=== PATIENT | male | born 1955 ===

== ENCOUNTER 2020-08-14 10:12 | Outpatient (REF) | payer MEDICARE, MEDICAID, SELFPAY ==
--- NOTE | 2020-08-14 10:42 | XR_ITS ---
EXAMINATION: XR LUMBOSACRAL SPINE CLINICAL INFORMATION: Low back pain. COMPARISON: 04/16/2020 radiographs. TECHNIQUE: Three views of the lumbosacral spine. FINDINGS: Mild to moderate multilevel degenerative disc disease is seen, most pronounced at L2-3. Again seen is a superior endplate compression deformity at L3 without significant change. There is normal spinal alignment without significant change. The soft tissues are unremarkable. XR/XR lumbar spine 2-3V IMPRESSION: Multilevel degenerative changes and nonacute superior plate compression deformity at L3 without significant interval change.
[2020-08-14 13:05] LABS: MANUAL DIFF FLAG NO
[2020-08-14 13:53] LABS: Anion Gap 13 (12-20); Blood Urea Nitrogen 19 mg/dL (9-16); Calcium 8.6 mg/dL (8.4-10.2); Carbon Dioxide 24 mmol/L (22-29); Chloride 104 mmol/L (96-108); Estimated Glomerular Filt Rate > 60; Glucose Fasting 86 mg/dL (60-99); Potassium 4.4 mmol/l (3.3-5.1); Rheumatoid Factor 15.4 IU/mL (<15.0); Sodium 137 mmol/L (135-145)
[2020-08-14 14:02] LABS: Basophils Percent Auto 0.1 % (0-2); Eosinophils Percent Auto 0.4 % (0-4); Hematocrit 28.5 % (42-52); Hemoglobin 8.5 g/dl (14.0-18.0); Imm Gran Abs Auto 0.02 X10*3/uL (0.00-0.03); Imm Gran Pct Auto 0.3 % (0.0-0.4); Lymphocytes Absolute Auto 1.2 X10*3/uL (1.2-4.9); Lymphocytes Percent Auto 15.3 % (20-40); Mean Corpuscular HGB Conc 29.8 g/dl (31.0-36.0); Mean Corpuscular Hemoglobin 25.4 pg (27.0-33.0); Mean Corpuscular Volume 85.1 fL (80-98); Mean Platelet Volume 13.6 fL (9.4-12.4); Monocytes Absolute Auto 0.4 X10*3/uL (0.1-1.2); Monocytes Percent Auto 5.3 % (2-11); Neutrophils Absolute Auto 5.9 X10*3/uL (2.0-8.3); Neutrophils Percent Auto 78.6 % (45-73); Platelet Count 206 X10*3/uL (160-400); Red Blood Count 3.35 X10*6/uL (4.60-5.80); Red Cell Distribution Width 17.5 % (11.0-16.0); White Blood Count 7.5 X10*3/uL (4.8-10.8)
[2020-08-14 14:42] LABS: Erythrocyte Sedimentation Rate 34 MM/HR (0-15)
== END 2020-08-14 10:13 | disposition home or self-care (01) ==
LOC: HO.LAB 10:12
PROVIDERS: PCP Internal Medicine; Visit Provider Nurse Practitioner Family
DX: G89.29 Other chronic pain (principal); M54.5 Low back pain
CPT/HCPCS: 36415; 72100; 80048; 85025; 85652; 86431

== ENCOUNTER 2020-09-05 | Day surgery (SDC) | payer MEDICARE, MEDICAID, SELFPAY ==
[2020-09-05 10:32] VITALS: PULSE 65; RESP 18; TEMP 36.6; O2SAT 96
[2020-09-05 10:36] VITALS: BMI 34.9
[2020-09-05] MEDS: Sodium Phosphate,Mono-Dibasic 133 ML ENEMA PR (10:50)
--- NOTE | 2020-09-05 10:51 | PC.NURSE ---
PER MD VERBAL ORDER, FLEETS GIVEN DUE TO PT'S UNRELIABILITY IN PAST WITH PREP. HAD RICE AND BEANS AT 1600 YESTERDAY BUT STATES WATER LIQUID RESULTS. ONE FLEETS GIVEN AT 1050AM.
--- NOTE | 2020-09-05 11:37 | PC.NURSE ---
WATER LIQUID RESULTS WITH FLEETS AT 1105.
--- NOTE | 2020-09-05 11:49 | HO.ANESPROP2 ---
[facility] Past Medical History Medical History Common cold Hepatitis C Liver cirrhosis Lower back pain Family History Family History Father Prostate cancer Mother Diabetes Stroke Surgical History Surgical History (Updated 09/05/20 @ 11:36 by Rivka Masters RN) History of ankle surgery History of appendectomy History of breast lump/mass excision History of open reduction and internal fixation (ORIF) procedure Hx of colonoscopy Social History Social History (Updated 09/05/20 @ 11:57 by Marleny Torres) Alcohol intake: former Year quit: 2017 Smoking Status: Current every day smoker Cigarettes Per Day: 7 Use of substances other than those prescribed or required for medical reasons: No Advance Directives: No Advance Directives Information Provided: No Advance Directives on File: No Meds Allergies Allergy/AdvReac Type Severity Reaction Status Date / Time No Known Allergies Allergy Verified 09/05/20 10:43 [No Known Allergies*] Home Medications Medication Instructions Recorded Confirmed Type albuterol sulfate 90 mcg/actuation 2 puff PO Q6H PRN 08/13/20 08/13/20 History aerosol inhaler bisacodyl 5 mg tablet,delayed 10 mg PO DIRECTED 08/13/20 08/13/20 History release celecoxib 200 mg capsule 200 mg PO DAILY 08/13/20 08/13/20 History cyanocobalamin (vitamin B-12) 1,000 mcg PO DAILY 08/13/20 08/13/20 History 1,000 mcg tablet,extended release folic acid 1 mg tablet 1 mg PO DAILY 08/13/20 08/13/20 History lactulose 10 gram/15 mL oral 15 ml PO DAILY 08/13/20 08/13/20 History solution omeprazole 20 mg capsule,delayed 20 mg PO QAM 08/13/20 08/13/20 History release rifaximin 550 mg tablet 550 mg PO BID 08/13/20 08/13/20 History sodium,potassium,mag sulfates 17.5 1 PO 08/13/20 08/13/20 History gram-3.13 gram-1.6 gram oral soln thiamine HCl (vitamin B1) 50 mg 100 mg PO DAILY 08/13/20 08/13/20 History tablet tramadol 50 mg tablet 50 mg PO BID PRN 08/13/20 08/13/20 History vitamin B complex 1 tab PO DAILY 08/13/20 08/13/20 History vitamin B complex-folic acid 0.4 1 tab PO DAILY 08/13/20 08/13/20 History mg tablet Exam Exam Date and Time: September 05, 2020 1149 Height,Weight and Vital Signs: Height 5 ft 3 in Weight 89.358 kg Last Vital Signs Temp 98 F 09/05/20 10:32 Pulse 65 09/05/20 10:32 Resp 18 09/05/20 10:32 Pulse Ox 96 09/05/20 10:32 Airway Mallampati Class: III TM Dist: >3cm Neck ROM: Full Partial: Upper and Lower Heart: RRR Lungs: clear after coughing Assessment and Plan Assessment Anesthesia Assessment: Anesthesia Plan Discussed and Chart Reviewed Final Anesthetic Review NPO: Yes ASA Class: III Final Preanesthetic Review: Meds/Allgs Chart Reviewed, Consent Obtained/Reviewed and Anes Risks/Benef Reviewed Patient Risk: Intermediate Procedure Risk: Low Anesthetic Plan Anesthetic Plan: MAC: Disposition: Standard PACU
--- NOTE | 2020-09-05 12:46 | MHC.SHP ---
Pre-Procedural Eval Section B Chief Complaint: screening Relevant Family History (Specify if Yes): No Relevant Social History: Tobacco Use Present Medications: see Short Stay Collaborative assessment Medical History: Significant History (Hepatitis C Liver cirrhosis Lower back pain) History of Previous Operations: Relevant previous surgery/procedure and date(s) (appendectomy, ORIF) Allergies: Allergies Allergy/AdvReac Type Severity Reaction Status Date / Time No Known Allergies Allergy Verified 09/05/20 10:43 [No Known Allergies*] Review of Systems Sugical H&P ROS: Negative: Constitution, Cardiovascular, Respiratory, Neurological, Psychiatric, Hem-Onc, Allergic/Immunologic, Gastrointestinal, Genitourinary, Musculoskeletal, Integumentary, Endocrine and Eyes/Ears/Nose/Throat Exam Surgical H&P Exam: Normal: HEENT, Normal: Heart, Normal: Lungs, Normal: Extremities, Normal: Abdomen, Normal: Skin and Normal: Neurological Plan Diagnosis/Plan: Unchanged Patient has been examined and remains a candidate for the planned procedure
--- NOTE | 2020-09-05 12:48 | PM.OP ---
Brief Operative Note Date of Service: 09/05/20 Post-op diagnosis: same Procedure: Operative Information Procedure Description: Colonoscopy COLONOSCOPY Instrument: Olympus variable stiffness pediatric scope 190L Colonoscopy Monitoring: Vital signs and clinical assessment, continuous EKG monitoring, Pulse oximetry, Carbon Dioxide monitoring and blood pressure monitoring were done throughout the procedure. Colon withdrawal time was 21 minutes. Procedure: The patient was placed in the left lateral decubitis position and pre-procedure medications were administered. After a digital rectal examination of the ano-rectum, the video colonoscope was inserted into the rectum and advanced through the colon to the cecum/TI. The colonoscope was slowly withdrawn in a retrograde panoramic fashion and the colon mucosa was carefully examined including a retroflexed view of the rectum. Findings and interventions are described below. Procedure Difficulty:easy Findings: Terminal Ileum-normal Cecum: 5-6 mm sessile polyp removed with cold snare Ascending Colon: x 2 sessile polyps 8-10 mm each removed with cold snare Transverse Colon -normal Descending Colon:normal Sigmoid Colon: sessile polyp about 10 mm removed with codl snare, x 2 clips applied Rectum: Retroflexion with moderate sized internal hemorrhoids, grade II Anorectum - int hemorrhoids seen at anal verge Colon preparation: [place] Bowel Preparation Scale Right colon; 1 Transverse colon: 1 Left colon; 1 (0 = Unprepared colon segment with mucosa not seen due to solid stool that cannot be cleared. 1 = Portion of mucosa of the colon segment seen, but other areas of the colon segment not well seen due to staining, residual stool and/or opaque liquid. 2 = Minor amount of residual staining, small fragments of stool and/or opaque liquid, but mucosa of colon segment seen well. 3 = Entire mucosa of colon segment seen well with no residual staining, small fragments of stool or opaque liquid) Impression and Post Procedure Diagnosis: polyps int hemorrhoids Plan: High fiber diet leaflet Avoid straining at stool, epsom salts and sitz bath, anusol supps or cream Repeat Colonoscopy in 6-12 months with prep complaince next time, found after wards that he ate yesterday, beans and rice Above findings were reviewed with the patient and relevant handouts were provided if indicated. Surgeon: Amber Maza MD Anesthesia: MAC Estimated blood loss (mL): 0 Condition: stable Disposition: PACU
[2020-09-05 13:51] VITALS: BP 139/96; PULSE 110; RESP 12; TEMP 36.2; O2SAT 98
[2020-09-05 14:06] VITALS: BP 140/78; PULSE 110; RESP 16; O2SAT 97
[2020-09-05 14:14] VITALS: BP 122/91; PULSE 88; RESP 16; TEMP 36.1; O2SAT 97
--- NOTE | 2020-09-05 14:40 | HO.POSTANES ---
Post Anesthesia Evaluation Post Anesthesia Evaluation Vital Signs: Vital Signs Temp Pulse Resp BP Pulse Ox 09/05/20 14:14 97 F 88 16 122/91 H 97 09/05/20 14:06 110 H 16 140/78 H 97 09/05/20 13:51 97.1 F 110 H 12 139/96 H 98 09/05/20 10:32 98 F 65 18 96 Anesthesia: Monitored Mental Status: Awake Pain Control: Satisfactory Nausea/Vomiting: None Hydration: Adequate Anesthesia-Related Issues: No Anes. Related Issues
== END 2020-09-05 15:00 | disposition home or self-care (01) ==
LOC: HO.SSS 10-23 08:12
PROVIDERS: PCP Internal Medicine; Visit Provider Internal Medicine Gastroenterology
PROC: 0DJD8ZZ Inspection of Lower Intestinal Tract, Via Natural or Artificial Opening Endoscopic (ICD-10-PCS; CPT 45378; principal; 2020-09-05 13:40)
DX: Z12.11 Encounter for screening for malignant neoplasm of colon (principal); D12.0 Benign neoplasm of cecum; D12.2 Benign neoplasm of ascending colon; D12.5 Benign neoplasm of sigmoid colon; K64.1 Second degree hemorrhoids; K74.60 Unspecified cirrhosis of liver; B19.20 Unspecified viral hepatitis C without hepatic coma; F17.210 Nicotine dependence, cigarettes, uncomplicated; Z79.899 Other long term (current) drug therapy
CPT/HCPCS: 45385; 88305

== ENCOUNTER 2020-09-24 10:39 | Outpatient (REF) | payer MEDICARE, MEDICAID, SELFPAY ==
[2020-09-24 12:48] LABS: MANUAL DIFF FLAG NO
[2020-09-24 12:56] LABS: Basophils Percent Auto 0.4 % (0-2); Eosinophils Absolute Auto 0.4 X10*3/uL (0.0-0.4); Eosinophils Percent Auto 5.5 % (0-4); Hematocrit 33.7 % (42-52); Hemoglobin 10.2 g/dl (14.0-18.0); Imm Gran Abs Auto 0.02 X10*3/uL (0.00-0.03); Imm Gran Pct Auto 0.3 % (0.0-0.4); Lymphocytes Absolute Auto 2.2 X10*3/uL (1.2-4.9); Lymphocytes Percent Auto 30.1 % (20-40); Mean Corpuscular HGB Conc 30.3 g/dl (31.0-36.0); Mean Corpuscular Hemoglobin 25.2 pg (27.0-33.0); Mean Corpuscular Volume 83.4 fL (80-98); Mean Platelet Volume 13.2 fL (9.4-12.4); Monocytes Absolute Auto 0.7 X10*3/uL (0.1-1.2); Monocytes Percent Auto 9.9 % (2-11); Neutrophils Percent Auto 53.8 % (45-73); Platelet Count 223 X10*3/uL (160-400); Red Blood Count 4.04 X10*6/uL (4.60-5.80); Red Cell Distribution Width 16.6 % (11.0-16.0); White Blood Count 7.4 X10*3/uL (4.8-10.8)
[2020-09-24 13:10] LABS: Prothrombin Time 11.3 SEC (10.8-13.0)
[2020-09-24 13:21] LABS: Alanine Aminotransferase 26 U/L (0-40); Albumin Level 3.9 g/dL (3.5-5.0); Alkaline Phosphatase 112 U/L (39-117); Anion Gap 13 (12-20); Aspartate Amino Transferase 30 U/L (5-37); Bilirubin Total 0.3 mg/dL (0.0-1.0); Blood Urea Nitrogen 18 mg/dL (9-16); Calcium 8.4 mg/dL (8.4-10.2); Carbon Dioxide 25 mmol/L (22-29); Chloride 107 mmol/L (96-108); Estimated Glomerular Filt Rate > 60; Glucose Random 87 mg/dL (60-115); Potassium 4.5 mmol/l (3.3-5.1); Sodium 140 mmol/L (135-145); Total Protein 6.9 g/dL (6.5-8.0)
[2020-09-24 13:41] LABS: Ferritin 15 ng/mL (20-250); Vitamin D 25-OH Total 11.3 ng/mL (>30)
[2020-09-24 14:14] LABS: Folate 9.2 ng/mL (> or = 4.0); Vitamin B12 624 pg/mL (200-900)
[2020-09-28 14:13] LABS: Vitamin B6 2.9 ng/mL (2.1-21.7)
[2020-09-29 16:12] LABS: Zinc 79 mcg/dL (60-130)
[2020-09-30 17:38] LABS: Vitamin A 46 mcg/dL (38-98)
[2020-10-01 12:12] LABS: Alpha-Tocopherol 9.5 mg/L (5.7-19.9); Beta-Gamma Tocopherol <1.0 mg/L (<=4.3)
[2020-10-01 16:32] LABS: Vitamin C 1.2 mg/dL (0.2-2.1)
[2020-10-01 19:12] LABS: Vitamin B5 (Pantothenic Acid) <40 ng/mL (<275)
[2020-10-02 13:07] LABS: Nicotinamide 60 ng/mL; Vit B3 - Nicotinic Acid <20 ng/mL
[2020-10-02 16:37] LABS: Vitamin K1 114 pg/mL (130-1500)
== END 2020-09-24 10:40 | disposition home or self-care (01) ==
LOC: HO.LAB 10:39
PROVIDERS: PCP Internal Medicine; Visit Provider Internal Medicine Gastroenterology
DX: K74.60 Unspecified cirrhosis of liver (principal)
CPT/HCPCS: 36415; 80053; 82180; 82306; 82550; 82607; 82728; 82746; 84207; 84446; 84590; 84591; 84597; 84630; 85025; 85610; Q3014

== ENCOUNTER 2020-10-15 13:25 | Outpatient (REF) | payer MEDICARE, MEDICAID, SELFPAY ==
--- NOTE | 2020-10-15 13:28 | MR_ITS ---
EXAMINATION: MR ABDOMEN WITHOUT AND WITH CONTRAST CLINICAL INFORMATION: Liver cirrhosis COMPARISON: Previous abdominal MRIs most recent June [address] scans most recent November 2018 TECHNIQUE: MR abdomen was performed without and with use of 9 mL intravenous Gadavist gadolinium contrast. Postcontrast images are performed in multiphase dynamic sequences. Imaging was performed in 3 planes. FINDINGS: LUNG BASES: The visualized lung bases are unremarkable. LIVER, GALLBLADDER, AND BILIARY TREE: There is a signal loss in the liver on out of phase sequences suggestive of fatty infiltration. There is been interval decrease in size in the left lobe and caudate lobe of the liver compared to previous exams. There is interval decrease in size in the lesion in the lateral segment of the left lobe of the liver. This is heterogeneous and predominantly low signal on T1-weighted sequences with small focus of increased attenuation, heterogeneous in signal on T2-weighted sequences and demonstrates no evidence of enhancement. This measures 2.2 x 4.6 cm in AP and transverse dimension and is decreased in size from previous exams, most recent exam June 2019 measuring 4.1 x 6.1 cm. There is altered perfusion of the left lobe of the liver and the caudate lobe of the liver. There is a small 5 mm probable cyst high in the left lobe of the liver that is unchanged for example axial T2 image 9 series 4 and postcontrast image 22. There is a small nonspecific 6 mm area of early arterial enhancement high in the dome of the liver axial image 16 series 100. No corresponding signal abnormality is seen on precontrast sequences and this is not appreciated on later postcontrast sequences. This is similar to most recent exam from June 2019. No new liver lesion is seen. The left portal vein may be occluded. The right portal vein and main portal vein are patent. The gallbladder is unremarkable. There is no biliary duct dilatation. PANCREAS: Unremarkable. SPLEEN: Normal. ADRENAL GLANDS: Normal. KIDNEYS AND URETERS: There are left renal peripelvic cysts. The kidneys are otherwise unremarkable. GASTROINTESTINAL TRACT: No bowel obstruction. No ascites or fluid collection. ABDOMINAL WALL: There is a small umbilical hernia containing fat. LYMPH NODES: There are small periportal and upper abdominal retroperitoneal lymph nodes that are stable. No enlarged lymph nodes are seen. There is no ascites. VASCULAR: Occluded left portal vein. OSSEOUS STRUCTURES: There are degenerative changes of the spine. There is slight loss of height of superior endplate of the L3 vertebral body questionable for compression fracture versus Schmorl's node. This is similar to previous exams. MR/MR abdomen wo/w con IMPRESSION: Continued interval increase in size in the slightly heterogeneous nonenhancing lesion in the left lobe of the liver. Again this may represent a treated lesion. Stable 5 mm liver cyst high in the dome of the liver. Stable 6 mm focus of early arterial phase enhancement high in the dome of the liver not seen on any other sequences. 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 Small periportal and upper abdominal retroperitoneal lymph nodes that are stable. Left renal peripelvic cysts. Small umbilical hernia containing fat.
== END 2020-10-15 13:26 | disposition home or self-care (01) ==
LOC: HO.MRI 13:25
PROVIDERS: Visit Provider Internal Medicine Gastroenterology
DX: K74.60 Unspecified cirrhosis of liver (principal)
CPT/HCPCS: 74183; A9585

== ENCOUNTER 2020-11-12 13:47 | Emergency (ER) | payer MEDICARE, MEDICAID, SELFPAY ==
--- NOTE | ~2020-11-12 | XR_ITS ---
EXAMINATION: XR CHEST CLINICAL INFORMATION: Fluid overload COMPARISON: 01/17/2018 TECHNIQUE: Frontal view of the chest was obtained. FINDINGS: Lungs are clear. Normal pulmonary vascularity. Degenerative changes of the bilateral shoulders. Calcified aortic arch. No pleural effusion or pneumothorax. Normal heart size. XR/XR chest 1V IMPRESSION: No acute pulmonary disease.
[2020-11-12 13:50] VITALS: BP 158/97; PULSE 78; RESP 18; TEMP 37; O2SAT 97; BMI 32.8
[2020-11-12] MEDS: Acetaminophen 325 MG TABLET 650 MG PO (15:16)
--- NOTE | 2020-11-12 16:11 | ED.LOWEXIN ---
HPI - Extremity Injury (Lower) General Chief Complaint: Extremity Injury, Lower Stated Complaint: LEG PAIN Time Seen by Provider: 11/12/20 16:10 Source: patient Mode of arrival: ambulatory Limitations: no limitations History of Present Illness HPI Narrative: Vascular alcoholic cirrhosis and hepatic cancer not taking any medication comes here with pain in both lower extremities for last 1 month feel burning sensation no motor weakness no sensory loss never had similar symptoms in the past also patient noticed increased leg swelling no shortness of breath no chest pain Related Data Home Medications Medication Instructions Recorded Confirmed albuterol sulfate 90 mcg/actuation 2 puff PO Q6H PRN 08/13/20 08/13/20 aerosol inhaler bisacodyl 5 mg tablet,delayed 10 mg PO DIRECTED 08/13/20 08/13/20 release celecoxib 200 mg capsule 200 mg PO DAILY 08/13/20 08/13/20 cyanocobalamin (vitamin B-12) 1,000 mcg PO DAILY 08/13/20 08/13/20 1,000 mcg tablet,extended release folic acid 1 mg tablet 1 mg PO DAILY 08/13/20 08/13/20 lactulose 10 gram/15 mL oral 15 ml PO DAILY 08/13/20 08/13/20 solution omeprazole 20 mg capsule,delayed 20 mg PO QAM 08/13/20 08/13/20 release rifaximin 550 mg tablet 550 mg PO BID 08/13/20 08/13/20 sodium,potassium,mag sulfates 17.5 1 PO 08/13/20 08/13/20 gram-3.13 gram-1.6 gram oral soln thiamine HCl (vitamin B1) 50 mg 100 mg PO DAILY 08/13/20 08/13/20 tablet tramadol 50 mg tablet 50 mg PO BID PRN 08/13/20 08/13/20 vitamin B complex 1 tab PO DAILY 08/13/20 08/13/20 vitamin B complex-folic acid 0.4 1 tab PO DAILY 08/13/20 08/13/20 mg tablet Previous Rx's Medication Instructions Recorded cyclobenzaprine 10 mg tablet 10 mg PO BEDTIME 30 Days #30 tab 08/13/20 guaifenesin 600 mg tablet, 600 mg PO BID 10 Days #20 tab 08/13/20 extended release 12 hr ibuprofen 800 mg tablet 800 mg PO Q8H PRN 15 Days #30 tab 08/13/20 prednisone 10 mg tablet 10 mg PO DAILY 9 Days #18 tab 08/13/20 ferrous sulfate 325 mg (65 mg 325 mg PO BID 30 Days #60 tab 08/14/20 iron) tablet,delayed release trazodone 50 mg tablet 50 mg PO BEDTIME PRN #30 tab 08/14/20 hydrocortisone [Proctozone-HC] 1 appl ME BEDTIME 7 Days #30 g 09/05/20 tadalafil 10 mg tablet 10 mg PO DAILY PRN #30 tab 09/25/20 cholecalciferol (vitamin D3) 25 1,000 unit PO DAILY 30 Days #30 cap 10/01/20 mcg (1,000 unit) capsule gabapentin [Neurontin] 100 mg PO TID #60 cap 11/12/20 Allergies Allergy/AdvReac Type Severity Reaction Status Date / Time No Known Allergies Allergy Verified 11/12/20 13:50 [No Known Allergies*] Review of Systems Review of Systems: Constitutional : No Weight loss, No Fever, No Chills ENT/Mouth : No sore throat, No Rhinorrhea Eyes: No Eye Pain, No Swelling Cardiovascular : No Chest Pain, no palpitations Respiratory : No Cough, No Sputum, no shortness of breath Gastrointestinal : no Nausea, No Vomiting, No Diarrhea, No abdominal Pain, no black stools Genitourinary : No Dysuria, No Urinary Frequency Musculoskeletal : No joint pain, No Myalgias, No Joint Swelling Skin : No Skin Lesions, No rash Neuro : No Weakness, ++ Numbness, No Dizziness, No Headache Psych : No Anxiety/Panic, No Depression Heme/Lymph: No Bruising, No Lymphadenopathy Endocrine : No Polyuria, No Polydipsia All other systems reviewed and are negative [facility] Past Medical History Medical History Common cold Hepatitis C Liver cirrhosis Lower back pain Surgical History History of ankle surgery History of appendectomy History of breast lump/mass excision History of open reduction and internal fixation (ORIF) procedure Hx of colonoscopy Family History Family History Father Prostate cancer Mother Diabetes Stroke Social History Social History Alcohol intake: former Year quit: 2017 Smoking Status: Current every day smoker Cigarettes Per Day: 7 Advance Directives: Yes Advance Directives Information Provided: Yes Advance Directives on File: No Physical Exam Vital Signs: Vital Signs: Last Vital Signs Temp 98.1 F 11/12/20 17:58 Pulse 67 11/12/20 17:58 Resp 18 11/12/20 17:58 BP 178/96 H 11/12/20 17:58 Pulse Ox 99 11/12/20 17:58 Body Mass Index 32.8 Appearance: Alert. Oriented X3. No acute distress. Eyes: Pupils equal, round and reactive to light. ENT: Pharynx normal. Neck: Normal inspection. Neck supple. CVS: Normal heart rate and rhythm. Pulses normal. Respiratory: No respiratory distress. Breath sounds normal. Abdomen: Soft and nontender. Bowel sounds are present, no mass palpable, no CVA tenderness Skin: Skin warm and dry. Normal skin color. Normal skin turgor. Extremities: 1+ pedal edema. A joint normal no effusion subjective numbness both lower extremities Neuro: Oriented X 3. No motor deficit. No sensory deficit. Deep tendon reflexes 2+ bilateral MDM - Extremity Injury (Lower) MDM Narrative Medical decision making narrative: Patient with neuropathic pain both legs likely with peripheral neuropathy workup is negative labs normal. Will discharge patient home on [facility] Medical Records Attestation: I reviewed the patient's medical records. Lab Data Attestation: I reviewed the patient's lab results. Result diagrams: 11/12/20 17:04 11/12/20 17:04 Labs: Lab Results 11/12/20 11/12/20 11/12/20 Range/Units 17:04 17:04 17:04 WBC 7.0 (4.8-10.8) X10*3/uL RBC 3.99 L (4.60-5.80) X10*6/uL Hgb 9.8 L (14.0-18.0) g/dl Hct 32.2 L (42-52) % MCV 80.7 (80-98) fL MCH 24.6 L (27.0-33.0) pg MCHC 30.4 L (31.0-36.0) g/dl RDW 16.1 H (11.0-16.0) % Plt Count 215 (160-400) X10*3/uL MPV 11.1 (9.4-12.4) fL Immature Gran % (Auto) 0.1 (0.0-0.4) % Neut % (Auto) 59.6 (45-73) % Lymph % (Auto) 27.5 (20-40) % [place] % (Auto) 9.4 (2-11) % Eos % (Auto) 3.3 (0-4) % Baso % (Auto) 0.1 (0-2) % Lymph # (Auto) 1.9 (1.2-4.9) X10*3/uL [place] # (Auto) 0.7 (0.1-1.2) X10*3/uL Eos # (Auto) 0.2 (0.0-0.4) X10*3/uL Baso # (Auto) 0.0 (0.0-0.2) X10*3/uL Abs Immat Gran (auto) 0.01 (0.00-0.03) X10*3/uL Absolute Neuts (auto) 4.2 (2.0-8.3) X10*3/uL Absolute Nucleated RBC 0.000 (0.0-0.012) X10*3/uL Nucleated RBC % (auto) 0.0 (0.0-0.2) /100WBC PT 12.3 (10.8-13.0) SEC INR 1.0 (0.9-1.1) APTT 30.6 (24.1-38.0) SEC Sodium 140 (135-145) mmol/L Potassium 4.0 (3.3-5.1) mmol/L Chloride 108 (96-108) mmol/L Carbon Dioxide 25 (22-29) mmol/L Anion Gap 11 L (12-20) BUN 14 (9-16) mg/dL Creatinine 1.07 (0.5-1.4) mg/dL Estim Creat Clear Calc 65.0 Estimated GFR > 60 Random Glucose 95 (60-115) mg/dL Calcium 8.7 (8.4-10.2) mg/dL Magnesium 2.1 (1.6-2.6) mg/dL Total Bilirubin 0.6 (0.0-1.0) mg/dL Direct Bilirubin 0.2 (0.0-0.5) mg/dL AST 33 (5-37) U/L ALT 24 (0-40) U/L Alkaline Phosphatase 105 (39-117) U/L Ammonia (13-55) umol/L B-Natriuretic Peptide (<100) pg/mL Total Protein 6.8 (6.5-8.0) g/dL Albumin 3.8 (3.5-5.0) g/dL Lipase 26 (8-78) U/L Vitamin B12 (200-900) pg/mL Folate (> or = 4.0) ng/mL 11/12/20 11/12/20 11/12/20 Range/Units 17:04 17:04 17:04 WBC (4.8-10.8) X10*3/uL RBC (4.60-5.80) X10*6/uL Hgb (14.0-18.0) g/dl Hct (42-52) % MCV (80-98) fL MCH (27.0-33.0) pg MCHC (31.0-36.0) g/dl RDW (11.0-16.0) % Plt Count (160-400) X10*3/uL MPV (9.4-12.4) fL Immature Gran % (Auto) (0.0-0.4) % Neut % (Auto) (45-73) % Lymph % (Auto) (20-40) % [place] % (Auto) (2-11) % Eos % (Auto) (0-4) % Baso % (Auto) (0-2) % Lymph # (Auto) (1.2-4.9) X10*3/uL [place] # (Auto) (0.1-1.2) X10*3/uL Eos # (Auto) (0.0-0.4) X10*3/uL Baso # (Auto) (0.0-0.2) X10*3/uL Abs Immat Gran (auto) (0.00-0.03) X10*3/uL Absolute Neuts (auto) (2.0-8.3) X10*3/uL Absolute Nucleated RBC (0.0-0.012) X10*3/uL Nucleated RBC % (auto) (0.0-0.2) /100WBC PT (10.8-13.0) SEC INR (0.9-1.1) APTT (24.1-38.0) SEC Sodium (135-145) mmol/L Potassium (3.3-5.1) mmol/L Chloride (96-108) mmol/L Carbon Dioxide (22-29) mmol/L Anion Gap (12-20) BUN (9-16) mg/dL Creatinine (0.5-1.4) mg/dL Estim Creat Clear Calc Estimated GFR Random Glucose (60-115) mg/dL Calcium (8.4-10.2) mg/dL Magnesium (1.6-2.6) mg/dL Total Bilirubin (0.0-1.0) mg/dL Direct Bilirubin (0.0-0.5) mg/dL AST (5-37) U/L ALT (0-40) U/L Alkaline Phosphatase (39-117) U/L Ammonia 40 (13-55) umol/L B-Natriuretic Peptide 77 (<100) pg/mL Total Protein (6.5-8.0) g/dL Albumin (3.5-5.0) g/dL Lipase (8-78) U/L Vitamin B12 909 H (200-900) pg/mL Folate 7.2 (> or = 4.0) ng/mL Discharge Plan Discharge Clinical Impression: Neuropathy Patient Disposition: Home, Self-Care Instructions: Peripheral Neuropathy (ED) Additional Instructions: Take medication as prescribed. Follow with PCP Prescriptions: New gabapentin [Neurontin] 100 mg capsule 100 mg PO TID Qty: 60 RF: 0 No Action trazodone 50 mg tablet 50 mg PO BEDTIME PRN (Reason: insomnia) Qty: 30 RF: 0 ferrous sulfate 325 mg (65 mg iron) tablet,delayed release (DR/EC) 325 mg PO BID 30 Days Qty: 60 RF: 0 tadalafil 10 mg tablet 10 mg PO DAILY PRN (Reason: sexual activity) Qty: 30 RF: 0 cholecalciferol (vitamin D3) 25 mcg (1,000 unit) capsule 1,000 unit PO DAILY 30 Days Qty: 30 RF: 3 hydrocortisone [Proctozone-HC] 2.5 % cream with perineal applicator 1 appl ME BEDTIME 7 Days Qty: 30 RF: 0 Xifaxan 550 mg tablet 550 mg PO BID RF: 0 omeprazole 20 mg capsule,delayed release(DR/EC) 20 mg PO QAM RF: 0 cyanocobalamin (vitamin B-12) 1,000 mcg tablet extended release 1,000 mcg PO DAILY RF: 0 vitamin B complex-folic acid 0.4 mg tablet 1 tab PO DAILY RF: 0 albuterol sulfate 90 mcg/actuation HFA aerosol inhaler 2 puff PO Q6H PRN (Reason: Cold Symptoms) RF: 0 celecoxib 200 mg capsule 200 mg PO DAILY RF: 0 bisacodyl 5 mg tablet,delayed release (DR/EC) 10 mg PO DIRECTED RF: 0 tramadol 50 mg tablet 50 mg PO BID PRN (Reason: Pain) RF: 0 vitamin B complex Tablet 1 tab PO DAILY RF: 0 thiamine HCl (vitamin B1) 50 mg tablet 100 mg PO DAILY RF: 0 lactulose 10 gram/15 mL solution 15 ml PO DAILY RF: 0 folic acid 1 mg tablet 1 mg PO DAILY RF: 0 Suprep Bowel Prep Kit 17.5-3.13-1.6 gram recon soln 1 PO RF: 0 ibuprofen 800 mg tablet 800 mg PO Q8H PRN (Reason: pain) 15 Days Qty: 30 RF: 0 prednisone 10 mg tablet 10 mg PO DAILY 9 Days Qty: 18 RF: 0 cyclobenzaprine 10 mg tablet 10 mg PO BEDTIME 30 Days Qty: 30 RF: 0 guaifenesin [Mucinex] 600 mg tablet extended release 12hr 600 mg PO BID 10 Days Qty: 20 RF: 0 Interventions: ED Discharge Assessment Last Done: 11/12/20 18:31
[2020-11-12 16:38] VITALS: BP 178/92; PULSE 64; RESP 20; TEMP 36.7; O2SAT 98
[2020-11-12 17:08] LABS: MANUAL DIFF FLAG NO
[2020-11-12 17:11] LABS: Basophils Percent Auto 0.1 % (0-2); Eosinophils Absolute Auto 0.2 X10*3/uL (0.0-0.4); Eosinophils Percent Auto 3.3 % (0-4); Hematocrit 32.2 % (42-52); Hemoglobin 9.8 g/dl (14.0-18.0); Imm Gran Abs Auto 0.01 X10*3/uL (0.00-0.03); Imm Gran Pct Auto 0.1 % (0.0-0.4); Lymphocytes Absolute Auto 1.9 X10*3/uL (1.2-4.9); Lymphocytes Percent Auto 27.5 % (20-40); Mean Corpuscular HGB Conc 30.4 g/dl (31.0-36.0); Mean Corpuscular Hemoglobin 24.6 pg (27.0-33.0); Mean Corpuscular Volume 80.7 fL (80-98); Mean Platelet Volume 11.1 fL (9.4-12.4); Monocytes Absolute Auto 0.7 X10*3/uL (0.1-1.2); Monocytes Percent Auto 9.4 % (2-11); Neutrophils Absolute Auto 4.2 X10*3/uL (2.0-8.3); Neutrophils Percent Auto 59.6 % (45-73); Platelet Count 215 X10*3/uL (160-400); Red Blood Count 3.99 X10*6/uL (4.60-5.80); Red Cell Distribution Width 16.1 % (11.0-16.0)
[2020-11-12 17:19] LABS: Prothrombin Time 12.3 SEC (10.8-13.0)
[2020-11-12 17:22] LABS: Partial Thromboplastin Time 30.6 SEC (24.1-38.0)
[2020-11-12 17:36] LABS: Ammonia 40 umol/L (13-55)
[2020-11-12 17:46] LABS: Alanine Aminotransferase 24 U/L (0-40); Albumin Level 3.8 g/dL (3.5-5.0); Alkaline Phosphatase 105 U/L (39-117); Anion Gap 11 (12-20); Aspartate Amino Transferase 33 U/L (5-37); Bilirubin Direct 0.2 mg/dL (0.0-0.5); Bilirubin Total 0.6 mg/dL (0.0-1.0); Blood Urea Nitrogen 14 mg/dL (9-16); Calcium 8.7 mg/dL (8.4-10.2); Carbon Dioxide 25 mmol/L (22-29); Chloride 108 mmol/L (96-108); Estimated Glomerular Filt Rate > 60; Glucose Random 95 mg/dL (60-115); Lipase 26 U/L (8-78); Magnesium 2.1 mg/dL (1.6-2.6); Sodium 140 mmol/L (135-145); Total Protein 6.8 g/dL (6.5-8.0)
[2020-11-12 17:49] LABS: B Type Natriuretic Peptide 77 pg/mL (<100)
[2020-11-12 17:58] VITALS: BP 178/96; PULSE 67; RESP 18; TEMP 36.7; O2SAT 99
[2020-11-12] MEDS: Gabapentin 300 MG CAPSULE PO (18:37)
[2020-11-12 19:41] LABS: Folate 7.2 ng/mL (> or = 4.0); Vitamin B12 909 pg/mL (200-900)
== END 2020-11-12 18:36 | disposition home or self-care (01) ==
PROVIDERS: Emergency Provider Internal Medicine; PCP Internal Medicine
DX: G62.9 Polyneuropathy, unspecified (principal); K70.30 Alcoholic cirrhosis of liver without ascites; F10.20 Alcohol dependence, uncomplicated; B19.20 Unspecified viral hepatitis C without hepatic coma; C22.8 Malignant neoplasm of liver, primary, unspecified as to type; F17.210 Nicotine dependence, cigarettes, uncomplicated; Z79.899 Other long term (current) drug therapy
CPT/HCPCS: 36415; 71045; 80048; 80076; 82140; 82607; 82746; 83690; 83735; 83880; 85025; 85610; 85730; 99283

== ENCOUNTER 2020-12-05 08:07 | Outpatient (REF) | payer MEDICARE, MEDICAID, SELFPAY ==
[2020-12-05 10:43] LABS: Erythrocyte Sedimentation Rate 28 MM/HR (0-15)
== END 2020-12-05 08:08 | disposition home or self-care (01) ==
LOC: HO.LAB 08:07
PROVIDERS: PCP Internal Medicine; Visit Provider Student in an Organized Health Care Education/Training Program
DX: M79.10 Myalgia, unspecified site (principal); M54.5 Low back pain; Z79.899 Other long term (current) drug therapy; K76.9 Liver disease, unspecified
CPT/HCPCS: 36415; 82085; 82550; 85652; 86140; 99202

== ENCOUNTER → 2020-12-27 08:04 | Outpatient (BNVA) | payer MEDICARE, MEDICAID, SELFPAY | PROVIDERS: PCP Internal Medicine; Visit Provider Student in an Organized Health Care Education/Training Program | DX: M79.10 Myalgia, unspecified site (principal); M47.816 Spondylosis without myelopathy or radiculopathy, lumbar region | CPT/HCPCS: 99212 ==

== ENCOUNTER → 2021-01-20 09:03 | Outpatient (BNVA) | payer MEDICARE, MEDICAID, SELFPAY | PROVIDERS: PCP Internal Medicine; Visit Provider Internal Medicine Gastroenterology | CPT/HCPCS: Q3014 ==

== ENCOUNTER → 2022-02-13 14:41 | Outpatient (BNVA) | payer MEDICARE, MEDICAID, SELFPAY | PROVIDERS: PCP Internal Medicine; Visit Provider Nurse Practitioner Family | DX: M25.561 Pain in right knee (principal); M25.562 Pain in left knee; M79.604 Pain in right leg; M79.605 Pain in left leg; M51.36 Other intervertebral disc degeneration, lumbar region; G57.93 Unspecified mononeuropathy of bilateral lower limbs | CPT/HCPCS: 99202 ==

== ENCOUNTER 2022-02-19 12:19 | Outpatient (REF) | payer MEDICARE, MEDICAID, SELFPAY ==
--- NOTE | ~2022-02-19 | XR_ITS ---
EXAMINATION: Knee x-ray CLINICAL INFORMATION: Right knee pain COMPARISON: None TECHNIQUE: AP bilateral standing view of the knees and lateral view of the right knee was obtained. FINDINGS: Right knee: Bone alignment is normal. No fracture or dislocation is seen. The femoral tibial joints are normal. There is mild arthritis at the femoral tibial joint. There is a small joint effusion. Standing AP view of the left knee is unremarkable. XR/XR knee standing BI IMPRESSION: Mild arthritis at the patellofemoral joint.
--- NOTE | ~2022-02-19 | XR_ITS ---
EXAMINATION: XR BILATERAL HIPS WITH AP PELVIS CLINICAL INFORMATION: Pain COMPARISON: None TECHNIQUE: AP view of the pelvis and 2 views of each hip were obtained. FINDINGS: There is mild arthritis at both hip joints with wall osteophytes. Joint spaces are otherwise normal. No fracture or dislocation is seen bones of the pelvis are normal. Soft tissues are normal. XR/XR hip BI w PEL1V IMPRESSION: Mild degenerative changes at the hip joints.
== END 2022-02-19 12:20 | disposition home or self-care (01) ==
LOC: HO.XRAY 12:19
PROVIDERS: PCP Internal Medicine; Visit Provider Nurse Practitioner Family
DX: G57.93 Unspecified mononeuropathy of bilateral lower limbs (principal); M79.604 Pain in right leg; M79.605 Pain in left leg; M25.561 Pain in right knee; M25.562 Pain in left knee
CPT/HCPCS: 73521; 73565

== ENCOUNTER 2022-03-23 12:10 | Outpatient (REF) | payer MEDICARE, MEDICAID, SELFPAY ==
[2022-03-23 14:06] LABS: Folate 5.4 ng/mL (> or = 4.0); Vitamin B12 309 pg/mL (200-900)
[2022-03-23 14:57] LABS: TSH reflex Free T4 2.57 uIU/mL (0.32-4.0); Vitamin D 25-OH Total 13.1 ng/mL (>30)
[2022-03-23 15:53] LABS: Alanine Aminotransferase 30 U/L (0-40); Albumin Level 3.8 g/dL (3.5-5.0); Alkaline Phosphatase 93 U/L (39-117); Anion Gap 13 (12-20); Aspartate Amino Transferase 39 U/L (5-37); Bilirubin Total 0.2 mg/dL (0.0-1.0); Blood Urea Nitrogen 18 mg/dL (9-16); Calcium 8.5 mg/dL (8.4-10.2); Carbon Dioxide 23 mmol/L (22-29); Chloride 110 mmol/L (96-108); Cholesterol 176 mg/dL; Estimated Glomerular Filt Rate > 60; Glucose Fasting 95 mg/dL (60-99); HDL Cholesterol 54 mg/dL; LDL Cholesterol Calculated 95 mg/dl; Potassium 4.3 mmol/L (3.3-5.1); Sodium 142 mmol/L (135-145); Total Protein 6.7 g/dL (6.5-8.0); Triglycerides 136 mg/dL
== END 2022-03-23 12:11 | disposition home or self-care (01) ==
LOC: HO.LAB 12:10
PROVIDERS: PCP Internal Medicine; Visit Provider Nurse Practitioner Family
DX: M79.604 Pain in right leg (principal); M79.605 Pain in left leg; Z13.29 Encounter for screening for other suspected endocrine disorder; Z13.220 Encounter for screening for lipoid disorders; E55.9 Vitamin D deficiency, unspecified; M51.36 Other intervertebral disc degeneration, lumbar region; G62.9 Polyneuropathy, unspecified; K21.9 Gastro-esophageal reflux disease without esophagitis; R03.0 Elevated blood-pressure reading, without diagnosis of hypertension; M79.10 Myalgia, unspecified site; K74.60 Unspecified cirrhosis of liver
CPT/HCPCS: 36415; 80053; 80061; 82306; 82607; 82746; 84443

== ENCOUNTER 2022-05-01 07:29 | Outpatient (REF) | payer MEDICARE, MEDICAID, SELFPAY | END 2022-05-01 07:30 | disposition home or self-care (01) | LOC: HO.HOSX 07:29 | PROVIDERS: Visit Provider Physician Assistant | DX: Z13.89 Encounter for screening for other disorder (principal) ==

== ENCOUNTER → 2022-05-04 14:51 | Outpatient (BNVA) | payer MEDICARE, MEDICAID, SELFPAY | PROVIDERS: PCP Internal Medicine; Visit Provider Nurse Practitioner Family | DX: M17.0 Bilateral primary osteoarthritis of knee (principal); M51.36 Other intervertebral disc degeneration, lumbar region; M47.816 Spondylosis without myelopathy or radiculopathy, lumbar region | CPT/HCPCS: 20610; 99212; J2795; J3300 ==

== ENCOUNTER 2022-07-15 06:14 | Outpatient (REF) | payer MEDICARE, MEDICAID, SELFPAY | END 2022-07-15 06:15 | disposition home or self-care (01) | LOC: CF 06:14 | PROVIDERS: Visit Provider Internal Medicine | DX: G57.13 Meralgia paresthetica, bilateral lower limbs (principal) | CPT/HCPCS: 64450; J1040 ==

== ENCOUNTER → 2022-08-06 09:59 | Outpatient (BNVA) | payer MEDICARE, MEDICAID, SELFPAY | PROVIDERS: PCP Internal Medicine; Visit Provider Nurse Practitioner Family | DX: G57.93 Unspecified mononeuropathy of bilateral lower limbs (principal); F10.11 Alcohol abuse, in remission; Z92.21 Personal history of antineoplastic chemotherapy | CPT/HCPCS: 99212 ==

== ENCOUNTER 2022-09-03 11:17 | Outpatient (REF) | payer MEDICARE, MEDICAID, SELFPAY ==
--- NOTE | 2022-09-03 08:00 | EMG_ITS ---
Right tibial and peroneal motor studies were performed. Right superficial peroneal and sural sensory studies were performed. Tibial H-reflex was obtained and paraspinal muscles were tested with a needle. IMPRESSION: This study revealed mild right peroneal neuropathy. There was no evidence of generalized neuropathy or radiculopathy. MD DENISE Moya/BRIGETTE / [id number]
== END 2022-09-03 11:18 | disposition home or self-care (01) ==
LOC: HO.NEURO 11:17
PROVIDERS: Visit Provider Nurse Practitioner Family
DX: G57.93 Unspecified mononeuropathy of bilateral lower limbs (principal); Z92.21 Personal history of antineoplastic chemotherapy
CPT/HCPCS: 95886; 95909

== ENCOUNTER → 2022-10-27 10:21 | Outpatient (BNVA) | payer MEDICARE, MEDICAID, SELFPAY | PROVIDERS: PCP Internal Medicine; Visit Provider Nurse Practitioner Family | DX: M51.36 Other intervertebral disc degeneration, lumbar region (principal); G57.93 Unspecified mononeuropathy of bilateral lower limbs; M47.816 Spondylosis without myelopathy or radiculopathy, lumbar region; M79.604 Pain in right leg; M79.605 Pain in left leg; Z79.899 Other long term (current) drug therapy | CPT/HCPCS: 99212 ==

== ENCOUNTER 2022-12-31 09:04 | Emergency (ER) | payer MEDICARE, MEDICAID, SELFPAY ==
[2022-12-31 09:06] VITALS: BP 146/82; PULSE 91; RESP 18; TEMP 36.8; O2SAT 99; BMI 38.9
--- NOTE | 2022-12-31 10:02 | ED_ITS ---
HPI - General Adult General Chief complaint: Extremity Problem Stated complaint: pain in both legs for couple of months Time Seen by Provider: 12/31/22 10:01 Source: patient Limitations: no limitations and language barrier History of Present Illness HPI narrative: 67-year-old male who presents with bilateral leg pain for a couple of months. Patient has a known history of neuropathy in the past alcohol abuse with lumbar disc generation the past Also. Patient denies any trauma. Or new injuries to the legs. Patient denies shortness of breath chest pain fever chills. Patient currently walks with a cane and is on Lyrica. Patient is followed by pain management with last visit on 10/27/2022. At that time Lyrica. Dose was increased and at MRI of the lumbar spine was plan. patient evaluating treated with linux devops engineer. Patient states he is yet to have an MRI that was plan by pain clinic. Related Data Home Medications Medication Instructions Recorded Confirmed bisacodyl 5 mg tablet,delayed 10 mg PO DIRECTED 08/13/20 11/04/22 release cyanocobalamin (vitamin B-12) 1,000 mcg PO DAILY 08/13/20 11/04/22 1,000 mcg tablet,extended release folic acid 1 mg tablet 1 mg PO DAILY 08/13/20 11/04/22 lactulose 10 gram/15 mL oral 15 ml PO DAILY 08/13/20 11/04/22 solution rifaximin 550 mg tablet 550 mg PO BID 08/13/20 11/04/22 sodium,potassium,mag sulfates 17.5 1 PO 08/13/20 11/04/22 gram-3.13 gram-1.6 gram oral soln thiamine HCl (vitamin B1) 50 mg 100 mg PO DAILY 08/13/20 11/04/22 tablet vitamin B complex 1 tab PO DAILY 08/13/20 11/04/22 Previous Rx's Medication Instructions Recorded blood pressure monitor #1 ea 01/21/22 omeprazole 20 mg capsule,delayed 20 mg PO QAM #90 caps 03/19/22 release cholecalciferol (vitamin D3) 25 1,000 unit PO DAILY 30 days #30 04/29/22 mcg (1,000 unit) capsule caps ferrous sulfate 325 mg (65 mg 325 mg PO BID 1 month #60 tabs 04/29/22 iron) tablet,delayed release hydrocortisone 2.5 % topical cream [address] BEDTIME 7 days #30 grams 04/29/22 with perineal applicator (Proctozone-HC) tadalafil 10 mg tablet 10 mg PO DAILY PRN sexual activity 06/13/22 #10 tabs pregabalin 75 mg capsule 75 mg PO BID pain 30 days #60 caps 10/27/22 cyclobenzaprine 10 mg tablet 10 mg PO BEDTIME PRN Muscle 11/04/22 relaxant 1 month #30 tabs diclofenac sodium 1 % topical gel 2 g topical QID PRN pain #100 grams 11/04/22 (Arthritis Pain (diclofenac)) walker #1 ea 11/04/22 cyclobenzaprine 5 mg tablet 5 mg PO TID PRN muscle spasm #20 12/31/22 tabs Allergies Allergy/AdvReac Type Severity Reaction Status Date / Time No Known Allergies Allergy Verified 11/04/22 11:57 [No Known Allergies*] Review of Systems Review of Systems: Constitutional : No Weight loss, No Fever, No Chills, No Night Sweats, No Fatigue, No Malaise ENT/Mouth : No sore throat Eyes: vision changes Cardiovascular : No Chest Pain, No SOB, No Dyspnea on Exertion, No Orthopnea, No Edema, No Palpitations Respiratory : No Cough, No Sputum, No Wheezing, No Smoke Exposure, No Dyspnea Gastrointestinal : No Nausea, No Vomiting, No Diarrhea, No Constipation, No abdominal Pain Genitourinary : no painful urination denies incontinence Musculoskeletal : bilateral leg pain numbness and tingling Neuro : no headache no dizziness Psych : No Anxiety/Panic, No Depression, No SI/HI/AH/VH, No Social Issues, PMFSH Past Medical History Attestation statement: The following information was validated with the patient. Medical History Common cold Hepatitis C Liver cirrhosis Lower back pain Surgical History History of ankle surgery History of appendectomy History of breast lump/mass excision History of open reduction and internal fixation (ORIF) procedure Hx of colonoscopy Family History Family History Father Prostate cancer Mother Diabetes Stroke Social History Social History Housing: Apartment Alcohol intake: current Alcohol intake frequency: a few times a week Patient Tobacco Use Status: Current someday Tobacco user Tobacco use type: Cigarette Cigarettes Per Day: 6 e-Cigarette/Vaping Use: Never Used Second Hand Smoke Exposure: Yes Advance Directives: No service: No Current occupational status: disabled Cognitive needs: Yes (cane) Hearing needs: No Vision needs: Yes (glasses) Physical Exam ED Vital Signs: Vital Signs - 24 hr 12/31/22 09:06 Temperature 98.2 F Pulse Rate 91 Respiratory Rate 18 Blood Pressure 146/82 H Pulse Oximetry 99 Oxygen Delivery Method Room Air BMI result Body Mass Index 38.9 vital signs have been reviewed as normal and appeared to be correct. Blood pressure normal. Heart rate normal. Respiration rate normal. Temperature normal. Oxygen saturation normal. Appearance: Alert. Oriented X3. No acute distress. Head: Normal external exam. Normocephalic. Atraumatic. Eyes: PERRLA. EOMI. Conjunctiva and sclera normal. Eyelids normal. ENT: Pharynx normal. Uvula midline. Moist mucous membranes. No trismus noted. No drooling noted. No muffled voice noted. Neck: Soft full range of motion, no JVD CVS: Heart regular rate and rhythm no murmurs and rubs Respiratory: Breath sounds are clear to auscultation bilaterally. No accessory muscle use noted. Abdomen: Soft nontender no rebound or guarding positive bowel sounds Back: Full range of motion noted. Skin: Skin warm and dry. Normal skin color. Normal skin turgor. No rashes/lesions/lacerations noted. Extremities: positive tenderness to the quadriceps bilaterally posterior aspect is nontender bilateral calves are nontender sensations intact no erythema induration or lymphangitis noted. Neuro: Oriented X 3. No footdrop noted neurosurgical nurse practitioner is equal bilaterally patient does walk with a cane Course Course Course Narrative: Chronic leg pain Neuropathy Vitamin B Deficiency Lumbar radiculopathy 67-year-old gentleman with chronic bilateral leg pain secondary to neuropathy versus lumbar radiculopathy presents with pain denies any new trauma or falls. Patient has no medications at home other than Lyrica care. Patient was recently seen by a pain specialist on 10/27/2022 no reviewed. Plans for possible outpatient MRI was noted. Patient has yet to have that MRI this time. Patient has been on Flexeril in the past with relief of that leg discomfort. Will prescribe at this time. Discharge Plan Discharge Clinical Impression: Bilateral leg pain, Neuropathy Patient Disposition: Home, Self-Care Instructions: Leg Pain (ED), Peripheral Neuropathy (ED) Additional Instructions: Follow-up with pain specialist is important Medications as directed Call PCP for follow-up Prescriptions: New cyclobenzaprine 5 mg tablet 5 mg PO TID PRN (Reason: muscle spasm) Qty: 20 0RF No Action tadalafil 10 mg tablet 10 mg PO DAILY PRN (Reason: sexual activity) Qty: 10 0RF Xifaxan 550 mg tablet 550 mg PO BID cyanocobalamin (vitamin B-12) 1,000 mcg tablet extended release 1,000 mcg PO DAILY bisacodyl 5 mg tablet,delayed release (DR/EC) 10 mg PO DIRECTED vitamin B complex Tablet 1 tab PO DAILY thiamine HCl (vitamin B1) 50 mg tablet 100 mg PO DAILY lactulose 10 gram/15 mL solution 15 ml PO DAILY folic acid 1 mg tablet 1 mg PO DAILY Suprep Bowel Prep Kit 17.5-3.13-1.6 gram recon soln 1 PO omeprazole 20 mg capsule,delayed release(DR/EC) 20 mg PO QAM Qty: 90 1RF (DME) blood pressure monitor Kit See Rx Instructions .Route Qty: 1 0RF Rx Instructions: As directed cholecalciferol (vitamin D3) 25 mcg (1,000 unit) capsule 1,000 unit PO DAILY 30 Days Qty: 30 3RF ferrous sulfate 325 mg (65 mg iron) tablet,delayed release (DR/EC) 325 mg PO BID 30 Days Qty: 60 0RF hydrocortisone [Proctozone-HC] 2.5 % cream with perineal applicator [address] BEDTIME 7 Days Qty: 30 0RF cyclobenzaprine 10 mg tablet 10 mg PO BEDTIME PRN (Reason: Muscle relaxant) 30 Days Qty: 30 0RF diclofenac sodium [Arthritis Pain (diclofenac)] 1 % gel 2 g topical QID PRN (Reason: pain) Qty: 100 0RF (DME) walker Misc See Rx Instructions .Route Qty: 1 0RF Rx Instructions: As directed pregabalin 75 mg capsule 75 mg PO BID 30 Days Qty: 60 1RF
--- NOTE | 2022-12-31 11:37 | PC.NURSE ---
PT WITH AN ACUTE ON CHRONIC PAIN COMPLAINT HE WAS EVALUATED AND PRESCRIBED MM RELAXER, PT AGREEABLE TO DC PLAN
== END 2022-12-31 11:42 | disposition home or self-care (01) ==
PROVIDERS: Emergency Provider Emergency Medicine; PCP Internal Medicine
DX: M79.604 Pain in right leg (principal); M79.605 Pain in left leg; Z79.899 Other long term (current) drug therapy
CPT/HCPCS: 99282; 99283

== ENCOUNTER 2023-01-21 10:35 | Outpatient (RCR) | payer MEDICARE, MEDICAID, SELFPAY ==
--- NOTE | 2023-01-21 13:00 | MHC.PT.EP ---
[facility] [place] Office [place] [facility] [place] Office [address] Natalee Ferrera [address] [phone] F: [phone] F: [phone] F: [phone] F: [phone] Physical Therapy Plan of Care Date of Evaluation: Date of Surgery: none Diagnosis: Meralgia paresthetica, bilateral lower limbs Assessment: Patient is a 67 year old R handed male who presents with s/s consistent with lower limb pain, meralgia paresthetica. He does not work and is currently fairly sedentary. Patient past medical history includes history of cancer and ORIF. Current impairments include pain, sensation, posture, ROM, strength, activity tolerance and functional mobility. Functional limitations include decreased ability to stand, walk, negotiate stairs, and transfer as well as wear tighter clothing. Patient is motivated with good rehab potential. Skilled PT will address impairments and functional limitations in order to achieve goals. 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 Manual therapy to restore motion and function. Therapeutic exercise to improve strength and flexibility. Neuromuscular re-education for posture and balance. Therapeutic activities to return to functional activities of daily living. Electronically signed by: Chidi Conrad, PT Please sign and return to therapist. Thank you for your referral.
--- NOTE | 2023-03-09 08:56 | MHC.PT.DC ---
[facility] [place] Office [place] [facility] [place] Office [address] Lori Ferrera [address] [phone] F: [phone] F: [phone] F: [phone] F: [phone] Physical Therapy Discharge Report Diagnosis: Meralgia paresthetica, bilateral lower limbs Date of Surgery: none Date of Evaluation: 01/21/23 Date of Discharge: 01/28/23 Treatments to Date: 1 Cancellations to Date: No Shows to Date: Discharge Status: Patient Elected to Stop Discharge Summary: Pt did not return after evaluation. Patient is a 67 year old R handed male who presents with s/s consistent with lower limb pain, meralgia paresthetica. He does not work and is currently fairly sedentary. Patient past medical history includes history of cancer and ORIF. Current impairments include pain, sensation, posture, ROM, strength, activity tolerance and functional mobility. Functional limitations include decreased ability to stand, walk, negotiate stairs, and transfer as well as wear tighter clothing. Patient is motivated with good rehab potential. Skilled PT will address impairments and functional limitations in order to achieve goals. Electronically signed by: Chidi Conrad, PT Please sign and return to therapist. Thank you for your referral.
== END 2023-03-09 08:57 | disposition home or self-care (01) ==
LOC: HO.PTCHIC 10:35
PROVIDERS: PCP Nurse Practitioner Family; Visit Provider Nurse Practitioner Family
DX: G57.13 Meralgia paresthetica, bilateral lower limbs (principal)
CPT/HCPCS: 97110; 97163

== ENCOUNTER 2023-10-19 12:30 | Outpatient (AMB) | payer MEDICARE, MEDICAID, SELFPAY ==
--- NOTE | 2023-10-19 12:41 | AM.OFFWIN_ITS ---
Intake Vital Signs 10/19/23 12:43 Weight 168 lb BP 120/80 Blood Pressure Location Lt brachial Position Sitting Pulse 88 Pulse Source Pulse Oximeter Pulse Oximetry (%) 98 Oxygen Delivery Method Room Air Intake Visit Reasons: EP RT side Arm pain, Bilateral leg tingling Lobby Patient Tobacco Use Status: Current someday Tobacco user Allergies No Known Allergies [No Known Allergies*] Allergy (Verified 10/19/23 12:45) HPI HPI Comments History of Present Illness Details This is a 67-year-old male with no stated past medical history presenting with his granddaughter for evaluation of a burning and stinging pain in his lower extremities bilaterally that extend from his thigh to his knees that has been ongoing for the past 2-3 years as well as right elbow pain that he has had for the past 2 weeks. Patient states his primary care provider prescribes medication for his lower extremities however he is unaware of the name of this medication. Patient denies any injury or trauma to his right elbow but states that he has pain when picking up items as he is right-handed. Patient has not taken any [id number] medication for treatment of his discomfort. Additionally, for the past 1 month the patient is reporting urinary urgency without dysuria, frequency or urinary incontinence. Patient's next appointment with his primary care provider is in January 2024 at the [facility]. Patient is seen with Haley who serves as a customer retention representative. [facility] Medical History (Updated 10/19/23 @ 13:27 by Isabela Diehl PA-C) Neuropathy involving both lower extremities Liver cirrhosis Hepatitis C Common cold Lower back pain Surgical History Hx of colonoscopy History of breast lump/mass excision History of ankle surgery History of appendectomy History of open reduction and internal fixation (ORIF) procedure Family History Father Prostate cancer Mother Diabetes Stroke Social History Housing: Apartment Alcohol intake: current Alcohol intake frequency: a few times a week Patient Tobacco Use Status: Current someday Tobacco user Tobacco use type: Cigarette Cigarettes Per Day: 6 e-Cigarette/Vaping Use: Never Used Second Hand Smoke Exposure: Yes service: No Current occupational status: disabled Cognitive needs: Yes (cane) Hearing needs: No Vision needs: Yes (glasses) Review of Systems Const All systems reviewed & are unremarkable except as noted in HPI and below Reports as per HPI Eyes Reports as per HPI ENT Reports no additional complaints Card Reports as per HPI Resp Reports as per HPI GI Reports no additional complaints Denies difficulty urinating, Denies genital pain, Denies scrotal swelling, Denies urinary frequency, Denies urinary hesitancy and Reports urinary urgency Musc Reports no additional complaints Skin/Breast Reports system reviewed and no additional complaints, except as documented Physical Exam Vital Signs: Last Vital Signs Pulse 88 10/19/23 12:43 BP 120/80 10/19/23 12:43 Pulse Ox 98 10/19/23 12:43 Oxygen Delivery Method Room Air 10/19/23 12:43 Const General: cooperative, healthy appearing, comfortable, no acute distress, well developed, alert and awake; No ill appearing Nutritional Appearance: average body habitus Orientation/consciousness: patient oriented x3 Limitations: ambulation with cane Back/Spine/Pelvis Thoracic/Lumbar Spine: thoracic and lumbar spine normal to inspection, thoraco- lumbar ROM normal, straight leg raise negative bilaterally, No paraspinal muscle tenderness, No thoracic spinal tenderness and No lumbar spinal tenderness Sacroiliac joints: bilaterally tender to palpation Sacrum: no ecchymosis and no tenderness Coccyx: no swelling and no tenderness Skin General skin exam: no rashes or lesions noted Neuro Other: Sensation is intact to the plantar surfaces of the feet bilaterally and lower extremities throughout bilaterally General: patient oriented x3 Extrem General: Yes normal to inspection Right upper extremity: normal to inspection, full ROM (right olecranon; passive ROM intact; tenderness to palp of lat.epicondyle.) and elbow/forearm Details: tenderness (lateral epicondyle) Location: not of the olecranon, proximal forearm and not of the medial epicondyle Left upper extremity: normal to inspection and full ROM Right lower extremity: full ROM and knee Details: normal ROM; no tenderness, no swelling, no ecchymosis, no crepitus and no unusual warmth Left lower extremity: knee Details: normal ROM; no tenderness, no swelling, no ecchymosis and no unusual warmth Psych Appearance: grossly normal Mental Status: mental status grossly normal Insight: Good insight present (Psych) Judgement: Good judgement present (Psych) Assessment & Plan Assessment & Plan (1) Right lateral epicondylitis: Comment: No imaging indicated today; may pursue PT if Naprosyn does not relieve symptoms. Code(s): M77.11 - Lateral epicondylitis, right elbow Plan: Naprosyn BID x 10 days. Follow-up with PCP. (2) Neuropathy involving both lower extremities: Comment: Chronic problem; states he is following up with PCP regarding pre-diabetes . Code(s): G57.93 - Unspecified mononeuropathy of bilateral lower limbs Plan: Naprosyn b.i.d. times 10 days; Follow-up with PCP as scheduled. Medications: New naproxen (Naprosyn) 500 mg PO BID 20 tabs 0RF Coding Level of Care Code Est Pt Level 4 (23284) Diagnoses Right lateral epicondylitis M77.11 Neuropathy involving both lower extremities G57.93 Time Spent (min) 30
--- NOTE | 2023-10-19 12:41 | MHC.OFFWIV ---
Intake Vital Signs 10/19/23 12:43 Weight 168 lb BP 120/80 Blood Pressure Location Lt brachial Position Sitting Pulse 88 Pulse Source Pulse Oximeter Pulse Oximetry (%) 98 Oxygen Delivery Method Room Air Intake Visit Reasons: EP RT side Arm pain, Bilateral leg tingling Lobby Intake Note: Patient here for bilat knee pain and elbow pain that has been present for some time now. Patient Tobacco Use Status: Current someday Tobacco user Allergies No Known Allergies [No Known Allergies*] Allergy (Verified 02/02/24 09:14) Do you need a note to return to daycare/school/sports/work: No PFSH Medical History Hepatocellular carcinoma Neuropathy involving both lower extremities Liver cirrhosis Hepatitis C Common cold Lower back pain Surgical History Hx of colonoscopy History of breast lump/mass excision History of ankle surgery History of appendectomy History of open reduction and internal fixation (ORIF) procedure Family History Father Prostate cancer Mother Diabetes Stroke Social History Household Members: None Housing: Apartment Do you presently have visiting nurse or other home services: Yes Alcohol intake: current Alcohol intake frequency: does not drink Alcohol type: hard liquor Patient Tobacco Use Status: Current everyday Tobacco user Tobacco use type: Cigarette e-Cigarette/Vaping Use: Never Used Second Hand Smoke Exposure: Yes service: No Current occupational status: disabled Cognitive needs: Yes (cane) Hearing needs: No Vision needs: Yes (glasses) Physical Exam Vital Signs: Last Vital Signs Pulse 88 10/19/23 12:43 BP 120/80 10/19/23 12:43 Pulse Ox 98 10/19/23 12:43 Oxygen Delivery Method Room Air 10/19/23 12:43 Assessment & Plan Assessment & Plan Medications: New naproxen (Naprosyn) 500 mg PO BID 20 tabs 0RF Coding
[2023-10-19 12:43] VITALS: BP 120/80; PULSE 88; O2SAT 98
== END 2023-10-19 13:55 | disposition home or self-care (01) ==
PROVIDERS: PCP Nurse Practitioner Family; Visit Provider Physician Assistant
DX: M77.11 Lateral epicondylitis, right elbow (principal); G57.93 Unspecified mononeuropathy of bilateral lower limbs
CPT/HCPCS: 99214

== ENCOUNTER 2023-10-27 10:31 | Outpatient (AMB) | payer MEDICARE, MEDICAID, SELFPAY ==
--- NOTE | 2023-10-27 11:11 | MHC.PC.OV ---
Vital Signs 10/27/23 11:15 Height 5 ft 3 in Weight 172 lb 2 oz BMI 30.5 BP 130/70 Blood Pressure Location Lt brachial Position Sitting Pulse 80 Pulse Source Pulse Oximeter Pulse Oximetry (%) 99 Oxygen Delivery Method Room Air Intake Visit Reasons: chronic issues f/u Intake Note: Patient is here to follow up on GERD, LDDD. Complaint of pain in right arm, bilateral thigh burning sensation, urgency to urinate with incontinence, requesting for lab order. Special Class Welder Required: Yes Special Class Welder Language: Wireless Operator Name: Donny ([id number]) Information Interpreted: non-clinical & clinical Machine Hamper Maker: Present Accompanied by: Grand Child Allergies No Known Allergies [No Known Allergies*] Allergy (Verified 10/31/23 17:29) Medication List - Last Reconciled 10/31/23 by Adam Newell MD amlodipine 10 mg See Protocol PO DAILY blood pressure monitor As directed ferrous sulfate 325 mg PO DAILY lisinopril 10 mg See Protocol PO DAILY omeprazole 20 mg PO BID@0630,1630 pregabalin 75 mg PO BID 30 days tadalafil 10 mg PO DAILY PRN walker As directed Tobacco use date assessed: 10/27/23 Fall risk assessment: 2 + Falls in past year Last assessed Fall Risk: 10/27/23 Dental Screening Dental Screen Date: 10/27/23 Did you have a dental visit in the last 12 months?: Yes Did you have a dental problem in the last 6 months where you did not have access to dental care?: No Was dental information given to patient?: Patient has dentist HPI chronic issues f/u HPI Details 67-year-old male presents to the office to discuss his medical problems. I am re assuming his care as his current primary care provider has now left the practice. Patient comes to the office with his granddaughter. They both speaks Kazakh only and an sheriff's officer through the iPad was requested. Patient continues to have pain in his lower extremities and is feeling weak and tired. Continues to drink alcohol in large quantities. Decreased appetite. Complains of right arm pain and right thigh pain. [facility] Medical History (Updated 10/31/23 @ 17:34 by Adam Newell MD) Hepatocellular carcinoma Neuropathy involving both lower extremities Liver cirrhosis Hepatitis C Common cold Lower back pain Surgical History Hx of colonoscopy History of breast lump/mass excision History of ankle surgery History of appendectomy History of open reduction and internal fixation (ORIF) procedure Family History Father Prostate cancer Mother Diabetes Stroke Social History Household Members: None Housing: Apartment Do you presently have visiting nurse or other home services: Yes Alcohol intake: current Alcohol intake frequency: a few times a week Alcohol type: hard liquor Patient Tobacco Use Status: Current everyday Tobacco user Tobacco use type: Cigarette Cigarettes Per Day: 6 e-Cigarette/Vaping Use: Never Used Second Hand Smoke Exposure: Yes service: No Current occupational status: disabled Cognitive needs: Yes (cane) Hearing needs: No Vision needs: Yes (glasses) Questionnaire PHQ-9 Over the last 2 weeks, how often have you been bothered by any of the following problems? 1. Little interest or pleasure in doing things: not at all 2. Feeling down, depressed, or hopeless: several days 3. Trouble falling or staying asleep, or sleeping too much: nearly every day 4. Feeling tired or having little energy: nearly every day 5. Poor appetite or overeating: not at all 6. Feeling bad about yourself - or that you are a failure or have let yourself or your family down: several days 7. Trouble concentrating on things, such as reading the newspaper or watching television: not at all 8. Moving or speaking so slowly that other people could have noticed. Or the opposite - being so fidgety or restless that you have been moving around a lot more than usual: not at all 9. Thoughts that you would be better off or of hurting yourself in some way: not at all Total score: 8 Source: Developed by Drs. Mynor Alba, Wilma Francois, Cornel Garcia and colleagues, with an educational elbert from [employer]. Thrive Questionnaire Date Thrive assessed: 10/27/23 I am a: Patient What is your living situation today?: I have a steady place to live Within the past 12 months, did the food you bought not last and you didn't have the money to get more?: Never true Within the past 12 months, did you worry whether your food would run out before you got money to buy more?: Never true Do you have trouble paying for medicines?: No Do you have trouble getting transportation to medical appointments?: No Do you have trouble paying your heating and electricity bill?: No Do you have trouble taking care of your child, family member or friend?: No Do you have trouble with day-to-day activities such as bathing, preparing meals, shopping, managing finances, etc.?: No Are you currently unemployed and looking for a job?: No Are you interested in more education?: No Currently or been in a relationship where the following occur: no concerns reported THRIVE Score: 0 AUDIT C Alcohol Use Questionnaire (AUDIT-C) 1. How often do you have a drink containing alcohol?: 2-3 times a week 2. How many drinks containing alcohol do you have on a typical day when you are drinking?: 1 or 2 Total Score: 3 PORFIRIO-7 AMB Questionnaire PORFIRIO-7 Date PORFIRIO - 7 assessed: 10/27/23 Feeling nervous, anxious, or on edge: 0 = Not at all Not being able to stop or control worryin = Not at all Worrying too much about different things: 0 = Not at all Trouble relaxin = Not at all Being so restless that it is hard to sit still: 0 = Not at all Becoming easily annoyed or irritable: 0 = Not at all Feeling afraid as if something awful might happen: 0 = Not at all Total PORFIRIO-7 score (0-4 normal; 5-9 mild; 10-14 moderate; 15-21 severe): 0 Source: Developed by Drs. Mynor Alba, Wilma Francois, Cornel Garcia and colleagues, with an educational elbert from [employer]. Physical exam (Primary Care) Vital Signs: Last Vital Signs Pulse 80 10/27/23 11:15 BP 130/70 10/27/23 11:15 Pulse Ox 99 10/27/23 11:15 Oxygen Delivery Method Room Air 10/27/23 11:15 BMI result Body Mass Index 30.5 Tobacco/Smoking Status: Tobacco use Status Tobacco use date assessed 10/27/23 10/27/23 11:44 Patient Tobacco Use Status Former Tobacco user 10/27/23 11:44 Tobacco use type Cigarette 10/27/23 11:44 e-Cigarette/Vaping Use Never Used 10/27/23 11:44 PHQ-9: PHQ-9 Score PHQ-9: Total score 8 10/27/23 11:44 Thrive Assessment: Date of Thrive Assessment Date Thrive assessed 10/27/23 10/27/23 11:44 Currently or been in a relationship where the following occur: no concerns reported Const General: cooperative and healthy appearing Nutritional Appearance: well nourished Orientation/consciousness: patient oriented x3 Limitations: no limitations HENMT Head: Yes normal to inspection Eyes General: appearance normal, both eyes and all related structures Neck Neck: Yes normal visual inspection Chest Chest palpation & inspection: normal palpation of entire chest wall Resp Effort & Inspection: normal respiratory effort Neuro General: patient oriented x3 Assessment and Plan Assessment & Plan (1) Neuropathy involving both lower extremities: Comment: Chronic problem; states he is following up with PCP regarding pre-diabetes . Code(s): G57.93 - Unspecified mononeuropathy of bilateral lower limbs Plan: Continue using gabapentin. (2) Hypertension: Code(s): I10 - Essential (primary) hypertension Plan: Blood pressure is in range. Continue medications at same dosage. (3) History of alcohol abuse: Code(s): F10.11 - Alcohol abuse, in remission Plan: Patient was counseled to stop drinking alcohol. (4) Fatigue: Code(s): R53.83 - Other fatigue Plan: Blood work has been ordered. This note was completed after results of the blood work were available to me. His hemoglobin was reported at less than 5. I contacted the patient and his daughter and asked them to proceed to the emergency room for blood transfusions. Orders: Orders Lipid Panel 10/27/23 G57.93 - Unspecified mononeuropathy of bilateral lower limbs Liver Panel 10/27/23 G57.93 - Unspecified mononeuropathy of bilateral lower limbs Basic Metabolic Panel 10/27/23 G57.93 - Unspecified mononeuropathy of bilateral lower limbs Complete Blood Count no Diff 10/27/23 G57.93 - Unspecified mononeuropathy of bilateral lower limbs Thyroid Stimulating Hormone 10/27/23 G57.93 - Unspecified mononeuropathy of bilateral lower limbs UA and rflx microscopic 10/27/23 G57.93 - Unspecified mononeuropathy of bilateral lower limbs Hemoglobin A1c 10/27/23 G57.93 - Unspecified mononeuropathy of bilateral lower limbs Medications: Refilled cholecalciferol (vitamin D3) 1,000 units PO DAILY 30 days 30 caps 3RF Coding Level of Care Code Est Pt Level 4 (91125) Diagnoses Neuropathy involving both lower extremities G57.93 Hypertension I10 History of alcohol abuse F10.11 Fatigue R53.83
[2023-10-27 11:15] VITALS: BP 130/70; PULSE 80; O2SAT 99; BMI 30.5
== END 2023-10-27 12:07 | disposition home or self-care (01) ==
PROVIDERS: PCP Internal Medicine; Visit Provider Internal Medicine
DX: G57.93 Unspecified mononeuropathy of bilateral lower limbs (principal); I10 Essential (primary) hypertension; F10.11 Alcohol abuse, in remission; R53.83 Other fatigue
CPT/HCPCS: 99214

== ENCOUNTER 2023-10-27 12:17 | Outpatient (REF) | payer MEDICARE, MEDICAID, SELFPAY ==
[2023-10-27 13:20] LABS: Mean Corpuscular HGB Conc 26.4 g/dl (31.0-36.0); Mean Corpuscular Hemoglobin 15.5 pg (27.0-33.0); PLT CLUMP 1; Red Blood Count 3.04 X10*6/uL (4.60-5.80); Red Cell Distribution Width 21.1 % (11.0-16.0)
[2023-10-27 13:32] LABS: Mean Corpuscular Volume 58.6 fL (80.0-98.0)
[2023-10-27 13:34] LABS: Hematocrit 17.8 % (42.0-52.0); Hemoglobin 4.7 g/dl (14.0-18.0)
[2023-10-27 13:37] LABS: White Blood Count 4.6 X10*3/uL (4.8-10.8)
[2023-10-27 13:39] LABS: Platelet Count 280 X10*3/uL (160-400)
[2023-10-27 13:51] LABS: Appearance Urine Clear; Color Urine Yellow; Glucose Urine UA Negative (Negative); Leukocyte Esterase Urine Negative (Negative); Nitrite Urine Negative (Negative); UMIC TRIGGER UA YES; Urine Blood Negative (Negative); Urine Ketones Negative (Negative); Urine Protein 30 (1+) mg/dL (Neg-Trace)
[2023-10-27 13:55] LABS: Bacteria Urine None Seen (None Seen); Hyaline Casts Urine 0-2 /LPF (0-2); RBC Urine 0-2 /HPF (0-2); Squamous Epithelial Cell Urine 0-2 /HPF (0-2); WBC Urine 0-5 /HPF (0-5)
[2023-10-27 14:09] LABS: Alanine Aminotransferase 37 U/L (0-40); Albumin Level 3.6 g/dL (3.5-5.0); Alkaline Phosphatase 83 U/L (39-117); Anion Gap 12 (12-20); Aspartate Amino Transferase 65 U/L (5-37); Bilirubin Direct 0.2 mg/dL (0.0-0.5); Bilirubin Total 0.5 mg/dL (0.0-1.0); Blood Urea Nitrogen 14 mg/dL (9-16); Calcium 8.4 mg/dL (8.4-10.2); Carbon Dioxide 23 mmol/L (22-29); Chloride 110 mmol/L (96-108); Cholesterol 139 mg/dL (<200); Estimated Glomerular Filt Rate > 60; Glucose Random 98 mg/dL (60-115); HDL Cholesterol 43 mg/dL (>40); LDL Cholesterol Calculated 80 mg/dL (<100); Potassium 3.8 mmol/L (3.3-5.1); Sodium 141 mmol/L (135-145); Total Protein 6.8 g/dL (6.5-8.0); Triglycerides 84 mg/dL (<150)
[2023-10-27 14:24] LABS: Thyroid Stimulating Hormone 0.55 uIU/mL (0.32-4.0)
== END 2023-10-27 12:18 | disposition home or self-care (01) ==
LOC: HO.LAB 12:17
PROVIDERS: PCP Internal Medicine; Visit Provider Internal Medicine
DX: Z13.89 Encounter for screening for other disorder (principal)
CPT/HCPCS: 36415; 80048; 80061; 80076; 81001; 83036; 84443; 85027

== ENCOUNTER 2023-10-27 15:54 | Inpatient (IN) | payer MEDICARE, MEDICAID, SELFPAY ==
[2023-10-27] VITALS (8 sets, daily range): BP systolic 159–182; BP diastolic 60–82; PULSE 74–104; RESP 12–18; TEMP 36.8–38.1; O2SAT 91–99; BMI 31.0
--- NOTE | ~2023-10-27 | CT_ITS ---
EXAMINATION: CT ABDOMEN AND PELVIS WITHOUT CONTRAST CLINICAL INFORMATION: Liver cirrhosis, mass. COMPARISON: MRI abdomen with and without contrast 10/15/2020 TECHNIQUE: Multidetector volumetric imaging was performed from the superior aspect of the liver through the pubic symphysis. Sagittal and coronal reformatted images were obtained on the technologist's workstation. Patient refused IV contrast. This CT examination was performed using dose optimization techniques as appropriate, variously including the following: *Automated exposure control *Adjustment of mA and/or kV according to patient size (this includes techniques or standardized protocols for targeted exams where dose is matched to indication/reason for exam; i.e. extremities or head) *Use of iterative reconstruction technique DLP: 554 mGy-cm FINDINGS: LUNG BASES: The lung bases are clear. Heart size enlarged. LIVER, GALLBLADDER, AND BILIARY TREE: The left lobe is small compared to right side. There is a partially calcified mass lateral segment left lobe measuring up 4.3 x 2.4 x 2.2 cm. On previous MRI measured 2.2 x 4.6 cm. No additional liver lesion seen. No intrahepatic ductal dilatation. There is a punctate stone or calcification in the dependent segment of gallbladder no wall thickening or pericholecystic fluid collection. PANCREAS: Unremarkable. SPLEEN: The spleen is unremarkable. A small accessory splenule seen along the posterior inferior margin of the spleen. ADRENAL GLANDS: Unremarkable. KIDNEYS AND URETERS: The kidneys are normal in size, shape, and attenuation. No hydronephrosis, hydroureter, or calculi seen. No perinephric stranding. BLADDER: Unremarkable. GASTROINTESTINAL TRACT: There is scattered stool, gas and diverticuli seen throughout the colon without distention or diverticulitis. The small bowel loops are normal caliber ABDOMINAL WALL: There is small umbilical hernia containing fat. LYMPH NODES: Normal. VASCULAR: Unremarkable. PELVIC VISCERA: The prostate gland is normal size with central gland calcification. No abnormal size pelvic or inguinal lymph nodes seen. There is no evidence of hernia. OSSEOUS STRUCTURES: There are degenerative disc changes L4-L5, L3-L4 and L2-L2 disc levels. No aggressive lytic or sclerotic process seen. There is mild ventral spondylosis lower thoracic and mid lumbar spine. No aggressive lytic or sclerotic process seen. CT/CT abdomen pelvis wo IV con IMPRESSION: Partially calcified left hepatic lobe lesion, similar in measurements to previous MRI abdomen exam 10/15/2020. No additional lesions seen, however limited due to lack of IV contrast. The left lobe of liver is small. Punctate calcification versus gallstone. No wall thickening. Scattered colonic diverticulosis without diverticulitis. Fleischner guidelines were followed.
--- NOTE | ~2023-10-27 | MR_ITS ---
EXAMINATION: MR ABDOMEN WITHOUT AND WITH CONTRAST CLINICAL INFORMATION: Liver protocol for hepatocellular carcinoma COMPARISON: MR abdomen 10/15/2020, CT abdomen pelvis 10/27/2023 TECHNIQUE: MRI of the abdomen before and after the IV administration of 8 mL of Gadavist was obtained using routine sequences. FINDINGS: LUNG BASES: The visualized lung bases are unremarkable. LIVER AND BILIARY TREE: Enlarged, spanning 20 cm in craniocaudal dimension. Cirrhotic morphology of the liver. Asymmetric left hepatic lobe atrophy. Diffuse loss of signal on opposed phase imaging, compatible with hepatic steatosis. Punctate, 9 mm hepatic dome segment 8/4 A simple cyst (series 7, image 9). Redemonstrated treatment cavity in left hepatic segment 2, measuring 4.2 x 2.1 cm (series 2, image 37), without residual nodular enhancement, within limitations of motion artifact (LR-TR nonviable). Multiple newly seen nonperipheral arterially hypervascular hepatic lesions, including: -Left hepatic segment 3/4B, round, well-circumscribed, measuring 3.3 x 3.3 cm (series 2, image 45; series 100, image 41), with delayed washout and enhancing pseudocapsule (LI-RADS/OPTN 5) -Right hepatic dome, segment 8, measuring 2.3 x 1.7 cm (series 100, image 17), with equivocal delayed phase washout (series 102, image 22) -Subcapsular right hepatic segment 8 more inferiorly, measuring 1.2 x 0.9 cm (series 100, image 28), with enhancing pseudocapsule (series 102, image 35), without washout (LI-RADS/OPTN 4). -Right hepatic segment 6/7, measuring 1.3 x 1.2 cm (series 100, image 48), without enhancing pseudocapsule or delayed washout (LI-RADS/OPTN 3) -Right hepatic segment 6 more inferiorly, measuring 8 mm (series 100, image 70), without delayed phase washout or enhancing pseudocapsule (LI-RADS/OPTN 3) No intra or extrahepatic biliary duct dilatation. GALLBLADDER: Layering gallbladder sludge. Otherwise unremarkable. PANCREAS: Unremarkable SPLEEN: Unremarkable ADRENAL GLANDS: Unremarkable KIDNEYS AND URETERS: Benign-appearing T2 hyperintense bilateral renal sinus simple cysts, no imaging follow-up recommended. LYMPH NODES: No lymphadenopathy. VASCULAR: Unremarkable ABDOMINAL WALL: Unremarkable. OSSEOUS STRUCTURES: Unremarkable. OTHER: None. MR/MR abdomen wo/w con IMPRESSION: 1. Multiple newly seen hypervascular hepatic lesions, the largest of which in the inferior left hepatic lobe and at the right hepatic dome are consistent with hepatocellular carcinoma, measuring 3.3 cm and 2.3 cm, respectively. 2. Redemonstrated left hepatic lobe treatment cavity, without evidence of residual/recurrent tumor at that location (LR-TR nonviable). 3. Hepatomegaly with hepatic steatosis and cirrhosis.
--- NOTE | 2023-10-27 16:22 | ED_ITS ---
HPI - General Adult General Chief complaint: Recheck/Abnormal Lab/Rx Stated complaint: blood transfusion - sent from Time Seen by Provider: 10/27/23 16:56 Source: patient Mode of arrival: ambulatory Limitations: no limitations History of Present Illness HPI narrative: Patient comes to the emergency room accompanied by his family. Patient states that he was asked by his primary care physician to come to the emergency room for a blood transfusion. Patient states that for the last 3-4 months he has been feeling very weak, short of breath with exertion, denies chest pain. Patient states that he went to see his primary care physician today, did lab work and he was informed that his hemoglobin was below 5. Patient states that he has no abdominal pain, normal color stool. Patient states that he usually eats well, but skips breakfast every day. Patient states that he has history of liver cancer but is in remission. Patient has never been told that he is anemic or has needed iron supplements for this. Related Data Home Medications Medication Instructions Recorded Confirmed tadalafil 10 mg tablet 10 mg PO DAILY PRN Erectile 10/27/23 10/27/23 Dysfunction Previous Rx's Medication Instructions Recorded blood pressure monitor #1 ea 01/21/22 walker #1 ea 11/04/22 pregabalin 75 mg capsule 75 mg PO BID pain 30 days #60 caps 08/26/23 Allergies Allergy/AdvReac Type Severity Reaction Status Date / Time No Known Allergies Allergy Verified 10/27/23 11:14 [No Known Allergies*] Review of Systems 2 Review of Systems: Constitutional : No Weight loss, No Fever, No Chills, No Night Sweats, complaining of chronic fatigue ENT/Mouth : No Hearing loss, No Ear Pain, No Nasal Congestion, No Sinus Pain, No Hoarseness, No sore throat, No Rhinorrhea, No Swallowing Difficulty Eyes: No Eye Pain, No Swelling, No Redness, No Foreign Body, No Discharge, No Vision Changes Cardiovascular : No Chest Pain, No SOB, complaining of chronic Dyspnea on Exertion, No Orthopnea, No Edema, No Palpitations Respiratory : No Cough, No Sputum, No Wheezing, No Smoke Exposure, No Dyspnea Gastrointestinal : No Nausea, No Vomiting, No Diarrhea, No Constipation, No abdominal Pain, No Hematochezia, No Melena Genitourinary : no irregular bleeding, No Dysuria, No Urinary Frequency, No Hematuria, No Urinary Incontinence, No Urgency, No Flank Pain, No Urinary Flow Changes, No Hesitancy Musculoskeletal : No joint pain, No Myalgias, No Joint Swelling Skin : No Skin Lesions, No rash Neuro : No Weakness, No Numbness, No Paresthesias, No Loss of Consciousness, No Dizziness, No Headache Psych : No Anxiety/Panic, No Depression, No SI/HI/AH/VH, No Social Issues, Heme/Lymph: No Bruising, No Bleeding,No Lymphadenopathy Endocrine : No Polyuria, No Polydipsia, No Temperature Intolerance [facility] Past Medical History Medical History Neuropathy involving both lower extremities Liver cirrhosis Hepatitis C Common cold Lower back pain Surgical History Hx of colonoscopy History of breast lump/mass excision History of ankle surgery History of appendectomy History of open reduction and internal fixation (ORIF) procedure Family History Family History Father Prostate cancer Mother Diabetes Stroke Social History Social History Household Members: None Housing: Apartment Do you presently have visiting nurse or other home services: Yes Alcohol intake: current Alcohol intake frequency: a few times a week Alcohol type: hard liquor Patient Tobacco Use Status: Current someday Tobacco user Tobacco use type: Cigarette Cigarettes Per Day: 6 e-Cigarette/Vaping Use: Never Used Second Hand Smoke Exposure: Yes service: No Current occupational status: disabled Cognitive needs: Yes (cane) Hearing needs: No Vision needs: Yes (glasses) Physical Exam ED Vital Signs: Vital Signs - 24 hr 10/27/23 16:15 10/27/23 18:14 10/27/23 19:01 Temperature 100.5 F H 98.6 F 98.3 F Pulse Rate 104 H 78 78 Respiratory Rate 18 18 14 Blood Pressure 159/82 H 164/60 H 173/73 H Pulse Oximetry 91 L 98 Oxygen Delivery Method Room Air Room Air BMI result Body Mass Index 31.0 Const Other: Appearance: Alert. Oriented X3. No acute distress. Eyes: Pupils equal, round and reactive to light. Pale conjunctiva ENT: Pharynx normal. Neck: Normal inspection. Neck supple. No lymph nodes noted. No crepitus CVS: Normal heart rate and rhythm. Pulses normal. Normal S1 and S2 Respiratory: No respiratory distress. Breath sounds normal. No Wheezing. No rales Abdomen: Soft and nontender. No rigidity. No distention. Digital rectal exam shows brown stool Skin: Skin warm and dry. Normal skin color. Normal skin turgor. Extremities: No lower extremity edema. No Lacerations. No Rash Neuro: Oriented X 3. No motor deficit. No sensory deficit. Moving all extremities. No slurred speech. CN 2 through 12 grossly intact Psych: calm, cooperative, normal affect Course Course Course Narrative: RME: patient with pmh of liver Ca sent from anemia. Patietn RBC is 4.7 and 17 hemoglobin and hematorcrit. Labs ordered. FLuids ordered. Charge nurse informed patient brought back to the ED. Medications Administered Generic Name Dose Route Start Last Admin Trade Name Freq PRN Reason Stop Dose Admin Octreotide Acetate 500 mcg/ 501 mls @ 50.1 mls/hr 10/27/23 19:15 10/28/23 09:14 Sodium Chloride IVCONT 50 mcg/hr .Q10H CARSON 50.1 mls/hr Administration 50 MCG/HR Pantoprazole Sodium 40 mg 10/28/23 06:30 10/28/23 06:13 Pantoprazole Sodium 40 Mg/10 Ml Vial IVPUSH 40 mg BID@0630,1630 CARSON Administration Pregabalin 75 mg 10/28/23 09:00 10/28/23 09:03 Pregabalin 75 Mg Capsule PO 75 mg BID CARSON Administration Sodium Chloride 3 ml 10/28/23 00:00 10/28/23 09:07 0.9 % Sodium Chloride Flush 3 Ml Syringe IVFLUSH 3 ml QSHIFT CARSON Administration Discontinued Medications Generic Name Dose Route Start Last Admin Trade Name Freq PRN Reason Stop Dose Admin Sodium Chloride 1,000 mls @ 999 mls/hr 10/27/23 16:21 10/27/23 18:38 Ns IV 10/27/23 17:21 Infused .Q1H1M STA Infusion Sodium Chloride 100 mls @ 100 mls/hr 10/27/23 17:14 10/27/23 22:31 Ns IV 10/27/23 18:13 Infused ONCE ONE Infusion Sodium Chloride 100 mls @ 100 mls/hr 10/27/23 17:14 10/28/23 00:49 Ns IV 10/27/23 18:13 Infused ONCE ONE Infusion Sodium Chloride 100 mls @ 100 mls/hr 10/27/23 17:14 10/28/23 00:48 Ns IV 10/27/23 18:13 Not Given ONCE ONE Sodium Chloride 100 mls @ 100 mls/hr 10/27/23 17:14 10/28/23 00:48 Ns IV 10/27/23 18:13 Not Given ONCE ONE Octreotide Acetate 50 mcg 10/27/23 19:15 10/27/23 21:03 Octreotide Acetate 100 Mcg/Ml Ampul IVPUSH 10/27/23 19:16 50 mcg ONCE ONE Administration Pantoprazole Sodium 80 mg 10/27/23 19:15 10/27/23 21:04 Pantoprazole Sodium 40 Mg/10 Ml Vial IVPUSH 10/27/23 19:16 80 mg ONCE ONE Administration Medical Decision Making Medical Decision Making MDM Narrative: -patient admits that he is still drinking alcohol but does not have any abdominal pain to indicate that he has gastritis or an ulcer. Patient denies rectal bleeding. However, guaiac test was positive for blood. -patient is willing to get an endoscopy and/or colonoscopy -4 units of packed red blood cells have been ordered. -I discussed the patient with Dr. Louie, patient being admitted -patient has history of hepatic carcinoma, CT scan of the chest abdomen and pelvis pending to rule out malignancy. However, as mentioned above, patient will need a colonoscopy -we attempted doing the CT scan with IV contrast. However, patient's IV blew. Patient states that he has been stuck too many times and is refusing anymore attempts. I discussed with the patient that ideally she should be getting a central line. Patient states that this time he does not want to be strict with needles anymore. -I discussed this with Dr. Louie , in the meantime we will get a CT scan without contrast -patient stated that tomorrow he is willing to try IV placement again Differential Diagnosis Differential Diagnoses: The differential diagnosis associated with the presentation includes (Upper GI bleed, lower GI bleed, malignancy) Admission/Observation Consideration of admission/observation: Escalation of care including admission/observation considered Consult Healthcare Provider Management of the patient was discussed with: Hospitalist Lab Data MDM Lab Attestation statement: I reviewed the patient's lab results. 10/28/23 06:31 10/28/23 06:31 Labs: Lab Results 10/27/23 10/27/23 10/27/23 Range/Units 16:44 16:57 17:12 WBC 4.9 (4.8-10.8) X10*3/uL RBC 2.89 L (4.60-5.80) X10*6/uL Hgb 4.4 L* (14.0-18.0) g/dl Hct 16.9 L* (42.0-52.0) % MCV 58.5 L (80.0-98.0) fL MCH 15.2 L (27.0-33.0) pg MCHC 26.0 L (31.0-36.0) g/dl RDW 21.0 H (11.0-16.0) % Plt Count 275 (160-400) X10*3/uL MPV Not Reportable Immature Gran % (Auto) 0.2 (0.0-0.4) % Neut % (Auto) 59.5 (45-73) % Lymph % (Auto) 23.6 (20-40) % [place] % (Auto) 14.9 H (2-11) % Eos % (Auto) 1.6 (0-4) % Baso % (Auto) 0.2 (0-2) % Lymph # (Auto) 1.2 (1.2-4.9) X10*3/uL [place] # (Auto) 0.7 (0.1-1.2) X10*3/uL Eos # (Auto) 0.1 (0.0-0.4) X10*3/uL Baso # (Auto) 0.0 (0.0-0.2) X10*3/uL Abs Immat Gran (auto) 0.01 (0.00-0.03) X10*3/uL Absolute Neuts (auto) 2.9 (2.0-8.3) x10*3/uL Absolute Nucleated RBC 0.000 (0.0-0.012) X10*3/uL Nucleated RBC % (auto) 0.0 (0.0-0.2) /100WBC Smear Tech's Comments VERIFIED PT 12.1 (11.1-13.3) SEC INR 1.0 (0.9-1.1) APTT 27.4 (26.0-36.8) SEC Sodium 143 (135-145) mmol/L Potassium 3.7 (3.3-5.1) mmol/L Chloride 111 H (96-108) mmol/L Carbon Dioxide 25 (22-29) mmol/L Anion Gap 11 L (12-20) BUN 16 (9-16) mg/dL Creatinine 1.36 (0.5-1.4) mg/dL Estim Creat Clear Calc 47.7 Estimated GFR 52 Random Glucose 106 (60-115) mg/dL Lactic Acid 1.0 (0.5-2.0) mmol/L Calcium 8.8 (8.4-10.2) mg/dL Total Bilirubin 0.4 (0.0-1.0) mg/dL AST 66 H (5-37) U/L ALT 37 (0-40) U/L Alkaline Phosphatase 83 (39-117) U/L B-Natriuretic Peptide 334 H (<100) pg/mL Total Protein 6.9 (6.5-8.0) g/dL Albumin 3.6 (3.5-5.0) g/dL Stool Occult Blood POSITIVE (NEGATIVE) COVID-19 (JUDY) Negative (Negative) COVID-19 Clin Com See Note Influenza Type A (ANALY) Negative (Negative) Influenza Type B (ANALY) Negative (Negative) Influenza A & B Note See Note Blood Type A Negative Antibody Screen NEGATIVE Crossmatch See Detail Independent Historian Clinical information obtained from an independent historian. History obtained from or confirmed by: Spouse and Other (Granddaughter) External Record Review External record reviewed: Prior outpatient labs Chronic Conditions Patient?s care impacted by: Cancer and Other (Alcohol abuse) Critical Care Time Critical Care Time Critical Care Time: Yes Total Critical Care Time: 75 Attestation: I have personally provided critical care time. Time includes review of lab data, radiology results, discussion with consultants, and monitoring for potential decompensation. Intervention performed as documented. Discharge Plan Discharge Clinical Impression: Symptomatic anemia Patient Disposition: Admitted As Inpatient Interventions: Admission Worksheet (ED) Last Done: 10/27/23 21:14 Discharge Date/Time: 10/27/23 23:34
[2023-10-27] MEDS: 0.9 % Sodium Chloride 1,000 ML 999 ML IV (16:48)
[2023-10-27 17:05] LABS: Prothrombin Time 12.1 SEC (11.1-13.3)
[2023-10-27 17:07] LABS: Partial Thromboplastin Time 27.4 SEC (26.0-36.8)
[2023-10-27 17:08] LABS: Alanine Aminotransferase 37 U/L (0-40); Albumin Level 3.6 g/dL (3.5-5.0); Alkaline Phosphatase 83 U/L (39-117); Anion Gap 11 (12-20); Aspartate Amino Transferase 66 U/L (5-37); Bilirubin Total 0.4 mg/dL (0.0-1.0); Blood Urea Nitrogen 16 mg/dL (9-16); Calcium 8.8 mg/dL (8.4-10.2); Carbon Dioxide 25 mmol/L (22-29); Chloride 111 mmol/L (96-108); Creatinine Clr Calc Pharmacy 47.7; Estimated Glomerular Filt Rate 52; Glucose Random 106 mg/dL (60-115); Potassium 3.7 mmol/L (3.3-5.1); Sodium 143 mmol/L (135-145); Total Protein 6.9 g/dL (6.5-8.0)
[2023-10-27 17:13] LABS: B Type Natriuretic Peptide 334 pg/mL (<100)
[2023-10-27 17:14] LABS: Basophils Percent Auto 0.2 % (0-2); Eosinophils Absolute Auto 0.1 X10*3/uL (0.0-0.4); Eosinophils Percent Auto 1.6 % (0-4); Imm Gran Abs Auto 0.01 X10*3/uL (0.00-0.03); Imm Gran Pct Auto 0.2 % (0.0-0.4); Lymphocytes Absolute Auto 1.2 X10*3/uL (1.2-4.9); Lymphocytes Percent Auto 23.6 % (20-40); MANUAL DIFF FLAG SCAN; Mean Corpuscular Hemoglobin 15.2 pg (27.0-33.0); Mean Corpuscular Volume 58.5 fL (80.0-98.0); Monocytes Absolute Auto 0.7 X10*3/uL (0.1-1.2); Monocytes Percent Auto 14.9 % (2-11); Neutrophils Absolute Auto 2.9 x10*3/uL (2.0-8.3); Neutrophils Percent Auto 59.5 % (45-73); PLT CLUMP 1; Red Blood Count 2.89 X10*6/uL (4.60-5.80); SCAN SMEAR FLAG 1
[2023-10-27 17:15] LABS: White Blood Count 4.9 X10*3/uL (4.8-10.8)
[2023-10-27 17:16] LABS: Hematocrit 16.9 % (42.0-52.0); Hemoglobin 4.4 g/dl (14.0-18.0)
[2023-10-27 17:17] LABS: COVID-19 Test Negative (Negative); IDNOW Serial# 08D9AD1C
[2023-10-27 17:27] LABS: OBS Int Ctl Valid YES; OBS1 POSITIVE (NEGATIVE)
[2023-10-27 17:38] LABS: IDNOW Serial# 152EDE1D; Influenza A Negative (Negative); Influenza B2 Negative (Negative)
[2023-10-27 17:56] LABS: Platelet Count 275 X10*3/uL (160-400); SLIDE REVIEW VERIFIED
--- NOTE | 2023-10-27 19:19 | P.HPHOSP_ITS ---
History of Present Illness Date of Service: 10/27/23 Chief Complaint: Abnormal labs This is a 67-year-old Singaporean-speaking male with pertinent history of peripheral neuropathy, history of liver cancer status post radiation who presents to the emergency department for evaluation of abnormal labs. Patient states he went to his PCP's office after a year. His hemoglobin was found to be low and he was sent to the ER. Patient admits ongoing generalized weakness, malaise and dyspnea on exertion. He states that this has been ongoing for a while. He denies hematemesis, hematochezia, melena. Patient states he is never received blood transfusion in the past. Denies alcohol use every day, states he drinks every other day. Admits to using [id number] pain medications for leg discomfort. States he has not been taking care of himself for the last 1 year and is not compliant with doctor visits and prescription medications. He was apparently diagnosed with liver cancer as per the patient about 5 years ago and received radiation for it. No abdominal discomfort, fever, chills, chest pain, palpitations,changes in urinary or bowel habits. In the emergency department, hemoglobin found to be 4.4 and stool occult blood positive. Imaging with 4 cm mass left lobe of the liver Review of Systems 2 Constitutional: Constitutional: Reports fatigue, Reports lethargy, Reports malaise and Reports weakness Cardiovascular: Cardiovascular: Reports no additional cardiovascular complaints Respiratory: Respiratory: Reports no additional respiratory complaints Gastrointestinal: Gastrointestinal: Reports no additional gastrointestinal complaints Genitourinary: Genitourinary: Reports no additional male genitourinary complaints Neurologic: Reports weakness Endocrine: Endocrine: Reports fatigue [facility] Medical History Neuropathy involving both lower extremities Liver cirrhosis Hepatitis C Common cold Lower back pain Family History Father Prostate cancer Mother Diabetes Stroke Surgical History Hx of colonoscopy History of breast lump/mass excision History of ankle surgery History of appendectomy History of open reduction and internal fixation (ORIF) procedure Social History Housing: Apartment Alcohol intake: current Alcohol intake frequency: a few times a week Patient Tobacco Use Status: Former Tobacco user Tobacco use type: Cigarette Cigarettes Per Day: 6 e-Cigarette/Vaping Use: Never Used Second Hand Smoke Exposure: Yes Advance Directives: No Advance Directives Information Provided: No Nutrition Risks: No Nutritional Risk service: No Current occupational status: disabled Cognitive needs: Yes (cane) Hearing needs: No Vision needs: Yes (glasses) Meds Allergies Allergy/AdvReac Type Severity Reaction Status Date / Time No Known Allergies Allergy Verified 10/27/23 11:14 [No Known Allergies*] Home Medications Medication Instructions Recorded Confirmed Last Taken Type tadalafil 10 mg tablet 10 mg PO DAILY PRN Erectile 10/27/23 10/27/23 Unknown History Dysfunction Physical Exam 2 Vital Signs and Narrative: Vital Signs: Last Vital Signs Temp 98.3 F 10/27/23 19:01 Pulse 78 10/27/23 19:01 Resp 14 10/27/23 19:01 BP 173/73 H 10/27/23 19:01 Pulse Ox 98 10/27/23 18:14 O2 Del Method Room Air 10/27/23 18:14 BMI result Body Mass Index 31.0 Middle-aged male lying in bed in no distress Neck supple Regular rate and rhythm, S1-S2 heard Regular breath sounds bilaterally, no wheezing or crackles appreciated Abdomen soft nontender, no guarding, no rigidity Patient is awake, alert and oriented to self, place, time and person ; no focal motor deficit Psych: Normal mood Results Labs 10/27/23 16:44 10/27/23 16:44 Labs: Laboratory Results - last 24 hr 10/27/23 10/27/23 10/27/23 16:44 16:57 17:12 MCV 58.5 L MCH 15.2 L MCHC 26.0 L RDW 21.0 H Plt Count 275 MPV Not Reportable Immature Gran % (Auto) 0.2 Neut % (Auto) 59.5 Lymph % (Auto) 23.6 [place] % (Auto) 14.9 H Eos % (Auto) 1.6 Baso % (Auto) 0.2 Lymph # (Auto) 1.2 [place] # (Auto) 0.7 Eos # (Auto) 0.1 Baso # (Auto) 0.0 Abs Immat Gran (auto) 0.01 Absolute Neuts (auto) 2.9 Absolute Nucleated RBC 0.000 Nucleated RBC % (auto) 0.0 Smear Tech's Comments VERIFIED PT 12.1 INR 1.0 APTT 27.4 Anion Gap 11 L Estim Creat Clear Calc 47.7 Estimated GFR 52 Random Glucose 106 Lactic Acid 1.0 Calcium 8.8 Total Bilirubin 0.4 AST 66 H ALT 37 Alkaline Phosphatase 83 B-Natriuretic Peptide 334 H Total Protein 6.9 Albumin 3.6 Stool Occult Blood POSITIVE COVID-19 (JUDY) Negative COVID-19 Clin Com See Note Influenza Type A (ANALY) Negative Influenza Type B (ANALY) Negative Influenza A & B Note See Note Blood Type A Negative Antibody Screen NEGATIVE Crossmatch See Detail Assessment and Plan (1) Symptomatic anemia: Status: Acute Plan This is a 67-year-old Singaporean-speaking male with pertinent history of peripheral neuropathy, history of liver cancer status post radiation who presents to the emergency department for evaluation of abnormal labs. #. Acute GI bleed: Initiating IV Protonix and IV octreotide. Consulted Gastroenterology, appreciate assistance. #. Symptomatic blood loss anemia in the setting of above: Patient being transfused 4 units PRBC in the ER. Close monitoring H&H #. Left liver lobe mass: Obtain previous records, consider additional imaging DVT prophylaxis: Mechanical Full code Admit as inpatient and will require two night minimum hospital stay for close monitoring of hemoglobin, evaluation of acute GI bleed (as above), which is not possible in a lesser acute setting. Specialist consult pending Quality Stroke Does the patient have a stroke diagnosis?: No VTE Prior VTE?: No VTE Risk Level:: Medical - moderate - high VTE Device Contraindication: N/A - Device Ordered VTE Drug Contraindication: Treatment Not Indicated
--- NOTE | 2023-10-27 19:22 | ECG_ITS ---
Test Reason : R/O ISCHEMIC CHANGES, ANEMIA Blood Pressure : / mmHG Vent. Rate : 084 BPM Atrial Rate : 084 BPM P-R Int : 158 ms QRS Dur : 072 ms QT Int : 368 ms P-R-T Axes : 060 015 026 degrees QTc Int : 434 ms Normal sinus rhythm Normal ECG When compared with ECG of 18-JAN-2018 00:04, Nonspecific T wave abnormality no longer evident in Lateral leads Referred By: Sariah Garcia Electronically Signed By:MERI LI MD
--- NOTE | 2023-10-27 19:32 | PC.NURSE ---
Assumed care for pt. Pt aox4 resting at the bedside. Reports no pain. First bag of RBC's started with no complications. No chest pain or sob noted. VSS Failed 2 attempts at obtaining 2nd IV line fot Ct Scan with contrast. Will have different nurse attempt.
--- NOTE | 2023-10-27 20:06 | PHA.MEDREC ---
Addendum entered by Lexus Arellano 10/27/23 20:09: Patients reports that he fills his prescriptions at [facility]. Original Note: Pharmacy Consult ? Medication Reconciliation Pharmacy has completed the medication reconciliation. Patient confirmed through Architectural Sales Consultant that he is only taking Pregabalin 75mg and Tadalifil 10mg
--- NOTE | 2023-10-27 20:38 | PC.NURSE ---
18G U/S guided IV done by . Pt tolerated well and sent to Ct Scan
[2023-10-27] MEDS: Octreotide Acetate 100 MCG/ML AMPUL 50 MCG IVPUSH (21:03)
[2023-10-27] MEDS: Octreotide Acetate 500 MCG in 0.9 % Sodium Chloride 500 ML 50.1 MCG IVCONT (21:04)
[2023-10-27] MEDS: Pantoprazole Sodium 40 MG/10 ML VIAL 80 MG IVPUSH (21:04)
--- NOTE | 2023-10-27 21:45 | PC.NURSE ---
U/S guided line infiltrated at Ct scan. aware and reports scan not to be done at this time as pt is having a colonoscopy tomorrow. 22G IV line placed on the right hand to medicate as ordered. Pt tolerated well.
--- NOTE | 2023-10-27 22:53 | PC.NURSE ---
Second unit of RBC's started. Pt tolerating well.
[2023-10-28] VITALS (14 sets, daily range): BP systolic 152–208; BP diastolic 72–100; PULSE 60–97; RESP 16–20; TEMP 36.3–37.2; O2SAT 95–99
[2023-10-28] MEDS: Pantoprazole Sodium 40 MG/10 ML VIAL IVPUSH ×2 (06:13→16:05)
[2023-10-28 06:59] LABS: Hematocrit 23.3 % (42.0-52.0)
[2023-10-28 07:01] LABS: Mean Corpuscular HGB Conc 29.2 g/dl (31.0-36.0); Mean Corpuscular Hemoglobin 19.3 pg (27.0-33.0); Mean Corpuscular Volume 66.2 fL (80.0-98.0); Platelet Count 238 X10*3/uL (160-400); Red Blood Count 3.52 X10*6/uL (4.60-5.80); White Blood Count 6.7 X10*3/uL (4.8-10.8)
[2023-10-28 07:21] LABS: Hemoglobin 6.8 g/dl (14.0-18.0); PLT ABN DIST 1
[2023-10-28 07:22] LABS: Anion Gap 13 (12-20); Blood Urea Nitrogen 13 mg/dL (9-16); Calcium 8.5 mg/dL (8.4-10.2); Carbon Dioxide 24 mmol/L (22-29); Chloride 106 mmol/L (96-108); Creatinine Clr Calc Pharmacy 67.6; Estimated Glomerular Filt Rate > 60; Glucose Random 122 mg/dL (60-115); Potassium 4.1 mmol/L (3.3-5.1); Sodium 139 mmol/L (135-145)
[2023-10-28 08:15] LABS: Iron 437 mcg/dL (45-160); Magnesium 1.9 mg/dL (1.6-2.6); Percent Iron Saturation 95 % (15-50); Total Iron Binding Capacity 462 mcg/dL (228-428); Unsaturated Iron Binding < 25 ug/dL
[2023-10-28 08:26] LABS: Ferritin 19 ng/mL (20-250)
[2023-10-28] MEDS: Pregabalin 75 MG CAPSULE PO ×2 (09:03→20:35)
[2023-10-28] MEDS: 0.9 % Sodium Chloride Flush 3 ML SYRINGE IVFLUSH ×2 (09:07→16:05)
[2023-10-28] MEDS: Octreotide Acetate 500 MCG in 0.9 % Sodium Chloride 500 ML 50.1 MCG IVCONT ×2 (09:14→18:46)
--- NOTE | 2023-10-28 09:36 | MHC.CM.PN ---
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 He has not used [facility], or been to [facility]. He does not use med equipment. Family will transport home upon DC. HCP form completed and added to chart. PCP: Thuy Newell. CM to follow and assist with DC plan.
--- NOTE | 2023-10-28 12:50 | P.PNIM_ITS ---
Subjective Subjective Date of Service: 10/28/23 Interval History: This history was taken in [place]ian from the patient. Tolerating transfusion Denies melena or hematochezia Denies abd pain Review of Systems Review of Systems: Yes all other systems are reviewed and are negative Physical Exam 2 Vital Signs: Vital Signs: Last Vital Signs Temp 98.4 F 10/28/23 11:10 Pulse 62 10/28/23 11:10 Resp 18 10/28/23 11:10 BP 170/76 H 10/28/23 11:10 Pulse Ox 98 10/28/23 11:10 O2 Del Method Room Air 10/28/23 11:10 O2 Flow Rate 100 10/28/23 00:00 BMI result Body Mass Index 31.0 Gen: in no acute distress HEENT: sclera anicteric, pale but moist mucus membranes Neck: supple Lungs: clear to auscultation bilaterally Heart: regular rate and rhythm, no murmurs Abd: soft, non-tender, non-distended Ext: no edema Skin: warm/well-perfused Neuro: alert and oriented x3, no focal findings Psych: appropriate affect Objective Data Active Medications Acetaminophen (Acetaminophen 325 Mg Tablet) 650 mg PO Q6H PRN PRN Reason: Pain, Mild (Pain Scale 1-3) Acetaminophen (Acetaminophen Supp 650 Mg Supp.Rect) 650 mg OH Q6H PRN PRN Reason: Pain, Mild (Pain Scale 1-3) Octreotide Acetate 500 mcg/ (Sodium Chloride) 501 mls @ 50.1 mls/hr IVCONT .Q10H [facility] Last Admin: 10/28/23 09:14 Dose: 50 mcg/hr, 50.1 mls/hr Documented By: RUKHSANA Melatonin (Melatonin 3 Mg Tablet) 6 mg PO BEDTIME PRN PRN Reason: Insomnia Ondansetron HCl (Ondansetron Hcl 4 Mg/2 Ml Vial) 4 mg IVPUSH Q8H PRN PRN Reason: Nausea and Vomiting Pantoprazole Sodium (Pantoprazole Sodium 40 Mg/10 Ml Vial) 40 mg IVPUSH BID@0630,1630 [facility] Last Admin: 10/28/23 06:13 Dose: 40 mg Documented By: REAGAN Pregabalin (Pregabalin 75 Mg Capsule) 75 mg PO BID [facility] Last Admin: 10/28/23 09:03 Dose: 75 mg Documented By: RUKHSANA Sodium Chloride (0.9 % Sodium Chloride Flush 3 Ml Syringe) 3 ml IVFLUSH QSHIFT [facility] Last Admin: 10/28/23 09:07 Dose: 3 ml Documented By: RUKHSANA Labs 10/28/23 06:31 10/28/23 06:31 Labs: Laboratory Results - last 24 hr 10/27/23 10/27/23 10/27/23 16:44 16:57 17:12 MCV 58.5 L MCH 15.2 L MCHC 26.0 L RDW 21.0 H Plt Count 275 MPV Not Reportable Immature Gran % (Auto) 0.2 Neut % (Auto) 59.5 Lymph % (Auto) 23.6 [place] % (Auto) 14.9 H Eos % (Auto) 1.6 Baso % (Auto) 0.2 Lymph # (Auto) 1.2 [place] # (Auto) 0.7 Eos # (Auto) 0.1 Baso # (Auto) 0.0 Abs Immat Gran (auto) 0.01 Absolute Neuts (auto) 2.9 Absolute Nucleated RBC 0.000 Nucleated RBC % (auto) 0.0 Smear Tech's Comments VERIFIED PT 12.1 INR 1.0 APTT 27.4 Anion Gap 11 L Estim Creat Clear Calc 47.7 Estimated GFR 52 Random Glucose 106 Lactic Acid 1.0 Calcium 8.8 Magnesium Iron TIBC % Saturation Unsat Iron Binding Ferritin Total Bilirubin 0.4 AST 66 H ALT 37 Alkaline Phosphatase 83 B-Natriuretic Peptide 334 H Total Protein 6.9 Albumin 3.6 Stool Occult Blood POSITIVE COVID-19 (JUDY) Negative COVID-19 Clin Com See Note Influenza Type A (ANALY) Negative Influenza Type B (ANALY) Negative Influenza A & B Note See Note Blood Type A Negative Antibody Screen NEGATIVE Crossmatch See Detail 10/28/23 06:31 MCV 66.2 L D MCH 19.3 L MCHC 29.2 L RDW 29.0 H Plt Count 238 MPV Not Reportable Immature Gran % (Auto) Neut % (Auto) Lymph % (Auto) [place] % (Auto) Eos % (Auto) Baso % (Auto) Lymph # (Auto) [place] # (Auto) Eos # (Auto) Baso # (Auto) Abs Immat Gran (auto) Absolute Neuts (auto) Absolute Nucleated RBC 0.000 Nucleated RBC % (auto) 0.0 Smear Tech's Comments PT INR APTT Anion Gap 13 Estim Creat Clear Calc 67.6 Estimated GFR > 60 Random Glucose 122 H Lactic Acid Calcium 8.5 Magnesium 1.9 Iron 437 H TIBC 462 H % Saturation 95 H Unsat Iron Binding < 25 Ferritin 19 L Total Bilirubin AST ALT Alkaline Phosphatase B-Natriuretic Peptide Total Protein Albumin Stool Occult Blood COVID-19 (JUDY) COVID-19 Clin Com Influenza Type A (ANALY) Influenza Type B (ANALY) Influenza A & B Note Blood Type Antibody Screen Crossmatch Assessment and Plan (1) Symptomatic anemia: Status: Acute Plan d2 67yo M with hx HCC s/p embolization, HCV/EtOH cirrhosis, neuropathy sent from PCP's office due to severe anemia, Hb 4.7 FOBT+ severe ROBBIE due to GI blood loss - IV PPI, IV octreotide, transfusing total of 4u pRBCs, GI consult pending, NPO for EGD hx HCC with 4cm lesion in left lobe of liver - GI consult pending neuropathy - pregabalin VTE ppx - SCDs dispo - TBD In my clinical judgment, the patient requires continued inpatient hospitalization for the following reasons: transfusion, endoscopy Total time managing care of this patient today: 35 minutes. Quality Stroke Does the patient have a stroke diagnosis?: No VTE Prior VTE?: No VTE Risk Level:: Medical - moderate - high VTE Device Contraindication: N/A - Device Ordered VTE Drug Contraindication: Treatment Not Indicated
--- NOTE | 2023-10-28 14:28 | PC.NURSE ---
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 A&OX4. ALVAREZ to command BLE mild weakness sensation intact, 2+ non pitting edema to BLE skin taught. LSCTA denies shortness of breath or chest pain, NSR on tele. BS+4 although faint, abdomen round soft non-tender passing flatus. Voiding in urinal without difficulty clear yellow urine. SBP elevated into 180- to low 190's Dr Baird aware no changes ok to give blood. 1 unit infused in am second currently infusing without difficulty in afternoon BP unchanged. NPO since midnight for EGD. Will continue to monitor and report changes
--- NOTE | 2023-10-28 15:37 | PC.NURSE ---
BP 208/93 , DR Baird was notified , will order BP med
--- NOTE | 2023-10-28 15:59 | P.CNGI_ITS ---
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 Patient was seen for a physical at his primary care provider office and reported generalised feeling of fatigue, weakness and shortness of breath. His primary care provider ordered blood work that showed profound drop in hemoglobin to 4.7 with hematocrit 17.8. He was therefore sent to the emergency room for further evaluation. Overnight, he has been transfused 3 units with an appropriate increase in hemoglobin, albeit still not up to 7, so getting another unit at the time of evaluation. Patient was seen with the help of a phototypesetting equipment monitor. He reports having no preceding gastrointestinal symptoms to include abdominal pain, nausea, diarrhea or change in stool consistency. He also does not report any melena, maroon stools, or hematemesis. He also underwent a CT abdomen and pelvis without contrast that showed left hepatic lobe lesion measuring 4.3 cm which is calcified. From review of the notes, this appears to be the same treated lesion, for which patient has been seen by interventional radiology in the past, and was deemed to not be a malignant lesion (see previous office note from 2019). Recent endoscopy: [place] 08/2020: Poor prep. Total of 4 adenomas removed. Repeat was recommended in 6-12 months. EGD 2019: Small to medium sized varices. PHG. Review of Systems 2 Review of Systems: Yes all other systems are reviewed and are negative PMFSH Past Medical History Medical History (Updated 10/28/23 @ 16:07 by Amalia Cota MD) Neuropathy involving both lower extremities Liver cirrhosis Hepatitis C Common cold Lower back pain Family History Family History Father Prostate cancer Mother Diabetes Stroke Surgical History Surgical History Hx of colonoscopy History of breast lump/mass excision History of ankle surgery History of appendectomy History of open reduction and internal fixation (ORIF) procedure Social History Social History Household Members: None Housing: Apartment Do you presently have visiting nurse or other home services: Yes Alcohol intake: current Alcohol intake frequency: a few times a week Alcohol type: hard liquor Patient Tobacco Use Status: Current someday Tobacco user Tobacco use type: Cigarette Cigarettes Per Day: 6 e-Cigarette/Vaping Use: Never Used Second Hand Smoke Exposure: Yes service: No Current occupational status: disabled Cognitive needs: Yes (cane) Hearing needs: No Vision needs: Yes (glasses) Meds Allergies Allergy/AdvReac Type Severity Reaction Status Date / Time No Known Allergies Allergy Verified 10/27/23 11:14 [No Known Allergies*] Active Medications: Current Medications Acetaminophen (Acetaminophen 325 Mg Tablet) 650 mg PO Q6H PRN PRN Reason: Pain, Mild (Pain Scale 1-3) Acetaminophen (Acetaminophen Supp 650 Mg Supp.Rect) 650 mg NE Q6H PRN PRN Reason: Pain, Mild (Pain Scale 1-3) Amlodipine Besylate (Amlodipine Besylate 10 Mg Tablet) 10 mg PO DAILY [facility]; Protocol Octreotide Acetate 500 mcg/ (Sodium Chloride) 501 mls @ 50.1 mls/hr IVCONT .Q10H [facility] Last Admin: 10/28/23 09:14 Dose: 50 mcg/hr, 50.1 mls/hr Melatonin (Melatonin 3 Mg Tablet) 6 mg PO BEDTIME PRN PRN Reason: Insomnia Ondansetron HCl (Ondansetron Hcl 4 Mg/2 Ml Vial) 4 mg IVPUSH Q8H PRN PRN Reason: Nausea and Vomiting Pantoprazole Sodium (Pantoprazole Sodium 40 Mg/10 Ml Vial) 40 mg IVPUSH BID@0630,1630 [facility] Last Admin: 10/28/23 06:13 Dose: 40 mg Polyethylene Glycol/Electrolytes (Peg 3350/Na Sulf,Bicarb,Cl/Kcl 4,000 Ml Soln.Recon) 240 ml PO Q10M [facility] Stop: 10/28/23 19:11 Pregabalin (Pregabalin 75 Mg Capsule) 75 mg PO BID [facility] Last Admin: 10/28/23 09:03 Dose: 75 mg Sodium Chloride (0.9 % Sodium Chloride Flush 3 Ml Syringe) 3 ml IVFLUSH QSHIFT [facility] Last Admin: 10/28/23 09:07 Dose: 3 ml Home Medications Medication Instructions Recorded Confirmed Last Taken Type tadalafil 10 mg tablet 10 mg PO DAILY PRN Erectile 10/27/23 10/27/23 Unknown History Dysfunction Physical Exam 2 Vital Signs: Vital Signs: Last Vital Signs Temp 97.8 F 10/28/23 15:34 Pulse 97 10/28/23 15:34 Resp 19 10/28/23 15:34 BP 200/100 H 10/28/23 15:34 Pulse Ox 97 10/28/23 15:34 O2 Del Method Room Air 10/28/23 15:34 O2 Flow Rate 100 10/28/23 00:00 BMI result Body Mass Index 31.0 Gen appear: Seen at bedside in the presence of his significant other HEENT: nonicteric, no cervical lymphadenopathy Chest: CTA CVS: Regular S1/S2 Abd: soft, nontender, distended, bowel sounds +, no shifting dullness to percussion Ext: peripheral edema Neuro: A/Ox3, noted to move all extremities spontaneously Psych: interacting appropriately Results Labs 10/28/23 18:34 10/28/23 06:31 Labs: Short CBC 10/27/23 10/28/23 Range/Units 16:44 06:31 WBC 4.9 6.7 (4.8-10.8) X10*3/uL Hgb 4.4 L* 6.8 L* D (14.0-18.0) g/dl Hct 16.9 L* 23.3 L D (42.0-52.0) % Plt Count 275 238 (160-400) X10*3/uL BMP 10/27/23 10/28/23 16:44 06:31 Sodium 143 139 Potassium 3.7 4.1 Chloride 111 H 106 Carbon Dioxide 25 24 BUN 16 13 Creatinine 1.36 0.96 Calcium 8.8 8.5 Liver Function 10/27/23 Range/Units 16:44 Total Bilirubin 0.4 (0.0-1.0) mg/dL AST 66 H (5-37) U/L ALT 37 (0-40) U/L Alkaline Phosphatase 83 (39-117) U/L Albumin 3.6 (3.5-5.0) g/dL Assessment and Plan (1) Symptomatic anemia: Status: Acute (2) History of alcohol abuse: Status: Acute (3) Elevated blood pressure reading: Status: Acute (4) Liver cirrhosis: Status: Acute (5) HCC (hepatocellular carcinoma): Status: Acute Plan #Hx of HCV (tx with [place] with SVR 2018) and etOH use disorder with liver cirrhosis - MELD-Na 7 #Acute on chronic anemia Patient presenting with profound anemia likely from chronic occult GI bleeding. Risk factors include oozing from portal hypertensive gastropathy versus GAVE versus AVM vs malignancy. Less likely to be variceal bleeding given insiduous onset of anemia without any overt bleeding. Plan: -Will set him up for upper endoscopy and colonoscopy tentatively tomorrow -please transfuse to keep hemoglobin above 7 -maintain at least 2 peripheral IV access at all times -can take clear liquid diet today, NPO after midnight -GoLYTELY prep ordered -okay to continue octreotide and pantoprazole for now -please also add ceftriaxone for infection prophylaxis in this patient with underlying cirrhosis -check AFP and MRI liver protocol -Further recommendations to follow in the procedure note tomorrow -HTN management as per primary team Recommendations were relayed to the hospitalist team over tiger text. Thank you for allowing me to participate in his care. Please do not hesitate to reach out for any questions or concerns. Procedures Date of Service Date of Service: 10/28/23
[2023-10-28] MEDS: amLODIPine Besylate 10 MG TABLET PO (16:05)
[2023-10-28] MEDS: PEG 3350/Na Sulf,Bicarb,Cl/KCL 4,000 ML SOLN.RECON 4000 ML PO (17:03)
[2023-10-28] MEDS: cefTRIAXone sodium 1 GM in 0.9 % Sodium Chloride 50 ML IV (17:37)
[2023-10-28 18:43] LABS: Hematocrit 36.5 % (42.0-52.0); Hemoglobin 10.9 g/dl (14.0-18.0)
[2023-10-29] VITALS (11 sets, daily range): BP systolic 136–193; BP diastolic 69–84; PULSE 63–74; RESP 14–20; TEMP 36.2–37.2; O2SAT 93–97
[2023-10-29] MEDS: Labetalol HCL 100 MG/20 ML VIAL 10 MG IVPUSH (00:43)
[2023-10-29] MEDS: 0.9 % Sodium Chloride Flush 3 ML SYRINGE IVFLUSH ×2 (00:43→08:33)
[2023-10-29] MEDS: Octreotide Acetate 500 MCG in 0.9 % Sodium Chloride 500 ML 50.1 MCG IVCONT ×2 (03:14→16:34)
[2023-10-29] MEDS: Pantoprazole Sodium 40 MG/10 ML VIAL IVPUSH ×2 (05:49→16:34)
[2023-10-29 07:07] LABS: Prothrombin Time 12.4 SEC (11.1-13.3)
[2023-10-29 07:09] LABS: Alanine Aminotransferase 61 U/L (0-40); Albumin Level 3.6 g/dL (3.5-5.0); Alkaline Phosphatase 86 U/L (39-117); Anion Gap 13 (12-20); Aspartate Amino Transferase 116 U/L (5-37); Bilirubin Total 0.8 mg/dL (0.0-1.0); Blood Urea Nitrogen 9 mg/dL (9-16); Calcium 8.6 mg/dL (8.4-10.2); Carbon Dioxide 27 mmol/L (22-29); Chloride 104 mmol/L (96-108); Creatinine Clr Calc Pharmacy 69.8; Estimated Glomerular Filt Rate > 60; Glucose Random 93 mg/dL (60-115); Potassium 3.6 mmol/L (3.3-5.1); Sodium 140 mmol/L (135-145); Total Protein 6.9 g/dL (6.5-8.0)
[2023-10-29 07:15] LABS: Hemoglobin 9.7 g/dl (14.0-18.0); Mean Corpuscular HGB Conc 30.3 g/dl (31.0-36.0); Mean Corpuscular Volume 69.3 fL (80.0-98.0); Platelet Count 243 X10*3/uL (160-400); Red Blood Count 4.62 X10*6/uL (4.60-5.80); Red Cell Distribution Width 29.7 % (11.0-16.0); White Blood Count 7.4 X10*3/uL (4.8-10.8)
[2023-10-29] MEDS: lisinopriL 10 MG TABLET PO (08:32)
[2023-10-29] MEDS: Pregabalin 75 MG CAPSULE PO ×2 (08:32→21:50)
[2023-10-29] MEDS: amLODIPine Besylate 10 MG TABLET PO (08:32)
--- NOTE | 2023-10-29 10:34 | HO.PM.IMPN ---
Subjective Subjective Date of Service: 10/29/23 Interval History: This history was taken in [place] from the patient. Tolerated transfusion NPO for scopes No abd pain No melena Review of Systems Review of Systems: Yes all other systems are reviewed and are negative Physical Exam Vital Signs: Vital Signs: Last Vital Signs Temp 98.7 F 10/29/23 07:08 Pulse 64 10/29/23 07:08 Resp 18 10/29/23 07:08 BP 193/84 H 10/29/23 07:08 Pulse Ox 96 10/29/23 07:08 O2 Del Method Room Air 10/29/23 07:08 O2 Flow Rate 100 10/28/23 00:00 BMI result Body Mass Index 31.0 Gen: in no acute distress HEENT: sclera anicteric, moist mucus membranes Neck: supple Lungs: clear to auscultation bilaterally Heart: regular rate and rhythm, no murmurs Abd: soft, non-tender, non-distended Ext: no edema Skin: warm/well-perfused Neuro: alert and oriented x3, no focal findings Psych: appropriate affect Objective Data Active Medications Acetaminophen (Acetaminophen 325 Mg Tablet) 650 mg PO Q6H PRN PRN Reason: Pain, Mild (Pain Scale 1-3) Acetaminophen (Acetaminophen Supp 650 Mg Supp.Rect) 650 mg [place] Q6H PRN PRN Reason: Pain, Mild (Pain Scale 1-3) Amlodipine Besylate (Amlodipine Besylate 10 Mg Tablet) 10 mg PO DAILY [facility]; Protocol Last Admin: 10/29/23 08:32 Dose: 10 mg Documented By: RUKHSANA Octreotide Acetate 500 mcg/ (Sodium Chloride) 501 mls @ 50.1 mls/hr IVCONT .Q10H [facility] Last Admin: 10/29/23 03:14 Dose: 50 mcg/hr, 50.1 mls/hr Documented By: ANTOIC Ceftriaxone Sodium 1 gm/ (Sodium Chloride) 50 mls @ 100 mls/hr IV Q24H [facility] Last Infusion: 10/28/23 18:27 Dose: Infused Documented By: STALIN Lisinopril (Lisinopril 10 Mg Tablet) 10 mg PO DAILY [facility]; Protocol Last Admin: 10/29/23 08:32 Dose: 10 mg Documented By: RUKHSANA Melatonin (Melatonin 3 Mg Tablet) 6 mg PO BEDTIME PRN PRN Reason: Insomnia Ondansetron HCl (Ondansetron Hcl 4 Mg/2 Ml Vial) 4 mg IVPUSH Q8H PRN PRN Reason: Nausea and Vomiting Pantoprazole Sodium (Pantoprazole Sodium 40 Mg/10 Ml Vial) 40 mg IVPUSH BID@0630,1630 [facility] Last Admin: 10/29/23 05:49 Dose: 40 mg Documented By: ANTOIC Pregabalin (Pregabalin 75 Mg Capsule) 75 mg PO BID [facility] Last Admin: 10/29/23 08:32 Dose: 75 mg Documented By: RUKHSANA Sodium Chloride (0.9 % Sodium Chloride Flush 3 Ml Syringe) 3 ml IVFLUSH QSHIFT [facility] Last Admin: 10/29/23 08:33 Dose: 3 ml Documented By: RUKHSANA Labs 10/29/23 06:09 10/29/23 06:09 Labs: Laboratory Results - last 24 hr 10/27/23 10/29/23 16:57 06:09 MCV 69.3 L MCH 21.0 L MCHC 30.3 L RDW 29.7 H Plt Count 243 MPV Not Reportable Absolute Nucleated RBC 0.000 Nucleated RBC % (auto) 0.0 PT 12.4 INR 1.0 Anion Gap 13 Estim Creat Clear Calc 69.8 Estimated GFR > 60 Random Glucose 93 Calcium 8.6 Total Bilirubin 0.8 AST 116 H ALT 61 H Alkaline Phosphatase 86 Total Protein 6.9 Albumin 3.6 Blood Type A Negative Antibody Screen NEGATIVE Crossmatch See Detail Microbiology Microbiology Results: Microbiology 10/27/23 16:57 Blood Culture - Preliminary Blood - Venous No growth after 24 hours. 10/27/23 16:44 Blood Culture - Preliminary Blood - Venous No growth after 24 hours. Assessment and Plan (1) Symptomatic anemia: Status: Acute Plan d3 67yo M with hx HCC s/p embolization, HCV/EtOH cirrhosis, neuropathy sent from PCP's office due to severe anemia, Hb 4.7 FOBT+ severe ROBBIE due to GI blood loss - IV PPI, IV octreotide, IV ceftriaxone - transfused 4u pRBCs 10/27-10/28 with appopriate rise in H+H - GI consulted, plan EGD + C-scope today hx HCC with 4cm lesion in left lobe of liver - AFP pending, MRI ordered neuropathy - pregabalin VTE ppx - SCDs dispo - TBD In my clinical judgment, the patient requires continued inpatient hospitalization for the following reasons: endoscopic evaluation for severe anemia Total time managing care of this patient today: 35 minutes. Quality Stroke Does the patient have a stroke diagnosis?: No VTE Prior VTE?: No VTE Risk Level:: Medical - moderate - high VTE Device Contraindication: N/A - Device Ordered VTE Drug Contraindication: Treatment Not Indicated
--- NOTE | 2023-10-29 12:15 | HO.ANESPROP2 ---
[facility] Active Problems Active Problems: All Active Problems (Updated 10/28/23 @ 16:07 by Amalia Cota MD) HCC (hepatocellular carcinoma) (Acute) Hepatitis C (Acute) Symptomatic anemia (Acute) Neuropathy involving both lower extremities (Acute) Right lateral epicondylitis (Acute) History of alcohol abuse (Acute) History of cancer chemotherapy (Acute) History of breast lump/mass excision (Acute) Osteoarthritis of knees, bilateral (Acute) Meralgia paresthetica of both lower extremities (Acute) Low vitamin D level (Acute) Lumbar degenerative disc disease (Acute) Bilateral knee pain (Acute) GERD (gastroesophageal reflux disease) (Acute) Elevated blood pressure reading (Acute) Screening for hypothyroidism (Acute) Screening for hyperlipidemia (Acute) Bilateral leg pain (Acute) Myalgia (Acute) Lumbar spondylosis (Acute) Liver cirrhosis (Acute) Leg weakness, bilateral (Acute) Common cold (Acute) Lower back pain (Acute) Past Medical History Medical History (Updated 10/28/23 @ 16:07 by Amalia Cota MD) Neuropathy involving both lower extremities Liver cirrhosis Hepatitis C Common cold Lower back pain Family History Family History Father Prostate cancer Mother Diabetes Stroke Surgical History Surgical History Hx of colonoscopy History of breast lump/mass excision History of ankle surgery History of appendectomy History of open reduction and internal fixation (ORIF) procedure Social History Social History Household Members: None Housing: Apartment Do you presently have visiting nurse or other home services: Yes Alcohol intake: current Alcohol intake frequency: a few times a week Alcohol type: hard liquor Patient Tobacco Use Status: Current someday Tobacco user Tobacco use type: Cigarette Cigarettes Per Day: 6 e-Cigarette/Vaping Use: Never Used Second Hand Smoke Exposure: Yes service: No Current occupational status: disabled Cognitive needs: Yes (cane) Hearing needs: No Vision needs: Yes (glasses) Meds Allergies Allergy/AdvReac Type Severity Reaction Status Date / Time No Known Allergies Allergy Verified 10/27/23 11:14 [No Known Allergies*] Active Medications: Current Medications Acetaminophen (Acetaminophen 325 Mg Tablet) 650 mg PO Q6H PRN PRN Reason: Pain, Mild (Pain Scale 1-3) Acetaminophen (Acetaminophen Supp 650 Mg Supp.Rect) 650 mg [place] Q6H PRN PRN Reason: Pain, Mild (Pain Scale 1-3) Amlodipine Besylate (Amlodipine Besylate 10 Mg Tablet) 10 mg PO DAILY [facility]; Protocol Last Admin: 10/29/23 08:32 Dose: 10 mg Octreotide Acetate 500 mcg/ (Sodium Chloride) 501 mls @ 50.1 mls/hr IVCONT .Q10H [facility] Last Admin: 10/29/23 03:14 Dose: 50 mcg/hr, 50.1 mls/hr Ceftriaxone Sodium 1 gm/ (Sodium Chloride) 50 mls @ 100 mls/hr IV Q24H [facility] Last Infusion: 10/28/23 18:27 Dose: Infused Lisinopril (Lisinopril 10 Mg Tablet) 10 mg PO DAILY [facility]; Protocol Last Admin: 10/29/23 08:32 Dose: 10 mg Melatonin (Melatonin 3 Mg Tablet) 6 mg PO BEDTIME PRN PRN Reason: Insomnia Ondansetron HCl (Ondansetron Hcl 4 Mg/2 Ml Vial) 4 mg IVPUSH Q8H PRN PRN Reason: Nausea and Vomiting Pantoprazole Sodium (Pantoprazole Sodium 40 Mg/10 Ml Vial) 40 mg IVPUSH BID@0630,1630 [facility] Last Admin: 10/29/23 05:49 Dose: 40 mg Pregabalin (Pregabalin 75 Mg Capsule) 75 mg PO BID [facility] Last Admin: 10/29/23 08:32 Dose: 75 mg Sodium Chloride (0.9 % Sodium Chloride Flush 3 Ml Syringe) 3 ml IVFLUSH QSHIFT [facility] Last Admin: 10/29/23 08:33 Dose: 3 ml Home Medications Medication Instructions Recorded Confirmed Last Taken Type tadalafil 10 mg tablet 10 mg PO DAILY PRN Erectile 10/27/23 10/27/23 Unknown History Dysfunction Exam Height,Weight and Vital Signs: Height 5 ft 3 in Weight 79.379 kg Last Vital Signs Temp 98.0 F 10/29/23 11:00 Pulse 64 10/29/23 11:00 Resp 18 10/29/23 11:00 BP 149/71 H 10/29/23 11:00 Pulse Ox 97 10/29/23 11:00 O2 Del Method Room Air 10/29/23 11:00 O2 Flow Rate 100 10/28/23 00:00 Pertinent Lab Results Pertinent Lab Results: Laboratory Tests 10/27/23 10/27/23 10/27/23 16:44 16:57 17:12 WBC 4.9 RBC 2.89 L Hgb 4.4 L* Hct 16.9 L* MCV 58.5 L MCH 15.2 L MCHC 26.0 L RDW 21.0 H Plt Count 275 MPV Not Reportable Immature Gran % (Auto) 0.2 Neut % (Auto) 59.5 Lymph % (Auto) 23.6 [place] % (Auto) 14.9 H Eos % (Auto) 1.6 Baso % (Auto) 0.2 Lymph # (Auto) 1.2 [place] # (Auto) 0.7 Eos # (Auto) 0.1 Baso # (Auto) 0.0 Abs Immat Gran (auto) 0.01 Absolute Neuts (auto) 2.9 Absolute Nucleated RBC 0.000 Nucleated RBC % (auto) 0.0 Smear Tech's Comments VERIFIED PT 12.1 INR 1.0 APTT 27.4 Sodium 143 Potassium 3.7 Chloride 111 H Carbon Dioxide 25 Anion Gap 11 L BUN 16 Creatinine 1.36 Estim Creat Clear Calc 47.7 Estimated GFR 52 Random Glucose 106 Lactic Acid 1.0 Calcium 8.8 Magnesium Iron TIBC % Saturation Unsat Iron Binding Ferritin Total Bilirubin 0.4 AST 66 H ALT 37 Alkaline Phosphatase 83 B-Natriuretic Peptide 334 H Total Protein 6.9 Albumin 3.6 Stool Occult Blood POSITIVE COVID-19 (JUDY) Negative COVID-19 Clin Com See Note Influenza Type A (ANALY) Negative Influenza Type B (ANALY) Negative Influenza A & B Note See Note Blood Type A Negative Antibody Screen NEGATIVE Crossmatch See Detail 10/28/23 10/28/23 10/28/23 06:31 18:34 18:35 WBC 6.7 RBC 3.52 L D Hgb 6.8 L* D 10.9 L D Cancelled Hct 23.3 L D 36.5 L D Cancelled MCV 66.2 L D MCH 19.3 L MCHC 29.2 L RDW 29.0 H Plt Count 238 MPV Not Reportable Immature Gran % (Auto) Neut % (Auto) Lymph % (Auto) [place] % (Auto) Eos % (Auto) Baso % (Auto) Lymph # (Auto) [place] # (Auto) Eos # (Auto) Baso # (Auto) Abs Immat Gran (auto) Absolute Neuts (auto) Absolute Nucleated RBC 0.000 Nucleated RBC % (auto) 0.0 Smear Tech's Comments PT INR APTT Sodium 139 Potassium 4.1 Chloride 106 Carbon Dioxide 24 Anion Gap 13 BUN 13 Creatinine 0.96 Estim Creat Clear Calc 67.6 Estimated GFR > 60 Random Glucose 122 H Lactic Acid Calcium 8.5 Magnesium 1.9 Iron 437 H TIBC 462 H % Saturation 95 H Unsat Iron Binding < 25 Ferritin 19 L Total Bilirubin AST ALT Alkaline Phosphatase B-Natriuretic Peptide Total Protein Albumin Stool Occult Blood COVID-19 (JUDY) COVID-19 Clin Com Influenza Type A (ANALY) Influenza Type B (ANALY) Influenza A & B Note Blood Type Antibody Screen Crossmatch 10/29/23 06:09 WBC 7.4 RBC 4.62 D Hgb 9.7 L Hct 32.0 L MCV 69.3 L MCH 21.0 L MCHC 30.3 L RDW 29.7 H Plt Count 243 MPV Not Reportable Immature Gran % (Auto) Neut % (Auto) Lymph % (Auto) [place] % (Auto) Eos % (Auto) Baso % (Auto) Lymph # (Auto) [place] # (Auto) Eos # (Auto) Baso # (Auto) Abs Immat Gran (auto) Absolute Neuts (auto) Absolute Nucleated RBC 0.000 Nucleated RBC % (auto) 0.0 Smear Tech's Comments PT 12.4 INR 1.0 APTT Sodium 140 Potassium 3.6 Chloride 104 Carbon Dioxide 27 Anion Gap 13 BUN 9 Creatinine 0.93 Estim Creat Clear Calc 69.8 Estimated GFR > 60 Random Glucose 93 Lactic Acid Calcium 8.6 Magnesium Iron TIBC % Saturation Unsat Iron Binding Ferritin Total Bilirubin 0.8 AST 116 H ALT 61 H Alkaline Phosphatase 86 B-Natriuretic Peptide Total Protein 6.9 Albumin 3.6 Stool Occult Blood COVID-19 (JUDY) COVID-19 Clin Com Influenza Type A (ANALY) Influenza Type B (ANALY) Influenza A & B Note Blood Type Antibody Screen Crossmatch
[2023-10-29] MEDS: gadobutroL 10 ML VIAL IVPUSH (12:50)
--- NOTE | 2023-10-29 13:42 | P.CONAN_ITS ---
[facility] Active Problems Active Problems: All Active Problems HCC (hepatocellular carcinoma) (Acute) Hepatitis C (Acute) Symptomatic anemia (Acute) Neuropathy involving both lower extremities (Acute) Right lateral epicondylitis (Acute) History of alcohol abuse (Acute) History of cancer chemotherapy (Acute) History of breast lump/mass excision (Acute) Osteoarthritis of knees, bilateral (Acute) Meralgia paresthetica of both lower extremities (Acute) Low vitamin D level (Acute) Lumbar degenerative disc disease (Acute) Bilateral knee pain (Acute) GERD (gastroesophageal reflux disease) (Acute) Elevated blood pressure reading (Acute) Screening for hypothyroidism (Acute) Screening for hyperlipidemia (Acute) Bilateral leg pain (Acute) Myalgia (Acute) Lumbar spondylosis (Acute) Liver cirrhosis (Acute) Leg weakness, bilateral (Acute) Common cold (Acute) Lower back pain (Acute) Past Medical History Medical History Neuropathy involving both lower extremities Liver cirrhosis Hepatitis C Common cold Lower back pain Family History Family History Father Prostate cancer Mother Diabetes Stroke Surgical History Surgical History Hx of colonoscopy History of breast lump/mass excision History of ankle surgery History of appendectomy History of open reduction and internal fixation (ORIF) procedure History of Problems with Anesthesia: No Social History Social History Household Members: None Housing: Apartment Do you presently have visiting nurse or other home services: Yes Alcohol intake: current Alcohol intake frequency: a few times a week Alcohol type: hard liquor Patient Tobacco Use Status: Current someday Tobacco user Tobacco use type: Cigarette Cigarettes Per Day: 6 e-Cigarette/Vaping Use: Never Used Second Hand Smoke Exposure: Yes service: No Current occupational status: disabled Cognitive needs: Yes (cane) Hearing needs: No Vision needs: Yes (glasses) Meds Allergies Allergy/AdvReac Type Severity Reaction Status Date / Time No Known Allergies Allergy Verified 10/27/23 11:14 [No Known Allergies*] Active Medications: Current Medications Acetaminophen (Acetaminophen 325 Mg Tablet) 650 mg PO Q6H PRN PRN Reason: Pain, Mild (Pain Scale 1-3) Acetaminophen (Acetaminophen Supp 650 Mg Supp.Rect) 650 mg WI Q6H PRN PRN Reason: Pain, Mild (Pain Scale 1-3) Amlodipine Besylate (Amlodipine Besylate 10 Mg Tablet) 10 mg PO DAILY FORMERLY [facility], [facility]1983; Protocol Last Admin: 10/29/23 08:32 Dose: 10 mg Octreotide Acetate 500 mcg/ (Sodium Chloride) 501 mls @ 50.1 mls/hr IVCONT .Q 10H FOR[facility]LY [facility], [facility]–1983 Last Infusion: 10/29/23 12:00 Dose: 0 mcg/hr, 0 mls/hr Ceftriaxone Sodium 1 gm/ (Sodium Chloride) 50 mls @ 100 mls/hr IV Q24H FORMERLY [facility], [facility]–1983 Last Infusion: 10/28/23 18:27 Dose: Infused Lisinopril (Lisinopril 10 Mg Tablet) 10 mg PO DAILY FORMERLY [facility], [facility]1983; Protocol Last Admin: 10/29/23 08:32 Dose: 10 mg Melatonin (Melatonin 3 Mg Tablet) 6 mg PO BEDTIME PRN PRN Reason: Insomnia Ondansetron HCl (Ondansetron Hcl 4 Mg/2 Ml Vial) 4 mg IVPUSH Q8H PRN PRN Reason: Nausea and Vomiting Pantoprazole Sodium (Pantoprazole Sodium 40 Mg/10 Ml Vial) 40 mg IVPUSH BID@0630,1630 FORMERLY [facility], [facility]–1983 Last Admin: 10/29/23 05:49 Dose: 40 mg Pregabalin (Pregabalin 75 Mg Capsule) 75 mg PO BID FORMERLY [facility], [facility]1983 Last Admin: 10/29/23 08:32 Dose: 75 mg Sodium Chloride (0.9 % Sodium Chloride Flush 3 Ml Syringe) 3 ml IVFLUSH QSHIFT FOR[facility]LY [facility], [facility]–1983 Last Admin: 10/29/23 08:33 Dose: 3 ml Home Medications Medication Instructions Recorded Confirmed Last Taken Type tadalafil 10 mg tablet 10 mg PO DAILY PRN Erectile 10/27/23 10/27/23 Unknown History Dysfunction Exam Height,Weight and Vital Signs: Height 5 ft 3 in Weight 79.379 kg Last Vital Signs Temp 97.9 F 10/29/23 13:38 Pulse 74 10/29/23 13:38 Resp 18 10/29/23 13:38 BP 154/73 H 10/29/23 13:38 Pulse Ox 97 10/29/23 13:38 O2 Del Method Room Air 10/29/23 13:38 O2 Flow Rate 100 10/28/23 00:00 Pertinent Lab Results Pertinent Lab Results: Laboratory Tests 10/27/23 10/27/23 10/27/23 16:44 16:57 17:12 WBC 4.9 RBC 2.89 L Hgb 4.4 L* Hct 16.9 L* MCV 58.5 L MCH 15.2 L MCHC 26.0 L RDW 21.0 H Plt Count 275 MPV Not Reportable Immature Gran % (Auto) 0.2 Neut % (Auto) 59.5 Lymph % (Auto) 23.6 [place] % (Auto) 14.9 H Eos % (Auto) 1.6 Baso % (Auto) 0.2 Lymph # (Auto) 1.2 [place] # (Auto) 0.7 Eos # (Auto) 0.1 Baso # (Auto) 0.0 Abs Immat Gran (auto) 0.01 Absolute Neuts (auto) 2.9 Absolute Nucleated RBC 0.000 Nucleated RBC % (auto) 0.0 Smear Tech's Comments VERIFIED PT 12.1 INR 1.0 APTT 27.4 Sodium 143 Potassium 3.7 Chloride 111 H Carbon Dioxide 25 Anion Gap 11 L BUN 16 Creatinine 1.36 Estim Creat Clear Calc 47.7 Estimated GFR 52 Random Glucose 106 Lactic Acid 1.0 Calcium 8.8 Magnesium Iron TIBC % Saturation Unsat Iron Binding Ferritin Total Bilirubin 0.4 AST 66 H ALT 37 Alkaline Phosphatase 83 B-Natriuretic Peptide 334 H Total Protein 6.9 Albumin 3.6 Stool Occult Blood POSITIVE COVID-19 (JUDY) Negative COVID-19 Clin Com See Note Influenza Type A (ANALY) Negative Influenza Type B (ANALY) Negative Influenza A & B Note See Note Blood Type A Negative Antibody Screen NEGATIVE Crossmatch See Detail 10/28/23 10/28/23 10/28/23 06:31 18:34 18:35 WBC 6.7 RBC 3.52 L D Hgb 6.8 L* D 10.9 L D Cancelled Hct 23.3 L D 36.5 L D Cancelled MCV 66.2 L D MCH 19.3 L MCHC 29.2 L RDW 29.0 H Plt Count 238 MPV Not Reportable Immature Gran % (Auto) Neut % (Auto) Lymph % (Auto) [place] % (Auto) Eos % (Auto) Baso % (Auto) Lymph # (Auto) [place] # (Auto) Eos # (Auto) Baso # (Auto) Abs Immat Gran (auto) Absolute Neuts (auto) Absolute Nucleated RBC 0.000 Nucleated RBC % (auto) 0.0 Smear Tech's Comments PT INR APTT Sodium 139 Potassium 4.1 Chloride 106 Carbon Dioxide 24 Anion Gap 13 BUN 13 Creatinine 0.96 Estim Creat Clear Calc 67.6 Estimated GFR > 60 Random Glucose 122 H Lactic Acid Calcium 8.5 Magnesium 1.9 Iron 437 H TIBC 462 H % Saturation 95 H Unsat Iron Binding < 25 Ferritin 19 L Total Bilirubin AST ALT Alkaline Phosphatase B-Natriuretic Peptide Total Protein Albumin Stool Occult Blood COVID-19 (JUDY) COVID-19 Job1001 Com Influenza Type A (ANALY) Influenza Type B (ANALY) Influenza A & B Note Blood Type Antibody Screen Crossmatch 10/29/23 06:09 WBC 7.4 RBC 4.62 D Hgb 9.7 L Hct 32.0 L MCV 69.3 L MCH 21.0 L MCHC 30.3 L RDW 29.7 H Plt Count 243 MPV Not Reportable Immature Gran % (Auto) Neut % (Auto) Lymph % (Auto) [place] % (Auto) Eos % (Auto) Baso % (Auto) Lymph # (Auto) [place] # (Auto) Eos # (Auto) Baso # (Auto) Abs Immat Gran (auto) Absolute Neuts (auto) Absolute Nucleated RBC 0.000 Nucleated RBC % (auto) 0.0 Smear Tech's Comments PT 12.4 INR 1.0 APTT Sodium 140 Potassium 3.6 Chloride 104 Carbon Dioxide 27 Anion Gap 13 BUN 9 Creatinine 0.93 Estim Creat Clear Calc 69.8 Estimated GFR > 60 Random Glucose 93 Lactic Acid Calcium 8.6 Magnesium Iron TIBC % Saturation Unsat Iron Binding Ferritin Total Bilirubin 0.8 AST 116 H ALT 61 H Alkaline Phosphatase 86 B-Natriuretic Peptide Total Protein 6.9 Albumin 3.6 Stool Occult Blood COVID-19 (JUDY) COVID-19 Job1001 Com Influenza Type A (ANALY) Influenza Type B (ANALY) Influenza A & B Note Blood Type Antibody Screen Crossmatch Airway Mallampati Class: III TM Dist: >3cm Neck ROM: Full Partial: Upper and Lower Loose/Missing/Broken Teeth: Yes, Upper and Lower Heart: RRR Lungs: CTA Assessment and Plan Assessment Anesthesia Assessment: Anesthesia Plan Discussed and Chart Reviewed Final Anesthetic Review History of Problems with Anesthesia: No NPO: Yes ASA Class: IV Final Preanesthetic Review: Meds/Allgs Chart Reviewed, Consent Obtained/Reviewed and Anes Risks/Benef Reviewed Patient Risk: High Procedure Risk: Intermediate Anesthetic Plan Anesthetic Plan: MAC: Disposition: Standard PACU
--- NOTE | 2023-10-29 15:33 | P.OP_ITS ---
Operative Note Operative Note Date of Service: 10/29/23 Narrative: Procedure: Upper endoscopy and colonoscopy Indication: Anemia, cirrhosis Endoscopist: Amalia Cota MD Anesthesia Provider: Dr Rivka Dickinson Anesthesia type: MAC Instrument: Olympus [id number]-H190 [id number]-[id number] ?? EGD Procedure:?? The procedure, indications, preparation and potential complications were reviewed with the patient, who indicated understanding and gave written informed consent to proceed. social research assistant was present for the encounter. A physica l exam was performed. The endoscope was introduced through the mouth, and advanced to the third part of duodenum. The mucosa was carefully examined on slow withdrawal of the endoscope. The patient tolerated the procedure well. There were no immediate complications.? ? EGD Findings:? * Esophagus:? Normal mucosa noted in the entire esophagus. The Z line was at 40 cm. * Stomach:? Linear erosions were noted in the antrum. Cold forceps biopsies were taken from the edge of the erosions and antrum. Remaining mucosa was normal. * Duodenum:? Multiple AVMs were noted in the duodenal sweep, second and third portion of the duodenum including a 7 mm AVM in the sweep that started bleeding briskly when agitated with water jet. All of the AVMs were ablation with argon plasma coagulation using a straight-fire catheter. Colonoscopy Procedure: The patient was then turned for the colonoscopy. A digital rectal exam was performed which was normal. A distal attachment cap was affixed to the tip of the scope and the colonoscope was then inserted through the anus and advanced through the colon to the cecum at 75 cm and terminal ileum. Mucosa was carefully examined under high definition white light as the instrument was slowly withdrawn in a retrograde panoramic fashion. Retroflexion was performed in rectum. The procedure was not difficult. There were no immediate obvious complications. The quality of the prep was BBPS: 2+2+3 = adequate Withdrawal time 15 minutes. Limitations: No limitations. Colonoscopy Findings: Mucosa: Copious liquid stool was noted in the right colon which was extensively flushed and suctioned. Mucosa was otherwise normal. Protruding lesions: * A 2 cm nodule with normal overlying mucosa was noted adjacent to appendiceal orifice with negative pillow sign. This was unroofed with cold snare revealing a pearlescent lesion underneath. Multiple cold forceps biopsies were taken and submitted for histology. * Medium internal hemorrhoids without stigmata of recent bleeding. Excavated lesions: * Scattered mild divcerticulosis of sigmoid colon Impressions:? * Normal esophagus * Antral gastritis (biopsy) * Duodenal AVMs (APC) * Fair prep * 2 cm subepithelial cecal nodule (unroofed, biopsy) * Diverticulosis * Hemorrhoids Recommendations: - Follow path results. - Anemia likely from bleeding AVMs. - If anemia persists or recurs, low threshold to repeat EGD/push enteroscopy. - Further work up including imaging vs surgical referral contingent on results of the histology on cecal BRADY. - Repeat colonoscopy for colorectal screening recommended in 5 years due to prep - An outpatient follow up will be set up with his script writer, Dr Maza
[2023-10-29] MEDS: cefTRIAXone sodium 1 GM in 0.9 % Sodium Chloride 50 ML IV (16:33)
--- NOTE | 2023-10-29 18:05 | PC.NURSE ---
Pt consented for MRI this am testing completed at 1200. NPO for procedure off unit approx 1315 returns to unit at 1618. VSS. Denies pain/discomfort. peanut sorter utilized for assessment. Pt requesting to eat Dr Baird notified of patient status feeling well tolerating liquids Regular diet ordered tolerating well. Family at bedside. Will continue to monitor and report changes
[2023-10-29] MEDS: Acetaminophen 325 MG TABLET 650 MG PO (21:50)
[2023-10-30 01:53] VITALS: PULSE 61; RESP 18
[2023-10-30] MEDS: Octreotide Acetate 500 MCG in 0.9 % Sodium Chloride 500 ML 50.1 MCG IVCONT (02:07)
[2023-10-30 03:20] VITALS: BP 180/88; PULSE 56; RESP 15; TEMP 36.6; O2SAT 98
[2023-10-30] MEDS: Pantoprazole Sodium 40 MG/10 ML VIAL IVPUSH (05:53)
[2023-10-30] MEDS: Acetaminophen 325 MG TABLET 650 MG PO (05:53)
[2023-10-30 07:36] LABS: Hematocrit 32.7 % (42.0-52.0); Hemoglobin 9.6 g/dl (14.0-18.0); Mean Corpuscular HGB Conc 29.4 g/dl (31.0-36.0); Mean Corpuscular Hemoglobin 20.8 pg (27.0-33.0); Mean Corpuscular Volume 70.9 fL (80.0-98.0); PLT CLUMP 1; Red Blood Count 4.61 X10*6/uL (4.60-5.80); Red Cell Distribution Width 30.6 % (11.0-16.0)
[2023-10-30 07:48] VITALS: BP 171/84; PULSE 62; RESP 20; TEMP 36.7; O2SAT 97
[2023-10-30 07:57] LABS: Platelet Count 233 X10*3/uL (160-400)
[2023-10-30 08:08] LABS: Alanine Aminotransferase 47 U/L (0-40); Albumin Level 3.3 g/dL (3.5-5.0); Alkaline Phosphatase 80 U/L (39-117); Anion Gap 13 (12-20); Aspartate Amino Transferase 68 U/L (5-37); Bilirubin Total 0.5 mg/dL (0.0-1.0); Blood Urea Nitrogen 10 mg/dL (9-16); Calcium 8.2 mg/dL (8.4-10.2); Carbon Dioxide 25 mmol/L (22-29); Chloride 108 mmol/L (96-108); Creatinine Clr Calc Pharmacy 60.7; Estimated Glomerular Filt Rate > 60; Glucose Random 149 mg/dL (60-115); Potassium 3.9 mmol/L (3.3-5.1); Sodium 142 mmol/L (135-145); Total Protein 6.4 g/dL (6.5-8.0)
[2023-10-30] MEDS: Pregabalin 75 MG CAPSULE PO (08:54)
[2023-10-30] MEDS: amLODIPine Besylate 10 MG TABLET PO (08:54)
[2023-10-30] MEDS: lisinopriL 10 MG TABLET PO (08:54)
[2023-10-30] MEDS: 0.9 % Sodium Chloride Flush 3 ML SYRINGE IVFLUSH (09:00)
--- NOTE | 2023-10-30 09:03 | HO.POSTANES ---
Post Anesthesia Evaluation Post Anesthesia Evaluation Date of Service: 10/30/23 Vital Signs: Vital Signs Temp Pulse Resp BP Pulse Ox O2 Del Method 10/30/23 07:48 98.1 F 62 20 171/84 H 97 Room Air 10/30/23 03:20 97.8 F 56 15 180/88 H 98 Room Air 10/30/23 01:53 61 18 10/29/23 23:20 98.6 F 65 16 168/75 H 97 Room Air Anesthesia: Monitored Mental Status: Awake Pain Control: Satisfactory Nausea/Vomiting: None Hydration: Adequate Anesthesia-Related Issues: No Anes. Related Issues
--- NOTE | 2023-10-30 10:18 | P.DS_ITS ---
DS: Providers Provider Date of Service: 10/30/23 Date of admission: 10/27/23 19:15 Date of discharge: 10/30/23 Primary care physician: Adam Newell MD Consults: 10/27/23 19:15 Consult to Gastroenterology Routine Consulting Provider: Amber Maza Reason for consultation: Acute GI bleed DS: Diagnosis Discharge Diagnosis (1) Symptomatic anemia: Status: Acute (2) Iron deficiency anemia secondary to blood loss (chronic): Status: Acute (3) Gastric AVM: Status: Acute (4) GI bleeding: Status: Acute (5) Nodule of colon: Status: Acute (6) Hepatocellular carcinoma: Status: Acute (7) Hypertension: Status: Acute DS: Summary Hospital Course Hospital Course: from admission H+P by hospitalist Marbin Louie, 10/27/23: This is a 67-year-old Amharic-speaking male with pertinent history of peripheral neuropathy, history of liver cancer status post radiation who presents to the emergency department for evaluation of abnormal labs. Patient states he went to his PCP's office after a year. His hemoglobin was found to be low and he was sent to the ER. Patient admits ongoing generalized weakness, malaise and dyspnea on exertion. He states that this has been ongoing for a while. He denies hematemesis, hematochezia, melena. Patient states he is never received blood transfusion in the past. Denies alcohol use every day, states he drinks every other day. Admits to using [id number] pain medications for leg discomfort. States he has not been taking care of himself for the last 1 year and is not compliant with doctor visits and prescription medications. He was apparently diagnosed with liver cancer as per the patient about 5 years ago and received radiation for it. No abdominal discomfort, fever, chills, chest pain, palpitations,changes in urinary or bowel habits. In the emergency department, hemoglobin found to be 4.4 and stool occult blood positive. Imaging with 4 cm mass left lobe of the liver 67yo M with hx HCC s/p embolization, HCV/EtOH cirrhosis, and neuropathy who was sent from his PCP's office due to severe anemia with Hb 4.7. He was found to be occult-blood positive. He was admitted to the telemetry unit. He was transfused with 4 units of packed red blood cells with appropriate rise in hemoglobin. He was given IV PPI, IV octreotide, and IV ceftriaxone. Gastroenterology was consulted. Dr Amalia Cota perfored EGD and colonoscopy on 10/29/23, which revealed: * Normal esophagus * Antral gastritis (biopsy) * Duodenal AVMs (APC) * Fair prep * 2 cm subepithelial cecal nodule (unroofed, biopsy) * Diverticulosis * Hemorrhoids Anemia was likely from bleeding AVMs. Per Dr Holland: - If anemia persists or recurs, low threshold to repeat EGD/push enteroscopy. - Further work up including imaging vs surgical referral contingent on results of the histology on cecal BRADY. - Repeat colonoscopy for colorectal screening recommended in 5 years due to prep - An outpatient follow up will be set up with his rag cutting machine feeder, Dr Maza MRI of the abdomen showed recurrence of HCC and he was referred to [facility] for treatment. He will need to follow up with [facility] as well for results of the cecal nodule biopsy. He was started on iron and also prescribed amlodipine plus lisinopril for hypertension. Time Attestation Total time managing care of this patient today: 45 mintues. Discharge coordination time: Greater than 30 minutes Quality: Safe Use of Opioids Does Pt have an Active Cancer Diagnosis on the Problem List?: No Quality: Stroke Does the patient have a stroke diagnosis?: No Physical Exam Vital Signs: Vital Signs: Last Vital Signs Temp 98.1 F 10/30/23 07:48 Pulse 62 10/30/23 07:48 Resp 20 10/30/23 07:48 BP 171/84 H 10/30/23 07:48 Pulse Ox 97 10/30/23 07:48 O2 Del Method Room Air 10/30/23 07:48 O2 Flow Rate 100 10/28/23 00:00 BMI result Body Mass Index 31.0 Gen: in no acute distress HEENT: sclera anicteric, moist mucus membranes Neck: supple Lungs: clear to auscultation bilaterally Heart: regular rate and rhythm, no murmurs Abd: soft, non-tender, non-distended Ext: no edema Skin: warm/well-perfused Neuro: alert and oriented x3, no focal findings Psych: appropriate affect DS: Data Data Completed and Pending Completed studies during hospitalization [Text1]: Laboratory Results WBC 7.0 X10*3/uL (4.8-10.8) 10/30/23 06:59 RBC 4.61 X10*6/uL (4.60-5.80) 10/30/23 06:59 Hgb 9.6 g/dl (14.0-18.0) L 10/30/23 06:59 Hct 32.7 % (42.0-52.0) L 10/30/23 06:59 MCV 70.9 fL (80.0-98.0) L 10/30/23 06:59 MCH 20.8 pg (27.0-33.0) L 10/30/23 06:59 MCHC 29.4 g/dl (31.0-36.0) L 10/30/23 06:59 RDW 30.6 % (11.0-16.0) H 10/30/23 06:59 Plt Count 233 X10*3/uL (160-400) 10/30/23 06:59 MPV Not Reportable 10/30/23 06:59 Immature Gran % (Auto) 0.2 % (0.0-0.4) 10/27/23 16:44 Neut % (Auto) 59.5 % (45-73) 10/27/23 16:44 Lymph % (Auto) 23.6 % (20-40) 10/27/23 16:44 [place] % (Auto) 14.9 % (2-11) H 10/27/23 16:44 Eos % (Auto) 1.6 % (0-4) 10/27/23 16:44 Baso % (Auto) 0.2 % (0-2) 10/27/23 16:44 Lymph # (Auto) 1.2 X10*3/uL (1.2-4.9) 10/27/23 16:44 [place] # (Auto) 0.7 X10*3/uL (0.1-1.2) 10/27/23 16:44 Eos # (Auto) 0.1 X10*3/uL (0.0-0.4) 10/27/23 16:44 Baso # (Auto) 0.0 X10*3/uL (0.0-0.2) 10/27/23 16:44 Abs Immat Gran (auto) 0.01 X10*3/uL (0.00-0.03) 10/27/23 16:44 Absolute Neuts (auto) 2.9 x10*3/uL (2.0-8.3) 10/27/23 16:44 Absolute Nucleated RBC 0.000 X10*3/uL (0.0-0.012) 10/30/23 06:59 Nucleated RBC % (auto) 0.0 /100WBC (0.0-0.2) 10/30/23 06:59 Smear Tech's Comments VERIFIED 10/27/23 16:44 PT 12.4 SEC (11.1-13.3) 10/29/23 06:09 INR 1.0 (0.9-1.1) 10/29/23 06:09 APTT 27.4 SEC (26.0-36.8) 10/27/23 16:44 Sodium 142 mmol/L (135-145) 10/30/23 06:59 Potassium 3.9 mmol/L (3.3-5.1) 10/30/23 06:59 Chloride 108 mmol/L (96-108) 10/30/23 06:59 Carbon Dioxide 25 mmol/L (22-29) 10/30/23 06:59 Anion Gap 13 (12-20) 10/30/23 06:59 BUN 10 mg/dL (9-16) 10/30/23 06:59 Creatinine 1.07 mg/dL (0.5-1.4) 10/30/23 06:59 Estim Creat Clear Calc 60.7 10/30/23 06:59 Estimated GFR > 60 10/30/23 06:59 Random Glucose 149 mg/dL (60-115) H 10/30/23 06:59 Lactic Acid 1.0 mmol/L (0.5-2.0) 10/27/23 16:44 Calcium 8.2 mg/dL (8.4-10.2) L 10/30/23 06:59 Magnesium 1.9 mg/dL (1.6-2.6) 10/28/23 06:31 Iron 437 mcg/dL (45-160) H 10/28/23 06:31 TIBC 462 mcg/dL (228-428) H 10/28/23 06:31 % Saturation 95 % (15-50) H 10/28/23 06:31 Unsat Iron Binding < 25 ug/dL 10/28/23 06:31 Ferritin 19 ng/mL (20-250) L 10/28/23 06:31 Total Bilirubin 0.5 mg/dL (0.0-1.0) 10/30/23 06:59 AST 68 U/L (5-37) H 10/30/23 06:59 ALT 47 U/L (0-40) H 10/30/23 06:59 Alkaline Phosphatase 80 U/L (39-117) 10/30/23 06:59 B-Natriuretic Peptide 334 pg/mL (<100) H 10/27/23 16:44 Total Protein 6.4 g/dL (6.5-8.0) L 10/30/23 06:59 Albumin 3.3 g/dL (3.5-5.0) L 10/30/23 06:59 Stool Occult Blood POSITIVE (NEGATIVE) 10/27/23 17:12 COVID-19 (JUDY) Negative (Negative) 10/27/23 16:57 COVID-19 Clin Com See Note 10/27/23 16:57 Influenza Type A (ANALY) Negative (Negative) 10/27/23 16:57 Influenza Type B (ANALY) Negative (Negative) 10/27/23 16:57 Influenza A & B Note See Note 10/27/23 16:57 Blood Type A Negative 10/27/23 16:57 Antibody Screen NEGATIVE 10/27/23 16:57 Crossmatch See Detail 10/27/23 16:57 Impressions Abdomen/Pelvis CT 10/27/23 22:02 IMPRESSION: Partially calcified left hepatic lobe lesion, similar in measurements to previous MRI abdomen exam 10/15/2020. No additional lesions seen, however limited due to lack of IV contrast. The left lobe of liver is small. Punctate calcification versus gallstone. No wall thickening. Scattered colonic diverticulosis without diverticulitis. Fleischner guidelines were followed. Abdomen MRI 10/29/23 12:40 IMPRESSION: 1. Multiple newly seen hypervascular hepatic lesions, the largest of which in the inferior left hepatic lobe and at the right hepatic dome are consistent with hepatocellular carcinoma, measuring 3.3 cm and 2.3 cm, respectively. 2. Redemonstrated left hepatic lobe treatment cavity, without evidence of residual/recurrent tumor at that location (LR-TR nonviable). 3. Hepatomegaly with hepatic steatosis and cirrhosis. Pending studies at discharge: Pending at discharge 10/29/23 15:09 Surgical [PTH] Routine AFP level from 10/29/23 Discharge Plan Discharge Anticipated Discharge Date/Time: 10/30/23 10:14 Patient Disposition: Home, Self-Care Discharge Diagnosis: Severe iron deficiency anemia due to bleeding gastric AVMs Cecal nodule Recurrent hepatocellular carcinoma Hypertension Referrals: Roberta Issa MD [Physician] - 1 Week Amber Maza MD [Physician] - 1 Week Adam Newell MD [Primary Care Provider] - 1 Week Discharge Medications: New amlodipine 10 mg Tablet 10 mg PO DAILY Qty: 30 0RF Protocol: Hold for SBP< HOLD for SBP < : 90 lisinopril 10 mg Tablet 10 mg PO DAILY Qty: 30 0RF Protocol: Hold for SBP< HOLD for SBP < : 90 omeprazole 20 mg Capsule,Delayed Release(Dr/Ec) 20 mg PO BID@0630,1630 Qty: 60 0RF ferrous sulfate 325 mg (65 mg iron) tablet 325 mg PO DAILY Qty: 30 0RF Continued pregabalin 75 mg capsule 75 mg PO BID 30 Days Qty: 60 1RF tadalafil 10 mg tablet 10 mg PO DAILY PRN (Reason: Erectile Dysfunction) (DME) blood pressure monitor Kit See Rx Instructions .Route Qty: 1 0RF Rx Instructions: As directed (CHUCK) [facility] See Rx Instructions .Route Qty: 1 0RF Rx Instructions: As directed Diet: Low salt diet Activity on Discharge: As tolerated Stand Alone Forms: Patient Portal Discharge page Care Plan Goals: Recovery from GI bleed Treat liver cancer Control blood pressure Health Concerns: Severe iron deficiency anemia due to bleeding gastric AVMs Cecal nodule Recurrent hepatocellular carcinoma Hypertension Plan of Treatment: Take iron as prescribed Follow up with Dr Maza from [facility] [place] in 1 week for biopsy results Follow up with Dr Issa from [facility] [place] in 1 week for HCC treatment plan Take amlodipine and lisinopril for blood pressure control Low-sodium diet Please follow up with your primary care doctor within 1 week. Return to the hospital if you experience recurrent or worsening symptoms. Assessment: See Discharge Summary. Patient Instructions: Amlodipine (By mouth)
--- NOTE | 2023-10-30 11:02 | MHC.CM.PN ---
Patient has been medically cleared for dc to home today, self care. Last IMM addressed on 10/28/2023.
--- NOTE | 2023-10-30 11:08 | P.CDIM_ITS ---
PROVIDER RESPONSE TEXT: To clarify, the appropriate diagnosis supported by the clinical indicators: Iron deficiency anemia secondary to acute on chronic blood loss QUERY TEXT: PHYSICIAN'S DOCUMENTATION REQUEST Date of Query: 10/29/2023 06:13 AM EST Patient Name: Jose Armando Thompson Admit Date: 10/28/2023 Dear Adria Baird, A review of the medical record indicates additional documentation may be needed. Please review below and update the documentation accordingly. Clinical Indicators: PN: Assessment and plan - severe ROBBIE due to GI blood loss Hgb 4.4 Hct 16.9 Transfuse 4 units of PRBC Symptomatic anemia Based on the above, could you clarify which of the following is the most likely type of anemia you ar e evaluating, treating, and/or monitoring? Iron deficiency anemia secondary to acute blood loss Iron deficiency anemia secondary to acute on chronic blood loss Acute blood loss anemia Other (explain) Clinically unable to determine (explain) Thank you, Nasrin Bonilla, CCS, CDIS Use of terms such as suspected, likely, concern for, or probable (associated with a specific diagnosi s that is being evaluated, monitored, or treated as if it exists) are acceptable and can be coded in the inpatient se tting, when documented at the time of discharge. Please use your independent medical judgment in providing your response. THIS QUERY IS PART OF THE PERMANENT MEDICAL RECORD
[2023-10-30 11:45] VITALS: BP 142/65; PULSE 70; RESP 18; TEMP 36.9; O2SAT 98
[2023-11-01 13:39] LABS: Alpha Fetoprotein 3.4 ng/mL (<6.1)
== END 2023-10-30 15:40 | disposition home or self-care (01) | DRG 378 ==
LOC: HO.ED 19:27 → HO.EDOVER 19:33 → HO.IMC 20:11
PROVIDERS: Internal Medicine; Physician Assistant; Admitting Provider Student in an Organized Health Care Education/Training Program; Emergency Provider Emergency Medicine; PCP Internal Medicine; Visit Provider Family Medicine
PROC: 0DB78ZX Excision of Stomach, Pylorus, Via Natural or Artificial Opening Endoscopic, Diagnostic (ICD-10-PCS; principal; 2023-10-29 14:00)
DX: K31.811 Angiodysplasia of stomach and duodenum with bleeding (principal); C22.0 Liver cell carcinoma; D62 Acute posthemorrhagic anemia; K64.8 Other hemorrhoids; K70.30 Alcoholic cirrhosis of liver without ascites; G62.9 Polyneuropathy, unspecified; F10.11 Alcohol abuse, in remission; K57.30 Diverticulosis of large intestine without perforation or abscess without bleeding; K29.70 Gastritis, unspecified, without bleeding; F17.210 Nicotine dependence, cigarettes, uncomplicated; Z71.6 Tobacco abuse counseling; Z86.19 Personal history of other infectious and parasitic diseases; Z20.822 Contact with and (suspected) exposure to COVID-19; Z79.899 Other long term (current) drug therapy
CPT/HCPCS: 36415; 74176; 74183; 80048; 80053; 80061; 80076; 81001; 82105; 82272; 82728; 83540; 83605; 83735; 83880; 84443; 85014; 85018; 85025; 85027; 85610; 85730; 86850; 86900; 86901; 86923; 87040; 87502; 87635; 88305; 88313; 88342; 93005; 97161; 99285; A9585; C9113; J0696; J1920; J2354; J2704; P9016

== ENCOUNTER 2023-10-27 19:15 | Outpatient (BNV) | payer MEDICARE, MEDICAID, SELFPAY | END 2023-10-27 19:22 | PROVIDERS: Admitting Provider Student in an Organized Health Care Education/Training Program; Emergency Provider Emergency Medicine; Visit Provider Internal Medicine Cardiovascular Disease | DX: D64.9 Anemia, unspecified (principal) | CPT/HCPCS: 93010 ==

== ENCOUNTER → 2023-10-27 19:15 | Outpatient (BNV) | payer MEDICARE, OTHER, MEDICAID, SELFPAY | PROVIDERS: Admitting Provider Student in an Organized Health Care Education/Training Program; Emergency Provider Emergency Medicine; Visit Provider Student in an Organized Health Care Education/Training Program | DX: D50.0 Iron deficiency anemia secondary to blood loss (chronic) (principal); K92.2 Gastrointestinal hemorrhage, unspecified; K31.819 Angiodysplasia of stomach and duodenum without bleeding; K63.9 Disease of intestine, unspecified; C22.0 Liver cell carcinoma; I10 Essential (primary) hypertension | CPT/HCPCS: 99222; 99232; 99239 ==

== ENCOUNTER → 2023-10-27 19:15 | Outpatient (BNV) | payer OTHER, MEDICAID, SELFPAY | PROVIDERS: Admitting Provider Student in an Organized Health Care Education/Training Program; Emergency Provider Emergency Medicine; PCP Internal Medicine; Visit Provider Internal Medicine | DX: D50.9 Iron deficiency anemia, unspecified (principal); K29.70 Gastritis, unspecified, without bleeding; K31.819 Angiodysplasia of stomach and duodenum without bleeding; D12.0 Benign neoplasm of cecum; K57.30 Diverticulosis of large intestine without perforation or abscess without bleeding; K64.8 Other hemorrhoids | CPT/HCPCS: 43239; 43270; 45380; 99223 ==

== ENCOUNTER 2023-11-03 09:14 | Outpatient (AMB) | payer OTHER, MEDICAID, SELFPAY ==
--- NOTE | 2023-11-03 09:17 | MHC.PC.OV ---
Vital Signs 11/03/23 09:19 Height 5 ft 3 in Weight 165 lb 4 oz BMI 29.3 BP 124/70 Blood Pressure Location Lt brachial Position Sitting Pulse 80 Pulse Source Pulse Oximeter Pulse Oximetry (%) 98 Oxygen Delivery Method Room Air Intake Visit Reasons: [facility] 10/30/23 Abnormal labs Intake Note: Patient is here for hospital discharge follow up TCM. Patient was [place] [facility] [place]. Requesting referral to Oncology. Senior Oracle Soa Developer Required: Yes Senior Oracle Soa Developer Language: Barn Hand Name: Viki Purvis ([id number]) Information Interpreted: non-clinical & clinical Hospice Nurse Practitioner: Present Accompanied by: Grand Child Allergies No Known Allergies [No Known Allergies*] Allergy (Verified 11/05/23 15:44) Medication List - Last Reconciled 11/05/23 by Adam Newell MD amlodipine 10 mg See Protocol PO DAILY blood pressure monitor As directed ferrous sulfate 325 mg PO DAILY lisinopril 10 mg See Protocol PO DAILY omeprazole 20 mg PO BID@0630,1630 pregabalin 75 mg PO BID 30 days tadalafil 10 mg PO DAILY PRN walker As directed Tobacco use date assessed: 11/03/23 HPI [facility] 10/30/23 Abnormal labs HPI Details 67-year-old male presents to the office after recent hospitalization. Patient was admitted to the hospital with severe anemia. After workup, he was diagnosed to have hepatocellular carcinoma. He has requesting a referral to an oncologist. Patient is also complaining of weakness in his lower extremities and would like a walker. In the hospital he was started on amlodipine. His granddaughter had some concerns about the medication. [facility] Information Date of Discharge 10/30/23 Discharged From [facility] Interactive Contact Date (Reference documentation from this date) 11/01/23 [facility] Medical History (Updated 11/04/23 @ 00:03 by Alexys Wilson) Hepatocellular carcinoma Neuropathy involving both lower extremities Liver cirrhosis Hepatitis C Common cold Lower back pain Surgical History Hx of colonoscopy History of breast lump/mass excision History of ankle surgery History of appendectomy History of open reduction and internal fixation (ORIF) procedure Family History Father Prostate cancer Mother Diabetes Stroke Social History Household Members: None Housing: Apartment Do you presently have visiting nurse or other home services: Yes Alcohol intake: current Alcohol intake frequency: a few times a week Alcohol type: hard liquor Patient Tobacco Use Status: Current everyday Tobacco user Tobacco use type: Cigarette Cigarettes Per Day: 6 e-Cigarette/Vaping Use: Never Used Second Hand Smoke Exposure: Yes service: No Current occupational status: disabled Cognitive needs: Yes (cane) Hearing needs: No Vision needs: Yes (glasses) Questionnaire Thrive Questionnaire Date Thrive assessed: 10/28/23 PORFIRIO-7 AMB Questionnaire PORFIRIO-7 Date PORFIRIO - 7 assessed: 10/27/23 Source: Developed by Drs. Mynor Alba, Wilma Francois, Cornel Garcia and colleagues, with an educational elbert from [employer]. Physical exam (Primary Care) Vital Signs: Last Vital Signs Pulse 80 11/03/23 09:19 BP 124/70 11/03/23 09:19 Pulse Ox 98 11/03/23 09:19 Oxygen Delivery Method Room Air 11/03/23 09:19 BMI result Body Mass Index 29.3 Tobacco/Smoking Status: Tobacco use Status Tobacco use date assessed 11/03/23 11/03/23 09:23 Patient Tobacco Use Status Current everyday Tobacco 11/03/23 09:23 Tobacco use type Cigarette 11/03/23 09:23 e-Cigarette/Vaping Use Never Used 11/03/23 09:23 Thrive Assessment: Date of Thrive Assessment Date Thrive assessed 10/28/23 11/03/23 09:23 Const General: cooperative and healthy appearing Nutritional Appearance: well nourished Orientation/consciousness: patient oriented x3 Limitations: no limitations HENMT Head: Yes normal to inspection Eyes General: appearance normal, both eyes and all related structures Neck Neck: Yes normal visual inspection Chest Chest palpation & inspection: normal palpation of entire chest wall Resp Effort & Inspection: normal respiratory effort Neuro General: patient oriented x3 Assessment and Plan Assessment & Plan (1) Hepatocellular carcinoma: Code(s): C22.0 - Liver cell carcinoma Plan: Medication list was reconciled. Patient was advised to continue amlodipine. Oncology consult placed. Request for walker placed. Orders: Referrals Hematology & Oncology Referral C22.0 - Liver cell carcinoma Medications: Refilled walker As directed 1 ea 0RF G57.13 - Meralgia paresthetica, bilateral lower limbs, M51.36 - Other intervertebral disc degeneration, lumbar region, M79.604 - Pain in right leg, M79.605 - Pain in left leg Coding Level of Care Code TCM Mod MDM <= 14 Days Diagnoses Hepatocellular carcinoma C22.0
[2023-11-03 09:19] VITALS: BP 124/70; PULSE 80; O2SAT 98; BMI 29.3
== END 2023-11-03 11:13 | disposition home or self-care (01) ==
PROVIDERS: PCP Internal Medicine; Visit Provider Internal Medicine
DX: C22.0 Liver cell carcinoma (principal)
CPT/HCPCS: 99495

== ENCOUNTER 2023-11-09 15:06 | Emergency (ER) | payer OTHER, MEDICAID, SELFPAY ==
[2023-11-09 15:39] VITALS: BP 144/75; PULSE 80; RESP 18; TEMP 37.2; O2SAT 98; BMI 31.0
--- NOTE | 2023-11-09 15:39 | ED_ITS ---
HPI - General Adult General Stated complaint: blood transfusion then could not stop using bathro Related Data Home Medications Medication Instructions Recorded Confirmed tadalafil 10 mg tablet 10 mg PO DAILY PRN Erectile 10/27/23 11/05/23 Dysfunction Previous Rx's Medication Instructions Recorded blood pressure monitor #1 ea 01/21/22 pregabalin 75 mg capsule 75 mg PO BID pain 30 days #60 caps 08/26/23 amlodipine 10 mg tablet 10 mg PO DAILY #30 tabs 10/30/23 ferrous sulfate 325 mg (65 mg 325 mg PO DAILY #30 tabs 10/30/23 iron) tablet lisinopril 10 mg tablet 10 mg PO DAILY #30 tabs 10/30/23 omeprazole 20 mg capsule,delayed 20 mg PO BID@0630,1630 #60 caps 10/30/23 release walker #1 ea 11/05/23 Allergies Allergy/AdvReac Type Severity Reaction Status Date / Time No Known Allergies Allergy Verified 11/09/23 15:42 [No Known Allergies*] [facility] Past Medical History Medical History (Updated 11/04/23 @ 00:03 by Alexys Wilson) Hepatocellular carcinoma Neuropathy involving both lower extremities Liver cirrhosis Hepatitis C Common cold Lower back pain Surgical History Hx of colonoscopy History of breast lump/mass excision History of ankle surgery History of appendectomy History of open reduction and internal fixation (ORIF) procedure Family History Family History Father Prostate cancer Mother Diabetes Stroke Social History Social History Household Members: None Housing: Apartment Do you presently have visiting nurse or other home services: Yes Alcohol intake: current Alcohol intake frequency: a few times a week Alcohol type: hard liquor Patient Tobacco Use Status: Current everyday Tobacco user Tobacco use type: Cigarette Cigarettes Per Day: 6 e-Cigarette/Vaping Use: Never Used Second Hand Smoke Exposure: Yes service: No Current occupational status: disabled Cognitive needs: Yes (cane) Hearing needs: No Vision needs: Yes (glasses) Course Course Course Narrative: Patient complains of frequent episodes of diarrhea and loose stool for the past 2 weeks, he associates it with a blood transfusion he received 2 weeks ago and has had diarrhea since He was admitted to the hospital for anemia and had a workup in September, records are in the computer This rapid medical exam done in triage pending full ER evaluation and disposition by ER provider Labs are ordered Discharge Plan Discharge Prescriptions: No Action pregabalin 75 mg capsule 75 mg PO BID 30 Days Qty: 60 1RF tadalafil 10 mg tablet 10 mg PO DAILY PRN (Reason: Erectile Dysfunction) amlodipine 10 mg Tablet 10 mg PO DAILY Qty: 30 0RF Protocol: Hold for SBP< HOLD for SBP < : 90 lisinopril 10 mg Tablet 10 mg PO DAILY Qty: 30 0RF Protocol: Hold for SBP< HOLD for SBP < : 90 omeprazole 20 mg Capsule,Delayed Release(Dr/Ec) 20 mg PO BID@0630,1630 Qty: 60 0RF ferrous sulfate 325 mg (65 mg iron) tablet 325 mg PO DAILY Qty: 30 0RF (DME) blood pressure monitor Kit See Rx Instructions .Route Qty: 1 0RF Rx Instructions: As directed ([facility] [place]) jesus Akbar See Rx Instructions .Route Qty: 1 0RF Rx Instructions: As directed
[2023-11-09 16:42] LABS: COVID-19 Test Negative (Negative); IDNOW Serial# 9DB6401D
[2023-11-09 16:43] LABS: Alanine Aminotransferase 58 U/L (0-40); Albumin Level 3.7 g/dL (3.5-5.0); Alkaline Phosphatase 128 U/L (39-117); Anion Gap 11 (12-20); Aspartate Amino Transferase 74 U/L (5-37); Bilirubin Direct 0.2 mg/dL (0.0-0.5); Bilirubin Total 0.3 mg/dL (0.0-1.0); Blood Urea Nitrogen 20 mg/dL (9-16); Calcium 9.2 mg/dL (8.4-10.2); Carbon Dioxide 24 mmol/L (22-29); Chloride 110 mmol/L (96-108); Creatinine Clr Calc Pharmacy 59.6; Estimated Glomerular Filt Rate > 60; Glucose Random 96 mg/dL (60-115); Hematocrit 37.5 % (42.0-52.0); Hemoglobin 11.1 g/dl (14.0-18.0); Lipase 31 U/L (8-78); Mean Corpuscular HGB Conc 29.6 g/dl (31.0-36.0); Mean Corpuscular Hemoglobin 21.9 pg (27.0-33.0); Mean Corpuscular Volume 74.1 fL (80.0-98.0); PLT CLUMP 1; Potassium 4.4 mmol/L (3.3-5.1); Red Blood Count 5.06 X10*6/uL (4.60-5.80); Sodium 141 mmol/L (135-145); Total Protein 7.3 g/dL (6.5-8.0)
[2023-11-09 17:14] LABS: WBC ABN SCTR FOR CBC 1
[2023-11-09 17:17] LABS: Basophils Abs Manual 0.1 X10*3/uL (0.0-0.2); Basophils Percent Manual 1 % (0-2); Lymphocytes Absolute Manual 1.6 X10*3/uL (1.2-4.9); Lymphocytes Percent Manual 13 % (20-40); Monocytes Absolute Manual 0.6 X10*3/uL (0.1-1.2); Monocytes Percent Manual 5 % (2-11); Neutrophils Percent Manual 81 % (45-73); Ovalocytes 1+ (5-14) /OIF; RBC Morphology NOTED
[2023-11-09 17:18] LABS: Platelet Estimate NORMAL (NORMAL); Platelet Morphology Comment 0
--- NOTE | 2023-11-09 19:42 | MHC.EDTECH ---
Patient urine sample collected and sent to lab .
[2023-11-09 19:54] LABS: Appearance Urine Clear; Color Urine Dark Yellow; Glucose Urine UA Negative (Negative); Leukocyte Esterase Urine Negative (Negative); Nitrite Urine Negative (Negative); PH 5.5 (5.0-9.0); Urine Blood Negative (Negative); Urine Ketones Trace mg/dL (Negative); Urine Protein Trace mg/dL (Neg-Trace)
== END 2023-11-09 22:28 | disposition left against medical advice (07) ==
PROVIDERS: Physician Assistant Medical; Emergency Provider Emergency Medicine
DX: R19.7 Diarrhea, unspecified (principal); Z79.899 Other long term (current) drug therapy; Z11.52 Encounter for screening for COVID-19
CPT/HCPCS: 80048; 80076; 81003; 83690; 85007; 85025; 85027; 87635; 99282; 99283

== ENCOUNTER 2023-11-12 10:59 | Emergency (ER) | payer OTHER, MEDICAID, SELFPAY ==
[2023-11-12 11:03] VITALS: BP 138/95; PULSE 80; RESP 18; TEMP 36.1; O2SAT 99; BMI 29.9
[2023-11-12 11:56] LABS: Anion Gap 12 (12-20); Blood Urea Nitrogen 16 mg/dL (9-16); Calcium 9.1 mg/dL (8.4-10.2); Carbon Dioxide 24 mmol/L (22-29); Chloride 106 mmol/L (96-108); Creatinine Clr Calc Pharmacy 64.5; Estimated Glomerular Filt Rate > 60; Glucose Random 96 mg/dL (60-115); Potassium 4.4 mmol/L (3.3-5.1); Sodium 138 mmol/L (135-145)
[2023-11-12 12:09] LABS: Hemoglobin 11.1 g/dl (14.0-18.0); Mean Corpuscular Volume 73.3 fL (80.0-98.0); Platelet Count 267 X10*3/uL (160-400); Red Blood Count 5.05 X10*6/uL (4.60-5.80)
[2023-11-12 12:11] LABS: PLT ABN DIST 1; WBC ABN SCTR FOR CBC 1
[2023-11-12 12:23] LABS: Band Neutrophils Percent 0 % (3-5); Basophils Percent Manual 1 % (0-2); Lymphocytes Percent Manual 19 % (20-40); Monocytes Percent Manual 10 % (2-11); Neutrophils Percent Manual 70 % (45-73)
[2023-11-12 12:26] LABS: Hypochromasia 2+ (15-30) /OIF; Microcytosis 2+ (15-30) /OIF; RBC Morphology NOTED; Spherocytes 3+ (>5) /OIF
[2023-11-12 12:27] LABS: Basophils Abs Manual 0.1 X10*3/uL (0.0-0.2); Large Platelet PRESENT; Lymphocytes Absolute Manual 1.9 X10*3/uL (1.2-4.9); Neutrophils Absolute Manual 6.9 X10*3/uL (2.0-8.3); Platelet Estimate NORMAL (NORMAL); Platelet Morphology Comment NOTED; White Blood Count 9.8 X10*3/uL (4.8-10.8)
== END 2023-11-12 16:41 | disposition left against medical advice (07) ==
LOC: HO.ED 16:34
PROVIDERS: Emergency Provider Emergency Medicine
DX: R19.7 Diarrhea, unspecified (principal); Z79.899 Other long term (current) drug therapy
CPT/HCPCS: 36415; 80048; 85007; 85025; 85027; 99281; 99283

== ENCOUNTER → 2023-11-22 09:16 | Outpatient (BNV) | payer MEDICARE, OTHER, MEDICAID, SELFPAY | PROVIDERS: PCP Internal Medicine; Referring Provider Internal Medicine; Visit Provider Internal Medicine Medical Oncology | DX: C22.0 Liver cell carcinoma (principal) | CPT/HCPCS: 99213; 99214 ==

== ENCOUNTER 2023-12-01 10:30 | Outpatient (AMB) | payer OTHER, MEDICAID, SELFPAY ==
--- NOTE | 2023-12-01 10:46 | A.OFFPC_ITS ---
Vital Signs 12/01/23 10:47 Height 5 ft 3 in Weight 164 lb 6 oz BMI 29.1 BP 130/62 Blood Pressure Location Lt brachial Position Sitting Pulse 87 Pulse Source Pulse Oximeter Pulse Oximetry (%) 96 Oxygen Delivery Method Room Air Intake Visit Reasons: ED 11/09 dizziness/ green stool Intake Note: Patient is here to follow-up after a visit the emergency department at [facility] on 11/09/23 Enamel Shader Required: Yes Enamel Shader Language: Relocation Manager Name: Nadine ([id number]) Information Interpreted: non-clinical & clinical Insulation Estimator: Present Accompanied by: Grand Child Allergies No Known Allergies [No Known Allergies*] Allergy (Verified 12/03/23 05:24) Medication List - Last Reconciled 12/03/23 by Adam Newell MD amlodipine 10 mg See Protocol PO DAILY blood pressure monitor As directed ferrous sulfate 325 mg PO DAILY food supplemt, lactose-reduced (Ensure oral liquid) 1 ea PO TID lisinopril 10 mg See Protocol PO DAILY omeprazole 20 mg PO BID@0630,1630 tadalafil 10 mg PO DAILY PRN tramadol 50 mg PO BID PRN walker As directed Tobacco use date assessed: 12/01/23 Fall risk assessment: No Falls in past year Last assessed Fall Risk: 12/01/23 Dental Screening Dental Screen Date: 12/01/23 Did you have a dental visit in the last 12 months?: Yes Did you have a dental problem in the last 6 months where you did not have access to dental care?: No Was dental information given to patient?: Patient has dentist HPI ED 11/09 dizziness/ green stool HPI Details 67-year-old male presents to the office to discuss his medical problems. He is accompanied by his granddaughter. A day haul youth supervisor through the iPad was used. Patient and family member is aware of the cancer diagnosis. They are awaiting an appointment at [facility] for possible embolization. If that is not possible, chemotherapy would be started. Patient is complaining of pain in the right leg and lower extremity. This is chronic in nature. He would like some relief from pain. According to the family he is not consuming alcohol. Patient reports he is passing black color solid stool. [facility] Medical History Hepatocellular carcinoma Neuropathy involving both lower extremities Liver cirrhosis Hepatitis C Common cold Lower back pain Surgical History Hx of colonoscopy History of breast lump/mass excision History of ankle surgery History of appendectomy History of open reduction and internal fixation (ORIF) procedure Family History Father Prostate cancer Mother Diabetes Stroke Social History Household Members: None Housing: Apartment Do you presently have visiting nurse or other home services: Yes Alcohol intake: current Alcohol intake frequency: a few times a week Alcohol type: hard liquor Patient Tobacco Use Status: Current everyday Tobacco user Tobacco use type: Cigarette e-Cigarette/Vaping Use: Never Used Second Hand Smoke Exposure: Yes service: No Current occupational status: disabled Cognitive needs: Yes (cane) Hearing needs: No Vision needs: Yes (glasses) Questionnaire Thrive Questionnaire Date Thrive assessed: 10/28/23 PORFIRIO-7 AMB Questionnaire PORFIRIO-7 Date PORFIRIO - 7 assessed: 10/27/23 Source: Developed by Drs. Mynor Alba, Wilma Francois, Cornel Garcia and colleagues, with an educational elbert from [employer]. Physical exam (Primary Care) Vital Signs: Last Vital Signs Pulse 87 12/01/23 10:47 BP 130/62 12/01/23 10:47 Pulse Ox 96 12/01/23 10:47 Oxygen Delivery Method Room Air 12/01/23 10:47 BMI result Body Mass Index 29.1 Tobacco/Smoking Status: Tobacco use Status Tobacco use date assessed 12/01/23 12/01/23 11:02 Patient Tobacco Use Status Current everyday Tobacco 12/01/23 11:02 Tobacco use type Cigarette 12/01/23 11:02 e-Cigarette/Vaping Use Never Used 12/01/23 11:02 Thrive Assessment: Date of Thrive Assessment Date Thrive assessed 10/28/23 12/01/23 11:02 Const General: cooperative and healthy appearing Nutritional Appearance: well nourished Orientation/consciousness: patient oriented x3 Limitations: no limitations HENMT Head: Yes normal to inspection Eyes General: appearance normal, both eyes and all related structures Neck Neck: Yes normal visual inspection Chest Chest palpation & inspection: normal palpation of entire chest wall Resp Effort & Inspection: normal respiratory effort Neuro General: patient oriented x3 Assessment and Plan Assessment & Plan (1) Hepatocellular carcinoma: Code(s): C22.0 - Liver cell carcinoma Plan: This condition was discussed in detail with him. Patient is understanding the reason why he has to go to [facility] for an appointment. (2) Iron deficiency anemia secondary to blood loss (chronic): Code(s): D50.0 - Iron deficiency anemia secondary to blood loss (chronic) Plan: The black stool is due to the iron supplementation. Patient verbally understanding P (3) Neuropathy involving both lower extremities: Code(s): G57.93 - Unspecified mononeuropathy of bilateral lower limbs Plan: Tramadol once a day has been initiated. This is to give him some relief from the chronic pain. Medications: New tramadol 50 mg PO BID PRN 30 tabs 0RF pain Refilled lisinopril 10 mg See Protocol PO DAILY 90 tabs 1RF ferrous sulfate 325 mg PO DAILY 30 tabs 0RF amlodipine 10 mg See Protocol PO DAILY 90 tabs 1RF Coding Level of Care Code Est Pt Level 4 (86287) Diagnoses Hepatocellular carcinoma C22.0 Iron deficiency anemia secondary to blood loss (chronic) D50.0 Neuropathy involving both lower extremities G57.93
[2023-12-01 10:47] VITALS: BP 130/62; PULSE 87; O2SAT 96; BMI 29.1
== END 2023-12-01 11:44 | disposition home or self-care (01) ==
PROVIDERS: Visit Provider Internal Medicine
DX: C22.0 Liver cell carcinoma (principal); D50.0 Iron deficiency anemia secondary to blood loss (chronic); G57.93 Unspecified mononeuropathy of bilateral lower limbs
CPT/HCPCS: 99214

== ENCOUNTER 2023-12-20 10:12 | Outpatient (AMB) | payer OTHER, MEDICAID, SELFPAY ==
[2023-12-20 12:17] VITALS: BP 150/90; PULSE 87; TEMP 36.4; O2SAT 97; BMI 29.4
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
== END 2023-12-20 14:38 | disposition home or self-care (01) ==
PROVIDERS: PCP Internal Medicine; Visit Provider Internal Medicine
DX: R10.9 Unspecified abdominal pain (principal)
CPT/HCPCS: 99214

== ENCOUNTER 2023-12-20 13:20 | Outpatient (REF) | payer OTHER, MEDICAID, SELFPAY ==
--- NOTE | ~2023-12-20 | XR_ITS ---
EXAMINATION: XR ABDOMEN COMPLETE CLINICAL INDICATION: Abdominal pain COMPARISON: CT abdomen pelvis 10/27/2023 TECHNIQUE: 2 views of the abdomen. FINDINGS: There are mildly dilated loops of small bowel present measuring up to 4.2 cm in size (previously 2.5 cm) with air-fluid levels seen on the upright radiograph. No free intraperitoneal air is seen. Some gas and stool is present in the colon. Degenerative changes are present in the spine. No unusual calcifications identified. XR/XR abdomen min 2V IMPRESSION: Mildly dilated loops of small bowel with air-fluid levels. Findings may represent ileus versus partial small bowel obstruction.
== END 2023-12-20 13:21 | disposition home or self-care (01) ==
LOC: HO.HMGCX 13:20
PROVIDERS: PCP Internal Medicine; Visit Provider Internal Medicine
DX: Z13.89 Encounter for screening for other disorder (principal)
CPT/HCPCS: 74019

== ENCOUNTER 2023-12-20 14:15 | Emergency (ER) | payer OTHER, MEDICAID, SELFPAY ==
--- NOTE | ~2023-12-20 | CT_ITS ---
EXAMINATION: CT ABDOMEN AND PELVIS WITH CONTRAST CLINICAL INFORMATION: Obstruction, abdominal pain. COMPARISON: None available. TECHNIQUE: Multidetector volumetric images were obtained from the superior aspect of the liver through the pubic symphysis following administration 85 mL of Omnipaque 350 intravenous contrast. Sagittal and coronal reformatted images were obtained on the technologist's workstation. Oral contrast: No This CT examination was performed using dose optimization techniques as appropriate, variously including the following: *Automated exposure control *Adjustment of mA and/or kV according to patient size (this includes techniques or standardized protocols for targeted exams where dose is matched to indication/reason for exam; i.e. extremities or head) *Use of iterative reconstruction technique DLP: 550 mGy-cm FINDINGS: LUNG BASES: The visualized lung bases are unremarkable. LIVER, GALLBLADDER, AND BILIARY TREE: The liver is slightly enlarged in size measuring 19 cm. It has normal shape, lobulated contour slight hypo-attenuation. There is a 5 mm hypodensity left hepatic lobe probable cyst. No additional lesions seen. There is no intrahepatic duct dilatation. The gallbladder is unremarkable with no evidence of radiopaque gallstones, gallbladder wall thickening, or obvious pericholecystic inflammatory changes. PANCREAS: Unremarkable. SPLEEN: Unremarkable. ADRENAL GLANDS: Unremarkable. KIDNEYS AND URETERS: The kidneys are normal in size, shape, and attenuation. No hydronephrosis, hydroureter, or calculi seen. No perinephric stranding. There are multiple bilateral peripelvic renal cyst BLADDER: Unremarkable. GASTROINTESTINAL TRACT: There is scattered stool, gas and diverticuli seen throughout the colon without distention. There are multiple prominent small bowel loops with air-fluid level in the left midabdomen likely small bilaterally ileus. The transition point is not distinct the visualized appendix not seen. No fat stranding or free air. ABDOMINAL WALL: No significant hernia is appreciated. LYMPH NODES: Normal. VASCULAR: Unremarkable. PELVIC VISCERA: The prostate gland is normal size with thick central gland calcification. There is mild bladder wall thickening. No free air or free fluid seen. OSSEOUS STRUCTURES: There is mild degenerative disc changes with vacuum disc phenomena L4-L5 and L3-L4 disc level. There is superior endplate deformity L3 vertebra. CT/CT abdomen pelvis w IV con IMPRESSION: Prominent small bowel loops with air-fluid level in midabdomen with no clear transition point seen. Question ileus. The ileocecal junction is normal. The colon is normal. Appendix is not seen. No inflammatory fat stranding seen. Colonic diverticulosis without diverticulitis. Fleischner guidelines were followed.
[2023-12-20 14:24] VITALS: BP 147/84; PULSE 87; RESP 18; TEMP 37.3; O2SAT 98; BMI 29.4
--- NOTE | 2023-12-20 14:25 | ED.GENADULT ---
HPI - General Adult General Chief complaint: Abdominal Pain Stated complaint: abd normal test results Time Seen by Provider: 12/20/23 16:00 Source: patient Mode of arrival: ambulatory Limitations: no limitations History of Present Illness HPI narrative: Patient is a 67-year-old male who presents emergency department for evaluation of abdominal pain. Abdominal pain is diffuse but primarily in the epigastric region with onset 1 week ago, over the past 2-3 days progressively worsening. He was evaluated at urgent care prior to arrival and an XR was obtained which revealed concern for possible SBO versus ileus. He has associated nausea but no vomiting, poor appetite. Reports last bowel movement was yesterday. Related Data Home Medications Medication Instructions Recorded Confirmed tadalafil 10 mg tablet 10 mg PO DAILY PRN Erectile 10/27/23 12/03/23 Dysfunction Previous Rx's Medication Instructions Recorded blood pressure monitor #1 ea 01/21/22 omeprazole 20 mg capsule,delayed 20 mg PO BID@0630,1630 #60 caps 10/30/23 release walker #1 ea 11/05/23 food supplemt, lactose-reduced 1 ea PO TID #3,792 mL 11/16/23 (Ensure oral liquid) ferrous sulfate 325 mg (65 mg 325 mg PO DAILY #30 tabs 12/01/23 iron) tablet amlodipine 10 mg tablet 10 mg PO DAILY #90 tabs 12/03/23 lisinopril 10 mg tablet 10 mg PO DAILY #90 tabs 12/03/23 tramadol 50 mg tablet 50 mg PO BID PRN pain #30 tabs 12/03/23 polyethylene glycol 3350 17 17 g PO DAILY #119 grams 12/20/23 gram/dose oral powder (Miralax) Allergies Allergy/AdvReac Type Severity Reaction Status Date / Time No Known Allergies Allergy Verified 12/20/23 12:33 [No Known Allergies*] Review of Systems Review of Systems: Yes all other systems are reviewed and are negative PMFSH Past Medical History Attestation statement: The following information was validated with the patient. Source: old records reviewed Medical History Hepatocellular carcinoma Neuropathy involving both lower extremities Liver cirrhosis Hepatitis C Common cold Lower back pain Surgical History Hx of colonoscopy History of breast lump/mass excision History of ankle surgery History of appendectomy History of open reduction and internal fixation (ORIF) procedure Family History Family History Father Prostate cancer Mother Diabetes Stroke Social History Social History Household Members: None Housing: Apartment Do you presently have visiting nurse or other home services: Yes Alcohol intake: current Alcohol intake frequency: does not drink Alcohol type: hard liquor Patient Tobacco Use Status: Current everyday Tobacco user Tobacco use type: Cigarette Smoked in Last 30 Days: No e-Cigarette/Vaping Use: Never Used Second Hand Smoke Exposure: Yes Use of substances other than those prescribed or required for medical reasons: No Advance Directives: No Advance Directives Information Provided: No service: No Current occupational status: disabled Cognitive needs: Yes (cane) Hearing needs: No Vision needs: Yes (glasses) Physical Exam ED Vital Signs: Vital Signs - 24 hr 12/20/23 14:24 12/20/23 19:31 12/20/23 21:39 Temperature 99.2 F 97.9 F 97.9 F Pulse Rate 87 85 85 Respiratory Rate 18 16 16 Blood Pressure 147/84 H 149/73 H 149/73 H Pulse Oximetry 98 97 97 Oxygen Delivery Method Room Air Room Air Room Air BMI result Body Mass Index 29.4 Appearance: Alert.?Oriented to person, place and time. No acute distress.?Normal affect. Eyes: Pupils equal, round and reactive to light.? Scleral icterus ENT: Pharynx normal.?? Neck: Normal inspection.? Neck supple.?? CVS: Heart sounds normal. Normal heart rate and rhythm.? Pulses normal.?? Respiratory: No respiratory distress.? Lung sounds clear to auscultation bilaterally?? Abdomen: Semifirm, distended.. Hypoactive bowel sounds. No pulsatile mass.?? Skin: Skin warm and dry.? Normal skin color.? Jaundice Extremities: No lower extremity edema.? No calf ttp? Neuro: Moves all extremities spontaneously. Sensation intact bilaterally. Ambulates with normal steady gait. Course Course Course Narrative: RME performed by Sheri Lowe PA-C. Patient is a 67 year old assigned male at presenting to the emergency department with abdominal pain and an abdominal XR that showed a possible SBO vs. Ileus. Detailed physical exam and review of systems are deferred to the exercise science instructor. Labs, imaging, and swabs ordered. Charge nurse made aware of this patient. Reevaluation(s) Reevaluation #1: CT reveals prominent small bowel loops with air-fluid level, no clear transition point, likely ileus. Upon speaking with the patient has pain has resolved. He is tolerating oral intake without complication. Has not had any episodes of vomiting since this pain started only nausea. He has been having forearm but small bowel movements for the past 3 days, none today. Although he has not eaten since dinner last night but she was able to consume potatoes and pork chops without complication. At this time I feel that he is stable for discharge home and outpatient follow-up with his primary care provider. Time: 20:55 Medications Administered Discontinued Medications Generic Name Dose Route Start Last Admin Trade Name Freq PRN Reason Stop Dose Admin Sodium Chloride 1,000 mls @ 999 mls/hr 12/20/23 16:15 12/20/23 19:00 Ns IV 12/20/23 17:15 Infused .Q1H1M CARSON Infusion Iohexol 85 ml 12/20/23 16:57 12/20/23 16:58 Iohexol 350 Mg/Ml 100 Ml Infus..Btl IV 12/20/23 16:58 85 ml ONCE ONE Administration Morphine Sulfate 4 mg 12/20/23 16:08 12/20/23 16:22 Morphine Sulfate 4 Mg/Ml Cartridge IVPUSH 12/20/23 16:09 4 mg ONCE ONE Administration Protocol Ondansetron HCl 4 mg 12/20/23 16:08 12/20/23 16:21 Ondansetron Hcl 4 Mg/2 Ml Vial IVPUSH 12/20/23 16:09 4 mg ONCE ONE Administration Medical Decision Making Medical Decision Making MDM Narrative: Patient is a 67-year-old male with past medical History of hepatocellular carcinoma with prior radiofrequency embolization, cirrhosis, hep C, neuropathy, hypertension, anxiety, alcohol use disorder. October 2023 was profoundly anemic and found to have a 4 cm mass in the left lobe of the liver, underwent subsequent EGD and colonoscopy, anemia thought to be secondary to bleeding AVMs, MRI reveals recurrence of hepatocellular carcinoma. He has been seen by Dr. Hinson, pending treatment plan for repeat chemoembolization versus radiofrequency embolization. Will obtain CBC to evaluate for leukocytosis/ anemia, CMP and lipase to evaluate for abnormal electrolytes /abnormal renal function/ abnormal hepatic/biliary function, CT abdomen and pelvis and Urinalysis. Patient received 1 L normal saline IV fluid, morphine IV for pain, Zofran IV for nausea. Differential Diagnosis Differential Diagnoses: The differential diagnosis associated with the presentation includes (SBO, ascites, cholecystitis, pancreatitis, diverticulitis, enteritis) Admission/Observation Consideration of admission/observation: Escalation of care including admission/observation considered (See narrative above in course narrative for further details) Lab Data MDM Lab Attestation statement: I reviewed the patient's lab results. CBC is without leukocytosis, microcytic anemia consistent with baseline. No electrolyte abnormality. Elevated BUN of 26 with creatinine near baseline. Viral serologies negative 12/20/23 15:16 12/20/23 15:16 Labs: Lab Results 12/20/23 12/20/23 Range/Units 15:16 17:42 WBC 7.6 (4.8-10.8) X10*3/uL RBC 4.25 L (4.60-5.80) X10*6/uL Hgb 10.7 L (14.0-18.0) g/dl Hct 33.8 L (42.0-52.0) % MCV 79.5 L (80.0-98.0) fL MCH 25.2 L (27.0-33.0) pg MCHC 31.7 (31.0-36.0) g/dl RDW Not Reportable Plt Count 200 D (160-400) X10*3/uL MPV Not Reportable Immature Gran % (Auto) 0.3 (0.0-0.4) % Neut % (Auto) 79.6 H (45-73) % Lymph % (Auto) 10.5 L (20-40) % Hodgeman % (Auto) 8.4 (2-11) % Eos % (Auto) 1.1 (0-4) % Baso % (Auto) 0.1 (0-2) % Lymph # (Auto) 0.8 L (1.2-4.9) X10*3/uL Hodgeman # (Auto) 0.6 (0.1-1.2) X10*3/uL Eos # (Auto) 0.1 (0.0-0.4) X10*3/uL Baso # (Auto) 0.0 (0.0-0.2) X10*3/uL Abs Immat Gran (auto) 0.02 (0.00-0.03) X10*3/uL Absolute Neuts (auto) 6.1 (2.0-8.3) x10*3/uL Absolute Nucleated RBC 0.000 (0.0-0.012) X10*3/uL Nucleated RBC % (auto) 0.0 (0.0-0.2) /100WBC Sodium 140 (135-145) mmol/L Potassium 4.4 (3.3-5.1) mmol/L Chloride 105 (96-108) mmol/L Carbon Dioxide 25 (22-29) mmol/L Anion Gap 14 (12-20) BUN 26 H (9-16) mg/dL Creatinine 1.10 (0.5-1.4) mg/dL Estim Creat Clear Calc 57.6 Estimated GFR > 60 Random Glucose 99 (60-115) mg/dL Calcium 9.6 (8.4-10.2) mg/dL Magnesium 2.2 (1.6-2.6) mg/dL Total Bilirubin 0.4 (0.0-1.0) mg/dL AST 43 H (5-37) U/L ALT 35 (0-40) U/L Alkaline Phosphatase 106 (39-117) U/L Total Protein 7.7 (6.5-8.0) g/dL Albumin 3.9 (3.5-5.0) g/dL Urine Color Yellow Urine Appearance Clear Urine pH 5.5 (5.0-9.0) Ur Specific Chavies >= 1.030 H (1.005-1.025) Urine Protein Trace (Neg-Trace) mg/dL Urine Glucose (UA) Negative (Negative) mg/dL Urine Ketones Trace (Negative) mg/dL Urine Blood Negative (Negative) Urine Nitrite Negative (Negative) Ur Leukocyte Esterase Negative (Negative) Influenza Type A (PCR) NEGATIVE (Negative) Influenza Type B (PCR) NEGATIVE (Negative) RSV RNA Qual (PCR) NEGATIVE (Negative) SARS-CoV-2 RNA (RT-PCR) NEGATIVE (Negative) Radiology Impression Discussion of test interpretation with radiology: I have reviewed the radiologist's reading. Radiologist Impression: CT/CT abdomen pelvis w IV con IMPRESSION: Prominent small bowel loops with air-fluid level in midabdomen with no clear transition point seen. Question ileus. The ileocecal junction is normal. The colon is normal. Appendix is not seen. No inflammatory fat stranding seen. Colonic diverticulosis without diverticulitis. Independent Historian Clinical information obtained from an independent historian. History obtained from or confirmed by: Other (Granddaughter who confirms history) External Record Review External record reviewed: Outpatient record (Oncology 11/22/2023) Critical Care Time Critical Care Time Critical Care Time: Yes Total Critical Care Time: 40 Attestation: I personally attest to this critical care time spent taking care of the patient exclusive of all other billable procedures was approximately 40 minutes including initial evaluation of patient, ordering tests, IV pain medication and re-evaluation, medical consultation, documentation, re-evaluation. Discharge Plan Discharge Clinical Impression: Ileus Patient Disposition: Home, Self-Care Instructions: Ileus (ED) Additional Instructions: Introduce a bland diet including crackers, bananas, rice, soup, toast, and boiled vegetables. This may progress to plain baked or boiled chicken or turkey. Avoid dairy products or foods high in fat or grease. Take MiraLax daily to help have softer bowel movements, stop taking if you develop diarrhea. If you are unable to have a bowel movement, have severe worsening pain, vomiting, inability to tolerate eating you should return back to emergency department. Follow-up closely with your primary care provider. Prescriptions: New polyethylene glycol 3350 [Miralax] 17 gram/dose powder 17 g PO DAILY Qty: 119 0RF No Action Ensure Liquid 1 ea PO TID Qty: 3792 1RF tadalafil 10 mg tablet 10 mg PO DAILY PRN (Reason: Erectile Dysfunction) omeprazole 20 mg Capsule,Delayed Release(Dr/Ec) 20 mg PO BID@0630,1630 Qty: 60 0RF (DME) blood pressure monitor Kit See Rx Instructions .Route Qty: 1 0RF Rx Instructions: As directed (DME) jesus Akbar See Rx Instructions .Route Qty: 1 0RF Rx Instructions: As directed ferrous sulfate 325 mg (65 mg iron) tablet 325 mg PO DAILY Qty: 30 0RF tramadol 50 mg tablet 50 mg PO BID PRN (Reason: pain) Qty: 30 0RF amlodipine 10 mg tablet 10 mg PO DAILY Qty: 90 1RF Protocol: Hold for SBP< HOLD for SBP < : 90 lisinopril 10 mg tablet 10 mg PO DAILY Qty: 90 1RF Protocol: Hold for SBP< HOLD for SBP < : 90 Referrals: Adam Newell MD [Primary Care Provider] - Interventions: ED Discharge Assessment Last Done: 12/20/23 21:39 Discharge Date/Time: 12/20/23 21:40
[2023-12-20 15:20] LABS: MANUAL DIFF FLAG NO
[2023-12-20 15:25] LABS: Basophils Percent Auto 0.1 % (0-2); Eosinophils Absolute Auto 0.1 X10*3/uL (0.0-0.4); Eosinophils Percent Auto 1.1 % (0-4); Hematocrit 33.8 % (42.0-52.0); Hemoglobin 10.7 g/dl (14.0-18.0); Imm Gran Abs Auto 0.02 X10*3/uL (0.00-0.03); Imm Gran Pct Auto 0.3 % (0.0-0.4); Lymphocytes Absolute Auto 0.8 X10*3/uL (1.2-4.9); Lymphocytes Percent Auto 10.5 % (20-40); Mean Corpuscular HGB Conc 31.7 g/dl (31.0-36.0); Mean Corpuscular Hemoglobin 25.2 pg (27.0-33.0); Mean Corpuscular Volume 79.5 fL (80.0-98.0); Monocytes Absolute Auto 0.6 X10*3/uL (0.1-1.2); Monocytes Percent Auto 8.4 % (2-11); Neutrophils Absolute Auto 6.1 x10*3/uL (2.0-8.3); Platelet Count 200 X10*3/uL (160-400); Red Blood Count 4.25 X10*6/uL (4.60-5.80); White Blood Count 7.6 X10*3/uL (4.8-10.8)
[2023-12-20 15:28] LABS: Neutrophils Percent Auto 79.6 % (45-73)
[2023-12-20 15:38] LABS: Alanine Aminotransferase 35 U/L (0-40); Albumin Level 3.9 g/dL (3.5-5.0); Alkaline Phosphatase 106 U/L (39-117); Anion Gap 14 (12-20); Aspartate Amino Transferase 43 U/L (5-37); Bilirubin Total 0.4 mg/dL (0.0-1.0); Blood Urea Nitrogen 26 mg/dL (9-16); Calcium 9.6 mg/dL (8.4-10.2); Carbon Dioxide 25 mmol/L (22-29); Chloride 105 mmol/L (96-108); Creatinine Clr Calc Pharmacy 57.6; Estimated Glomerular Filt Rate > 60; Glucose Random 99 mg/dL (60-115); Magnesium 2.2 mg/dL (1.6-2.6); Potassium 4.4 mmol/L (3.3-5.1); Sodium 140 mmol/L (135-145); Total Protein 7.7 g/dL (6.5-8.0)
[2023-12-20 16:00] LABS: Influenza A PCR NEGATIVE (Negative); Influenza B PCR NEGATIVE (Negative); Resp Syncy Virus RNA Qual PCR NEGATIVE (Negative); SARS COV2 PCR INHOUSE NEGATIVE (Negative)
[2023-12-20] MEDS: ondansetron HCL 4 MG/2 ML VIAL IVPUSH (16:21)
[2023-12-20] MEDS: 0.9 % Sodium Chloride 1,000 ML 999 ML IV (16:21)
[2023-12-20] MEDS: Morphine Sulfate 4 MG/ML CARTRIDGE IVPUSH (16:22)
[2023-12-20] MEDS: iohexoL 350 MG/ML 100 ML INFUS..BTL 85 ML IV (16:58)
[2023-12-20 17:49] LABS: Appearance Urine Clear; Color Urine Yellow; Glucose Urine UA Negative (Negative); Leukocyte Esterase Urine Negative (Negative); Nitrite Urine Negative (Negative); PH 5.5 (5.0-9.0); Specific Gravity - Urine >= 1.030 (1.005-1.025); Urine Blood Negative (Negative); Urine Ketones Trace mg/dL (Negative); Urine Protein Trace mg/dL (Neg-Trace)
[2023-12-20 19:31] VITALS: BP 149/73; PULSE 85; RESP 16; TEMP 36.6; O2SAT 97
[2023-12-20 21:39] VITALS: BP 149/73; PULSE 85; RESP 16; TEMP 36.6; O2SAT 97
== END 2023-12-20 21:40 | disposition home or self-care (01) ==
PROVIDERS: Physician Assistant Medical; Emergency Provider Emergency Medicine Emergency Medical Services; PCP Internal Medicine
DX: K56.7 Ileus, unspecified (principal); C22.0 Liver cell carcinoma; I10 Essential (primary) hypertension; Z11.52 Encounter for screening for COVID-19; Z20.828 Contact with and (suspected) exposure to other viral communicable diseases
CPT/HCPCS: 0241U; 74019; 74177; 80053; 81003; 83735; 85025; 96361; 96374; 96375; 99284; J2270; J2405; Q9967

== ENCOUNTER 2023-12-24 09:57 | Outpatient (AMB) | payer OTHER, MEDICAID, SELFPAY ==
--- NOTE | 2023-12-24 10:00 | MHC.OFFVIS ---
Intake Vital Signs 12/24/23 10:03 Height 5 ft 3 in Weight 166 lb BMI 29.4 BP 162/66 H Blood Pressure Location Lt brachial Position Sitting Pulse 73 Intake Visit Reasons: Cirrhosis Intake Note: Patient presents in the office as a f/u for cirrhosis. CC: He states that he is feeling fine. 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 I rechecked labs and he had F2 by fibrosure, genotype 2, low zinc, vosevi ordered for 12 weeks--- SVR pos, cured EGD 05/2019--grade I-II varices, no banding, PHG noted rept MRI: possible new liver lesion right lobe 1 cm, prior treated areas noted in left lobe--reviewed by DR King ---felt to be infarcted tissue in left lobe s/p chemoembolization and not felt to have lesion in right lobe colonoscopy 11/2019-- poor prep, hemorrhoids, adenoma polyp removed colonoscopy rept 08/2020--4 adenomatous polyps removed, internal hemorrhoids noted Lumbar XR 07/2020-- degen changes in spine, superior plate compression, deformity at L3 MRI 09/2020-- interval increase in size in the slightly heterogeneous nonenhancing lesion in the left lobe of the liver. Stable 5 mm liver cyst high in the dome of the liver. Stable 6 mm focus of early arterial phase enhancement high in the dome of the liver not seen on any other sequences. 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 Small periportal and upper abdominal retroperitoneal lymph nodes that are stable. He had an i/p admission 11/20 for anemia EGD and colo with multiple AVM noted --rx with APC, gastric erosions, no varices path- chronic gastritis, active MRI 11/20-- multiple lesions concern for HCC--seeing oncology and Dr King again INTERIM: He has not drank alcohol for 1 month or so he denies abdominal pain he has chronic neuropathic pain in the legs appetite is good, weight is stable denies melena, stool has normal color denies taking nsaid Labs: 12/18-- HGb 10--stable EXAM: GENERAL: The patient is well developed and nontoxic. VITAL SIGNS:see workflow HEENT: Nonicteric sclerae, PERRLA, EOMI. Oropharynx clear. Moist mucous membranes. Conjunctivae appear well perfused. No thyroid mass. CHEST: Chest wall is nontender. HEART: Regular rate and rhythm without murmurs. LUNGS: Clear to auscultation bilaterally. ABDOMEN: Soft, positive bowel sounds, nontender, no organomegaly.no flank tenderness SKIN: No rash, no excessive bruising, petechiae, or purpura. NEUROLOGIC: Cranial nerves II-XII intact without motor/sensory deficit. numbness legs Psych: normal affect Assessment & Plan 1. Alcoholic cirrhosis of liver without ascites --again advised on avoiding alcohol 2/ Leg weakness and back pain, 2/2 degeneration and neuropathy prob alcohol related PLAN 1/ recheck labs next visit 2/ encouraged on ongoing alcohol abstinence, sent MV and thiamine 4/ EGD for variceal screening in 6-12 months or earlier if drop in hgb 5/ HE: cont miralax 6/ ascites: none 7/ diet- stable, 8/ cont with PPI--stop for 2 weeks and use carafate and check h pylori 9/ HCC- f/u oncology and IR [facility] Medical History Hepatocellular carcinoma Neuropathy involving both lower extremities Liver cirrhosis Hepatitis C Common cold Lower back pain Surgical History Hx of colonoscopy History of breast lump/mass excision History of ankle surgery History of appendectomy History of open reduction and internal fixation (ORIF) procedure Family History Father Prostate cancer Mother Diabetes Stroke Social History Household Members: None Housing: Apartment Do you presently have visiting nurse or other home services: Yes Alcohol intake: current Alcohol intake frequency: does not drink Alcohol type: hard liquor Patient Tobacco Use Status: Current everyday Tobacco user Tobacco use type: Cigarette e-Cigarette/Vaping Use: Never Used Second Hand Smoke Exposure: Yes service: No Current occupational status: disabled Cognitive needs: Yes (cane) Hearing needs: No Vision needs: Yes (glasses) Physical Exam Vital Signs: Last Vital Signs Pulse 73 12/24/23 10:03 BP 162/66 H 12/24/23 10:03 BMI result Body Mass Index 29.4 Assessment & Plan Assessment & Plan (1) Hepatocellular carcinoma: Code(s): C22.0 - Liver cell carcinoma Plan: PLAN 1/ recheck labs next visit 2/ encouraged on ongoing alcohol abstinence, sent MV and thiamine 4/ EGD for variceal screening in 6-12 months or earlier if drop in hgb 5/ HE: cont miralax 6/ ascites: none 7/ diet- stable, 8/ cont with PPI--stop for 2 weeks and use carafate and check h pylori 9/ HCC- f/u oncology and IR Medications: New sucralfate 10 mL PO BID 1,000 mL 0RF thiamine HCl (vitamin B1) 100 mg PO TID 90 tabs 2RF multivitamin 1 tab PO DAILY 90 tabs 2RF Coding Level of Care Code Est Pt Level 4 (51991) Diagnoses Hepatocellular carcinoma C22.0
[2023-12-24 10:03] VITALS: BP 162/66; PULSE 73; BMI 29.4
== END 2023-12-24 10:41 | disposition home or self-care (01) ==
PROVIDERS: PCP Internal Medicine; Visit Provider Internal Medicine Gastroenterology
DX: C22.0 Liver cell carcinoma (principal)
CPT/HCPCS: 99214

== ENCOUNTER → 2023-12-24 09:57 | Outpatient (BNVA) | payer OTHER, SELFPAY | PROVIDERS: PCP Internal Medicine; Visit Provider Internal Medicine Gastroenterology | DX: K74.60 Unspecified cirrhosis of liver (principal); C22.0 Liver cell carcinoma | CPT/HCPCS: 99212 ==

== ENCOUNTER 2024-01-07 09:23 | Outpatient (REF) | payer MEDICARE, MEDICAID, SELFPAY ==
[2024-01-08 13:43] LABS: H Pylori Breath Test Negative (Negative)
== END 2024-01-07 09:24 | disposition home or self-care (01) ==
LOC: HO.LNP 09:23
PROVIDERS: PCP Internal Medicine; Visit Provider Internal Medicine Gastroenterology
DX: K21.9 Gastro-esophageal reflux disease without esophagitis (principal); Z11.0 Encounter for screening for intestinal infectious diseases
CPT/HCPCS: 83013; 99211

== ENCOUNTER 2024-01-07 09:23 | Outpatient (AMB) | payer MEDICARE, MEDICAID, SELFPAY ==
--- NOTE | 2024-01-07 10:00 | AM.OFFVISNUR ---
Intake Intake Visit Reasons: H PYLORI Allergies No Known Allergies [No Known Allergies*] Allergy (Verified 12/29/23 14:31) Nursing Note Patient presents for collection of H Pylori breath test. Patient has been fasting for 1 hour (nothing to eat, drink, no chewing gum or smoking) has not taken any antacid medication for at least 2 weeks and has no allergies to artificial sweeteners.?? Coding Level of Care Code Established Pt Est Pt Level 1 (29807) Patient Type Established Medical Decision Making Straight Forward Diagnoses GERD (gastroesophageal reflux disease) K21.9 Assessment & Plan Assessment & Plan (1) GERD (gastroesophageal reflux disease): Code(s): K21.9 - Gastro-esophageal reflux disease without esophagitis Category: Medical Plan Patient presents for collection of H Pylori breath test. Patient has been fasting for 1 hour (nothing to eat, drink, no chewing gum or smoking) has not taken any antacid medication for at least 2 weeks and has no allergies to artificial sweeteners.???This test checks for an overgrowth of bacteria in your stomach. We all have bacteria but some may have more than others. It is treatable. if the test comes back negative there is nothing else to do. If the test result is positive we will treat you with 2 antibiotics and a medication to decrease the acid in your stomach (PPI) for 2 weeks. Two weeks after you have completed the treatment we will retest you to make sure the overgrowth has resolved. Orders: Orders H Pylori Breath Test Today Patient Instructions: Process for specimen collection and reason for testing was explained to the patient. Specimen collection. Patient instructed to take a deep breath and then exhale into the blue bag, filling it up as much as possible. Patient instructed to drink a mixture of water and the artificial sweetener with a straw. A 15 minute wait period was observed. Patient instructed to take a deep breath and then exhale into the pink bag, filling it up as much as possible.??
== END 2024-01-07 10:01 | disposition home or self-care (01) ==
PROVIDERS: PCP Internal Medicine; Visit Provider Internal Medicine Gastroenterology
DX: K21.9 Gastro-esophageal reflux disease without esophagitis (principal)

== ENCOUNTER 2024-02-02 08:22 | Outpatient (AMB) | payer MEDICARE, MEDICAID, SELFPAY ==
--- NOTE | 2024-02-02 08:38 | A.OFFPC_ITS ---
Vital Signs 02/02/24 08:39 Height 5 ft 3 in Weight 167 lb 2 oz BMI 29.6 BP 110/60 Blood Pressure Location Lt brachial Position Sitting Pulse 90 Pulse Source Pulse Oximeter Pulse Oximetry (%) 96 Oxygen Delivery Method Room Air Intake Visit Reasons: [facility] 01/28 cancer treatment Intake Note: Patient is here for hospital discharge follow up. Patient was discharged from [facility] on 01/29/24. Machine Operator Picker Required: Yes Machine Operator Picker Language: Customer Contact Representative Name: Zaire ([phone]) Information Interpreted: non-clinical & clinical Capital Project Engineer: Present Allergies No Known Allergies [No Known Allergies*] Allergy (Verified 02/02/24 09:14) Medication List - Last Reconciled 02/02/24 by Adam Newell MD amlodipine 10 mg See Protocol PO DAILY blood pressure monitor As directed food supplemt, lactose-reduced (Ensure oral liquid) 1 ea PO TID lisinopril 10 mg See Protocol PO DAILY multivitamin 1 tab PO DAILY oxycodone 5 mg PO TID polyethylene glycol 3350 (Miralax) 17 grams PO DAILY sucralfate 10 mL PO BID tadalafil 10 mg PO DAILY PRN thiamine HCl (vitamin B1) 100 mg PO TID walker As directed Tobacco use date assessed: 12/01/23 Fall risk assessment: No Falls in past year Last assessed Fall Risk: 02/02/24 Dental Screening Dental Screen Date: 12/01/23 HPI [facility] 01/28 cancer treatment HPI Details 68-year-old male presents to the office to discuss his chronic medical condition. He is accompanied by a new HALL DIRECTOR. An therapeutic mentor through the iPad was used. Patient was recently admitted to [facility] and discharged on January 28. He was admitted for chemo embolization. Patient tolerated the procedure well but needed opiates for the discomfort after. His tramadol medication was discontinued. Patient now does not have any medications and is requesting something for the pain. He has tolerated the procedure well. Appetite is back to normal. He is able to function and do activities of daily living. [facility] Medical History Hepatocellular carcinoma Neuropathy involving both lower extremities Liver cirrhosis Hepatitis C Common cold Lower back pain Surgical History Hx of colonoscopy History of breast lump/mass excision History of ankle surgery History of appendectomy History of open reduction and internal fixation (ORIF) procedure Family History Father Prostate cancer Mother Diabetes Stroke Social History Household Members: None Housing: Apartment Do you presently have visiting nurse or other home services: Yes Alcohol intake: current Alcohol intake frequency: does not drink Alcohol type: hard liquor Patient Tobacco Use Status: Current everyday Tobacco user Tobacco use type: Cigarette e-Cigarette/Vaping Use: Never Used Second Hand Smoke Exposure: Yes service: No Current occupational status: disabled Cognitive needs: Yes (cane) Hearing needs: No Vision needs: Yes (glasses) Questionnaire Thrive Questionnaire Date Thrive assessed: 10/28/23 PORFIRIO-7 AMB Questionnaire PORFIRIO-7 Date PORFIRIO - 7 assessed: 10/27/23 Source: Developed by Drs. Mynor Alba, Wilma Francois, Cornel Garcia and colleagues, with an educational elbert from [employer]. Physical exam (Primary Care) Vital Signs: Last Vital Signs Pulse 90 02/02/24 08:39 BP 110/60 02/02/24 08:39 Pulse Ox 96 02/02/24 08:39 Oxygen Delivery Method Room Air 02/02/24 08:39 BMI result Body Mass Index 29.6 Tobacco/Smoking Status: Tobacco use Status Tobacco use date assessed 12/01/23 02/02/24 08:51 Patient Tobacco Use Status Current everyday Tobacco 02/02/24 08:51 Tobacco use type Cigarette 02/02/24 08:51 e-Cigarette/Vaping Use Never Used 02/02/24 08:51 Thrive Assessment: Date of Thrive Assessment Date Thrive assessed 10/28/23 02/02/24 08:51 Const General: cooperative and healthy appearing Nutritional Appearance: well nourished Orientation/consciousness: patient oriented x3 Limitations: no limitations HENMT Head: Yes normal to inspection Eyes General: appearance normal, both eyes and all related structures Neck Neck: Yes normal visual inspection Chest Chest palpation & inspection: normal palpation of entire chest wall Resp Effort & Inspection: normal respiratory effort Neuro General: patient oriented x3 Assessment and Plan Assessment & Plan (1) Hepatocellular carcinoma: Code(s): C22.0 - Liver cell carcinoma Plan: 15 minutes spent reviewing the discharge information from [facility]. The oxycodone has now been discontinued. Patient will restart on the t ramadol twice a day. He believes he has a follow-up appointment for another round of chemo embolization. Coding Level of Care Code Est Pt Level 4 (97521) Diagnoses Hepatocellular carcinoma C22.0
[2024-02-02 08:39] VITALS: BP 110/60; PULSE 90; O2SAT 96; BMI 29.6
== END 2024-02-02 09:10 | disposition home or self-care (01) ==
PROVIDERS: PCP Internal Medicine; Visit Provider Internal Medicine
DX: C22.0 Liver cell carcinoma (principal)
CPT/HCPCS: 99214

== ENCOUNTER 2024-03-07 10:39 | Outpatient (AMB) | payer MEDICARE, MEDICAID, SELFPAY ==
--- NOTE | 2024-03-07 11:05 | MHC.PC.OV ---
Vital Signs 03/07/24 11:12 Height 5 ft 3 in Weight 163 lb 6 oz BMI 28.9 BP 132/70 Blood Pressure Location Lt brachial Position Sitting Pulse 63 Pulse Source Pulse Oximeter Pulse Oximetry (%) 98 Oxygen Delivery Method Room Air Intake Visit Reasons: [facility] 02/21/ Med review Intake Note: Patient is here for hospital discharge follow up. Patient was discharged from [facility] on 02/22/24. Medication review. International Coordinator Required: Yes International Coordinator Language: Ict Account Manager Name: Jason Webster ([phone]) Information Interpreted: non-clinical & clinical Deputy Sheriff K9 Handler: Present Accompanied by: Spray Painting Machine Operator Allergies No Known Allergies [No Known Allergies*] Allergy (Verified 03/10/24 10:55) Medication List - Last Reconciled 03/10/24 by Adam Newell MD amlodipine 10 mg See Protocol PO DAILY blood pressure monitor As directed food supplemt, lactose-reduced (Ensure oral liquid) 1 ea PO TID lisinopril 10 mg See Protocol PO DAILY multivitamin 1 tab PO DAILY polyethylene glycol 3350 (Miralax) 17 grams PO DAILY sucralfate 10 mL PO BID tadalafil 10 mg PO DAILY PRN thiamine HCl (vitamin B1) 100 mg PO TID tramadol 50 mg PO BID 30 days walker As directed Tobacco use date assessed: 03/07/24 Fall risk assessment: No Falls in past year Last assessed Fall Risk: 03/07/24 Dental Screening Dental Screen Date: 12/01/23 HPI [facility] 02/21/ Med review HPI Details 68-year-old male presents to the office for a hospital discharge follow-up. Patient was evaluated at [facility] after a syncope episode. Patient underwent diagnostic testing and was discharged home. He has had no further episodes of syncope. Has resumed his daily activities and medications. [facility] Medical History Hepatocellular carcinoma Neuropathy involving both lower extremities Liver cirrhosis Hepatitis C Common cold Lower back pain Surgical History Hx of colonoscopy History of breast lump/mass excision History of ankle surgery History of appendectomy History of open reduction and internal fixation (ORIF) procedure Family History Father Prostate cancer Mother Diabetes Stroke Social History Household Members: None Housing: Apartment Do you presently have visiting nurse or other home services: Yes Alcohol intake: current Alcohol intake frequency: does not drink Alcohol type: hard liquor Patient Tobacco Use Status: Current everyday Tobacco user Tobacco use type: Cigarette e-Cigarette/Vaping Use: Never Used Second Hand Smoke Exposure: Yes service: No Current occupational status: disabled Cognitive needs: Yes (cane) Hearing needs: No Vision needs: Yes (glasses) Questionnaire Thrive Questionnaire Date Thrive assessed: 10/28/23 PORFIRIO-7 AMB Questionnaire PORFIRIO-7 Date PORFIRIO - 7 assessed: 10/27/23 Source: Developed by Drs. Mynor Alba, Wilma Francois, Cornel Garcia and colleagues, with an educational elbert from [employer]. Physical exam (Primary Care) Vital Signs: Last Vital Signs Pulse 63 03/07/24 11:12 BP 132/70 03/07/24 11:12 Pulse Ox 98 03/07/24 11:12 Oxygen Delivery Method Room Air 03/07/24 11:12 BMI result Body Mass Index 28.9 Tobacco/Smoking Status: Tobacco use Status Tobacco use date assessed 03/07/24 03/07/24 11:17 Patient Tobacco Use Status Current everyday Tobacco 03/07/24 11:07 Tobacco use type Cigarette 03/07/24 11:07 e-Cigarette/Vaping Use Never Used 03/07/24 11:07 Thrive Assessment: Date of Thrive Assessment Date Thrive assessed 10/28/23 03/07/24 11:07 Const General: cooperative and healthy appearing Nutritional Appearance: well nourished Orientation/consciousness: patient oriented x3 Limitations: no limitations HENMT Head: Yes normal to inspection Eyes General: appearance normal, both eyes and all related structures Neck Neck: Yes normal visual inspection Chest Chest palpation & inspection: normal palpation of entire chest wall Resp Effort & Inspection: normal respiratory effort Neuro General: patient oriented x3 Assessment and Plan Assessment & Plan (1) Syncope: Code(s): R55 - Syncope and collapse Plan: [facility] discharge plan reviewed. Patient has no subsequent episodes. Reassurance. Coding Level of Care Code Est Pt Level 3 (25688) Diagnoses Syncope R55
[2024-03-07 11:12] VITALS: BP 132/70; PULSE 63; O2SAT 98; BMI 28.9
== END 2024-03-07 11:50 | disposition home or self-care (01) ==
PROVIDERS: PCP Internal Medicine; Visit Provider Internal Medicine
DX: R55 Syncope and collapse (principal)
CPT/HCPCS: 99213

== ENCOUNTER → 2024-03-08 23:59 | Outpatient (BNV) | payer MEDICARE, MEDICAID, SELFPAY | PROVIDERS: PCP Internal Medicine; Visit Provider Internal Medicine | DX: K74.60 Unspecified cirrhosis of liver (principal); B19.20 Unspecified viral hepatitis C without hepatic coma; I95.1 Orthostatic hypotension; C22.0 Liver cell carcinoma | CPT/HCPCS: G0180 ==

== ENCOUNTER 2024-04-18 11:25 | Outpatient (AMB) | payer MEDICARE, MEDICAID, SELFPAY ==
--- NOTE | 2024-04-18 11:26 | A.OFFPC_ITS ---
Vital Signs 04/18/24 11:27 Height 5 ft 3 in Weight 156 lb BMI 27.6 BP 110/76 Blood Pressure Location Lt brachial Position Sitting Pulse 66 Pulse Source Pulse Oximeter Pulse Oximetry (%) 99 Oxygen Delivery Method Room Air Intake Visit Reasons: persistent cough since February Intake Note: Patient is here to follow up on persistent cough since February, difficulty sleep due to the cough. OTC did not help. Complaint of burning and itchiness in both thighs, medication not helping. Field Staff Manager Required: Yes Field Staff Manager Language: Director Of Community Services Name: Jayesh ([phone]) Information Interpreted: non-clinical & clinical Pot Operator: Present Accompanied by: PARK MANAGER Allergies No Known Allergies [No Known Allergies*] Allergy (Verified 04/18/24 13:15) Medication List - Last Reconciled 04/18/24 by Adam Newell MD amlodipine 10 mg See Protocol PO DAILY blood pressure monitor As directed food supplemt, lactose-reduced (Ensure oral liquid) 1 ea PO TID lisinopril 10 mg See Protocol PO DAILY multivitamin 1 tab PO DAILY polyethylene glycol 3350 (Miralax) 17 grams PO DAILY sucralfate 10 mL PO BID tadalafil 10 mg PO DAILY PRN thiamine HCl (vitamin B1) 100 mg PO TID tramadol 50 mg PO BID 30 days walker As directed Tobacco use date assessed: 04/18/24 Fall risk assessment: No Falls in past year Last assessed Fall Risk: 04/18/24 Dental Screening Dental Screen Date: 12/01/23 HPI persistent cough since February HPI Details 68-year-old male presents to the office for a sick visit. History obtained through ward service supervisor via the iPad. Patient is reporting symptoms of cough for the last 2 weeks. Producing white sputum, minimal wheezing. No fevers or chills. Feeling tired. [facility] Medical History Hepatocellular carcinoma Neuropathy involving both lower extremities Liver cirrhosis Hepatitis C Common cold Lower back pain Surgical History Hx of colonoscopy History of breast lump/mass excision History of ankle surgery History of appendectomy History of open reduction and internal fixation (ORIF) procedure Family History Father Prostate cancer Mother Diabetes Stroke Social History Household Members: None Housing: Apartment Do you presently have visiting nurse or other home services: Yes Alcohol intake: current Alcohol intake frequency: does not drink Alcohol type: hard liquor Patient Tobacco Use Status: Former Tobacco user Tobacco use type: Cigarette e-Cigarette/Vaping Use: Never Used Second Hand Smoke Exposure: Yes service: No Current occupational status: disabled Cognitive needs: Yes (cane) Hearing needs: No Vision needs: Yes (glasses) Questionnaire Thrive Questionnaire Date Thrive assessed: 10/28/23 PORFIRIO-7 AMB Questionnaire PORFIRIO-7 Date PORFIRIO - 7 assessed: 10/27/23 Source: Developed by Drs. Mynor Alba, Wilma Francois, Cornel Garcia and colleagues, with an educational elbert from [email or web address]. Physical exam (Primary Care) Vital Signs: Last Vital Signs Pulse 66 04/18/24 11:27 BP 110/76 04/18/24 11:27 Pulse Ox 99 04/18/24 11:27 Oxygen Delivery Method Room Air 04/18/24 11:27 BMI result Body Mass Index 27.6 Tobacco/Smoking Status: Tobacco use Status Tobacco use date assessed 04/18/24 04/18/24 11:39 Patient Tobacco Use Status Former Tobacco user 04/18/24 11:39 Tobacco use type Cigarette 04/18/24 11:39 e-Cigarette/Vaping Use Never Used 04/18/24 11:39 Thrive Assessment: Date of Thrive Assessment Date Thrive assessed 10/28/23 04/18/24 11:39 Const General: cooperative and healthy appearing Nutritional Appearance: well nourished Orientation/consciousness: patient oriented x3 Limitations: no limitations HENMT Head: Yes normal to inspection Eyes General: appearance normal, both eyes and all related structures Neck Neck: Yes normal visual inspection Chest Chest palpation & inspection: normal palpation of entire chest wall Resp Effort & Inspection: normal respiratory effort Neuro General: patient oriented x3 Assessment and Plan Assessment & Plan (1) Upper respiratory tract infection: Code(s): J06.9 - Acute upper respiratory infection, unspecified Plan: Azithromycin called in. If symptoms do not improve to follow-up here. Coding Level of Care Code Est Pt Level 3 (42897) Diagnoses Upper respiratory tract infection J06.9
[2024-04-18 11:27] VITALS: BP 110/76; PULSE 66; O2SAT 99; BMI 27.6
== END 2024-04-18 11:48 | disposition home or self-care (01) ==
LOC: HO.HMGH 11:25
PROVIDERS: PCP Internal Medicine; Visit Provider Internal Medicine
DX: J06.9 Acute upper respiratory infection, unspecified (principal)
CPT/HCPCS: 99213

== ENCOUNTER 2024-05-11 08:20 | Outpatient (AMB) | payer MEDICARE, MEDICAID, SELFPAY ==
[2024-05-11 08:25] VITALS: BP 140/72; PULSE 77; O2SAT 98; BMI 28.0
--- NOTE | 2024-05-11 08:25 | MHC.PC.OV ---
Vital Signs 05/11/24 08:25 Height 5 ft 3 in Weight 158 lb 0.1 oz BMI 28.0 BP 140/72 H Blood Pressure Location Lt brachial Position Sitting Pulse 77 Pulse Source Pulse Oximeter Pulse Oximetry (%) 98 Oxygen Delivery Method Room Air Intake Visit Reasons: 3mth f/u/dental clearance Intake Note: Patient is here for a Pre-op scheduled with Dr. Parker Alvarez Telemarketing Supervisor Required: No Allergies No Known Allergies [No Known Allergies*] Allergy (Verified 05/11/24 08:26) Medication List - Last Reconciled 05/11/24 by Adam Newell MD amlodipine 10 mg See Protocol PO DAILY blood pressure monitor As directed food supplemt, lactose-reduced (Ensure oral liquid) 1 ea PO TID lisinopril 10 mg See Protocol PO DAILY multivitamin 1 tab PO DAILY polyethylene glycol 3350 (Miralax) 17 grams PO DAILY sucralfate 10 mL PO BID tadalafil 10 mg PO DAILY PRN thiamine HCl (vitamin B1) 100 mg PO TID tramadol 50 mg PO BID 30 days walker As directed Tobacco use date assessed: 04/18/24 Fall risk assessment: No Falls in past year Last assessed Fall Risk: 05/11/24 Dental Screening Dental Screen Date: 12/01/23 HPI 3mth f/u/dental clearance HPI Details 68-year-old male presents to the office requesting a preop clearance. A pluck separator via the iPad was utilized. Patient is scheduled to get a full mouth extraction, alveoloplasty,. This procedure is to be done under general anesthesia in the OR at [facility]. The date of surgery is to be decided. The diagnosis is periodontitis. Patient is not a candidate for anesthesia in an office setting due to history of liver cancer. Patient is reporting no complaints today. Requests a refill on his tramadol, blood pressure medication, Cialis. [facility] Medical History Hepatocellular carcinoma Neuropathy involving both lower extremities Liver cirrhosis Hepatitis C Common cold Lower back pain Surgical History Hx of colonoscopy History of breast lump/mass excision History of ankle surgery History of appendectomy History of open reduction and internal fixation (ORIF) procedure Family History Father Prostate cancer Mother Diabetes Stroke Social History Household Members: None Housing: Apartment Do you presently have visiting nurse or other home services: Yes Alcohol intake: current Alcohol intake frequency: does not drink Alcohol type: hard liquor Patient Tobacco Use Status: Former Tobacco user Tobacco use type: Cigarette e-Cigarette/Vaping Use: Never Used Second Hand Smoke Exposure: Yes service: No Current occupational status: disabled Cognitive needs: Yes (cane) Hearing needs: No Vision needs: Yes (glasses) Questionnaire Thrive Questionnaire Date Thrive assessed: 10/28/23 AUDIT C Alcohol Use Questionnaire (AUDIT-C) 1. How often do you have a drink containing alcohol?: 2-3 times a week 2. How many drinks containing alcohol do you have on a typical day when you are drinking?: 1 or 2 3. How often do you have six or more drinks on one occasion?: Never Total Score: 3 POFRIRIO-7 AMB Questionnaire PORFIRIO-7 Date PORFIRIO - 7 assessed: 10/27/23 Source: Developed by Drs. Mynor Alba, Wilma Francois, Cornel Garcia and colleagues, with an educational elbert from [email or web address]. Physical exam (Primary Care) Vital Signs: Last Vital Signs Pulse 77 05/11/24 08:25 BP 140/72 H 05/11/24 08:25 Pulse Ox 98 05/11/24 08:25 Oxygen Delivery Method Room Air 05/11/24 08:25 BMI result Body Mass Index 28.0 Tobacco/Smoking Status: Tobacco use Status Tobacco use date assessed 04/18/24 05/11/24 08:33 Patient Tobacco Use Status Former Tobacco user 05/11/24 08:33 Tobacco use type Cigarette 05/11/24 08:33 e-Cigarette/Vaping Use Never Used 05/11/24 08:33 Thrive Assessment: Date of Thrive Assessment Date Thrive assessed 10/28/23 05/11/24 08:33 Const General: cooperative and healthy appearing Nutritional Appearance: well nourished Orientation/consciousness: patient oriented x3 Limitations: no limitations HENMT Head: Yes normal to inspection Eyes General: appearance normal, both eyes and all related structures Neck Neck: Yes normal visual inspection Chest Chest palpation & inspection: normal palpation of entire chest wall Resp Effort & Inspection: normal respiratory effort Neuro General: patient oriented x3 Assessment and Plan Assessment & Plan (1) Encounter for pre-operative cardiovascular clearance: Code(s): Z01.810 - Encounter for preprocedural cardiovascular examination Plan: EKG, blood work, chest x-ray has been ordered. Based on the results clearance will be provided. (2) Hepatocellular carcinoma: Code(s): C22.0 - Liver cell carcinoma Plan: Condition is stable. Patient sees an oncologist regularly. Orders: Orders Complete Blood Count no Diff Today C22.0 - Liver cell carcinoma, Z01.810 - Encounter for preprocedural cardiovascular examination Lipid Panel Today C22.0 - Liver cell carcinoma, Z01.810 - Encounter for preprocedural cardiovascular examination Basic Metabolic Panel Today C22.0 - Liver cell carcinoma, Z01.810 - Encounter for preprocedural cardiovascular examination Liver Panel Today C22.0 - Liver cell carcinoma, Z01.810 - Encounter for preprocedural cardiovascular examination Thyroid Stimulating Hormone Today C22.0 - Liver cell carcinoma, Z01.810 - Encounter for preprocedural cardiovascular examination UA and rflx microscopic Today C22.0 - Liver cell carcinoma, Z01.810 - Encounter for preprocedural cardiovascular examination XR chest 2V Today R05.9 - Cough, unspecified ECG 12 lead EKG Today Z01.810 - Encounter for preprocedural cardiovascular examination Prothrombin Time INR Today Z01.810 - Encounter for preprocedural cardiovascular examination Coding Level of Care Code Est Pt Level 4 (04548) Complex EM visit Add On G2211 Diagnoses Encounter for pre-operative cardiovascular clearance Z01.810 Hepatocellular carcinoma C22.0
== END 2024-05-11 08:51 | disposition home or self-care (01) ==
PROVIDERS: PCP Internal Medicine; Visit Provider Internal Medicine
DX: Z01.810 Encounter for preprocedural cardiovascular examination (principal); C22.0 Liver cell carcinoma
CPT/HCPCS: 99214; G2211

== ENCOUNTER 2024-05-11 09:10 | Outpatient (REF) | payer MEDICARE, MEDICAID, SELFPAY ==
--- NOTE | ~2024-05-11 | XR_ITS ---
EXAMINATION: XR CHEST 2 VIEWS CLINICAL INFORMATION: Cough. COMPARISON: CT chest dated 10/27/2023; chest radiograph dated 11/12/2020. TECHNIQUE: Frontal and lateral views of the chest were obtained. FINDINGS: The heart, great vessels, pulmonary vasculature and mediastinum are normal. The lungs show no focal infiltrate, effusion or pneumothorax. There is no acute osseous abnormality. There is multi-level thoracic spondylosis, with an appearance suggesting possible DISH (diffuse idiopathic skeletal hyperostosis). XR/XR chest 2V IMPRESSION: 1. No focal infiltrate or congestive heart failure is seen. 2. 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 Electronically signed by: Alvin Bautista MD 06/07/2024 01:24 PM EDT
--- NOTE | 2024-05-11 09:16 | ECG_ITS ---
Test Reason : preop Blood Pressure : / mmHG Vent. Rate : 067 BPM Atrial Rate : 067 BPM P-R Int : 174 ms QRS Dur : 080 ms QT Int : 400 ms P-R-T Axes : 061 012 029 degrees QTc Int : 422 ms Sinus rhythm with Premature atrial complexes Otherwise normal ECG When compared with ECG of 27-OCT-2023 20:03, Premature atrial complexes are now Present Referred By: Adam Nweell Electronically Signed By:LEONEL THAO
[2024-05-11 09:53] LABS: Hematocrit 27.5 % (42.0-52.0); Hemoglobin 8.2 g/dl (14.0-18.0); Mean Corpuscular HGB Conc 29.8 g/dl (31.0-36.0); Mean Corpuscular Hemoglobin 23.8 pg (27.0-33.0); Mean Corpuscular Volume 79.9 fL (80.0-98.0); Platelet Count 262 X10*3/uL (160-400); Red Blood Count 3.44 X10*6/uL (4.60-5.80); Red Cell Distribution Width 21.2 % (11.0-16.0); White Blood Count 5.2 X10*3/uL (4.8-10.8)
[2024-05-11 09:58] LABS: INTERNATIONAL NORM RATIO 0.9 (0.9-1.1); Prothrombin Time 11.3 SEC (11.1-13.3)
[2024-05-11 10:29] LABS: Alanine Aminotransferase 30 U/L (0-40); Albumin Level 3.6 g/dL (3.5-5.0); Alkaline Phosphatase 195 U/L (39-117); Anion Gap 9 (12-20); Aspartate Amino Transferase 44 U/L (5-37); Bilirubin Direct 0.1 mg/dL (0.0-0.5); Bilirubin Total 0.3 mg/dL (0.0-1.0); Blood Urea Nitrogen 18 mg/dL (9-16); Carbon Dioxide 24 mmol/L (22-29); Chloride 112 mmol/L (96-108); Cholesterol 172 mg/dL (<200); Estimated Glomerular Filt Rate > 60; Glucose Random 109 mg/dL (60-115); HDL Cholesterol 66 mg/dL (>40); LDL Cholesterol Calculated 83 mg/dL (<100); Potassium 3.9 mmol/L (3.3-5.1); Sodium 141 mmol/L (135-145); Total Protein 7.4 g/dL (6.5-8.0); Triglycerides 115 mg/dL (<150)
[2024-05-11 10:48] LABS: Thyroid Stimulating Hormone 1.85 uIU/mL (0.32-4.0)
[2024-05-11 11:19] LABS: Appearance Urine Clear; Color Urine Yellow; Glucose Urine UA Negative (Negative); Leukocyte Esterase Urine Negative (Negative); Nitrite Urine Negative (Negative); PH 5.5 (5.0-9.0); Specific Gravity - Urine 1.025 (1.005-1.025); Urine Blood Negative (Negative); Urine Ketones Trace mg/dL (Negative); Urine Protein Trace mg/dL (Neg-Trace)
== END 2024-05-11 09:11 | disposition home or self-care (01) ==
LOC: HO.LAB 09:10
PROVIDERS: PCP Internal Medicine; Visit Provider Internal Medicine
DX: Z01.810 Encounter for preprocedural cardiovascular examination (principal); C22.0 Liver cell carcinoma; R05.9 Cough, unspecified
CPT/HCPCS: 36415; 71046; 80048; 80061; 80076; 81003; 84443; 85027; 85610; 93005

== ENCOUNTER 2024-05-22 10:03 | Outpatient (AMB) | payer MEDICARE, MEDICAID, SELFPAY ==
--- NOTE | 2024-05-22 10:05 | MHC.OFFVIS ---
Vital Signs 05/22/24 10:06 Height 5 ft 3 in Weight 157 lb BMI 27.8 BP 128/67 Blood Pressure Location Lt brachial Position Sitting Pulse 81 Intake Visit Reasons: 5 month f/u HP Intake Note: Jose Armando presents in the office as a 5 month follow up for HP. CC: He states that he does not have the feeling that he wants to eat. He states he has a loss of appetite. Denies any irregular bowel movements or pains in the stomach. 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 I rechecked labs and he had F2 by fibrosure, genotype 2, low zinc, vosevi ordered for 12 weeks--- SVR pos, cured EGD 05/2019--grade I-II varices, no banding, PHG noted rept MRI: possible new liver lesion right lobe 1 cm, prior treated areas noted in left lobe--reviewed by DR King ---felt to be infarcted tissue in left lobe s/p chemoembolization and not felt to have lesion in right lobe colonoscopy 11/2019-- poor prep, hemorrhoids, adenoma polyp removed colonoscopy rept 08/2020--4 adenomatous polyps removed, internal hemorrhoids noted Lumbar XR 07/2020-- degen changes in spine, superior plate compression, deformity at L3 MRI 09/2020-- interval increase in size in the slightly heterogeneous nonenhancing lesion in the left lobe of the liver. Stable 5 mm liver cyst high in the dome of the liver. Stable 6 mm focus of early arterial phase enhancement high in the dome of the liver not seen on any other sequences. 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 Small periportal and upper abdominal retroperitoneal lymph nodes that are stable. 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 VITAL SIGNS:see workflow HEENT: Nonicteric sclerae, PERRLA, EOMI. Oropharynx clear. Moist mucous membranes. Conjunctivae appear well perfused. No thyroid mass. CHEST: Chest wall is nontender. HEART: Regular rate and rhythm without murmurs. LUNGS: Clear to auscultation bilaterally. ABDOMEN: Soft, positive bowel sounds, nontender, no organomegaly.no flank tenderness SKIN: No rash, no excessive bruising, petechiae, or purpura. NEUROLOGIC: Cranial nerves II-XII intact without motor/sensory deficit. numbness legs Psych: normal affect Assessment & Plan 1. 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 will call me in 4 weeks for update 9/ HCC- f/u oncology and IR [facility] Medical History Hepatocellular carcinoma Neuropathy involving both lower extremities Liver cirrhosis Hepatitis C Common cold Lower back pain Surgical History Hx of colonoscopy History of breast lump/mass excision History of ankle surgery History of appendectomy History of open reduction and internal fixation (ORIF) procedure Family History Father Prostate cancer Mother Diabetes Stroke Social History Household Members: None Housing: Apartment Do you presently have visiting nurse or other home services: Yes Alcohol intake: current Alcohol intake frequency: does not drink Alcohol type: hard liquor Patient Tobacco Use Status: Former Tobacco user Tobacco use type: Cigarette e-Cigarette/Vaping Use: Never Used Second Hand Smoke Exposure: Yes service: No Current occupational status: disabled Cognitive needs: Yes (cane) Hearing needs: No Vision needs: Yes (glasses) Physical Exam Vital Signs: BMI result Body Mass Index 27.8 Assessment & Plan Assessment & Plan (1) Hepatocellular carcinoma: Code(s): C22.0 - Liver cell carcinoma Category: Medical Plan: see above Medications: New mirtazapine 7.5 mg PO BEDTIME 30 tabs 1RF Coding Level of Care Code Est Pt Level 4 (45979) Diagnoses Hepatocellular carcinoma C22.0
[2024-05-22 10:06] VITALS: BP 128/67; PULSE 81; BMI 27.8
== END 2024-05-22 10:31 | disposition home or self-care (01) ==
PROVIDERS: PCP Internal Medicine; Visit Provider Internal Medicine Gastroenterology
DX: C22.0 Liver cell carcinoma (principal)
CPT/HCPCS: 99214

== ENCOUNTER → 2024-05-22 10:03 | Outpatient (BNVA) | payer MEDICARE, MEDICAID, SELFPAY | PROVIDERS: PCP Internal Medicine; Visit Provider Internal Medicine Gastroenterology | DX: C22.0 Liver cell carcinoma (principal) | CPT/HCPCS: 99212 ==

== ENCOUNTER 2024-06-07 10:26 | Outpatient (AMB) | payer MEDICARE, MEDICAID, SELFPAY ==
--- NOTE | 2024-06-07 10:56 | A.OFFPC_ITS ---
Vital Signs 06/07/24 10:59 Height 5 ft 3 in BMI Reason not done Patient refused/unable BP 130/60 Blood Pressure Location Rt brachial Position Sitting Pulse 72 Pulse Source Pulse Oximeter Pulse Oximetry (%) 99 Oxygen Delivery Method Room Air Intake Visit Reasons: 3mth f/u Intake Note: Sick visit. 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 Accompanied by: Son Allergies No Known Allergies [No Known Allergies*] Allergy (Verified 06/07/24 19:36) Medication List - Last Reconciled 06/07/24 by Adam Newell MD albuterol sulfate 90 mcg/actuation 2 puffs PO Q6H PRN amlodipine 10 mg See Protocol PO DAILY azithromycin take 500 mg today (day 1), then 250 mg for 4 days (days 2-5) PO blood pressure monitor As directed food supplemt, lactose-reduced (Ensure oral liquid) 1 ea PO TID lisinopril 10 mg See Protocol PO DAILY mirtazapine 7.5 mg PO BEDTIME multivitamin 1 tab PO DAILY polyethylene glycol 3350 (Miralax) 17 grams PO DAILY prednisone 10 mg PO DAILY 9 days sucralfate 10 mL PO BID tadalafil 10 mg PO DAILY PRN thiamine HCl (vitamin B1) 100 mg PO TID tramadol 50 mg PO BID 30 days walker As directed Tobacco use date assessed: 06/07/24 Fall risk assessment: No Falls in past year Last assessed Fall Risk: 06/07/24 Dental Screening Dental Screen Date: 12/01/23 HPI 3mth f/u HPI Details Patient presents for a sick visit. Reporting symptoms of sinus congestion, sore throat and difficulty swallowing. Low-grade fever. No family member is sick. No recent travel. Patient reports symptoms of malaise and fatigue. [facility] Medical History Hepatocellular carcinoma Neuropathy involving both lower extremities Liver cirrhosis Hepatitis C Common cold Lower back pain Surgical History Hx of colonoscopy History of breast lump/mass excision History of ankle surgery History of appendectomy History of open reduction and internal fixation (ORIF) procedure Family History Father Prostate cancer Mother Diabetes Stroke Social History Household Members: None Housing: Apartment Do you presently have visiting nurse or other home services: Yes Alcohol intake: current Alcohol intake frequency: does not drink Alcohol type: hard liquor Patient Tobacco Use Status: Former Tobacco user Tobacco use type: Cigarette e-Cigarette/Vaping Use: Never Used Second Hand Smoke Exposure: Yes service: No Current occupational status: disabled Cognitive needs: Yes (cane) Hearing needs: No Vision needs: Yes (glasses) Questionnaire Thrive Questionnaire Date Thrive assessed: 10/28/23 PORFIRIO-7 AMB Questionnaire PORFIRIO-7 Date PORFIRIO - 7 assessed: 10/27/23 Source: Developed by Drs. Mynor Alba, Wilma Francois, Cornel Garcia and colleagues, with an educational elbert from [employer]. Physical exam (Primary Care) Vital Signs: Last Vital Signs Pulse 72 06/07/24 10:59 BP 130/60 06/07/24 10:59 Pulse Ox 99 06/07/24 10:59 Oxygen Delivery Method Room Air 06/07/24 10:59 Tobacco/Smoking Status: Tobacco use Status Tobacco use date assessed 06/07/24 06/07/24 11:11 Patient Tobacco Use Status Former Tobacco user 06/07/24 10:57 Tobacco use type Cigarette 06/07/24 10:57 e-Cigarette/Vaping Use Never Used 06/07/24 10:57 Thrive Assessment: Date of Thrive Assessment Date Thrive assessed 10/28/23 06/07/24 10:57 Const General: cooperative and healthy appearing Nutritional Appearance: well nourished Orientation/consciousness: patient oriented x3 Limitations: no limitations HENMT Head: Yes normal to inspection Eyes General: appearance normal, both eyes and all related structures Neck Neck: Yes normal visual inspection Chest Chest palpation & inspection: normal palpation of entire chest wall Resp Effort & Inspection: normal respiratory effort Neuro General: patient oriented x3 Assessment and Plan Assessment & Plan (1) Upper respiratory tract infection: Code(s): J06.9 - Acute upper respiratory infection, unspecified Plan Antibiotics ordered. Increase fluid intake. Tylenol for aches and pains. If symptoms worsen, follow-up here for a recheck. Medications: New albuterol sulfate 90 mcg/actuation 2 puffs PO Q6H PRN 6.7 grams 0RF Cold Symptoms Refilled prednisone 10mg 3tab x 3days 2tabs x 3days 1 tab x 3days 10 mg PO DAILY 18 tabs 0RF 9 days azithromycin take 500 mg today (day 1), then 250 mg for 4 days (days 2-5) PO 6 tabs 0RF Coding Level of Care Code Est Pt Level 3 (58004) Complex EM visit Add On G2211 Diagnoses Upper respiratory tract infection J06.9
[2024-06-07 10:59] VITALS: BP 130/60; PULSE 72; O2SAT 99
== END 2024-06-07 11:47 | disposition home or self-care (01) ==
PROVIDERS: PCP Internal Medicine; Visit Provider Internal Medicine
DX: J06.9 Acute upper respiratory infection, unspecified (principal)
CPT/HCPCS: 99213; G2211

== ENCOUNTER 2024-08-02 10:27 | Outpatient (AMB) | payer MEDICARE, MEDICAID, SELFPAY ==
--- NOTE | 2024-08-02 11:02 | MHC.PC.OV ---
Vital Signs 08/02/24 11:03 Height 5 ft 3 in Weight 166 lb 2 oz BMI 29.4 BP 110/66 Blood Pressure Location Lt brachial Position Sitting Pulse 93 Pulse Source Pulse Oximeter Pulse Oximetry (%) 99 Oxygen Delivery Method Room Air Intake Visit Reasons: Follow Up Intake Note: Patient is here to follow up on HTN, LDDD, Chronic pain. Pt requesting referral for pain management for chronic pain. Pt complaint of difficulty swallowing. Requesting for new bp machine. Pharmacy Informatics Specialist Required: Yes Pharmacy Informatics Specialist Language: Deputy Commonwealth'S Attorney Name: Ridge ([id number]) Information Interpreted: non-clinical & clinical Food Demonstrator: Present Accompanied by: staff Allergies No Known Allergies [No Known Allergies*] Allergy (Verified 08/02/24 13:34) Medication List - Last Reconciled 08/02/24 by Adam Newell MD albuterol sulfate 90 mcg/actuation 2 puffs PO Q6H PRN amlodipine 10 mg See Protocol PO DAILY blood pressure monitor As directed food supplemt, lactose-reduced (Ensure oral liquid) 1 ea PO TID lisinopril 10 mg See Protocol PO DAILY mirtazapine 7.5 mg PO BEDTIME multivitamin 1 tab PO DAILY polyethylene glycol 3350 (Miralax) 17 grams PO DAILY prednisone 10 mg PO DAILY 9 days sucralfate 10 mL PO BID tadalafil 10 mg PO DAILY PRN thiamine HCl (vitamin B1) 100 mg PO TID tramadol 50 mg PO BID 30 days walker As directed Tobacco use date assessed: 08/02/24 Fall risk assessment: No Falls in past year Last assessed Fall Risk: 08/02/24 Dental Screening Dental Screen Date: 12/01/23 HPI Follow Up HPI Details 68-year-old male presents to the office to discuss his chronic medical conditions. Patient has language limitations and an liner checker via the iPad was used. Patient comes with a different female hot air furnace installer and repairer who introduces herself as his GARBAGE PERSON. Patient is complaining of pain in the upper legs and around the mouth. He recently had dental work done and all his teeth were removed. Pain is in the upper thighs despite taking tramadol twice a day. He is able to ambulate and do all activities of daily living. Patient is complaining of itchiness in the throat. No fevers or chills. He is also requesting for a new blood pressure machine. [facility] Medical History Hepatocellular carcinoma Neuropathy involving both lower extremities Liver cirrhosis Hepatitis C Common cold Lower back pain Surgical History History of tooth extraction Hx of colonoscopy History of breast lump/mass excision History of ankle surgery History of appendectomy History of open reduction and internal fixation (ORIF) procedure Family History Father Prostate cancer Mother Diabetes Stroke Social History Household Members: None Housing: Apartment Do you presently have visiting nurse or other home services: Yes Alcohol intake: current Alcohol intake frequency: does not drink Alcohol type: hard liquor Patient Tobacco Use Status: Former Tobacco user Tobacco use type: Cigarette e-Cigarette/Vaping Use: Never Used Second Hand Smoke Exposure: Yes service: No Current occupational status: disabled Cognitive needs: Yes (cane) Hearing needs: No Vision needs: Yes (glasses) Questionnaire Thrive Questionnaire Date Thrive assessed: 10/28/23 PORFIRIO-7 AMB Questionnaire PORFIRIO-7 Date PORFIRIO - 7 assessed: 10/27/23 Source: Developed by Drs. Mynor Alba, Wilma Francois, Cornel Garcia and colleagues, with an educational elbert from [employer]. Physical exam (Primary Care) Vital Signs: Last Vital Signs Pulse 93 08/02/24 11:03 BP 110/66 08/02/24 11:03 Pulse Ox 99 08/02/24 11:03 Oxygen Delivery Method Room Air 08/02/24 11:03 BMI result Body Mass Index 29.4 Tobacco/Smoking Status: Tobacco use Status Tobacco use date assessed 08/02/24 08/02/24 11:18 Patient Tobacco Use Status Former Tobacco user 08/02/24 11:18 Tobacco use type Cigarette 08/02/24 11:18 e-Cigarette/Vaping Use Never Used 08/02/24 11:18 Thrive Assessment: Date of Thrive Assessment Date Thrive assessed 10/28/23 08/02/24 11:18 Const General: cooperative and healthy appearing Nutritional Appearance: well nourished Orientation/consciousness: patient oriented x3 Limitations: no limitations HENMT Head: Yes normal to inspection Eyes General: appearance normal, both eyes and all related structures Neck Neck: Yes normal visual inspection Chest Chest palpation & inspection: normal palpation of entire chest wall Resp Effort & Inspection: normal respiratory effort Neuro General: patient oriented x3 Coding Level of Care Code Est Pt Level 4 (91465) Complex EM visit Add On G2211 Diagnoses Neuropathy involving both lower extremities G57.93 Assessment & Plan Assessment & Plan (1) Neuropathy involving both lower extremities: Code(s): G57.93 - Unspecified mononeuropathy of bilateral lower limbs Category: Medical Plan: Patient is requesting medications for chronic pain. Currently he is taking tramadol twice a day. I counseled him against increasing the dosage on the same. I explained to him the dangers of opioid medications including addiction. Meloxicam was added to the regimen for pain control. A blood pressure cuff was ordered. Medications: New meloxicam 15 mg PO DAILY 14 tabs 0RF Refilled sucralfate 10 mL PO BID 1,000 mL 0RF tramadol 50 mg PO BID 30 days 60 tabs 0RF Pain
[2024-08-02 11:03] VITALS: BP 110/66; PULSE 93; O2SAT 99; BMI 29.4
== END 2024-08-02 11:35 | disposition home or self-care (01) ==
LOC: HO.HMCH 10:28
PROVIDERS: PCP Internal Medicine; Visit Provider Internal Medicine
DX: G57.93 Unspecified mononeuropathy of bilateral lower limbs (principal)

== ENCOUNTER → 2024-08-02 10:27 | Outpatient (BNVA) | payer MEDICARE, MEDICAID, SELFPAY | PROVIDERS: PCP Internal Medicine; Visit Provider Internal Medicine | DX: G57.93 Unspecified mononeuropathy of bilateral lower limbs (principal) | CPT/HCPCS: 99212 ==

== ENCOUNTER 2024-08-29 13:35 | Outpatient (AMB) | payer MEDICARE, MEDICAID, SELFPAY ==
[2024-08-29 14:40] VITALS: BP 134/62; PULSE 90; O2SAT 97; BMI 28.4
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
== END 2024-08-29 15:54 | disposition home or self-care (01) ==
PROVIDERS: PCP Internal Medicine; Visit Provider Internal Medicine
DX: C22.0 Liver cell carcinoma (principal)

== ENCOUNTER → 2024-08-29 13:35 | Outpatient (BNVA) | payer MEDICARE, MEDICAID, SELFPAY | PROVIDERS: PCP Internal Medicine; Visit Provider Internal Medicine | DX: C22.0 Liver cell carcinoma (principal) | CPT/HCPCS: 99212 ==

== ENCOUNTER 2024-10-16 13:49 | Outpatient (AMB) | payer MEDICARE, MEDICAID, SELFPAY ==
--- NOTE | 2024-10-16 13:49 | A.OFFVIS_ITS ---
Vital Signs 10/16/24 13:54 Height 5 ft 3 in Weight 160 lb 14.999 oz BMI 28.5 BP 145/64 H Blood Pressure Location Lt brachial Position Sitting Pulse 77 Intake Visit Reasons: 5 month follow up Intake Note: Jose Armando presents in the office as a 5 month follow up. CC: He states that tomorrow he is going to be put in a tube for a cancer testing. 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 I rechecked labs and he had F2 by fibrosure, genotype 2, low zinc, vosevi ordered for 12 weeks--- SVR pos, cured EGD 05/2019--grade I-II varices, no banding, PHG noted rept MRI: possible new liver lesion right lobe 1 cm, prior treated areas noted in left lobe--reviewed by DR King ---felt to be infarcted tissue in left lobe s/p chemoembolization and not felt to have lesion in right lobe colonoscopy 11/2019-- poor prep, hemorrhoids, adenoma polyp removed colonoscopy rept 08/2020--4 adenomatous polyps removed, internal hemorrhoids noted Lumbar XR 07/2020-- degen changes in spine, superior plate compression, deformity at L3 MRI 09/2020-- interval increase in size in the slightly heterogeneous nonenhancing lesion in the left lobe of the liver. Stable 5 mm liver cyst high in the dome of the liver. Stable 6 mm focus of early arterial phase enhancement high in the dome of the liver not seen on any other sequences. 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 Small periportal and upper abdominal retroperitoneal lymph nodes that are stable. He had an i/p admission 11/20 for anemia EGD and colo with multiple AVM noted --rx with APC, gastric erosions, no varices path- chronic gastritis, active MRI 11/20-- multiple lesions concern for HCC--seeing oncology and Dr King again IR 02/2024-- had chemoembolization INTERIM: He is still drinking, was in [place] recently he has no sx he denies abdominal pain appetite is good, weight is stable denies melena, stool has normal color denies taking nsaid he has poor appetite, cant recall about the mirtazpeine he had labs checked recently and HGB hanging around 7-8 g/dl last few readings. No SOB or dizzeness he has MRI tomorrow to check his HCC EXAM: GENERAL: The patient is well developed and nontoxic. VITAL SIGNS:see workflow HEENT: Nonicteric sclerae, PERRLA, EOMI. Oropharynx clear. Moist mucous membranes. Conjunctivae appear well perfused. No thyroid mass. CHEST: Chest wall is nontender. HEART: Regular rate and rhythm without murmurs. LUNGS: Clear to auscultation bilaterally. ABDOMEN: Soft, positive bowel sounds, nontender, no organomegaly.no flank tenderness SKIN: No rash, no excessive bruising, petechiae, or purpura. NEUROLOGIC: Cranial nerves II-XII intact without motor/sensory deficit. numbness legs Psych: normal affect Assessment & Plan 1. Alcoholic cirrhosis of liver without ascites --again advised on avoiding alcohol 2. anemia, no overt GIB PLAN 1/ transfuse 2 units and get EGD 2/ encouraged on ongoing alcohol abstinence, 3/ HE: cont miralax 4/ ascites: none 5/ diet- stable, 6/ HCC- f/u oncology and IR [facility] Medical History Hepatocellular carcinoma Neuropathy involving both lower extremities Liver cirrhosis Hepatitis C Common cold Lower back pain Surgical History History of tooth extraction Hx of colonoscopy History of breast lump/mass excision History of ankle surgery History of appendectomy History of open reduction and internal fixation (ORIF) procedure Family History Father Prostate cancer Mother Diabetes Stroke Social History Household Members: None Housing: Apartment Do you presently have visiting nurse or other home services: Yes Alcohol intake: current Alcohol intake frequency: does not drink Alcohol type: hard liquor Patient Tobacco Use Status: Former Tobacco user Tobacco use type: Cigarette e-Cigarette/Vaping Use: Never Used Second Hand Smoke Exposure: Yes service: No Current occupational status: disabled Cognitive needs: Yes (cane) Hearing needs: No Vision needs: Yes (glasses) Physical Exam Vital Signs: Last Vital Signs Pulse 77 10/16/24 13:54 BP 145/64 H 10/16/24 13:54 BMI result Body Mass Index 28.5 Assessment & Plan Assessment & Plan (1) Hepatocellular carcinoma: Code(s): C22.0 - Liver cell carcinoma Category: Medical Plan: see above Coding Level of Care Code Est Pt Level 4 (55707) Diagnoses Hepatocellular carcinoma C22.0
[2024-10-16 13:54] VITALS: BP 145/64; PULSE 77; BMI 28.5
== END 2024-10-16 14:21 | disposition home or self-care (01) ==
LOC: HO.HGI 13:49
PROVIDERS: PCP Internal Medicine; Visit Provider Internal Medicine Gastroenterology
DX: C22.0 Liver cell carcinoma (principal)
CPT/HCPCS: 99214

== ENCOUNTER 2024-11-23 13:39 | Outpatient (AMB) | payer MEDICARE, MEDICAID, SELFPAY ==
--- NOTE | 2024-11-23 14:09 | A.OFFPC_ITS ---
Vital Signs 11/23/24 14:11 Height 5 ft 3 in Weight 152 lb 4 oz BMI 27.0 BP 120/60 Blood Pressure Location Lt brachial Position Sitting Pulse 89 Pulse Source Pulse Oximeter Temp 97.3 F Temp Source Temporal Artery Scan Pulse Oximetry (%) 99 Oxygen Delivery Method Room Air Intake Visit Reasons: 3 month f/u Intake Note: Patient is here to follow up on HTN. Complaint of pain in both legs and knees. Difficulty sleeping due to cough. Poll Watcher Required: Yes Poll Watcher Language: Environmental Protection Economist Name: Ron ([id number]) Information Interpreted: non-clinical & clinical Wood Fence Installer: Not Required per policy Accompanied by: Self / Same As Patient Allergies No Known Allergies [No Known Allergies*] Allergy (Verified 11/23/24 14:53) Medication List - Last Reconciled 11/23/24 by Adam Newell MD albuterol sulfate 90 mcg/actuation 2 puffs PO Q6H PRN amlodipine 10 mg See Protocol PO DAILY ascorbic acid (vitamin C) 500 mg PO BID benzonatate 100 mg PO TID blood pressure monitor As directed [Blood pressure monitor As directed] blood pressure test kit-large As directed ferrous sulfate 325 mg PO BID food supplemt, lactose-reduced (Ensure oral liquid) 1 ea PO TID lisinopril 10 mg See Protocol PO DAILY meloxicam 15 mg PO DAILY mirtazapine 7.5 mg PO BEDTIME multivitamin 1 tab PO DAILY polyethylene glycol 3350 (Miralax) 17 grams PO DAILY prednisone 10 mg PO DAILY 9 days tadalafil 10 mg PO DAILY PRN thiamine HCl (vitamin B1) 100 mg PO TID tramadol 50 mg PO Q8H walker As directed Tobacco use date assessed: 11/23/24 Fall risk assessment: No Falls in past year Last assessed Fall Risk: 11/23/24 Dental Screening Dental Screen Date: 11/23/24 Did you have a dental visit in the last 12 months?: Yes Did you have a dental problem in the last 6 months where you did not have access to dental care?: No Was dental information given to patient?: Patient has dentist HPI 3 month f/u HPI Details 68-year-old male presents to the office to discuss his medical condition. A assembler engine through the iPad was utilized. Patient reports he has an irritating cough and pain in the right side of his leg. Symptoms have been present for the past month or so. According to the patient he has completed his chemotherapy and has no follow-up with the oncologist. Able to function and do activities of daily living. [facility] Medical History Hepatocellular carcinoma Neuropathy involving both lower extremities Liver cirrhosis Hepatitis C Common cold Lower back pain Surgical History History of tooth extraction Hx of colonoscopy History of breast lump/mass excision History of ankle surgery History of appendectomy History of open reduction and internal fixation (ORIF) procedure Family History Father Prostate cancer Mother Diabetes Stroke Social History Household Members: None Housing: Apartment Do you presently have visiting nurse or other home services: Yes Alcohol intake: current Alcohol intake frequency: does not drink Alcohol type: hard liquor Patient Tobacco Use Status: Former Tobacco user Tobacco use type: Cigarette e-Cigarette/Vaping Use: Never Used Second Hand Smoke Exposure: Yes service: No Current occupational status: disabled Cognitive needs: Yes (cane) Hearing needs: No Vision needs: Yes (glasses) Questionnaire PHQ-9 Over the last 2 weeks, how often have you been bothered by any of the following problems? 1. Little interest or pleasure in doing things: not at all 2. Feeling down, depressed, or hopeless: not at all 3. Trouble falling or staying asleep, or sleeping too much: not at all 4. Feeling tired or having little energy: not at all 5. Poor appetite or overeating: not at all 6. Feeling bad about yourself - or that you are a failure or have let yourself or your family down: not at all 7. Trouble concentrating on things, such as reading the newspaper or watching television: not at all 8. Moving or speaking so slowly that other people could have noticed. Or the opposite - being so fidgety or restless that you have been moving around a lot more than usual: not at all 9. Thoughts that you would be better off or of hurting yourself in some way: not at all Total score: 0 Depression Screening Interpretation: Negative Depression Screening Done: Yes Source: Developed by Drs. Mynor Alba, Wilma Francois, Cornel Garcia and colleagues, with an educational elbert from [employer]. Thrive Questionnaire Date Thrive assessed: 11/23/24 I am a: Patient What is your living situation today?: I have a steady place to live Within the past 12 months, did the food you bought not last and you didn't have the money to get more?: Never true Within the past 12 months, did you worry whether your food would run out before you got money to buy more?: Never true Do you have trouble paying for medicines?: No Do you have trouble getting transportation to medical appointments?: No Do you have trouble paying your heating and electricity bill?: No Do you have trouble taking care of your child, family member or friend?: No Do you have trouble with day-to-day activities such as bathing, preparing meals, shopping, managing finances, etc.?: No Are you currently unemployed and looking for a job?: No Are you interested in more education?: No Please select the resources that you would like help with: None Currently or been in a relationship where the following occur: No concerns reported THRIVE Score: 0 AUDIT C Alcohol Use Questionnaire (AUDIT-C) 1. How often do you have a drink containing alcohol?: 2-3 times a week 2. How many drinks containing alcohol do you have on a typical day when you are drinking?: 1 or 2 Total Score: 3 PORFIRIO-7 AMB Questionnaire PORFIRIO-7 Date PORFIRIO - 7 assessed: 11/23/24 Feeling nervous, anxious, or on edge: 0 = Not at all Not being able to stop or control worryin = Not at all Worrying too much about different things: 0 = Not at all Trouble relaxin = Not at all Being so restless that it is hard to sit still: 0 = Not at all Becoming easily annoyed or irritable: 0 = Not at all Feeling afraid as if something awful might happen: 0 = Not at all Total PORFIRIO-7 score (0-4 normal; 5-9 mild; 10-14 moderate; 15-21 severe): 0 Source: Developed by Wilma Cifuentes, Cornel Garcia and colleagues, with an educational elbert from [employer]. Physical exam (Primary Care) Vital Signs: Last Vital Signs Temp 97.3 F 11/23/24 14:11 Pulse 89 11/23/24 14:11 BP 120/60 11/23/24 14:11 Pulse Ox 99 11/23/24 14:11 Oxygen Delivery Method Room Air 11/23/24 14:11 BMI result Body Mass Index 27.0 Tobacco/Smoking Status: Tobacco use Status Tobacco use date assessed 11/23/24 11/23/24 14:19 Patient Tobacco Use Status Former Tobacco user 11/23/24 14:19 Tobacco use type Cigarette 11/23/24 14:19 e-Cigarette/Vaping Use Never Used 11/23/24 14:19 PHQ-9: PHQ-9 Score PHQ-9: Total score 0 11/23/24 14:19 Depression Screening Interpretation: Negative Thrive Assessment: Date of Thrive Assessment Date Thrive assessed 11/23/24 11/23/24 14:19 Currently or been in a relationship where the following occur: No concerns reported Const General: cooperative and healthy appearing Nutritional Appearance: well nourished Orientation/consciousness: patient oriented x3 Limitations: no limitations HENMT Head: Yes normal to inspection Eyes General: appearance normal, both eyes and all related structures Neck Neck: Yes normal visual inspection Chest Chest palpation & inspection: normal palpation of entire chest wall Resp Effort & Inspection: normal respiratory effort Neuro General: patient oriented x3 Coding Level of Care Code Est Pt Level 3 (82564) Complex EM visit Add On G2211 Diagnoses Chronic low back pain, unspecified back pain laterality, unspecified whether sciatica present M54.5; G89.29 Chronicity: chronic Back pain laterality: unspecified Sciatica presence: unspecified whether sciatica present Assessment & Plan Assessment & Plan (1) Lower back pain: Code(s): M54.5 - Low back pain Category: Medical Qualifiers: Chronicity: chronic Back pain laterality: unspecified Sciatica presence: unspecified whether sciatica present Qualified Code(s): M54.5 - Low back pain; G89.29 - Other chronic pain Plan: Patient always seems to have chronic pain. Symptomatic treatment with meloxicam. Medications: New benzonatate 100 mg PO TID 60 caps 0RF Refilled meloxicam 15 mg PO DAILY 30 tabs 0RF
[2024-11-23 14:11] VITALS: BP 120/60; PULSE 89; TEMP 36.3; O2SAT 99; BMI 27.0
== END 2024-11-23 14:50 | disposition home or self-care (01) ==
PROVIDERS: PCP Internal Medicine; Visit Provider Internal Medicine
DX: M54.50 Low back pain, unspecified (principal); G89.29 Other chronic pain

== ENCOUNTER → 2024-11-23 13:39 | Outpatient (BNVA) | payer MEDICARE, MEDICAID, SELFPAY | PROVIDERS: PCP Internal Medicine; Visit Provider Internal Medicine | DX: M54.50 Low back pain, unspecified (principal); G89.29 Other chronic pain | CPT/HCPCS: 99212 ==

== ENCOUNTER 2024-11-27 13:37 | Outpatient (AMB) | payer MEDICARE, MEDICAID, SELFPAY ==
[2024-11-27 13:43] VITALS: BP 83/39; PULSE 91; BMI 26.2
--- NOTE | 2024-11-27 13:43 | A.OFFVIS_ITS ---
Vital Signs 11/27/24 13:43 Height 5 ft 3 in Weight 147 lb 11.355 oz BMI 26.2 BP 83/39 L Blood Pressure Location Lt radial Position Sitting Pulse 91 Intake Visit Reasons: 4/6 weeks f/u Intake Note: Jose Armando presents in the office asc a follow up. CC: He states that he is not eating a lot - very little. BP is very low and he states he is having dizziness. 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 I rechecked labs and he had F2 by fibrosure, genotype 2, low zinc, vosevi ordered for 12 weeks--- SVR pos, cured EGD 05/2019--grade I-II varices, no banding, PHG noted rept MRI: possible new liver lesion right lobe 1 cm, prior treated areas noted in left lobe--reviewed by DR King ---felt to be infarcted tissue in left lobe s/p chemoembolization and not felt to have lesion in right lobe colonoscopy 11/2019-- poor prep, hemorrhoids, adenoma polyp removed colonoscopy rept 08/2020--4 adenomatous polyps removed, internal hemorrhoids noted Lumbar XR 07/2020-- degen changes in spine, superior plate compression, deformity at L3 MRI 09/2020-- interval increase in size in the slightly heterogeneous nonenhancing lesion in the left lobe of the liver. Stable 5 mm liver cyst high in the dome of the liver. Stable 6 mm focus of early arterial phase enhancement high in the dome of the liver not seen on any other sequences. 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 Small periportal and upper abdominal retroperitoneal lymph nodes that are stable. He had an i/p admission 11/20 for anemia EGD and colo with multiple AVM noted --rx with APC, gastric erosions, no varices path- chronic gastritis, active MRI 11/20-- multiple lesions concern for HCC--seeing oncology and Dr King again IR 02/2024-- had chemoembolization INTERIM: He was anemic last time, but onc gave him few untis of blood he denies melena and rectal bleeding he says he was told the cancer is gone by IR he denies abdominal pain he is axtively drinking alcohol still last sat drank a box of shaffer --20 beers EXAM: GENERAL: The patient is well developed and nontoxic. VITAL SIGNS:see workflow HEENT: Nonicteric sclerae, PERRLA, EOMI. Oropharynx clear. Moist mucous membranes. Conjunctivae appear well perfused. No thyroid mass. CHEST: Chest wall is nontender. HEART: Regular rate and rhythm without murmurs. LUNGS: Clear to auscultation bilaterally. ABDOMEN: Soft, positive bowel sounds, nontender, no organomegaly.no flank tenderness SKIN: No rash, no excessive bruising, petechiae, or purpura. NEUROLOGIC: Cranial nerves II-XII intact without motor/sensory deficit. numbness legs Psych: normal affect Assessment & Plan 1. Alcoholic cirrhosis of liver without ascites --again advised on avoiding alcohol 2. anemia, no overt GIB PLAN 1/ recheck labs, will consider EGD based on this 2/ encouraged on ongoing alcohol abstinence, but unlikely 3/ HE: cont miralax 4/ ascites: none 5/ diet- stable, 6/ HCC- f/u oncology and IR [facility] Medical History Hepatocellular carcinoma Neuropathy involving both lower extremities Liver cirrhosis Hepatitis C Common cold Lower back pain Surgical History History of tooth extraction Hx of colonoscopy History of breast lump/mass excision History of ankle surgery History of appendectomy History of open reduction and internal fixation (ORIF) procedure Family History Father Prostate cancer Mother Diabetes Stroke Social History Household Members: None Housing: Apartment Do you presently have visiting nurse or other home services: Yes Alcohol intake: current Alcohol intake frequency: does not drink Alcohol type: hard liquor Patient Tobacco Use Status: Former Tobacco user Tobacco use type: Cigarette e-Cigarette/Vaping Use: Never Used Second Hand Smoke Exposure: Yes service: No Current occupational status: disabled Cognitive needs: Yes (cane) Hearing needs: No Vision needs: Yes (glasses) Physical Exam Vital Signs: Last Vital Signs Pulse 91 11/27/24 13:43 BP 83/39 L 11/27/24 13:43 BMI result Body Mass Index 26.2 Assessment & Plan Assessment & Plan (1) GI bleeding: Code(s): K92.2 - Gastrointestinal hemorrhage, unspecified Category: Medical Plan: as above Orders: Orders Complete Blood Count Auto Diff Today K92.2 - Gastrointestinal hemorrhage, unspecified Comprehensive Met. Panel Today K75.81 - Nonalcoholic steatohepatitis (CROW), K92.2 - Gastrointestinal hemorrhage, unspecified Prothrombin Time INR Today K92.2 - Gastrointestinal hemorrhage, unspecified Coding Level of Care Code Est Pt Level 4 (09121) Diagnoses GI bleeding K92.2
== END 2024-11-27 14:06 | disposition home or self-care (01) ==
PROVIDERS: PCP Internal Medicine; Visit Provider Internal Medicine Gastroenterology
DX: K92.2 Gastrointestinal hemorrhage, unspecified (principal)
CPT/HCPCS: 99214

== ENCOUNTER → 2024-11-27 13:37 | Outpatient (BNVA) | payer MEDICARE, MEDICAID, SELFPAY | PROVIDERS: PCP Internal Medicine; Visit Provider Internal Medicine Gastroenterology | DX: K92.2 Gastrointestinal hemorrhage, unspecified (principal) | CPT/HCPCS: 99212 ==

== ENCOUNTER 2024-11-28 12:25 | Outpatient (REF) | payer MEDICARE, MEDICAID, SELFPAY ==
[2024-11-28 12:39] LABS: MANUAL DIFF FLAG NO
[2024-11-28 13:58] LABS: Basophils Percent Auto 0.6 % (0-2); Eosinophils Absolute Auto 0.5 X10*3/uL (0.0-0.4); Eosinophils Percent Auto 8.5 % (0-4); Hematocrit 22.7 % (42.0-52.0); Hemoglobin 7.2 g/dl (14.0-18.0); Imm Gran Abs Auto 0.03 X10*3/uL (0.00-0.03); Imm Gran Pct Auto 0.5 % (0.0-0.4); Lymphocytes Absolute Auto 1.1 X10*3/uL (1.2-4.9); Lymphocytes Percent Auto 17.5 % (20-40); Mean Corpuscular HGB Conc 31.7 g/dl (31.0-36.0); Mean Corpuscular Hemoglobin 26.1 pg (27.0-33.0); Mean Corpuscular Volume 82.2 fL (80.0-98.0); Monocytes Absolute Auto 0.8 X10*3/uL (0.1-1.2); Monocytes Percent Auto 12.6 % (2-11); Neutrophils Absolute Auto 3.8 x10*3/uL (2.0-8.3); Neutrophils Percent Auto 60.3 % (45-73); Platelet Count 295 X10*3/uL (160-400); Red Blood Count 2.76 X10*6/uL (4.60-5.80); Red Cell Distribution Width 17.1 % (11.0-16.0); White Blood Count 6.3 X10*3/uL (4.8-10.8)
[2024-11-28 14:22] LABS: Prothrombin Time 11.6 SEC (10.9-12.4)
[2024-11-28 14:53] LABS: Alanine Aminotransferase 27 U/L (0-40); Albumin Level 3.4 g/dL (3.5-5.0); Alkaline Phosphatase 353 U/L (39-117); Anion Gap 10 (12-20); Aspartate Amino Transferase 43 U/L (5-37); Bilirubin Total 0.5 mg/dL (0.0-1.0); Blood Urea Nitrogen 14 mg/dL (9-16); Calcium 8.4 mg/dL (8.4-10.2); Carbon Dioxide 24 mmol/L (22-29); Chloride 108 mmol/L (96-108); Estimated Glomerular Filt Rate > 60; Glucose Random 92 mg/dL (60-115); Potassium 3.9 mmol/L (3.3-5.1); Sodium 138 mmol/L (135-145); Total Protein 7.1 g/dL (6.5-8.0)
== END 2024-11-28 12:26 | disposition home or self-care (01) ==
LOC: HO.LAB 12:25
PROVIDERS: PCP Internal Medicine; Visit Provider Internal Medicine Gastroenterology
DX: K92.2 Gastrointestinal hemorrhage, unspecified (principal); K75.81 Nonalcoholic steatohepatitis (NASH)
CPT/HCPCS: 36415; 80053; 85025; 85610

== ENCOUNTER 2024-11-29 10:45 | Emergency (ER) | payer MEDICARE, MEDICAID, SELFPAY ==
[2024-11-29 11:04] VITALS: BP 131/89; PULSE 83; RESP 18; TEMP 36.4; O2SAT 99; BMI 27.0
--- NOTE | 2024-11-29 11:07 | ECG_ITS ---
Test Reason : WEAKNESS Blood Pressure : */* mmHG Vent. Rate : 77 BPM Atrial Rate : 77 BPM P-R Int : 170 ms QRS Dur : 80 ms QT Int : 384 ms P-R-T Axes : 60 9 41 degrees QTcB Int : 434 ms Normal sinus rhythm Normal ECG When compared with ECG of 11-May-2024 09:15, Premature atrial complexes are no longer Present Referred By: Micaela Katz Electronically Signed By: MERI LI MD
--- NOTE | 2024-11-29 11:11 | ED_ITS ---
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 ? Patient reports that he saw Dr. Maza GI and an outpatient labs done yesterday. The patient was instructed to come to the emergency department for ?a blood transfusion because my counts are low. ? His outpatient labs show a hemoglobin of 7.2 yesterday. The patient denies any obvious black or bloody stool but admits that he does not regularly check his stool The patient is not anticoagulated. He does have a history of blood transfusion. The patient admits that he is continuing to drink alcohol, his last drink was Wednesday and he had ?10 beers. ? The patient complains of fatigue and feeling tired but has no other complaints or concerns at this time Related Data Home Medications ?Medication ?Instructions ?Recorded ?Confirmed ascorbic acid (vitamin C) 500 mg 500 mg PO BID 10/16/24 tablet blood pressure test kit-large #1 ea 10/16/24 Previous Rx's ?Medication ?Instructions ?Recorded albuterol sulfate 90 mcg/actuation 2 puff PO Q6H PRN Cold Symptoms 08/13/20 aerosol inhaler #6.7 grams blood pressure monitor #1 ea 01/21/22 walker #1 ea 11/05/23 food supplemt, lactose-reduced 1 ea PO TID #3,792 mL 11/16/23 (Ensure oral liquid) polyethylene glycol 3350 17 17 g PO DAILY #119 grams 12/20/23 gram/dose oral powder (Miralax) multivitamin 1 tab PO DAILY #90 tabs 12/24/23 thiamine HCl (vitamin B1) 100 mg 100 mg PO TID #90 tabs 04/17/24 tablet prednisone 10 mg tablet 10 mg PO DAILY 9 days #18 tabs 06/07/24 mirtazapine 7.5 mg tablet 7.5 mg PO BEDTIME #30 tabs 07/28/24 Blood pressure monitor #1 ea 08/02/24 ferrous sulfate 325 mg (65 mg 325 mg PO BID #60 tabs 09/07/24 iron) tablet tadalafil 10 mg tablet 10 mg PO DAILY PRN sexual activity 10/24/24 #10 tabs tramadol 50 mg tablet 50 mg PO Q8H #30 tabs 10/24/24 amlodipine 10 mg tablet 10 mg PO DAILY #90 tabs 11/19/24 lisinopril 10 mg tablet 10 mg PO DAILY #90 tabs 11/19/24 benzonatate 100 mg capsule 100 mg PO TID #60 caps 11/23/24 meloxicam 15 mg tablet 15 mg PO DAILY #30 tabs 11/23/24 Allergies Allergy/AdvReac Type Severity Reaction Status Date / Time No Known Allergies Allergy Verified 11/29/24 11:07 [No Known Allergies*] Review of Systems 2 Constitutional: Constitutional: Denies body ache(s), Denies chills, Reports fatigue, Denies fever(s), Reports lethargy and Reports weakness Eyes: Eyes: Denies blurry vision Cardiovascular: Cardiovascular: Denies chest pain and Denies dyspnea Respiratory: Respiratory: Denies cough and Denies dyspnea Gastrointestinal: Gastrointestinal: Denies abdominal pain, Denies hematochezia, Denies nausea and Denies vomiting Integumentary/Breasts: Skin/Breast: Denies rash Neurologic: Reports weakness Endocrine: Endocrine: Reports fatigue PMFSH Past Medical History Medical History Hepatocellular carcinoma Neuropathy involving both lower extremities Liver cirrhosis Hepatitis C Common cold Lower back pain Surgical History History of tooth extraction Hx of colonoscopy History of breast lump/mass excision History of ankle surgery History of appendectomy History of open reduction and internal fixation (ORIF) procedure Family History Family History Father Prostate cancer Mother Diabetes Stroke Social History Social History Household Members: None Housing: Apartment Do you presently have visiting nurse or other home services: Yes Alcohol intake: current Alcohol intake frequency: does not drink Alcohol type: hard liquor Patient Tobacco Use Status: Former Tobacco user Tobacco use type: Cigarette e-Cigarette/Vaping Use: Never Used Second Hand Smoke Exposure: Yes Advance Directives: No Advance Directives Information Provided: Yes Do you have a plan to hurt others: No Plan service: No Current occupational status: disabled Cognitive needs: Yes (cane) Hearing needs: No Vision needs: Yes (glasses) Physical Exam ED Vital Signs: Vital Signs - 24 hr 11/29/24 11:04 11/29/24 16:03 Temperature 97.5 F Pulse Rate 83 72 Respiratory Rate 18 19 Blood Pressure 131/89 Pulse Oximetry 99 99 Oxygen Delivery Method Room Air Room Air BMI result Body Mass Index 27.0 Const General: healthy appearing, comfortable, no acute distress, alert and awake Nutritional Appearance: well nourished Orientation/consciousness: patient oriented x3 HENMT Head: Yes normocephalic and Yes atraumatic Eyes Eyelids: Yes eyelids normal Conjunctivae: conjunctivae normal Sclerae: sclerae normal Corneas: corneas normal Pupils: Equal, round and reactive pupils present EOM: EOMs intact bilaterally Neck Neck: Yes full ROM Resp Effort & Inspection: normal respiratory effort, able to speak in complete sentences and not labored GI Inspection: No distended Palpation (GI): Soft to palpation and not firm Skin General skin exam: elasticity normal Neuro General: patient oriented x3 Cranial nerves: Yes Equal, round and reactive pupils present and Yes Bilaterally intact EOM present Cognition (Neuro): normal cognition Extrem Other: Moving all extremities well without any obvious deformities Course Course Course Narrative: This is a Rapid Medical Exam performed in triage by Micaela Katz PA-C. Full HPI, ROS and PE to be performed by primary ED provider. 68-year-old male with a past medical history hepatitis-C, hepatocellular carcinoma, iron-deficiency anemia, GI bleed, presenting to the ED sent in from Gastroenterology for blood transfusion. Patient states he had outpatient labs yesterday and was told to come directly to the ED today for blood transfusion. Reports generalized fatigue and weakness. Denies any known bleeding including melena or bloody stools. PE: In wheelchair, nontoxic appearing Plan: labs, UA, T&S Medical Decision Making Medical Decision Making MDM Narrative: 68-year-old male past medical history as documented above presents for evaluation of low blood counts and weakness. The patient does have a history of anemia that appears to have been trending down words dating back to last spring. His hemoglobin today is 7.4 is slightly improved compared to his hemoglobin from yesterday. He denies any obvious active bleeding. His blood pressure is stable, he was not tachycardic. He does continue drinking it may have a slow GI bleed. I discussed with Dr. Maza, there is no indication for admission at this time. The patient is stable to receive a unit of packed red blood cells and will be seen in the office to schedule an outpatient EGD Differential Diagnosis Differential Diagnoses: The differential diagnosis associated with the presentation includes Anemia of chronic disease Hepatitis-C Hepatocellular carcinoma Iron-deficiency anemia Blood loss anemia Admission/Observation Consideration of admission/observation: Escalation of care including admission/observation considered Consult Healthcare Provider Management of the patient was discussed with: Special Events Assistant Lab Data MDM Lab Attestation statement: I reviewed the patient's lab results. No leukocytosis. The patient has a chronic anemia. Today is normocytic but low normal. There is no significant left shift. No significant electrolyte abnormalities warranting intervention. The patient's BUN to creatinine ratio is not indicative of active upper GI bleed. 11/29/24 13:16 11/29/24 13:16 Labs: Lab Results 11/29/24 11/29/24 Range/Units 13:15 13:16 WBC 6.0 (4.8-10.8) X10*3/uL RBC 2.91 L (4.60-5.80) X10*6/uL Hgb 7.4 L (14.0-18.0) g/dl Hct 23.6 L (42.0-52.0) % MCV 81.1 (80.0-98.0) fL MCH 25.4 L (27.0-33.0) pg MCHC 31.4 (31.0-36.0) g/dl RDW 17.0 H (11.0-16.0) % Plt Count 323 (160-400) X10*3/uL MPV 11.2 (9.4-12.4) fL Immature Gran % (Auto) 0.5 H (0.0-0.4) % Neut % (Auto) 59.8 (45-73) % Lymph % (Auto) 18.7 L (20-40) % [place] % (Auto) 10.6 (2-11) % Eos % (Auto) 9.6 H (0-4) % Baso % (Auto) 0.8 (0-2) % Lymph # (Auto) 1.1 L (1.2-4.9) X10*3/uL [place] # (Auto) 0.6 (0.1-1.2) X10*3/uL Eos # (Auto) 0.6 H (0.0-0.4) X10*3/uL Baso # (Auto) 0.1 (0.0-0.2) X10*3/uL Abs Immat Gran (auto) 0.03 (0.00-0.03) X10*3/uL Absolute Neuts (auto) 3.6 (2.0-8.3) x10*3/uL Absolute Nucleated RBC 0.000 (0.0-0.012) X10*3/uL Nucleated RBC % (auto) 0.0 (0.0-0.2) /100WBC PT 12.1 (10.9-12.4) SEC INR 1.0 (0.9-1.1) Sodium 138 (135-145) mmol/L Potassium 4.4 (3.3-5.1) mmol/L Chloride 109 H (96-108) mmol/L Carbon Dioxide 22 (22-29) mmol/L Anion Gap 11 L (12-20) BUN 11 (9-16) mg/dL Creatinine 0.94 (0.5-1.4) mg/dL Estim Creat Clear Calc 63.9 Estimated GFR > 60 Random Glucose 90 (60-115) mg/dL Calcium 8.7 (8.4-10.2) mg/dL Magnesium 2.0 (1.6-2.6) mg/dL Total Bilirubin 0.5 (0.0-1.0) mg/dL Direct Bilirubin 0.2 (0.0-0.5) mg/dL AST 41 H (5-37) U/L ALT 26 (0-40) U/L Alkaline Phosphatase 382 H (39-117) U/L Total Protein 7.3 (6.5-8.0) g/dL Albumin 3.4 L (3.5-5.0) g/dL Influenza Type A (PCR) NEGATIVE (Negative) Influenza Type B (PCR) NEGATIVE (Negative) RSV RNA Qual (PCR) NEGATIVE (Negative) SARS-CoV-2 RNA (RT-PCR) NEGATIVE (Negative) Blood Type A Negative Antibody Screen NEGATIVE Crossmatch See Detail Discharge Plan Discharge Clinical Impression: Chronic anemia Patient Disposition: Home, Self-Care Instructions: Anemia (ED) Additional Instructions: Your hemoglobin today was 7.4 which is slightly better than it was yesterday. You received 1 unit of packed red blood cells. It is important that you follow up with your GI doctor, Dr. Maza. Call tomorrow to schedule an appointment. I do recommend that you decrease in ultimately discontinue drinking altogether. Prescriptions: No Action Ensure Liquid 1 ea PO TID Qty: 3792 1RF thiamine HCl (vitamin B1) 100 mg tablet 100 mg PO TID Qty: 90 2RF mirtazapine 7.5 mg tablet 7.5 mg PO BEDTIME Qty: 30 1RF (DME) Blood pressure monitor See Rx Instructions .Route .MEDSUPPLY Qty: 1 0RF Rx Instructions: As directed tadalafil 10 mg tablet 10 mg PO DAILY PRN (Reason: sexual activity) Qty: 10 1RF tramadol 50 mg tablet 50 mg PO Q8H Qty: 30 0RF lisinopril 10 mg tablet 10 mg PO DAILY Qty: 90 1RF Protocol: Hold for SBP< HOLD for SBP < : 90 amlodipine 10 mg tablet 10 mg PO DAILY Qty: 90 1RF Protocol: Hold for SBP< HOLD for SBP < : 90 ferrous sulfate 325 mg (65 mg iron) Tablet 325 mg PO BID Qty: 60 6RF polyethylene glycol 3350 [Miralax] 17 gram/dose powder 17 g PO DAILY Qty: 119 0RF albuterol sulfate 90 mcg/actuation HFA aerosol inhaler 2 puff PO Q6H PRN (Reason: Cold Symptoms) Qty: 6.7 0RF prednisone 10 mg tablet 10 mg PO DAILY 9 Days Qty: 18 0RF Rx Instructions: 10mg 3tab x 3days 2tabs x 3days 1 tab x 3days (DME) blood pressure monitor Kit See Rx Instructions .Route Qty: 1 0RF Rx Instructions: As directed (DME) walker Misc See Rx Instructions .Route Qty: 1 0RF Rx Instructions: As directed multivitamin Tablet 1 tab PO DAILY Qty: 90 2RF ascorbic acid (vitamin C) 500 mg tablet 500 mg PO BID (DME) blood pressure test kit-large Kit See Rx Instructions .ROUTE DIRECTED Qty: 1 Rx Instructions: As directed meloxicam 15 mg tablet 15 mg PO DAILY Qty: 30 0RF benzonatate 100 mg capsule 100 mg PO TID Qty: 60 0RF Referrals: Amber Maza MD [Physician] - (chronic anemia. Hep C, HCC) Print Language: [place]
[2024-11-29 13:20] LABS: MANUAL DIFF FLAG NO
[2024-11-29 13:25] LABS: Basophils Absolute Auto 0.1 X10*3/uL (0.0-0.2); Basophils Percent Auto 0.8 % (0-2); Eosinophils Absolute Auto 0.6 X10*3/uL (0.0-0.4); Eosinophils Percent Auto 9.6 % (0-4); Hematocrit 23.6 % (42.0-52.0); Hemoglobin 7.4 g/dl (14.0-18.0); Imm Gran Abs Auto 0.03 X10*3/uL (0.00-0.03); Imm Gran Pct Auto 0.5 % (0.0-0.4); Lymphocytes Absolute Auto 1.1 X10*3/uL (1.2-4.9); Lymphocytes Percent Auto 18.7 % (20-40); Mean Corpuscular HGB Conc 31.4 g/dl (31.0-36.0); Mean Corpuscular Hemoglobin 25.4 pg (27.0-33.0); Mean Corpuscular Volume 81.1 fL (80.0-98.0); Mean Platelet Volume 11.2 fL (9.4-12.4); Monocytes Absolute Auto 0.6 X10*3/uL (0.1-1.2); Monocytes Percent Auto 10.6 % (2-11); Neutrophils Absolute Auto 3.6 x10*3/uL (2.0-8.3); Neutrophils Percent Auto 59.8 % (45-73); Platelet Count 323 X10*3/uL (160-400); Red Blood Count 2.91 X10*6/uL (4.60-5.80)
[2024-11-29 13:29] LABS: Prothrombin Time 12.1 SEC (10.9-12.4)
[2024-11-29 13:36] LABS: Alanine Aminotransferase 26 U/L (0-40); Albumin Level 3.4 g/dL (3.5-5.0); Alkaline Phosphatase 382 U/L (39-117); Anion Gap 11 (12-20); Aspartate Amino Transferase 41 U/L (5-37); Bilirubin Direct 0.2 mg/dL (0.0-0.5); Bilirubin Total 0.5 mg/dL (0.0-1.0); Blood Urea Nitrogen 11 mg/dL (9-16); Calcium 8.7 mg/dL (8.4-10.2); Carbon Dioxide 22 mmol/L (22-29); Chloride 109 mmol/L (96-108); Creatinine Clr Calc Pharmacy 63.9; Estimated Glomerular Filt Rate > 60; Glucose Random 90 mg/dL (60-115); Potassium 4.4 mmol/L (3.3-5.1); Sodium 138 mmol/L (135-145); Total Protein 7.3 g/dL (6.5-8.0)
[2024-11-29 13:58] LABS: Influenza A PCR NEGATIVE (Negative); Influenza B PCR NEGATIVE (Negative); Resp Syncy Virus RNA Qual PCR NEGATIVE (Negative); SARS COV2 PCR INHOUSE NEGATIVE (Negative)
[2024-11-29 16:03] VITALS: PULSE 72; RESP 19; O2SAT 99
--- NOTE | 2024-11-29 17:20 | PC.NURSE ---
waiting for consent to be completed by provider
[2024-11-29 18:13] VITALS: BP 140/76; PULSE 77; RESP 18; TEMP 37.3
[2024-11-29 18:33] VITALS: BP 148/77; PULSE 82; RESP 18; TEMP 37.1
[2024-11-29 20:49] VITALS: BP 155/61; PULSE 70; RESP 16; TEMP 37.2
[2024-11-29 21:14] VITALS: BP 147/65; PULSE 68; RESP 16; TEMP 37.2; O2SAT 99
== END 2024-11-29 21:16 | disposition home or self-care (01) ==
PROVIDERS: Physician Assistant; Emergency Provider Emergency Medicine; PCP Internal Medicine
DX: D64.9 Anemia, unspecified (principal); C22.0 Liver cell carcinoma; B19.20 Unspecified viral hepatitis C without hepatic coma; F10.10 Alcohol abuse, uncomplicated; K74.60 Unspecified cirrhosis of liver; Z03.818 Encounter for observation for suspected exposure to other biological agents ruled out
CPT/HCPCS: 0241U; 36430; 80048; 80076; 83735; 85025; 85610; 86850; 86900; 86901; 86923; 93005; 99284; 99285; P9016

== ENCOUNTER → 2024-11-29 11:07 | Outpatient (BNV) | payer MEDICARE, MEDICAID, SELFPAY | PROVIDERS: PCP Internal Medicine; Visit Provider Internal Medicine Cardiovascular Disease | DX: R53.1 Weakness (principal) | CPT/HCPCS: 93010 ==

== ENCOUNTER 2024-12-12 08:28 | Day surgery (SDC) | payer MEDICARE, MEDICAID, SELFPAY ==
--- NOTE | 2024-12-12 08:12 | MHC.SHP ---
Pre-Procedural Eval Section A - 24 Hr Update-Section A only Date of Service: 12/12/24 Section B - Complete if H&P > 30 days Chief Complaint: Anemia, Relevant Family History (Specify if Yes): No Relevant Social History: Alcohol Use Present Medications: see Short Stay Collaborative assessment Medical History: Significant History (Neuropathy involving both lower extremities Liver cirrhosis Hepatitis C Common cold Lower back pain) History of Previous Operations: Relevant previous surgery/procedure and date(s) ( Hx of colonoscopy History of breast lump/mass excision History of ankle surgery History of appendectomy History of open reduction and internal fixation (ORIF) procedure) Allergies: Allergies Allergy/AdvReac Type Severity Reaction Status Date / Time No Known Allergies Allergy Verified 11/29/24 11:07 [No Known Allergies*] Review of Systems Sugical H&P ROS: Negative: Constitution, Cardiovascular, Respiratory, Neurological, Psychiatric, Hem-Onc, Allergic/Immunologic, Gastrointestinal, Genitourinary, Musculoskeletal, Integumentary, Endocrine and Eyes/Ears/Nose/Throat Exam Surgical H&P Exam: Normal: HEENT, Normal: Heart, Normal: Lungs, Normal: Extremities, Normal: Abdomen, Normal: Skin and Normal: Neurological Plan Diagnosis/Plan: Unchanged I have reviewed the history and physical and performed a pertinent physical examination on my patient. No changes have occurred unless specified. Time Spent With Patient Time: Total time managing care of this patient today ____ minutes.
--- NOTE | 2024-12-12 08:28 | HO.ANESPROP2 ---
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) (Acute) HCC (hepatocellular carcinoma) (Acute) Hepatitis C (Acute) Symptomatic anemia (Acute) Neuropathy involving both lower extremities (Acute) Right lateral epicondylitis (Acute) History of alcohol abuse (Acute) History of cancer chemotherapy (Acute) History of breast lump/mass excision (Acute) Osteoarthritis of knees, bilateral (Acute) Meralgia paresthetica of both lower extremities (Acute) Low vitamin D level (Acute) Lumbar degenerative disc disease (Acute) Bilateral knee pain (Acute) GERD (gastroesophageal reflux disease) (Acute) Elevated blood pressure reading (Acute) Screening for hypothyroidism (Acute) Screening for hyperlipidemia (Acute) Bilateral leg pain (Acute) Myalgia (Acute) Lumbar spondylosis (Acute) Liver cirrhosis (Acute) Leg weakness, bilateral (Acute) Common cold (Acute) Lower back pain (Acute) Past Medical History Medical History Hepatocellular carcinoma Neuropathy involving both lower extremities Liver cirrhosis Hepatitis C Common cold Lower back pain Family History Family History Father Prostate cancer Mother Diabetes Stroke Family history of problems with anesthesia: No Surgical History Surgical History History of tooth extraction Hx of colonoscopy History of breast lump/mass excision History of ankle surgery History of appendectomy History of open reduction and internal fixation (ORIF) procedure History of Problems with Anesthesia: No Social History Social History Household Members: None Housing: Apartment Do you presently have visiting nurse or other home services: Yes Alcohol intake: current Alcohol type: hard liquor Patient Tobacco Use Status: Former Tobacco user Tobacco use type: Cigarette e-Cigarette/Vaping Use: Never Used Second Hand Smoke Exposure: Yes service: No Current occupational status: disabled Cognitive needs: Yes (cane) Hearing needs: No Vision needs: Yes (glasses) Meds Allergies Allergy/AdvReac Type Severity Reaction Status Date / Time No Known Allergies Allergy Verified 11/29/24 11:07 [No Known Allergies*] Home Medications ?Medication ?Instructions ?Recorded ?Confirmed ?Last Taken ?Type ascorbic acid (vitamin C) 500 mg 500 mg PO BID 10/16/24 Unknown History tablet blood pressure test kit-large #1 ea 10/16/24 Unknown History Exam Airway Mallampati Class: III TM Dist: <=3cm Neck ROM: Limited Heart: rrr Lungs: cta Assessment and Plan Assessment Anesthesia Assessment: Anesthesia Plan Discussed Final Anesthetic Review Family History of Problems with Anesthesia: No History of Problems with Anesthesia: No NPO: Yes ASA Class: III Final Preanesthetic Review: No Changes in Pt Med Stat, Meds/Allgs Chart Reviewed, Consent Obtained/Reviewed and Anes Risks/Benef Reviewed Patient Risk: Intermediate Procedure Risk: Low Anesthetic Plan Anesthetic Plan: MAC: Disposition: Standard PACU
[2024-12-12 08:39] VITALS: BMI 25.9
[2024-12-12] MEDS: Lactated Ringers 1,000 ML 80 ML IVCONT (08:55)
[2024-12-12 09:27] VITALS: BP 147/77; PULSE 72; RESP 18; TEMP 36.7; O2SAT 99
--- NOTE | 2024-12-12 10:07 | W.PM.OPN ---
Operative Note Operative Note Date of Service: 12/12/24 Narrative: Procedure Description: EGD Indication: Anemia Anesthesia: MAC FLEXIBLE TRANSORAL UPPER GASTROINTESTINAL ENDOSCOPY UPPER ENDOSCOPY Consent: Indications for the procedure and potential complications of bleeding, perforation, reaction to medications and missed diagnosis were discussed with the patient and informed consent was obtained. Instrument: Olympus GIF H 190 J mid size upper endoscope Monitoring: Vital signs and clinical assessment, continuous EKG monitoring, Pulse oximetry, Carbon Dioxide monitoring and blood pressure monitoring were done throughout the procedure. Procedure: The patient was placed in the left lateral decubitis position and pre-procedure medications were administered and a bite block was placed. The endoscope was inserted into the mouth and advanced under direct vision to the third part of duodenum. A careful inspection was made as the upper endoscope was withdrawn including a retroflexed examination of the proximal stomach; Findings and interventions are described below. Findings: Larynx:normal Esophagus: GE junction at 40 cm, diaphragm hiatus at 40 cm, x 1 grade III varix noted and x2 grade varices noted with few red amezquita --x 4 bands were deployed Stomach: congestive gastropathy noted with erosions in distal stomach . Biopsies were obtained. Grade 2 flap valve on retroflexed examination of the cardia. no gastric varices seen Duodenum: patchy erythema - bx taken Intervention: Biopsies as noted above, variceal banding Impression/Findings: gastritis duodenitis portal hypertensive gastropathy esophageal varices PLAN: magic mouthwash for 1 week with indefinite PPI use alcohol cessation, avoid nsaids, if h pylori pos will treat GERD precautions repeat EGD in about 4-6 weeks
[2024-12-12 10:14] VITALS: BP 122/99; PULSE 108; RESP 19; TEMP 36.6; O2SAT 97
[2024-12-12 10:30] VITALS: BP 153/85; PULSE 80; RESP 18; O2SAT 98
[2024-12-12 10:44] VITALS: BP 144/77; PULSE 77; RESP 16; TEMP 36.4; O2SAT 97
[2024-12-12] MEDS: Mag&Al/Sim/Diphenhyd/Lidocaine 10 ML ORAL.SUSP PO (10:49)
== END 2024-12-12 11:23 | disposition home or self-care (01) ==
PROVIDERS: PCP Internal Medicine; Visit Provider Internal Medicine Gastroenterology
PROC: (CPT 43244; principal; 2024-12-12 09:40)
DX: I85.00 Esophageal varices without bleeding (principal); K29.80 Duodenitis without bleeding; K76.6 Portal hypertension; K31.89 Other diseases of stomach and duodenum; D64.9 Anemia, unspecified; B19.20 Unspecified viral hepatitis C without hepatic coma; K25.9 Gastric ulcer, unspecified as acute or chronic, without hemorrhage or perforation; K74.60 Unspecified cirrhosis of liver; I10 Essential (primary) hypertension; D50.0 Iron deficiency anemia secondary to blood loss (chronic); C22.0 Liver cell carcinoma; K21.9 Gastro-esophageal reflux disease without esophagitis; F10.11 Alcohol abuse, in remission; Z92.21 Personal history of antineoplastic chemotherapy
CPT/HCPCS: 43244; 43239; 88305; 88313; 88342; J2003; J2704; J3010

== ENCOUNTER → 2024-12-12 08:28 | Outpatient (BNV) | payer MEDICARE, MEDICAID, SELFPAY | PROVIDERS: PCP Internal Medicine; Visit Provider Internal Medicine Gastroenterology | DX: D64.9 Anemia, unspecified (principal); I85.00 Esophageal varices without bleeding; K29.70 Gastritis, unspecified, without bleeding; K29.80 Duodenitis without bleeding; K31.89 Other diseases of stomach and duodenum | CPT/HCPCS: 43239; 43244 ==

== ENCOUNTER 2025-01-12 11:23 | Outpatient (REF) | payer MEDICARE, MEDICAID, SELFPAY ==
--- NOTE | ~2025-01-12 | XR_ITS ---
EXAMINATION: X-ray knee, bilaterally CLINICAL INFORMATION: Bilateral primary osteoarthrosis. TECHNIQUE: AP and lateral views of the knees. COMPARISON: February 19, 2022. FINDINGS: No acute cortical disruption or malalignment. Joint space narrowing involving mostly the lateral compartment of the right knee and the medial compartment of the left knee. No suprapatellar bursa joint effusion. No lytic or blastic lesions. XR/XR Knee Jorge 1or 2V IMPRESSION: Mild bicompartmental osteoarthrosis without acute fracture or dislocation. Electronically signed by: Jackson Clark MD 01/12/2025 01:12 PM EDT
[2025-01-12 12:29] LABS: MANUAL DIFF FLAG NO
[2025-01-12 13:34] LABS: Basophils Percent Auto 0.6 % (0-2); Eosinophils Absolute Auto 0.4 X10*3/uL (0.0-0.4); Eosinophils Percent Auto 7.3 % (0-4); Hematocrit 21.2 % (42.0-52.0); Imm Gran Abs Auto 0.01 X10*3/uL (0.00-0.03); Imm Gran Pct Auto 0.2 % (0.0-0.4); Lymphocytes Absolute Auto 0.9 X10*3/uL (1.2-4.9); Lymphocytes Percent Auto 18.2 % (20-40); Mean Corpuscular HGB Conc 31.6 g/dl (31.0-36.0); Mean Corpuscular Hemoglobin 26.4 pg (27.0-33.0); Mean Corpuscular Volume 83.5 fL (80.0-98.0); Mean Platelet Volume 12.8 fL (9.4-12.4); Monocytes Absolute Auto 0.7 X10*3/uL (0.1-1.2); Monocytes Percent Auto 13.9 % (2-11); Neutrophils Percent Auto 59.8 % (45-73); Platelet Count 221 X10*3/uL (160-400); Red Blood Count 2.54 X10*6/uL (4.60-5.80); Red Cell Distribution Width 15.9 % (11.0-16.0)
[2025-01-12 14:28] LABS: Hemoglobin 6.7 g/dl (14.0-18.0)
== END 2025-01-12 11:24 | disposition home or self-care (01) ==
LOC: HO.XRAY 11:23
PROVIDERS: PCP Internal Medicine
DX: Z13.89 Encounter for screening for other disorder (principal)
CPT/HCPCS: 36415; 73560; 85025; 99212

== ENCOUNTER 2025-01-12 11:23 | Outpatient (AMB) | payer MEDICARE, MEDICAID, SELFPAY ==
[2025-01-12 11:32] VITALS: BP 120/52; PULSE 94; RESP 16; TEMP 36.4; O2SAT 98; BMI 27.3
--- NOTE | 2025-01-12 11:32 | MHC.PC.OV ---
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: Yes Accompanied by: Olayinka Allergies No Known Allergies [No Known Allergies*] Allergy (Verified 01/12/25 11:39) Medication List - Last Reconciled 01/12/25 by Noreen Rios PA-C albuterol sulfate 90 mcg/actuation 2 puffs PO Q6H PRN amlodipine 10 mg See Protocol PO DAILY ascorbic acid (vitamin C) 500 mg PO BID benzonatate 100 mg PO TID blood pressure monitor As directed [Blood pressure monitor As directed] blood pressure test kit-large As directed ferrous sulfate 325 mg PO BID food supplemt, lactose-reduced (Ensure oral liquid) 1 ea PO TID lisinopril 10 mg See Protocol PO DAILY Magic Mouthwash Diphen/Lido/Antacid 1:1:1 10 mL PO QID meloxicam 15 mg PO DAILY mirtazapine 7.5 mg PO BEDTIME multivitamin 1 tab PO DAILY pantoprazole 40 mg PO DAILY polyethylene glycol 3350 (Miralax) 17 grams PO DAILY prednisone 10 mg PO DAILY 9 days tadalafil 10 mg PO DAILY PRN thiamine HCl (vitamin B1) 100 mg PO TID tramadol 50 mg PO BID walker As directed Tobacco use date assessed: 11/23/24 Fall risk assessment: No Falls in past year Last assessed Fall Risk: 01/12/25 Dental Screening Dental Screen Date: 11/23/24 HPI leg pain HPI Details 69-year-old with past medical history of hypertension, GERD, lumbar spondylosis, hepatocellular carcinoma last seen 10/[address] Newell coming in for acute problem. 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 Presenting with knee pain. The patient reports experiencing knee pain bilaterally for the past three years, with notable persistence and impact on sleep. An X-ray from 2021 previously indicated the presence of osteoarthritis in liseth knees. Although medication provides limited relief, the pain remains a significant issue. The patient has liver cancer, per the conversation, requiring consistent blood monitoring. [facility] Medical History Hepatocellular carcinoma Neuropathy involving both lower extremities Liver cirrhosis Hepatitis C Common cold Lower back pain Surgical History History of tooth extraction Hx of colonoscopy (~10/29/23) History of breast lump/mass excision History of ankle surgery History of appendectomy History of open reduction and internal fixation (ORIF) procedure Family History Father Prostate cancer Mother Diabetes Stroke Social History Household Members: None Housing: Apartment Are you a primary special needs caregiver to a significant other at home: No Do you presently have visiting nurse or other home services: No Alcohol intake: current Alcohol type: hard liquor Patient Tobacco Use Status: Former Tobacco user Tobacco use type: Cigarette e-Cigarette/Vaping Use: Never Used Second Hand Smoke Exposure: Yes service: No Current occupational status: disabled Cognitive needs: Yes (cane) Hearing needs: No Vision needs: Yes (glasses) Questionnaire Thrive Questionnaire Date Thrive assessed: 11/23/24 PORFIRIO-7 AMB Questionnaire PORFIRIO-7 Date PORFIRIO - 7 assessed: 11/23/24 Source: Developed by Drs. Mynor Alba, Wilma Francois, Cornel Garcia and colleagues, with an educational elbert from [employer]. Review of Systems Const Denies body aches, Denies chills, Denies fever(s) and Denies poor appetite Eyes Reports no additional complaints Card Denies chest pain and Denies dyspnea Resp Denies dyspnea Reports no additional complaints Musc Details: Bilateral knee pain Denies abnormal gait Skin/Breast Reports system reviewed and no additional complaints, except as documented Neuro Denies abnormal gait Psych Reports no additional complaints Physical exam (Primary Care) Vital Signs: Last Vital Signs Temp 97.5 F 01/12/25 11:32 Pulse 94 01/12/25 11:32 Resp 16 01/12/25 11:32 BP 120/52 L 01/12/25 11:32 Pulse Ox 98 01/12/25 11:32 Oxygen Delivery Method Room Air 01/12/25 11:32 BMI result Body Mass Index 27.3 Tobacco/Smoking Status: Tobacco use Status Tobacco use date assessed 11/23/24 01/12/25 11:33 Patient Tobacco Use Status Former Tobacco user 01/12/25 11:33 Tobacco use type Cigarette 01/12/25 11:33 e-Cigarette/Vaping Use Never Used 01/12/25 11:33 Thrive Assessment: Date of Thrive Assessment Date Thrive assessed 11/23/24 01/12/25 11:33 Const General: cooperative, healthy appearing, comfortable and no acute distress Orientation/consciousness: patient oriented x3 HENMT Head: Yes normocephalic Ears: hearing grossly normal bilaterally General nose exam: Normal external nose present Eyes General: appearance normal, both eyes and all related structures Conjunctivae: conjunctivae normal Neck Neck: Yes full ROM and Yes no lymphadenopathy Resp Effort & Inspection: normal respiratory effort Auscultation: clear to auscultation bilaterally, no crackles, no rales, no rhonchi and no wheezes Cardio Rate: regular rate Rhythm: regular rhythm Skin General skin exam: no rashes or lesions noted Neuro General: patient oriented x3 Gait exam (Neuro): Normal gait present Extrem Other: Tenderness to palpation over lateral joint lines of lateral leads. Tenderness to posterior aspect of bilateral knees and thighs. No calf swelling, tenderness or redness. General: Yes normal to inspection, Yes full ROM and No edema Psych Affect: normal affect Attitude: cooperative Insight: Good insight present (Psych) Judgement: Good judgement present (Psych) Coding Level of Care Code Est Pt Level 3 (16241) Diagnoses Osteoarthritis of knees, bilateral M17.0 GI bleeding K92.2 Assessment & Plan Assessment & Plan (1) Osteoarthritis of knees, bilateral: Code(s): M17.0 - Bilateral primary osteoarthritis of knee Category: Medical Plan: The goals of this visit are to manage the chronic knee pain associated with osteoarthritis and maintain careful monitoring of liver cancer. An updated knee X-ray is necessary to evaluate for any progression of degenerative changes. Current medications should continue for pain management, and the possibility of further evaluation by an agricultural systems specialist was discussed. Results from today's diagnostic tests will guide further treatment decisions, and any necessary referrals will be made to coordinate care as needed. Follow-up communications are planned concerning test outcomes and subsequent orthopedic evaluations. (2) GI bleeding: Code(s): K92.2 - Gastrointestinal hemorrhage, unspecified Category: Medical Plan: CBC ordered at patient request. Plan This note was constructed using voice recognition software. While every effort has been made to ensure accuracy and inspector and clipper, still areas may have been included sometimes these areas may affect the content or meeting of the given symptoms. Total time spent caring for the patient today was 20 minutes. This includes time spent before the visit reviewing the chart, time spent during the visit, and time spent after the visit and documentation. Patient was informed and verbally consented to the use of an ambient scribe for clinic note documentation during this visit. Orders: Orders XR Knee Liseth 1or 2V Today M17.0 - Bilateral primary osteoarthritis of knee Complete Blood Count Auto Diff Today C22.0 - Liver cell carcinoma Referrals Orthopedics Referral M17.0 - Bilateral primary osteoarthritis of knee
== END 2025-01-12 12:01 | disposition home or self-care (01) ==
LOC: HO.HMCH 11:24
PROVIDERS: PCP Internal Medicine
DX: M17.0 Bilateral primary osteoarthritis of knee (principal); K92.2 Gastrointestinal hemorrhage, unspecified

== ENCOUNTER → 2025-01-12 12:29 | Outpatient (BNV) | payer MEDICARE, MEDICAID, SELFPAY | PROVIDERS: PCP Internal Medicine; Visit Provider Radiology Diagnostic Radiology | DX: K76.89 Other specified diseases of liver (principal); M17.0 Bilateral primary osteoarthritis of knee | CPT/HCPCS: 73560 ==

== ENCOUNTER 2025-01-12 16:59 | Inpatient (IN) | payer MEDICARE, MEDICAID, SELFPAY ==
[2025-01-12] VITALS (9 sets, daily range): BP systolic 108–146; BP diastolic 56–78; PULSE 69–91; RESP 14–20; TEMP 36.5–37.1; O2SAT 99–100; BMI 24.9
--- NOTE | ~2025-01-12 | CT_ITS ---
CLINICAL HISTORY: ?ascites, GI bleed CT abdomen and pelvis without contrast Comparison: CT of the abdomen and pelvis from 12/20/2023 Findings: Mild bibasilar atelectasis and scarring. Mild mediastinal lipomatosis in lipomatous change of the left pleural space. Mild cardiomegaly partially imaged. Calcifications are multifocal of the liver may reflect treated remnants of the disease with increased calcifications of the dens. Lobe density mass is new in the right lobe measuring 3.5 cm (image 134 of series 2). Liver surface nodularity concerning for cirrhosis. Mild/borderline splenomegaly. Right adrenal gland partly obscured. Adrenal glands are otherwise unremarkable. Mild volume loss of the pancreas noted. Mild fluid in upper abdomen and mesentery are nonspecific and may reflect mild pancreatitis. Mild increase in sandrita mesentery and small mesenteric lymph nodes. No significant change in para-aortic lymph nodes. Gallbladder is contracted or absent. No hydronephrosis accounting for parapelvic cysts. Nonobstructing nephrolithiasis of the left kidney measures 2 mm. No small bowel obstruction. Severe stool burden present, including the cecum. Wall thickening of the large intestine is nonspecific, including imaged cecum. Differential considerations include mild colitis. The appendix is not definitively seen. New/worsening moderate wall thickening of the urinary bladder. The prostate gland measures 3.5 cm transverse. Degenerative changes include the hips, SI joints, and spine with ankylosis of the SI joints. Mild-moderate height loss of the L3 compression fracture appears old/chronic. Multifocal degenerative changes include disc osteophyte complexes and facet arthropathy of the imaged spine. IMPRESSION: 1. Wall thickening of the large intestine is nonspecific and may reflect colitis, including imaged cecum. 2. No small bowel obstruction. 3. Mild new fluid of the upper abdomen is nonspecific. Mild pancreatitis is considered. 4. New 3.5 cm lesion in the right lobe of the liver. Differential considerations include hepatocellular carcinoma given liver surface nodularity. This is not further characterize by noncontrast CT. This document has been electronically signed by: Tray Del Rio MD on 01/12/2025 20:50:39
--- NOTE | 2025-01-12 17:14 | ED.GENADULT ---
HPI - General Adult General Chief complaint: Recheck/Abnormal Lab/Rx Stated complaint: sent by dr for blood transfusion Time Seen by Provider: 01/12/25 17:30 Related Data Home Medications ?Medication ?Instructions ?Recorded ?Confirmed blood pressure test kit-large #1 ea 10/16/24 01/12/25 Previous Rx's ?Medication ?Instructions ?Recorded blood pressure monitor #1 ea 01/21/22 walker #1 ea 11/05/23 mirtazapine 7.5 mg tablet 7.5 mg PO BEDTIME #30 tabs 07/28/24 Blood pressure monitor #1 ea 08/02/24 amlodipine 10 mg tablet 10 mg PO DAILY #90 tabs 11/19/24 lisinopril 10 mg tablet 10 mg PO DAILY #90 tabs 11/19/24 ferrous sulfate 325 mg (65 mg 325 mg PO BID #60 tabs 01/12/25 iron) tablet tramadol 50 mg tablet 50 mg PO BID #60 tabs 01/12/25 Allergies Allergy/AdvReac Type Severity Reaction Status Date / Time No Known Allergies Allergy Verified 01/12/25 17:18 [No Known Allergies*] [facility] Past Medical History Medical History Hepatocellular carcinoma Neuropathy involving both lower extremities Liver cirrhosis Hepatitis C Common cold Lower back pain Surgical History History of tooth extraction Hx of colonoscopy (~10/29/23) History of breast lump/mass excision History of ankle surgery History of appendectomy History of open reduction and internal fixation (ORIF) procedure Family History Family History Father Prostate cancer Mother Diabetes Stroke Social History Social History Household Members: None Housing: Apartment Are you a primary customer care consultant to a significant other at home: No Do you presently have visiting nurse or other home services: No Alcohol intake: former Patient Tobacco Use Status: Former Tobacco user Tobacco use type: Cigarette Smoked in Last 30 Days: No e-Cigarette/Vaping Use: Never Used Second Hand Smoke Exposure: Yes Use of substances other than those prescribed or required for medical reasons: No Advance Directives: Yes Advance Directives Information Provided: No Advance Directives on File: No service: No Current occupational status: disabled Cognitive needs: Yes (cane) Hearing needs: No Vision needs: Yes (glasses) Physical Exam ED Vital Signs: Vital Signs - 24 hr 01/12/25 17:14 01/12/25 17:25 01/12/25 18:00 Temperature 98.7 F 97.7 F 97.7 F Pulse Rate 84 91 72 Respiratory Rate 20 16 18 Blood Pressure 116/69 119/58 L 126/70 Pulse Oximetry 100 100 100 Oxygen Delivery Method Room Air Room Air Room Air 01/12/25 18:53 01/12/25 19:13 01/12/25 20:55 Temperature 98.7 F 97.8 F 97.8 F Pulse Rate 77 70 71 Respiratory Rate 18 17 15 Blood Pressure 122/59 L 131/65 138/73 Pulse Oximetry Oxygen Delivery Method 01/12/25 21:21 01/12/25 21:48 Temperature 97.9 F 97.9 F Pulse Rate 72 69 Respiratory Rate 14 18 Blood Pressure 141/78 H 146/78 H Pulse Oximetry Oxygen Delivery Method BMI result Body Mass Index 24.9 Course Course Course Narrative: This is a Rapid Medical Examination (RME) performed by Dell Grajeda PA-C in triage. Full HPI, ROS, assessment and treatment plan per primary provider in the Main ED. 01/12/251717 MARY JO Carrasco Hx: 69 yo male hx of hepatocellular carcinoma, upper GI bleed, hepatitis-C, alcohol abuse, GERD, liver cirrhosis here requesting blood transfusion. had outpatient labs done, called by PCP for hgb of 6.7 - told to come to ED for transfusion. this blood work was ordered as patient was feeling generally unwell. Seen at our facility on 11/29/2024, received blood transfusion discharged home. PE/vitals: well appearing, no noted palor, vitals stable Plan: labs, coags, type and screen Medications Administered Generic Name Dose Route Start Last Admin Trade Name Freq PRN Reason Stop Dose Admin Ceftriaxone Sodium 1 gm 01/12/25 21:00 01/12/25 21:49 Ceftriaxone Sodium 1 Gm Vial IVPUSH 1 gm Q24H CARSON Administration Octreotide Acetate 500 mcg/ 501 mls @ 50.1 mls/hr 01/12/25 20:00 01/12/25 20:49 Sodium Chloride IVCONT 50 mcg/hr .Q10H CARSON 50.1 mls/hr Administration 50 MCG/HR Discontinued Medications Generic Name Dose Route Start Last Admin Trade Name Luzmaria PRN Reason Stop Dose Admin Acetaminophen 975 mg 01/12/25 19:42 01/12/25 19:45 Acetaminophen 325 Mg Tablet PO 01/12/25 19:43 975 mg ONCE ONE Administration Octreotide Acetate 500 mcg/ 501 mls @ 50.1 mls/hr 01/12/25 20:00 01/12/25 21:05 Sodium Chloride IVCONT Not Given .Q10H CARSON 50 MCG/HR Octreotide Acetate 50 mcg 01/12/25 19:51 01/12/25 20:48 Octreotide Acetate 100 Mcg/Ml Ampul IVPUSH 01/12/25 19:52 50 mcg ONCE ONE Administration Pantoprazole Sodium 80 mg 01/12/25 19:51 01/12/25 20:48 Pantoprazole Sodium 40 Mg/10 Ml Vial IVPUSH 01/12/25 19:52 80 mg ONCE ONE Administration Medical Decision Making Medical Decision Making MDM Narrative: 69-year-old male sent for anemia on outpatient labs. The patient has a long complex history including liver disease at esophageal varices with recent banding. Patient comes in with a significant fatigue and hemoglobin 6.7 baseline is about 7.2-8.2 Guaiac-positive stool with small flecks of blood occasionally Hemodynamic stable no abdominal pain no hematemesis likely upper GI bleed recurrence. Transfuse 1 unit discussed with GI and admit. Consult Healthcare Provider Management of the patient was discussed with: Hospitalist Lab Data MDM Lab Attestation statement: I reviewed the patient's lab results. 01/12/25 17:35 01/12/25 17:35 Labs: Lab Results 01/12/25 01/12/25 Range/Units 17:35 19:49 WBC 5.0 (4.8-10.8) X10*3/uL RBC 2.53 L (4.60-5.80) X10*6/uL Hgb 6.6 L* (14.0-18.0) g/dl Hct 21.1 L (42.0-52.0) % MCV 83.4 (80.0-98.0) fL MCH 26.1 L (27.0-33.0) pg MCHC 31.3 (31.0-36.0) g/dl RDW 15.9 (11.0-16.0) % Plt Count 219 (160-400) X10*3/uL MPV 12.7 H (9.4-12.4) fL Immature Gran % (Auto) 0.2 (0.0-0.4) % Neut % (Auto) 57.9 (45-73) % Lymph % (Auto) 22.7 (20-40) % [place] % (Auto) 11.8 H (2-11) % Eos % (Auto) 7.0 H (0-4) % Baso % (Auto) 0.4 (0-2) % Lymph # (Auto) 1.1 L (1.2-4.9) X10*3/uL [place] # (Auto) 0.6 (0.1-1.2) X10*3/uL Eos # (Auto) 0.4 (0.0-0.4) X10*3/uL Baso # (Auto) 0.0 (0.0-0.2) X10*3/uL Abs Immat Gran (auto) 0.01 (0.00-0.03) X10*3/uL Absolute Neuts (auto) 2.9 (2.0-8.3) x10*3/uL Absolute Nucleated RBC 0.000 (0.0-0.012) X10*3/uL Nucleated RBC % (auto) 0.0 (0.0-0.2) /100WBC PT 12.3 (10.9-12.4) SEC INR 1.1 (0.9-1.1) APTT 28.3 (26.0-36.8) SEC Sodium 141 (135-145) mmol/L Potassium 4.8 (3.3-5.1) mmol/L Chloride 112 H (96-108) mmol/L Carbon Dioxide 21 L (22-29) mmol/L Anion Gap 13 (12-20) BUN 24 H (9-16) mg/dL Creatinine 1.28 (0.5-1.4) mg/dL Estim Creat Clear Calc 47.7 Estimated GFR 55 Random Glucose 91 (60-115) mg/dL Calcium 8.5 D (8.4-10.2) mg/dL Magnesium 2.2 (1.6-2.6) mg/dL Total Bilirubin 0.3 (0.0-1.0) mg/dL AST 47 H (5-37) U/L ALT 16 (0-40) U/L Alkaline Phosphatase 275 H (39-117) U/L Total Protein 6.9 (6.5-8.0) g/dL Albumin 3.1 L (3.5-5.0) g/dL Stool Occult Blood POSITIVE (NEGATIVE) Blood Type A Negative Antibody Screen NEGATIVE Crossmatch See Detail External Record Review External record reviewed: Inpatient record and Prior outpatient labs Chronic Conditions Patient?s care impacted by: Cancer Portal venous hypertension Critical Care Time Critical Care Time Critical Care Time: Yes Total Critical Care Time: 45 Attestation: ED Critical Care: Authorized and Performed by: Selvin Gomes MD Total critical care time: Approximately 45 Due to a high probability of clinically significant, life threatening deterioration, the patient required my highest level of preparedness to intervene emergently and I personally spent this critical care time directly and personally managing the patient. This critical care time included obtaining a history; examining the patient; pulse oximetry; ordering and review of studies; arranging urgent treatment with development of a management plan; evaluation of patient's response to treatment; frequent reassessment; and, discussions with other providers. This critical care time was performed to assess and manage the high probability of imminent, life-threatening deterioration that could result in multi-organ failure. It was exclusive of separately billable procedures and treating other patients and teaching time. Discharge Plan Discharge Clinical Impression: UGIB (upper gastrointestinal bleed) Prescriptions: No Action mirtazapine 7.5 mg tablet 7.5 mg PO BEDTIME Qty: 30 1RF (DME) Blood pressure monitor See Rx Instructions .Route .MEDSUPPLY Qty: 1 0RF Rx Instructions: As directed lisinopril 10 mg tablet 10 mg PO DAILY Qty: 90 1RF Protocol: Hold for SBP< HOLD for SBP < : 90 amlodipine 10 mg tablet 10 mg PO DAILY Qty: 90 1RF Protocol: Hold for SBP< HOLD for SBP < : 90 tramadol 50 mg tablet 50 mg PO BID Qty: 60 0RF ferrous sulfate 325 mg (65 mg iron) tablet 325 mg PO BID Qty: 60 6RF (DME) blood pressure monitor Kit See Rx Instructions .Route Qty: 1 0RF Rx Instructions: As directed (DME) jesus Akbar See Rx Instructions .Route Qty: 1 0RF Rx Instructions: As directed (DME) blood pressure test kit-large Kit See Rx Instructions .ROUTE DIRECTED Qty: 1 Rx Instructions: As directed Print Language: Japanese
[2025-01-12 17:40] LABS: MANUAL DIFF FLAG NO
[2025-01-12 17:43] LABS: Basophils Percent Auto 0.4 % (0-2); Eosinophils Absolute Auto 0.4 X10*3/uL (0.0-0.4); Hematocrit 21.1 % (42.0-52.0); Imm Gran Abs Auto 0.01 X10*3/uL (0.00-0.03); Imm Gran Pct Auto 0.2 % (0.0-0.4); Lymphocytes Absolute Auto 1.1 X10*3/uL (1.2-4.9); Lymphocytes Percent Auto 22.7 % (20-40); Mean Corpuscular HGB Conc 31.3 g/dl (31.0-36.0); Mean Corpuscular Hemoglobin 26.1 pg (27.0-33.0); Mean Corpuscular Volume 83.4 fL (80.0-98.0); Mean Platelet Volume 12.7 fL (9.4-12.4); Monocytes Absolute Auto 0.6 X10*3/uL (0.1-1.2); Monocytes Percent Auto 11.8 % (2-11); Neutrophils Absolute Auto 2.9 x10*3/uL (2.0-8.3); Neutrophils Percent Auto 57.9 % (45-73); Platelet Count 219 X10*3/uL (160-400); Red Blood Count 2.53 X10*6/uL (4.60-5.80); Red Cell Distribution Width 15.9 % (11.0-16.0)
[2025-01-12 17:50] LABS: Hemoglobin 6.6 g/dl (14.0-18.0)
[2025-01-12 17:53] LABS: INTERNATIONAL NORM RATIO 1.1 (0.9-1.1); Prothrombin Time 12.3 SEC (10.9-12.4)
[2025-01-12 17:55] LABS: Partial Thromboplastin Time 28.3 SEC (26.0-36.8)
[2025-01-12 18:10] LABS: Alanine Aminotransferase 16 U/L (0-40); Albumin Level 3.1 g/dL (3.5-5.0); Anion Gap 13 (12-20); Aspartate Amino Transferase 47 U/L (5-37); Bilirubin Total 0.3 mg/dL (0.0-1.0); Blood Urea Nitrogen 24 mg/dL (9-16); Calcium 8.5 mg/dL (8.4-10.2); Carbon Dioxide 21 mmol/L (22-29); Chloride 112 mmol/L (96-108); Creatinine Clr Calc Pharmacy 47.7; Estimated Glomerular Filt Rate 55; Glucose Random 91 mg/dL (60-115); Magnesium 2.2 mg/dL (1.6-2.6); Potassium 4.8 mmol/L (3.3-5.1); Sodium 141 mmol/L (135-145); Total Protein 6.9 g/dL (6.5-8.0)
[2025-01-12 18:52] LABS: Alkaline Phosphatase 275 U/L (39-117)
[2025-01-12] MEDS: Acetaminophen 325 MG TABLET 975 MG PO (19:45)
--- NOTE | 2025-01-12 20:41 | P.HPHOSP_ITS ---
History of Present Illness Date of Service: 01/12/25 Chief Complaint: Low hemoglobin This is a 69-year-old male with pertinent history of hepatocellular carcinoma status post embolization, HCV/Alcoholic cirrhosis, peripheral neuropathy who was sent to the emergency department for evaluation of weakness and low hemoglobin. Patient is Chinese speaking and history obtained with the help of sweat band separator. Patient states he has been feeling weak for the last 2 weeks. Endorses generalized weakness and easy fatigability. He was seen by his PCP on the day of presentation when hemoglobin was found to be low and he was sent to the ER for blood transfusion. Patient states he does not usually noticed color of his stool but noticed that it was black on the day of presentation. Denies loose stools or liquid stools. Has 2-3 bowel movements every day. Denies alex red blood in stools. No vomiting, abdominal pain or abdominal distention. No fever or chills. Denies chest pain, palpitation, shortness of breath, changes in urinary habits. In the emergency department, hemoglobin found to be 6.6. 2 unit PRBC ordered. [facility] Medical History Hepatocellular carcinoma Neuropathy involving both lower extremities Liver cirrhosis Hepatitis C Common cold Lower back pain Family History Father Prostate cancer Mother Diabetes Stroke Surgical History History of tooth extraction Hx of colonoscopy (~10/29/23) History of breast lump/mass excision History of ankle surgery History of appendectomy History of open reduction and internal fixation (ORIF) procedure Social History Household Members: None Housing: Apartment Are you a primary human services care specialist to a significant other at home: No Do you presently have visiting nurse or other home services: No Alcohol intake: former Patient Tobacco Use Status: Former Tobacco user Tobacco use type: Cigarette Smoked in Last 30 Days: No e-Cigarette/Vaping Use: Never Used Second Hand Smoke Exposure: Yes Use of substances other than those prescribed or required for medical reasons: No Advance Directives: Yes Advance Directives Information Provided: No Advance Directives on File: No service: No Current occupational status: disabled Cognitive needs: Yes (cane) Hearing needs: No Vision needs: Yes (glasses) Meds Allergies Allergy/AdvReac Type Severity Reaction Status Date / Time No Known Allergies Allergy Verified 01/12/25 17:18 [No Known Allergies*] Active Medications: Current Medications Octreotide Acetate 500 mcg/ (Sodium Chloride) 501 mls @ 50.1 mls/hr IVCONT .Q10H CARSON Pantoprazole Sodium (Pantoprazole Sodium 40 Mg/10 Ml Vial) 40 mg IVPUSH BID@0630,1630 [facility] Home Medications ?Medication ?Instructions ?Recorded ?Confirmed ?Last Taken ?Type ascorbic acid (vitamin C) 500 mg 500 mg PO BID 10/16/24 01/12/25 Unknown History tablet blood pressure test kit-large #1 ea 10/16/24 01/12/25 Unknown History chlorhexidine gluconate 0.12 % 15 ml PO BID 01/12/25 Unknown History mouthwash Physical Exam 2 Vital Signs and Narrative: Vital Signs: Last Vital Signs Temp 97.8 F 01/12/25 19:13 Pulse 70 01/12/25 19:13 Resp 17 01/12/25 19:13 BP 131/65 01/12/25 19:13 Pulse Ox 100 01/12/25 18:00 O2 Del Method Room Air 01/12/25 18:00 BMI result Body Mass Index 24.9 Middle-aged male lying in bed in no distress Neck supple, no JVD Regular rate and rhythm, S1-S2 heard Regular breath sounds bilaterally, no wheezing or crackles appreciated Abdomen soft nontender, no guarding, no rigidity Patient is awake, alert and oriented to self, place, time and person ; no focal motor deficit Psych: Normal mood No pedal edema Results Labs 01/12/25 17:35 01/12/25 17:35 Labs: Laboratory Results - last 24 hr 01/12/25 17:35 MCV 83.4 MCH 26.1 L MCHC 31.3 RDW 15.9 Plt Count 219 MPV 12.7 H Immature Gran % (Auto) 0.2 Neut % (Auto) 57.9 Lymph % (Auto) 22.7 [place] % (Auto) 11.8 H Eos % (Auto) 7.0 H Baso % (Auto) 0.4 Lymph # (Auto) 1.1 L [place] # (Auto) 0.6 Eos # (Auto) 0.4 Baso # (Auto) 0.0 Abs Immat Gran (auto) 0.01 Absolute Neuts (auto) 2.9 Absolute Nucleated RBC 0.000 Nucleated RBC % (auto) 0.0 PT 12.3 INR 1.1 APTT 28.3 Anion Gap 13 Estim Creat Clear Calc 47.7 Estimated GFR 55 Random Glucose 91 Calcium 8.5 D Magnesium 2.2 Total Bilirubin 0.3 AST 47 H ALT 16 Alkaline Phosphatase 275 H Total Protein 6.9 Albumin 3.1 L Blood Type A Negative Antibody Screen NEGATIVE Crossmatch See Detail Assessment and Plan (1) Symptomatic anemia: Status: Acute (2) GI bleeding: Status: Acute Plan This is a 69-year-old male with pertinent history of hepatocellular carcinoma status post embolization, HCV/Alcoholic cirrhosis, peripheral neuropathy, hypertension, mood disorder who was sent to the emergency department for evaluation of weakness and low hemoglobin. #. Symptomatic anemia due to GI bleed: Will admit patient with cardiac monitoring. Stool occult positive. Initiated IV Protonix, IV octreotide and IV ceftriaxone (SBP prophylaxis). 2 unit PRBC ordered in the ER. Closely monitor H&H. GI consulted. Will keep NPO after midnight #. Hypertension: Home hold antihypertensives in the setting of GI bleed #. Mood disorder: Resume once able to take p.o. #. HCV/alcoholic cirrhosis: Not on diuretics or lactulose. Continue thiamine #. Hepatocellular carcinoma: Outpatient follow-up Med rec pending DVT prophylaxis: Mechanical Full code Admit as inpatient and will require two night minimum hospital stay for close monitoring of H&H, hemodynamic monitoring (as above), which is not possible in a lesser acute setting. Gastroenterology consult pending Quality Stroke Does the patient have a stroke diagnosis?: No VTE Prior VTE?: No VTE Risk Level:: Medical - moderate - high VTE Device Contraindication: N/A - Device Ordered VTE Drug Contraindication: Treatment Not Indicated
[2025-01-12] MEDS: Pantoprazole Sodium 40 MG/10 ML VIAL 80 MG IVPUSH (20:48)
[2025-01-12] MEDS: Octreotide Acetate 100 MCG/ML AMPUL 50 MCG IVPUSH (20:48)
[2025-01-12] MEDS: Octreotide Acetate 500 MCG in 0.9 % Sodium Chloride 500 ML 50.1 MCG IVCONT (20:49)
[2025-01-12 20:50] LABS: OBS Int Ctl Valid YES; OBS1 POSITIVE (NEGATIVE)
--- NOTE | 2025-01-12 21:21 | PHA.MEDREC ---
Addendum entered by Lino Garcia 01/12/25 21:30: reviewed Original Note: Pharmacy Consult ? Medication Reconciliation Pharmacy has completed the medication reconciliation. Spoke to patient through hand slitter service (Bladimir) to confirm med list, however patient is a poor historian. He instructed me to call HCP Cassius [phone]. Called and spoke to Cassius through hand slitter service ( #[phone]) and he was able to confirm patient medication. Cassius states patient is only taking Amlodipine 10 mg, Ferrous sulfate 325 mg bid, Lisinopril 10 mg, Mirtazapine 7.5 mg, and Tramadol 50 mg. Cassius states this is all that the patient is taking at the moment. Took off med list Pantoprazole 40 mg, last filled 12/12/24 for 60 days, Vitamin C 500 mg, last filled 09/07/24 for 90 days.
[2025-01-12] MEDS: cefTRIAXone sodium 1 GM VIAL IVPUSH (21:49)
[2025-01-13] VITALS (8 sets, daily range): BP systolic 120–169; BP diastolic 68–93; PULSE 60–71; RESP 13–18; TEMP 36.1–36.8; O2SAT 97–100; BMI 24.9
[2025-01-13] MEDS: Pantoprazole Sodium 40 MG/10 ML VIAL IVPUSH ×2 (04:58→16:53)
[2025-01-13 05:06] LABS: MANUAL DIFF FLAG NO
[2025-01-13 05:08] LABS: Basophils Percent Auto 0.5 % (0-2); Eosinophils Absolute Auto 0.3 X10*3/uL (0.0-0.4); Eosinophils Percent Auto 8.5 % (0-4); Hemoglobin 8.5 g/dl (14.0-18.0); Imm Gran Abs Auto 0.01 X10*3/uL (0.00-0.03); Imm Gran Pct Auto 0.3 % (0.0-0.4); Lymphocytes Absolute Auto 1.1 X10*3/uL (1.2-4.9); Lymphocytes Percent Auto 27.7 % (20-40); Mean Corpuscular HGB Conc 32.7 g/dl (31.0-36.0); Mean Corpuscular Hemoglobin 26.6 pg (27.0-33.0); Mean Corpuscular Volume 81.3 fL (80.0-98.0); Mean Platelet Volume 12.7 fL (9.4-12.4); Monocytes Absolute Auto 0.5 X10*3/uL (0.1-1.2); Neutrophils Absolute Auto 1.9 x10*3/uL (2.0-8.3); Platelet Count 173 X10*3/uL (160-400); Red Cell Distribution Width 14.9 % (11.0-16.0); White Blood Count 3.9 X10*3/uL (4.8-10.8)
[2025-01-13 05:22] LABS: Anion Gap 10 (12-20); Blood Urea Nitrogen 18 mg/dL (9-16); Calcium 8.3 mg/dL (8.4-10.2); Carbon Dioxide 22 mmol/L (22-29); Chloride 111 mmol/L (96-108); Creatinine Clr Calc Pharmacy 58.7; Estimated Glomerular Filt Rate > 60; Glucose Random 111 mg/dL (60-115); Sodium 139 mmol/L (135-145)
[2025-01-13] MEDS: Octreotide Acetate 500 MCG in 0.9 % Sodium Chloride 500 ML 50.1 MCG IVCONT ×2 (06:56→17:22)
--- NOTE | 2025-01-13 09:21 | HO.ANESPROP2 ---
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) (Acute) HCC (hepatocellular carcinoma) (Acute) Hepatitis C (Acute) Symptomatic anemia (Acute) Neuropathy involving both lower extremities (Acute) Right lateral epicondylitis (Acute) History of alcohol abuse (Acute) History of cancer chemotherapy (Acute) History of breast lump/mass excision (Acute) Osteoarthritis of knees, bilateral (Acute) Meralgia paresthetica of both lower extremities (Acute) Low vitamin D level (Acute) Lumbar degenerative disc disease (Acute) Bilateral knee pain (Acute) GERD (gastroesophageal reflux disease) (Acute) Elevated blood pressure reading (Acute) Screening for hypothyroidism (Acute) Screening for hyperlipidemia (Acute) Bilateral leg pain (Acute) Myalgia (Acute) Lumbar spondylosis (Acute) Liver cirrhosis (Acute) Leg weakness, bilateral (Acute) Common cold (Acute) Lower back pain (Acute) Past Medical History Medical History Hepatocellular carcinoma Neuropathy involving both lower extremities Liver cirrhosis Hepatitis C Common cold Lower back pain Family History Family History Father Prostate cancer Mother Diabetes Stroke Family history of problems with anesthesia: No Surgical History Surgical History History of tooth extraction Hx of colonoscopy (~10/29/23) History of breast lump/mass excision History of ankle surgery History of appendectomy History of open reduction and internal fixation (ORIF) procedure History of Problems with Anesthesia: No Social History Social History Household Members: None Housing: Apartment Are you a primary critical care physician to a significant other at home: No Do you presently have visiting nurse or other home services: No Alcohol intake: former Patient Tobacco Use Status: Former Tobacco user Tobacco use type: Cigarette Smoked in Last 30 Days: No e-Cigarette/Vaping Use: Never Used Second Hand Smoke Exposure: Yes Use of substances other than those prescribed or required for medical reasons: No Advance Directives: Yes Advance Directives Information Provided: No Advance Directives on File: No service: No Current occupational status: disabled Cognitive needs: Yes (cane) Hearing needs: No Vision needs: Yes (glasses) Meds Allergies Allergy/AdvReac Type Severity Reaction Status Date / Time No Known Allergies Allergy Verified 01/12/25 17:18 [No Known Allergies*] Active Medications: Current Medications Acetaminophen (Acetaminophen 325 Mg Tablet) 650 mg PO Q6H PRN PRN Reason: Pain, Mild 1-3,fever,headache Calcium Carbonate (Calcium Carbonate 750 Mg Tab.Chew) 750 mg PO Q4H PRN PRN Reason: Heartburn Ceftriaxone Sodium (Ceftriaxone Sodium 1 Gm Vial) 1 gm IVPUSH Q24H [facility] Last Admin: 01/12/25 21:49 Dose: 1 gm Octreotide Acetate 500 mcg/ (Sodium Chloride) 501 mls @ 50.1 mls/hr IVCONT .Q10H [facility] Last Admin: 01/13/25 06:56 Dose: 50 mcg/hr, 50.1 mls/hr Magnesium Hydroxide (Milk Of Magnesia 30 Ml Oral.Susp) 30 ml PO DAILY PRN PRN Reason: Constipation Melatonin (Melatonin 3 Mg Tablet) 6 mg PO BEDTIME PRN PRN Reason: Insomnia Ondansetron HCl (Ondansetron Hcl 4 Mg/2 Ml Vial) 4 mg IVPUSH Q8H PRN PRN Reason: Nausea and Vomiting Pantoprazole Sodium (Pantoprazole Sodium 40 Mg/10 Ml Vial) 40 mg IVPUSH BID@0630,1630 [facility] Last Admin: 01/13/25 04:58 Dose: 40 mg Sodium Chloride (0.9 % Sodium Chloride Flush 3 Ml Syringe) 3 ml IVFLUSH QSHIFT [facility] Last Admin: 01/13/25 07:33 Dose: Not Given Home Medications ?Medication ?Instructions ?Recorded ?Confirmed ?Last Taken ?Type blood pressure test kit-large #1 ea 10/16/24 01/12/25 Unknown History Exam Height,Weight and Vital Signs: Height 5 ft 6 in Weight 69.853 kg Last Vital Signs Temp 97.5 F 01/13/25 06:10 Pulse 60 01/13/25 06:10 Resp 17 01/13/25 06:10 BP 120/78 01/13/25 06:10 Pulse Ox 97 01/13/25 06:10 O2 Del Method Room Air 01/13/25 06:10 Pertinent Lab Results Pertinent Lab Results: Laboratory Tests 01/12/25 01/12/25 01/13/25 17:35 19:49 04:56 WBC 5.0 3.9 L RBC 2.53 L 3.20 L D Hgb 6.6 L* 8.5 L D Hct 21.1 L 26.0 L D MCV 83.4 81.3 MCH 26.1 L 26.6 L MCHC 31.3 32.7 RDW 15.9 14.9 Plt Count 219 173 MPV 12.7 H 12.7 H Immature Gran % (Auto) 0.2 0.3 Neut % (Auto) 57.9 49.0 Lymph % (Auto) 22.7 27.7 Pershing % (Auto) 11.8 H 14.0 H Eos % (Auto) 7.0 H 8.5 H Baso % (Auto) 0.4 0.5 Lymph # (Auto) 1.1 L 1.1 L Pershing # (Auto) 0.6 0.5 Eos # (Auto) 0.4 0.3 Baso # (Auto) 0.0 0.0 Abs Immat Gran (auto) 0.01 0.01 Absolute Neuts (auto) 2.9 1.9 L Absolute Nucleated RBC 0.000 0.000 Nucleated RBC % (auto) 0.0 0.0 PT 12.3 INR 1.1 APTT 28.3 Sodium 141 139 Potassium 4.8 4.0 Chloride 112 H 111 H Carbon Dioxide 21 L 22 Anion Gap 13 10 L BUN 24 H 18 H Creatinine 1.28 1.04 Estim Creat Clear Calc 47.7 58.7 Estimated GFR 55 > 60 Random Glucose 91 111 Calcium 8.5 D 8.3 L Magnesium 2.2 Total Bilirubin 0.3 AST 47 H ALT 16 Alkaline Phosphatase 275 H Total Protein 6.9 Albumin 3.1 L Stool Occult Blood POSITIVE Blood Type A Negative Antibody Screen NEGATIVE Crossmatch See Detail Airway Mallampati Class: II TM Dist: >3cm Neck ROM: Full Loose/Missing/Broken Teeth: No Heart: RRR Lungs: CTA Assessment and Plan Assessment Anesthesia Assessment: Anesthesia Plan Discussed and Chart Reviewed Final Anesthetic Review Family History of Problems with Anesthesia: No History of Problems with Anesthesia: No NPO: Yes ASA Class: III and Emergency Final Preanesthetic Review: No Changes in Pt Med Stat, Meds/Allgs Chart Reviewed, Consent Obtained/Reviewed and Anes Risks/Benef Reviewed Patient Risk: High Procedure Risk: Low Anesthetic Plan Anesthetic Plan: TIVA Disposition: Standard PACU
--- NOTE | 2025-01-13 09:32 | MHC.SHP ---
Pre-Procedural Eval Section A - 24 Hr Update-Section A only Date of Service: 01/13/25 The patient is an INPATIENT: Yes Changes since office visit: No Cold of Flu in the past 2 weeks, No New Medical Problems, No Changes in Medication and No Patient answered all questions The patient has been examined within 24 hours of the surgical procedure. The History & Physical has been completed within 30 days and I have reviewed it.: Yes Section B - Complete if H&P > 30 days Chief Complaint: Abdominal Pain Allergies: Allergies Allergy/AdvReac Type Severity Reaction Status Date / Time No Known Allergies Allergy Verified 01/12/25 17:18 [No Known Allergies*] Plan I have reviewed the history and physical and performed a pertinent physical examination on my patient. No changes have occurred unless specified. Time Spent With Patient Time: Total time managing care of this patient today ____ minutes.
--- NOTE | 2025-01-13 09:42 | PC.NURSE ---
report given to LOWERATOR OPERATOR.
--- NOTE | 2025-01-13 10:08 | CONS_ITS ---
DATE OF SERVICE: 01/13/2025 REFERRING PHYSICIAN: Dr. Louie REASON FOR CONSULTATION: GI bleeding. HISTORY OF PRESENT ILLNESS: The patient is a pleasant 69-year-old male with a history of cirrhosis and hepatocellular carcinoma as well as esophageal varices, who presented to the emergency room with a history of black stools and low hemoglobin. He was most recently seen and treated for esophageal varices with upper endoscopy approximately 1 month ago, at which time he had multiple bands placed. Since that time, he has done well, but he did report some black stool on the day of admission. He was evaluated through his primary care provider and found to have a hemoglobin of 6.6, and referred to the emergency department. He denies any alex hematemesis. He has not been taking NSAIDs. He does have a history of alcohol abuse, but states he has not had a drink in 2 weeks. In the emergency department, he was evaluated with imaging studies and laboratory studies, which were reviewed. He was given 2 units of packed red blood cells and admitted to the hospital. Since admission, he has had no further bleeding. Hematocrit myrna appropriately following transfusion. PAST MEDICAL HISTORY: 1. Hepatocellular carcinoma with embolization. 2. 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 3. Esophageal varices banded approximately [address] Maza. 4. Neuropathy. 5. Back pain. PAST SURGICAL HISTORY: Includes dental extractions, breast excision, colonoscopy, ankle surgery, and appendectomy. CURRENT MEDICATIONS: His current medication list is reviewed in the chart. ALLERGIES: THERE ARE NONE REPORTED. FAMILY HISTORY: This was reviewed in electronic medical record. SOCIAL HISTORY: He states abstinence from alcohol over the past 2 weeks. He has relapse in the past. REVIEW OF SYSTEMS: SKIN: No pruritus. HEENT: Negative. CARDIOPULMONARY: No shortness of breath or chest pain. GASTROINTESTINAL: As above. GENITOURINARY: Negative. NEUROPSYCHIATRIC: Negative. PHYSICAL EXAMINATION: GENERAL: Shows a pleasant male, lying comfortably in bed. VITAL SIGNS: Stable. History and physical examination are performed with a hospital insurance agent present. SKIN: Anicteric. HEENT: Shows no scleral icterus. NECK: Without lymphadenopathy or thyromegaly. LUNGS: Clear. HEART: Shows regular rate and rhythm. S1 and S2. No murmur. ABDOMEN: Soft without focal masses or tenderness. Bowel sounds are present. No organomegaly is noted. EXTREMITIES: Without edema. RECTAL: Examination is not repeated. It was performed yesterday in the emergency department and stool was reportedly Hemoccult positive. IMPRESSION: 1. Gastrointestinal bleeding. 2. History of black stools suspicious for some upper GI blood loss. Because of his history of esophageal varices and significant anemia, I have recommended upper endoscopy with possible banding. I have discussed risks and benefits of the procedure with him. He understands these and agrees to proceed. This will be scheduled for later this morning with. MD ROSE MARIE Cid/BRIGETTE / [phone]
--- NOTE | 2025-01-13 10:24 | PM.EVENT ---
Event Note Date of Service: 01/13/25 Event Note: EGD dictated nonbleeding esophageal varices, banded x4 stomach and duodenum looked normal Rec: start clear liquids octreotide x48 hours pending clinical course. Time Spent With Patient Time: Total time managing care of this patient today ____ minutes.
--- NOTE | 2025-01-13 11:28 | PM.EVENT ---
Event Note Date of Service: 01/13/25 Event Note: Patient seen and examined by hospitalist team this morning Seen and examined again. 69-year-old male with pertinent history of hepatocellular carcinoma status post embolization, HCV/Alcoholic cirrhosis, peripheral neuropathy, hypertension, mood disorder who was sent to the emergency department for evaluation of weakness and low hemoglobin. h/h intially was 6.6 / ,received 2 prbc -h/h 8.5/ physical exam unchaged s/p egd andnonbleeding esophageal varices, banded x4. stomach and duodenum looked normal Assessment and plan coordinated in H&P note: Acute blood loss anemia secondary to ? upper GI bleed: s/p egd and bandin monitre h/h continue ppi,octreotide.Gi following mech -cruzito stocking Time Spent With Patient Time: Total time managing care of this patient today ____ minutes.
--- NOTE | 2025-01-13 11:38 | OP_ITS ---
DATE OF SERVICE: 01/13/2025 SURGEON: Marbin Wright MD INDICATIONS: GI bleeding. PREOPERATIVE DIAGNOSIS: POSTOPERATIVE DIAGNOSIS: PROCEDURE PERFORMED: Upper endoscopy with banding of esophageal varices. ESTIMATED BLOOD LOSS: COMPLICATIONS: ANESTHESIA: Monitored anesthesia care. ASSISTANTS: SPECIMENS: DESCRIPTION OF PROCEDURE: A history and physical was performed. The risks and benefits of the procedure were explained to the patient and informed consent was obtained. The patient was placed in the left lateral decubitus position. The Olympus video gastroscope was introduced into the esophagus, stomach, and duodenum. Examination was performed and the scope was removed. He tolerated the procedure well and was returned to recovery area in stable condition. FINDINGS: Esophagus: The esophagus showed 2 chains of grade 2 varices with no evidence of recent bleeding. Stomach: The stomach showed no active bleeding. The mucosa appeared fairly normal. No ulcer was identified. Duodenum: The bulb and 2nd portion were normal. The scope was removed and the banding attachment was applied. A total of 4 bands were placed on 2 chains of varices beginning at the EG junction and extending cranially. There were no complications. IMPRESSION: Esophageal varices. RECOMMENDATIONS: 1. Begin clear liquid diet. 2. Monitor hematocrit. 3. Continue octreotide infusion for 48 hours pending clinical course. MD ROSE MARIE Cid/BENSONL / [phone]
[2025-01-13] MEDS: Acetaminophen 325 MG TABLET 650 MG PO (14:34)
[2025-01-13] MEDS: Ferrous Sulfate 324 MG TABLET.DR PO ×2 (14:34→20:00)
[2025-01-13] MEDS: Lidocaine 4 % Patch ADH..PATCH 1 PATCH TRANSDERMA ×2 (14:41→16:53)
[2025-01-13] MEDS: 0.9 % Sodium Chloride Flush 3 ML SYRINGE IVFLUSH ×2 (14:42→20:00)
[2025-01-13] MEDS: Mirtazapine 7.5 MG TABLET PO (20:00)
[2025-01-13] MEDS: traMADoL HCL 50 MG TABLET PO (20:00)
[2025-01-13] MEDS: cefTRIAXone sodium 1 GM VIAL IVPUSH (20:01)
[2025-01-14] MEDS: Octreotide Acetate 500 MCG in 0.9 % Sodium Chloride 500 ML 50.1 MCG IVCONT ×3 (03:34→23:38)
[2025-01-14] MEDS: Acetaminophen 325 MG TABLET 650 MG PO (03:38)
[2025-01-14 03:55] VITALS: BP 135/75; PULSE 68; RESP 16; TEMP 36.9; O2SAT 98
[2025-01-14] MEDS: Pantoprazole Sodium 40 MG/10 ML VIAL IVPUSH ×2 (06:28→16:46)
[2025-01-14 07:56] LABS: Hematocrit 28.7 % (42.0-52.0); Hemoglobin 9.2 g/dl (14.0-18.0); Mean Corpuscular HGB Conc 32.1 g/dl (31.0-36.0); Mean Corpuscular Hemoglobin 26.7 pg (27.0-33.0); Mean Corpuscular Volume 83.2 fL (80.0-98.0); Mean Platelet Volume 12.8 fL (9.4-12.4); Platelet Count 202 X10*3/uL (160-400); Red Blood Count 3.45 X10*6/uL (4.60-5.80); Red Cell Distribution Width 15.1 % (11.0-16.0); White Blood Count 5.1 X10*3/uL (4.8-10.8)
[2025-01-14 08:00] VITALS: BP 159/80; PULSE 63; RESP 16; TEMP 36.7; O2SAT 96
[2025-01-14 08:16] LABS: Anion Gap 12 (12-20); Blood Urea Nitrogen 12 mg/dL (9-16); Calcium 8.2 mg/dL (8.4-10.2); Carbon Dioxide 24 mmol/L (22-29); Chloride 110 mmol/L (96-108); Estimated Glomerular Filt Rate > 60; Glucose Random 92 mg/dL (60-115); Potassium 3.9 mmol/L (3.3-5.1); Sodium 142 mmol/L (135-145)
[2025-01-14] MEDS: traMADoL HCL 50 MG TABLET PO ×2 (09:59→22:51)
[2025-01-14] MEDS: 0.9 % Sodium Chloride Flush 3 ML SYRINGE IVFLUSH ×3 (09:59→23:50)
[2025-01-14] MEDS: Lidocaine 4 % Patch ADH..PATCH 1 PATCH TRANSDERMA ×2 (09:59)
[2025-01-14] MEDS: oxyCODONE HCl Immed Release 5 MG TABLET PO ×3 (09:59→22:50)
[2025-01-14] MEDS: Ferrous Sulfate 324 MG TABLET.DR PO ×2 (09:59→22:51)
--- NOTE | 2025-01-14 10:55 | P.PNIM_ITS ---
Subjective Subjective Date of Service: 01/14/25 Interval History: anemia Review of Systems denies any abd pain or nausea or vomiting or any new gross bleeding. Physical Exam 2 Vital Signs: Vital Signs: Last Vital Signs Temp 98.0 F 01/14/25 08:00 Pulse 63 01/14/25 08:00 Resp 16 01/14/25 08:00 BP 159/80 H 01/14/25 08:00 Pulse Ox 96 01/14/25 08:00 O2 Del Method Room Air 01/14/25 08:00 BMI result Body Mass Index 24.9 general: not in acute distress cvs: rrr, [id number]. res: clear to auscultation . abd: soft ,nt, bs present. ext pulses present , no cyanosis . neuro: nonfocal. Objective Data Active Medications Acetaminophen (Acetaminophen 325 Mg Tablet) 650 mg PO Q6H PRN PRN Reason: Pain, Mild 1-3,fever,headache Last Admin: 01/14/25 03:38 Dose: 650 mg Documented By: ZANDER Calcium Carbonate (Calcium Carbonate 750 Mg Tab.Chew) 750 mg PO Q4H PRN PRN Reason: Heartburn Ceftriaxone Sodium (Ceftriaxone Sodium 1 Gm Vial) 1 gm IVPUSH Q24H [facility] Last Admin: 01/13/25 20:01 Dose: 1 gm Documented By: ZANDER Ferrous Sulfate (Ferrous Sulfate 324 Mg Tablet.Dr) 324 mg PO BID [facility] Last Admin: 01/14/25 09:59 Dose: 324 mg Documented By: NESTOR Octreotide Acetate 500 mcg/ (Sodium Chloride) 501 mls @ 50.1 mls/hr IVCONT .Q10H [facility] Last Admin: 01/14/25 03:34 Dose: 50 mcg/hr, 50.1 mls/hr Documented By: ZANDER Lidocaine (Lidocaine 4 % Patch Adh..Patch) 1 patch TRANSDERMA DAILY [facility]; Protocol Last Admin: 01/14/25 09:59 Dose: 1 patch Documented By: NESTOR Lidocaine (Lidocaine 4 % Patch Adh..Patch) 1 patch TRANSDERMA DAILY [facility]; Protocol Last Admin: 01/14/25 09:59 Dose: 1 patch Documented By: NESTOR Magnesium Hydroxide (Milk Of Magnesia 30 Ml Oral.Susp) 30 ml PO DAILY PRN PRN Reason: Constipation Melatonin (Melatonin 3 Mg Tablet) 6 mg PO BEDTIME PRN PRN Reason: Insomnia Mirtazapine (Mirtazapine 7.5 Mg Tablet) 7.5 mg PO BEDTIME [facility] Last Admin: 01/13/25 20:00 Dose: 7.5 mg Documented By: ZANDER Naloxone HCl (Naloxone Hcl 0.4 Mg/Ml Vial) 0.04 mg IVPUSH Q5M PRN PRN Reason: Excessive sedation or RR < 8 Ondansetron HCl (Ondansetron Hcl 4 Mg/2 Ml Vial) 4 mg IVPUSH Q8H PRN PRN Reason: Nausea and Vomiting Oxycodone HCl (Oxycodone Hcl Immed Release 5 Mg Tablet) 5 mg PO Q6H PRN PRN Reason: Pain, Severe (Pain Scale 7-10) Last Admin: 01/14/25 09:59 Dose: 5 mg Documented By: NESTOR Pantoprazole Sodium (Pantoprazole Sodium 40 Mg/10 Ml Vial) 40 mg IVPUSH BID@0630,1630 [facility] Last Admin: 01/14/25 06:28 Dose: 40 mg Documented By: ZANDER Sodium Chloride (0.9 % Sodium Chloride Flush 3 Ml Syringe) 3 ml IVFLUSH QSHIFT [facility] Last Admin: 01/14/25 09:59 Dose: 3 ml Documented By: NESTOR Tramadol HCl (Tramadol Hcl 50 Mg Tablet) 50 mg PO BID [facility] Last Admin: 01/14/25 09:59 Dose: 50 mg Documented By: NESTOR Labs 01/14/25 07:11 01/14/25 07:11 Labs: Laboratory Results - last 24 hr 01/14/25 07:11 MCV 83.2 MCH 26.7 L MCHC 32.1 RDW 15.1 Plt Count 202 MPV 12.8 H Absolute Nucleated RBC 0.000 Nucleated RBC % (auto) 0.0 Anion Gap 12 Estim Creat Clear Calc 65.0 Estimated GFR > 60 Random Glucose 92 Calcium 8.2 L Assessment and Plan (1) UGIB (upper gastrointestinal bleed): Status: Acute Assessment and Plan: 69-year-old male with pertinent history of hepatocellular carcinoma status post embolization, HCV/Alcoholic cirrhosis, peripheral neuropathy, hypertension, mood disorder who was sent to the emergency department for evaluation of weakness and low hemoglobin. acute blood loss on ch anemia due to GI bleed: s/p 2 prbc h/h improving to 9.2/28.7 Stool occult positive. plan: close monitering h/h s/p egd 01/13/25:Esophageal varices s/p 4 bands plan: continue IV Protonix, IV octreotide keep for 48hrs and IV ceftriaxone (SBP prophylaxis). Hypertension: bp suboptimal added amlodipine ,if needed will add home lisinopril. Mood disorder: Resume once able to take p.o. HCV/alcoholic cirrhosis: Not on diuretics or lactulose. Continue thiamine. Hepatocellular carcinoma: Outpatient follow-up. ongoing need:gi bleed /esophageal varices status post banding-need H&H monitoring, IV octreotide for 48 hours as per GI, also close monitoring of any new bleeding. Quality Stroke Does the patient have a stroke diagnosis?: No VTE Prior VTE?: No VTE Risk Level:: Medical - moderate - high VTE Device Contraindication: N/A - Device Ordered VTE Drug Contraindication: Treatment Not Indicated
[2025-01-14 11:07] VITALS: BP 151/75; PULSE 60; RESP 16; TEMP 36.8; O2SAT 98
--- NOTE | 2025-01-14 11:07 | HO.POSTANES ---
Post Anesthesia Evaluation Post Anesthesia Evaluation Date of Service: 01/14/25 Vital Signs: Vital Signs Temp Pulse Resp BP Pulse Ox O2 Del Method 01/14/25 08:00 98.0 F 63 16 159/80 H 96 Room Air 01/14/25 03:55 98.4 F 68 16 135/75 98 Room Air 01/13/25 23:56 98.3 F 65 16 157/76 H 98 Room Air Anesthesia: TIVA Mental Status: Awake Pain Control: Satisfactory Nausea/Vomiting: None Hydration: Adequate Anesthesia-Related Issues: No Anes. Related Issues
[2025-01-14] MEDS: amLODIPine Besylate 10 MG TABLET PO (11:55)
--- NOTE | 2025-01-14 12:32 | P.PNGI_ITS ---
Subjective Subjective Date of Service: 01/14/25 Interval History: feels well Critical Care Time (minutes): 0 Physical Exam 2 Vital Signs: Vital Signs: Last Vital Signs Temp 98.2 F 01/14/25 11:07 Pulse 60 01/14/25 11:07 Resp 16 01/14/25 11:07 BP 151/75 H 01/14/25 11:07 Pulse Ox 98 01/14/25 11:07 O2 Del Method Room Air 01/14/25 11:07 BMI result Body Mass Index 24.9 GI: Other: abdomen is soft and nontender Objective Data Labs 01/14/25 07:11 01/14/25 07:11 Labs: Laboratory Results - last 24 hr 01/14/25 07:11 WBC 5.1 RBC 3.45 L Hgb 9.2 L Hct 28.7 L MCV 83.2 MCH 26.7 L MCHC 32.1 RDW 15.1 Plt Count 202 MPV 12.8 H Absolute Nucleated RBC 0.000 Nucleated RBC % (auto) 0.0 Sodium 142 Potassium 3.9 Chloride 110 H Carbon Dioxide 24 Anion Gap 12 BUN 12 Creatinine 0.94 Estim Creat Clear Calc 65.0 Estimated GFR > 60 Random Glucose 92 Calcium 8.2 L Procedures Date of Service Date of Service: 01/14/25 Progress Note: A&P Assessment and plan (1) UGIB (upper gastrointestinal bleed): Status: Acute Assessment and Plan: labs are stable tolerating diet cont octreotide for 48 hour total he will need to f/u with Dr Maza Time Spent With Patient Time: Total time managing care of this patient today ____ minutes. Quality Stroke Does the patient have a stroke diagnosis?: No VTE Prior VTE?: No VTE Risk Level:: Medical - moderate - high VTE Device Contraindication: N/A - Device Ordered VTE Drug Contraindication: Treatment Not Indicated
[2025-01-14 15:28] VITALS: BP 167/78; PULSE 70; RESP 18; TEMP 36.7; O2SAT 100
--- NOTE | 2025-01-14 16:30 | MHC.CM.PN ---
PT REPORTS HE LIVES ALONE AND HAS DAILY [employer]BE[employer]ER SERVICES HE USES A [facility] FOR DME PT REPORTS HE DOES NOT KNOW WHO HIS PCP IS, BUT GOES [place] [facility] [place], IT APPEARS HIS PCP IS MELISSA ROE HCP ON FILE IMM DELIVERED DCP: HOME RESUME [facility] FAMILY TO TRANSPORT
[2025-01-14 19:29] VITALS: BP 150/80; PULSE 75; RESP 18; TEMP 37.2; O2SAT 99
[2025-01-14] MEDS: Mirtazapine 7.5 MG TABLET PO (22:51)
[2025-01-14 23:14] VITALS: BP 148/69; PULSE 81; RESP 18; TEMP 37.1; O2SAT 99
[2025-01-15] VITALS (8 sets, daily range): BP systolic 138–172; BP diastolic 70–84; PULSE 63–82; RESP 16–18; TEMP 36.3–37.1; O2SAT 98–100
[2025-01-15] MEDS: Acetaminophen 325 MG TABLET 650 MG PO ×2 (00:12→15:34)
[2025-01-15] MEDS: oxyCODONE HCl Immed Release 5 MG TABLET PO ×3 (05:29→23:54)
[2025-01-15] MEDS: Pantoprazole Sodium 40 MG/10 ML VIAL IVPUSH ×2 (05:30→15:39)
[2025-01-15 07:10] LABS: Hematocrit 30.4 % (42.0-52.0); Hemoglobin 9.5 g/dl (14.0-18.0)
[2025-01-15] MEDS: Lidocaine 4 % Patch ADH..PATCH 1 PATCH TRANSDERMA ×2 (08:04)
[2025-01-15] MEDS: Ferrous Sulfate 324 MG TABLET.DR PO ×2 (08:05→19:58)
[2025-01-15] MEDS: traMADoL HCL 50 MG TABLET PO ×2 (08:05→19:58)
[2025-01-15] MEDS: amLODIPine Besylate 10 MG TABLET PO (08:05)
--- NOTE | 2025-01-15 09:24 | P.PNGI_ITS ---
Subjective Subjective Date of Service: 01/15/25 Interval History: no bleeding hearty appetite Critical Care Time (minutes): 0 Physical Exam 2 Vital Signs: Vital Signs: Last Vital Signs Temp 97.8 F 01/15/25 07:37 Pulse 64 01/15/25 07:37 Resp 16 01/15/25 07:37 BP 138/84 01/15/25 08:05 Pulse Ox 98 01/15/25 07:37 O2 Del Method Room Air 01/15/25 07:37 BMI result Body Mass Index 24.9 GI: Other: abdomen is soft and nontender Objective Data Labs 01/15/25 06:24 01/14/25 07:11 Labs: Laboratory Results - last 24 hr 01/15/25 06:24 Hgb 9.5 L Hct 30.4 L Hold Purple Top SEE NOTE Procedures Date of Service Date of Service: 01/15/25 Progress Note: A&P Assessment and plan (1) UGIB (upper gastrointestinal bleed): Status: Acute Plan labs reviewed doing well octreotide stopped continue ppi empirically should be ok for d/c in am if no bleeding f/u with Dr Maza. Time Spent With Patient Time: Total time managing care of this patient today ____ minutes. Quality Stroke Does the patient have a stroke diagnosis?: No VTE Prior VTE?: No VTE Risk Level:: Medical - moderate - high VTE Device Contraindication: N/A - Device Ordered VTE Drug Contraindication: Treatment Not Indicated
--- NOTE | 2025-01-15 09:47 | HO.PM.IMPN ---
Subjective Subjective Date of Service: 01/15/25 Interval History: f/u on anemia, gib, acute blood loss anemia, H/H stable, no active bleed. Review of Systems denies any abd pain or nausea or vomiting or any new gross bleeding. Physical Exam Vital Signs: Vital Signs: Last Vital Signs Temp 97.8 F 01/15/25 07:37 Pulse 64 01/15/25 07:37 Resp 16 01/15/25 07:37 BP 138/84 01/15/25 08:05 Pulse Ox 98 01/15/25 07:37 O2 Del Method Room Air 01/15/25 07:37 BMI result Body Mass Index 24.9 general: not in acute distress cvs: rrr, d2n1hoscf. res: clear to auscultation . abd: soft ,nt, bs present. ext pulses present , no cyanosis . neuro: nonfocal. Objective Data Active Medications Acetaminophen (Acetaminophen 325 Mg Tablet) 650 mg PO Q6H PRN PRN Reason: Pain, Mild 1-3,fever,headache Last Admin: 01/15/25 00:12 Dose: 650 mg Documented By: BRINDA Amlodipine Besylate (Amlodipine Besylate 10 Mg Tablet) 10 mg PO DAILY [facility]; Protocol Last Admin: 01/15/25 08:05 Dose: 10 mg Documented By: CHAD Calcium Carbonate (Calcium Carbonate 750 Mg Tab.Chew) 750 mg PO Q4H PRN PRN Reason: Heartburn Ferrous Sulfate (Ferrous Sulfate 324 Mg Tablet.) 324 mg PO BID [facility] Last Admin: 01/15/25 08:05 Dose: 324 mg Documented By: CHAD Lidocaine (Lidocaine 4 % Patch Adh..Patch) 1 patch TRANSDERMA DAILY [facility]; Protocol Last Admin: 01/15/25 08:04 Dose: 1 patch Documented By: CHAD Lidocaine (Lidocaine 4 % Patch Adh..Patch) 1 patch TRANSDERMA DAILY [facility]; Protocol Last Admin: 01/15/25 08:04 Dose: 1 patch Documented By: CHAD Magnesium Hydroxide (Milk Of Magnesia 30 Ml Oral.Susp) 30 ml PO DAILY PRN PRN Reason: Constipation Melatonin (Melatonin 3 Mg Tablet) 6 mg PO BEDTIME PRN PRN Reason: Insomnia Mirtazapine (Mirtazapine 7.5 Mg Tablet) 7.5 mg PO BEDTIME [facility] Last Admin: 01/14/25 22:51 Dose: 7.5 mg Documented By: BRINDA Naloxone HCl (Naloxone Hcl 0.4 Mg/Ml Vial) 0.04 mg IVPUSH Q5M PRN PRN Reason: Excessive sedation or RR < 8 Ondansetron HCl (Ondansetron Hcl 4 Mg/2 Ml Vial) 4 mg IVPUSH Q8H PRN PRN Reason: Nausea and Vomiting Oxycodone HCl (Oxycodone Hcl Immed Release 5 Mg Tablet) 5 mg PO Q6H PRN PRN Reason: Pain, Severe (Pain Scale 7-10) Last Admin: 01/15/25 05:29 Dose: 5 mg Documented By: BRINDA Pantoprazole Sodium (Pantoprazole Sodium 40 Mg/10 Ml Vial) 40 mg IVPUSH BID@0630,1630 [facility] Last Admin: 01/15/25 05:30 Dose: 40 mg Documented By: BRINDA Sodium Chloride (0.9 % Sodium Chloride Flush 3 Ml Syringe) 3 ml IVFLUSH QSHIFT [facility] Last Admin: 01/15/25 08:06 Dose: Not Given Documented By: CHAD Non-Admin Reason: IV Running Tramadol HCl (Tramadol Hcl 50 Mg Tablet) 50 mg PO BID [facility] Last Admin: 01/15/25 08:05 Dose: 50 mg Documented By: CHAD Labs 01/15/25 06:24 01/14/25 07:11 Labs: Laboratory Results - last 24 hr 01/15/25 06:24 Hold Purple Top SEE NOTE Assessment and Plan (1) UGIB (upper gastrointestinal bleed): Status: Acute Assessment and Plan: 69-year-old male with pertinent history of hepatocellular carcinoma status post embolization, HCV/Alcoholic cirrhosis, peripheral neuropathy, hypertension, mood disorder who was sent to the emergency department for evaluation of weakness and low hemoglobin. acute blood loss on ch anemia due to GI bleed: s/p 2 prbc h/h improving to 9.5/30 Stool occult positive. s/p egd 01/13/25:Esophageal varices s/p 4 bands completed 48 of octreotide, continue PPI, GI advises discharge in am Hypertension: controlled continue norvasc Mood disorder: Resume once able to take p.o. HCV/alcoholic cirrhosis: Not on diuretics or lactulose. Continue thiamine. Hepatocellular carcinoma: Outpatient follow-up. ongoing need:gi bleed /esophageal varices status post banding-need H&H monitoring, IV octreotide for 48 hours as per GI, also close monitoring of any new bleeding. Quality Stroke Does the patient have a stroke diagnosis?: No VTE Prior VTE?: No VTE Risk Level:: Medical - moderate - high VTE Device Contraindication: N/A - Device Ordered VTE Drug Contraindication: Treatment Not Indicated
[2025-01-15] MEDS: 0.9 % Sodium Chloride Flush 3 ML SYRINGE IVFLUSH ×2 (15:39→19:59)
[2025-01-15] MEDS: Mirtazapine 7.5 MG TABLET PO (19:59)
[2025-01-16] MEDS: Acetaminophen 325 MG TABLET 650 MG PO (03:20)
[2025-01-16 03:27] VITALS: BP 166/76; PULSE 75; RESP 18; TEMP 36.4; O2SAT 98
[2025-01-16] MEDS: Pantoprazole Sodium 40 MG/10 ML VIAL IVPUSH (05:41)
[2025-01-16 07:08] VITALS: BP 160/67; PULSE 70; RESP 16; TEMP 36.7; O2SAT 97
[2025-01-16] MEDS: Ferrous Sulfate 324 MG TABLET.DR PO (07:31)
[2025-01-16] MEDS: traMADoL HCL 50 MG TABLET PO (07:32)
[2025-01-16] MEDS: amLODIPine Besylate 10 MG TABLET PO (07:32)
[2025-01-16] MEDS: oxyCODONE HCl Immed Release 5 MG TABLET PO (07:33)
[2025-01-16] MEDS: Lidocaine 4 % Patch ADH..PATCH 1 PATCH TRANSDERMA ×2 (07:34→07:58)
[2025-01-16] MEDS: 0.9 % Sodium Chloride Flush 3 ML SYRINGE IVFLUSH ×2 (07:34→09:52)
--- NOTE | 2025-01-16 08:33 | P.DS_ITS ---
DS: Providers Provider Date of Service: 01/16/25 Date of admission: 01/12/25 20:40 Date of discharge: 01/16/25 Primary care physician: Adam Newell MD Consults: 01/12/25 19:58 Consult to Gastroenterology Routine Consulting Provider: Marbin Wright Reason for consultation: GI bleed DS: Diagnosis Discharge Diagnosis (1) UGIB (upper gastrointestinal bleed): Status: Acute DS: Summary Hospital Course Hospital Course: admission hpi Chief Complaint: Low hemoglobin This is a 69-year-old male with pertinent history of hepatocellular carcinoma status post embolization, HCV/Alcoholic cirrhosis, peripheral neuropathy who was sent to the emergency department for evaluation of weakness and low hemoglobin. Patient is Brazilian speaking and history obtained with the help of superintendent compressor stations. Patient states he has been feeling weak for the last 2 weeks. Endorses generalized weakness and easy fatigability. He was seen by his PCP on the day of presentation when hemoglobin was found to be low and he was sent to the ER for blood transfusion. Patient states he does not usually noticed color of his stool but noticed that it was black on the day of presentation. Denies loose stools or liquid stools. Has 2-3 bowel movements every day. Denies alex red blood in stools. No vomiting, abdominal pain or abdominal distention. No fever or chills. Denies chest pain, palpitation, shortness of breath, changes in urinary habits. In the emergency department, hemoglobin found to be 6.6. 2 unit PRBC ordered. Hospital course: 69-year-old male with a significant past medical history of hepatocellular carcinoma status post embolization, HCV/alcoholic cirrhosis, peripheral neuropathy, hypertension, and mood disorder, who presented to the emergency department for evaluation of weakness and a low hemoglobin level of 6.7 with a positive fecal occult blood test.He was transfused 2 units of RBCs, with post- transfusion hemoglobin improving to 9.5. An EGD performed on 01/13/25 revealed esophageal varices, for which 4 bands were placed. He has completed 48 hours of octreotide per GI recommendation. GI also advised continuation of PPI therapy upon discharge, and he will be started on Prilosec. He is currently hemodynamically stable. Hypertension: Continue home dose of Lisinopril and Norvasc Mood disorder: Resume once able to take p.o. HCV/alcoholic cirrhosis: Not on diuretics or lactulose. Continue thiamine. Hepatocellular carcinoma: Outpatient follow-up. ongoing need:gi bleed /esophageal varices status post banding-need H&H monitoring, IV octreotide for 48 hours as per GI, also close monitoring of any new bleeding. Time Attestation Discharge Coordination Time (in mins): 40 Quality: Safe Use of Opioids Does Pt have an Active Cancer Diagnosis on the Problem List?: No Quality: Stroke Does the patient have a stroke diagnosis?: No Physical Exam Vital Signs: Vital Signs: Last Vital Signs Temp 98.1 F 01/16/25 07:08 Pulse 70 01/16/25 07:08 Resp 16 01/16/25 07:08 BP 160/67 H 01/16/25 07:08 Pulse Ox 97 01/16/25 07:08 O2 Del Method Room Air 01/16/25 07:08 BMI result Body Mass Index 24.9 Discharge Plan Discharge Anticipated Discharge Date/Time: 01/16/25 08:34 Patient Disposition: Home, Self-Care Discharge Diagnosis: Blood loss anemia, GI bleeding Referrals: Adam Newell MD [Primary Care Provider] - 1 Week Discharge Medications: New omeprazole 40 mg capsule,delayed release(DR/EC) 40 mg PO DAILY Qty: 90 0RF Continued mirtazapine 7.5 mg tablet 7.5 mg PO BEDTIME Qty: 30 1RF (DME) Blood pressure monitor See Rx Instructions .Route .MEDSUPPLY Qty: 1 0RF Rx Instructions: As directed lisinopril 10 mg tablet 10 mg PO DAILY Qty: 90 1RF Protocol: Hold for SBP< HOLD for SBP < : 90 amlodipine 10 mg tablet 10 mg PO DAILY Qty: 90 1RF Protocol: Hold for SBP< HOLD for SBP < : 90 tramadol 50 mg tablet 50 mg PO BID Qty: 60 0RF ferrous sulfate 325 mg (65 mg iron) tablet 325 mg PO BID Qty: 60 6RF (DME) blood pressure monitor Kit See Rx Instructions .Route Qty: 1 0RF Rx Instructions: As directed (DME) jesus Misc See Rx Instructions .Route Qty: 1 0RF Rx Instructions: As directed (DME) blood pressure test kit-large Kit See Rx Instructions .ROUTE DIRECTED Qty: 1 Rx Instructions: As directed Diet: Advance to usual diet Activity on Discharge: As tolerated Stand Alone Forms: Patient Portal Discharge page Print Language: Brazilian Care Plan Goals: Stabilize hemoglobin levels and prevent further gastrointestinal bleeding. Optimize management of esophageal varices and cirrhosis-related complications. Maintain hemodynamic stability. Ensure adequate pharmacologic prophylaxis with PPI and follow GI recommendations. Health Concerns: Gastrointestinal bleeding secondary to esophageal varices Anemia (hemoglobin initially 6.7) requiring transfusion Cirrhosis due to HCV and alcohol use Risk of re-bleeding from varices Peripheral neuropathy Plan of Treatment: Take Prilosec daily as prescribed. Avoid alcohol. Follow up with GI as scheduled. Watch for signs of bleeding (black stools, vomiting blood) and go to the ER if they occur. Assessment: See above
[2025-01-16 09:25] LABS: Hematocrit 29.4 % (42.0-52.0); Hemoglobin 9.1 g/dl (14.0-18.0); Mean Corpuscular Hemoglobin 26.4 pg (27.0-33.0); Mean Corpuscular Volume 85.2 fL (80.0-98.0); Mean Platelet Volume 12.2 fL (9.4-12.4); Platelet Count 216 X10*3/uL (160-400); Red Blood Count 3.45 X10*6/uL (4.60-5.80); Red Cell Distribution Width 15.7 % (11.0-16.0); White Blood Count 6.7 X10*3/uL (4.8-10.8)
[2025-01-16 09:48] VITALS: BP 141/76
[2025-01-16] MEDS: lisinopriL 10 MG TABLET PO (09:48)
[2025-01-16 11:38] VITALS: BP 144/68; PULSE 64; RESP 12; TEMP 37.1; O2SAT 94
--- NOTE | 2025-01-16 11:56 | W.MHC.F2F ---
Service Date Service Date: 01/16/25 Encounter Date of encounter: 01/16/25 Reasons for Services Signs and symptoms assessed: weakness from anemia Homebound: Leaving the home is medically contraindicated at this time without the asist of a device and/or another person due th the listed conditions above and below. Reason homebound: fall risk related to blood pressure changes, leg weakness and weakness related to hospital stay Homebound supporting statement: Homeboud due to weakness related to hospitalization, and anemia and therefore needs the assistance of another person Certification: Based on the above findings, I certify that this patient is confined to the home and needs intermittent usp care, physical therapy and/or speech therapy, or continues to need occupational therapy. The patient is under my care, and I have initiated the establishment of the plan of care. The patient will be followed by a physician who will periodically review the plan of care. Time Spent With Patient Time: Total time managing care of this patient today ____ minutes.
--- NOTE | 2025-01-16 12:17 | MHC.CM.PN ---
IMM 01/16/25 Patient is discharged to home today. [employer] services will resume. A family member will provide transportation home.
[2025-01-16 12:50] VITALS: BP 163/77; PULSE 70; RESP 16; TEMP 36.8; O2SAT 97
--- NOTE | 2025-01-16 14:02 | PC.NURSE ---
Patient discharged by mainframe developer Mike
== END 2025-01-16 13:42 | disposition home or self-care (01) | DRG 432 ==
LOC: HO.ED 23:14 → HO.EDOVER 23:52 → HO.IMC 01-13 10:22 → HO.S3 01-15 21:03
PROVIDERS: Internal Medicine; Internal Medicine Gastroenterology; Physician Assistant Medical; Admitting Provider Student in an Organized Health Care Education/Training Program; Emergency Provider Emergency Medicine; PCP Internal Medicine; Visit Provider Internal Medicine
PROC: 0DJ08ZZ Inspection of Upper Intestinal Tract, Via Natural or Artificial Opening Endoscopic (ICD-10-PCS; CPT 43235; principal; 2025-01-13 09:30)
DX: K70.30 Alcoholic cirrhosis of liver without ascites (principal); I85.11 Secondary esophageal varices with bleeding; C22.0 Liver cell carcinoma; D62 Acute posthemorrhagic anemia; G62.9 Polyneuropathy, unspecified; I10 Essential (primary) hypertension; Z86.19 Personal history of other infectious and parasitic diseases; Z87.891 Personal history of nicotine dependence; Z79.899 Other long term (current) drug therapy
CPT/HCPCS: 36415; 73560; 74176; 80048; 80053; 82272; 83735; 85014; 85018; 85025; 85027; 85610; 85730; 86850; 86900; 86901; 86923; 97161; 99212; 99285; J0696; J2003; J2354; J2470; J2704; J3010; P9016

== ENCOUNTER → 2025-01-12 17:30 | Outpatient (BNV) | payer MEDICARE, MEDICAID, SELFPAY | PROVIDERS: Emergency Provider Emergency Medicine; Visit Provider Student in an Organized Health Care Education/Training Program | DX: D64.9 Anemia, unspecified (principal); K92.2 Gastrointestinal hemorrhage, unspecified | CPT/HCPCS: 99222; 99232; 99499 ==

== ENCOUNTER 2025-01-29 09:06 | Outpatient (AMB) | payer MEDICARE, MEDICAID, SELFPAY ==
--- NOTE | 2025-01-29 09:10 | A.OFFPC_ITS ---
Vital Signs 01/29/25 09:11 Height 5 ft 6 in Weight 148 lb 6 oz BMI 23.9 BP 136/66 Blood Pressure Location Lt brachial Position Sitting Pulse 69 Pulse Source Pulse Oximeter Temp 97.5 F Temp Source Temporal Artery Scan Pulse Oximetry (%) 98 Oxygen Delivery Method Room Air Intake Visit Reasons: [facility] 01/16 Stomach bleeding Intake Note: Patient is here for hospital discharge and [facility] follow up. Patient was discharged from [facility] on 01/16/25. Consumer Relations Complaint Clerk Required: Yes Consumer Relations Complaint Clerk Language: Family Resource Management Specialist Name: Mana ([id number]) Information Interpreted: non-clinical & clinical Precipitator Operator: Present Accompanied by: surveillance camera technician Allergies No Known Allergies [No Known Allergies*] Allergy (Verified 01/29/25 10:00) Medication List - Last Reconciled 01/29/25 by GABRIELLA Willett amlodipine 10 mg See Protocol PO DAILY blood pressure monitor As directed [Blood pressure monitor As directed] blood pressure test kit-large As directed ferrous sulfate 325 mg PO BID lisinopril 10 mg See Protocol PO DAILY mirtazapine 7.5 mg PO BEDTIME omeprazole 40 mg PO DAILY tramadol 50 mg PO BID walker As directed Tobacco use date assessed: 01/29/25 Fall risk assessment: No Falls in past year Last assessed Fall Risk: 01/29/25 Dental Screening Dental Screen Date: 11/23/24 HPI [facility] 01/16 Stomach bleeding HPI Details The patient is a 69-year-old male with significant past medical history of hepatocellular carcinoma, hepatitis-C, history of alcohol abuse, GERD, liver cirrhosis, iron-deficiency anemia The patient is presenting for a follow up visit post hospital admission for a stomach bleed Hospital course: 69-year-old male with a significant past medical history of hepatocellular carcinoma status post embolization, HCV/alcoholic cirrhosis, peripheral neuropathy, hypertension, and mood disorder, who presented to the emergency department for evaluation of weakness and a low hemoglobin level of 6.7 with a positive fecal occult blood test.He was transfused 2 units of RBCs, with post- transfusion hemoglobin improving to 9.5. An EGD performed on 01/13/25 revealed esophageal varices, for which 4 bands were placed. He has completed 48 hours of octreotide per GI recommendation. GI also advised continuation of PPI therapy upon discharge, and he will be started on Prilosec. He is currently hemodynamically stable. Hypertension: Continue home dose of Lisinopril and Norvasc Office note: Reports that he has been having GI bleed for the last 2 days. Patient reports that the bleeding is bright red blood mixed dark/black blood. Patient reports that he has been having diarrhea/loose stool along with the GI bleeding. He reports that it happened multiple times yesterday, and at one time, he had to sit on the toilet for a while because he kept on bleeding. Patient reports that they told him that they placed a mesh inside of abdomen to stop the bleed. However, it seems like it is worse now. The patient is also complaining of diffuse abdominal pain with no other associated symptoms besides him feeling weaker. Denies chest pain, shortness of breath, heart palpitation,and dizziness. His current blood pressure is 136/66 and his heart rate is 69. His lungs is clear and his heart rhythm is sinus. Abdomen is soft with diffuse tenderness, large protuberant abdomen. No physical sign of distress at this time. The patient is requesting to go back to emergency room for evaluation. Patient was accompanied by family a member, they declined ambulance transfer, stated that the family member will drive him over to the emergency room. TCM TCM Information Date of Discharge 01/16/25 Discharged From [facility] Interactive Contact Date (Reference documentation from this date) 01/17/25 [facility] Medical History Hepatocellular carcinoma Neuropathy involving both lower extremities Liver cirrhosis Hepatitis C Common cold Lower back pain Surgical History History of tooth extraction Hx of colonoscopy (~10/29/23) History of breast lump/mass excision History of ankle surgery History of appendectomy History of open reduction and internal fixation (ORIF) procedure Family History Father Prostate cancer Mother Diabetes Stroke Social History Household Members: Family Housing: Apartment Are you a primary care team assistant to a significant other at home: No Do you presently have visiting nurse or other home services: Yes (surveillance camera technician) Alcohol intake: former Patient Tobacco Use Status: Former Tobacco user Tobacco use type: Cigarette e-Cigarette/Vaping Use: Never Used Second Hand Smoke Exposure: Yes Advance Directives: No Advance Directives Information Provided: Yes service: No Current occupational status: disabled Cognitive needs: Yes (cane) Hearing needs: No Vision needs: Yes (glasses) Questionnaire Thrive Questionnaire Date Thrive assessed: 01/14/25 PORFIRIO-7 AMB Questionnaire PORFIRIO-7 Date PORFIRIO - 7 assessed: 11/23/24 Source: Developed by Drs. Mynor Alba, Wilma Francois, Cornel Garcia and colleagues, with an educational elbert from [employer]. Review of Systems Const Denies headache(s), Reports lethargy and Reports weakness Eyes Denies loss of vision ENT Denies vertigo, Denies dizziness, Denies headache(s) and Denies sore throat Card Denies chest pain, Denies leg edema and Denies lightheadedness Resp Denies cough, Denies hemoptysis and Denies wheezing GI Reports abdominal pain (Diffuse), Reports melena, Reports hematochezia, Denies constipation, Reports diarrhea, Reports loose stools and Denies vomiting Denies dysuria, Denies urinary frequency and Denies urinary urgency Neuro Denies Abnormal speech present, Denies vertigo, Denies dizziness, Denies headache(s), Denies loss of vision and Reports weakness Aller/Immun Denies wheezing Physical exam (Primary Care) Vital Signs: Last Vital Signs Temp 97.5 F 01/29/25 09:11 Pulse 69 01/29/25 09:11 BP 136/66 01/29/25 09:11 Pulse Ox 98 01/29/25 09:11 Oxygen Delivery Method Room Air 01/29/25 09:11 BMI result Body Mass Index 23.9 Tobacco/Smoking Status: Tobacco use Status Tobacco use date assessed 01/29/25 01/29/25 09:19 Patient Tobacco Use Status Former Tobacco user 01/29/25 09:19 Tobacco use type Cigarette 01/29/25 09:19 e-Cigarette/Vaping Use Never Used 01/29/25 09:19 Thrive Assessment: Date of Thrive Assessment Date Thrive assessed 01/14/25 01/29/25 09:19 Const General: healthy appearing, no acute distress, alert and awake Nutritional Appearance: well nourished Orientation/consciousness: oriented to person, oriented to place and oriented to time HENMT Ears: external ears normal General nose exam: Normal external nose present Eyes Conjunctivae: conjunctivae normal Sclerae: sclerae normal Pupils: Equal, round and reactive pupils present Neck Neck: Yes no lymphadenopathy and Yes no JVD Thyroid: Thyroid normal Carotids: no bruits Resp Effort & Inspection: normal respiratory effort and not tachypneic Auscultation: no crackles, no rales, no rhonchi and no wheezes Cardio Rate: regular rate Rhythm: regular rhythm Heart sounds: no murmurs and normal S1 and S2 GI Inspection: Yes distended and Yes obesity Palpation (GI): Soft to palpation, Tenderness to palpation present (GI) (Diffuse) and No Rebound tenderness present Auscultation: normal bowel sounds Neuro General: oriented to person, oriented to place and oriented to time Cranial nerves: Yes Equal, round and reactive pupils present Speech: No Abnormal speech present Gait exam (Neuro): Normal gait present Psych Mental Status: mental status grossly normal Speech and movement: Normal speech and movement present Affect: normal affect Attitude: cooperative Thought process: Normal thought process present Coding Level of Care Code Est Pt Level 4 (92016) Diagnoses UGIB (upper gastrointestinal bleed) K92.2 Hepatocellular carcinoma C22.0 Hepatitis C virus infection without hepatic coma, unspecified chronicity B19.20 Viral hepatitis chronicity: unspecified Hepatic coma status: without hepatic coma Alcoholic cirrhosis, unspecified whether ascites present K70.30 Hepatic cirrhosis type: alcoholic cirrhosis Ascites presence: unspecified Time Spent (min) 35 Assessment & Plan Assessment & Plan (1) UGIB (upper gastrointestinal bleed): Code(s): K92.2 - Gastrointestinal hemorrhage, unspecified Category: Medical (2) Hepatocellular carcinoma: Code(s): C22.0 - Liver cell carcinoma Category: Medical (3) Hepatitis C: Code(s): B19.20 - Unspecified viral hepatitis C without hepatic coma Category: Medical Qualifiers: Viral hepatitis chronicity: unspecified Hepatic coma status: without hepatic coma Qualified Code(s): B19.20 - Unspecified viral hepatitis C without hepatic coma (4) Liver cirrhosis: Code(s): K74.60 - Unspecified cirrhosis of liver Category: Medical Qualifiers: Hepatic cirrhosis type: alcoholic cirrhosis Ascites presence: unspecified Qualified Code(s): K70.30 - Alcoholic cirrhosis of liver without ascites Plan I will ensure the patient is rapidly assessed at the emergency department due to his worsening gastrointestinal bleeding. Communication with the emergency team has been planned to allow for a smooth transition in care. Diagnostic evaluations, including imaging or endoscopy, may be pursued more appropriately in this setting based on the findings and medical necessity. No medical treatments or follow-up strategies were established during this visit beyond emergency care referral. Patient was informed and verbally consented to the use of an ambient scribe for clinic note documentation during this visit. Patient Instructions: - Go directly to the emergency room for further evaluation of bleeding. - Follow the instructions given at the emergency room.
[2025-01-29 09:11] VITALS: BP 136/66; PULSE 69; TEMP 36.4; O2SAT 98; BMI 23.9
== END 2025-01-29 09:35 | disposition home or self-care (01) ==
LOC: HO.HMCH 09:06
PROVIDERS: PCP Internal Medicine
DX: K92.2 Gastrointestinal hemorrhage, unspecified (principal); C22.0 Liver cell carcinoma; B19.20 Unspecified viral hepatitis C without hepatic coma; K70.30 Alcoholic cirrhosis of liver without ascites

== ENCOUNTER → 2025-01-29 09:06 | Outpatient (BNVA) | payer OTHER, SELFPAY | PROVIDERS: PCP Internal Medicine | DX: Z13.89 Encounter for screening for other disorder (principal) | CPT/HCPCS: 99212 ==

== ENCOUNTER 2025-01-29 09:48 | Inpatient (IN) | payer OTHER, MEDICAID, SELFPAY ==
[2025-01-29 09:56] VITALS: BP 123/60; PULSE 72; RESP 16; TEMP 36.6; O2SAT 97; BMI 26.2
[2025-01-29] MEDS: Pantoprazole Sodium 40 MG/10 ML VIAL IVPUSH ×2 (10:44→16:51)
[2025-01-29 10:45] LABS: MANUAL DIFF FLAG NO
[2025-01-29 10:57] LABS: Basophils Percent Auto 0.4 % (0-2); Eosinophils Absolute Auto 0.2 X10*3/uL (0.0-0.4); Eosinophils Percent Auto 3.2 % (0-4); Hemoglobin 8.4 g/dl (14.0-18.0); Imm Gran Abs Auto 0.03 X10*3/uL (0.00-0.03); Imm Gran Pct Auto 0.6 % (0.0-0.4); Lymphocytes Absolute Auto 1.2 X10*3/uL (1.2-4.9); Lymphocytes Percent Auto 23.8 % (20-40); Mean Corpuscular HGB Conc 31.1 g/dl (31.0-36.0); Mean Corpuscular Hemoglobin 26.3 pg (27.0-33.0); Mean Corpuscular Volume 84.6 fL (80.0-98.0); Mean Platelet Volume 12.4 fL (9.4-12.4); Monocytes Absolute Auto 0.7 X10*3/uL (0.1-1.2); Monocytes Percent Auto 13.1 % (2-11); Neutrophils Absolute Auto 2.9 x10*3/uL (2.0-8.3); Neutrophils Percent Auto 58.9 % (45-73); Platelet Count 246 X10*3/uL (160-400); Red Blood Count 3.19 X10*6/uL (4.60-5.80); Red Cell Distribution Width 16.7 % (11.0-16.0)
[2025-01-29 11:00] LABS: Alanine Aminotransferase 21 U/L (0-40); Albumin Level 3.3 g/dL (3.5-5.0); Alkaline Phosphatase 341 U/L (39-117); Anion Gap 11 (12-20); Aspartate Amino Transferase 49 U/L (5-37); Bilirubin Total 0.3 mg/dL (0.0-1.0); Blood Urea Nitrogen 16 mg/dL (9-16); Calcium 8.8 mg/dL (8.4-10.2); Carbon Dioxide 27 mmol/L (22-29); Chloride 108 mmol/L (96-108); Creatinine Clr Calc Pharmacy 46.2; Estimated Glomerular Filt Rate > 60; Glucose Random 82 mg/dL (60-115); Potassium 4.6 mmol/L (3.3-5.1); Sodium 141 mmol/L (135-145); Total Protein 6.8 g/dL (6.5-8.0)
[2025-01-29 11:11] LABS: OBS1 POSITIVE (NEGATIVE)
[2025-01-29 11:12] LABS: OBS Int Ctl Valid YES
--- NOTE | 2025-01-29 11:15 | ED.GIBLEED ---
HPI - GI Bleed General Chief complaint: GI Bleed Stated complaint: blood in stools Time Seen by Provider: 01/29/25 10:19 Source: patient, family, EMS, old records reviewed and photo tech Mode of arrival: EMS Limitations: other (very poor historian) History of Present Illness ED Provider: CINDY GUADARRAMA Narrative: 69 yo male with PMH of HCC s/p embolization, HCV, ETOH cirrhosis, neuropathy, HTN, mood disorder not on aspirin or thinners denies NSAID use who was seen here 01/12 and 01/16 for anemia and GIB s/p 2 units PRBC with hemoglobin 6.7 had EGD on 01/13 non bleeding varices s/p 4 banding who comes back today with intermittent lower abdominal pain. For the past two days he has also noted melena and some scant brb - he is blaming a hard stool. He just had CT scan for same on 01/12. He denies vomiting blood, no fevers, no chest pain, dyspnea. MD complaint: melena Onset (ago): day(s) (2) Pain Consistency: constant Severity: mild Relieving factors: none Exacerbating factors: bowel movement Context: history of GI bleed and known esophageal varices Associated symptoms: abdominal pain Treatments Prior to Arrival: none Related Data Home Medications ?Medication ?Instructions ?Recorded ?Confirmed blood pressure test kit-large #1 ea 10/16/24 01/29/25 Previous Rx's ?Medication ?Instructions ?Recorded blood pressure monitor #1 ea 01/21/22 walker #1 ea 11/05/23 mirtazapine 7.5 mg tablet 7.5 mg PO BEDTIME #30 tabs 07/28/24 Blood pressure monitor #1 ea 08/02/24 amlodipine 10 mg tablet 10 mg PO DAILY #90 tabs 11/19/24 lisinopril 10 mg tablet 10 mg PO DAILY #90 tabs 11/19/24 ferrous sulfate 325 mg (65 mg 325 mg PO BID #60 tabs 01/12/25 iron) tablet tramadol 50 mg tablet 50 mg PO BID #60 tabs 01/12/25 omeprazole 40 mg capsule,delayed 40 mg PO DAILY #90 caps 01/16/25 release Allergies Allergy/AdvReac Type Severity Reaction Status Date / Time No Known Allergies Allergy Verified 01/29/25 10:00 [No Known Allergies*] Review of Systems Review of Systems: Constitutional : No Weight loss, No Fever, No Chills ENT/Mouth : No sore throat, No Rhinorrhea Eyes: No Swelling, No Redness Cardiovascular : No Chest Pain, No SOB, NoEdema Respiratory : No Cough, No Sputum, No Wheezing Gastrointestinal : no Nausea, no Vomiting, no Diarrhea, positive abdominal Pain, No Hematochezia, pos Melena Genitourinary : No Dysuria, No Urinary Frequency, No Hematuria, No Urgency Musculoskeletal : No joint pain, No Myalgias, No Joint Swelling Skin : No Skin Lesions, No rash Neuro : No Weakness, No Numbness, No Dizziness, No Headache Psych : No Anxiety/Panic, No Depression All other systems reviewed and are negative. [facility] Past Medical History Attestation statement: The following information was validated with the patient. Source: old records reviewed Medical History Hepatocellular carcinoma Neuropathy involving both lower extremities Liver cirrhosis Hepatitis C Common cold Lower back pain Surgical History History of tooth extraction Hx of colonoscopy (~10/29/23) History of breast lump/mass excision History of ankle surgery History of appendectomy History of open reduction and internal fixation (ORIF) procedure Family History Family History Father Prostate cancer Mother Diabetes Stroke Social History Social History Household Members: Family Housing: Apartment Are you a primary rn managed care to a significant other at home: No Do you presently have visiting nurse 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) Alcohol intake: former Patient Tobacco Use Status: Former Tobacco user Tobacco use type: Cigarette e-Cigarette/Vaping Use: Never Used Second Hand Smoke Exposure: Yes Advance Directives: No Advance Directives Information Provided: Yes service: No Current occupational status: disabled Cognitive needs: Yes (cane) Hearing needs: No Vision needs: Yes (glasses) Physical Exam Vital Signs: Vital Signs: Last Vital Signs Temp 97.8 F 01/29/25 09:56 Pulse 72 01/29/25 09:56 Resp 16 01/29/25 09:56 BP 123/60 01/29/25 09:56 Pulse Ox 97 01/29/25 09:56 O2 Del Method Room Air 01/29/25 09:56 BMI result Body Mass Index 26.2 Appearance: Alert. Oriented X3. No acute distress. Eyes: Pupils equal, round and reactive to light. ENT: Pharynx normal. Neck: Normal inspection. Neck supple. CVS: Normal heart rate and rhythm. Pulses normal. Respiratory: No respiratory distress. Breath sounds normal. Abdomen: Soft and non-tender. rectal: light brown stool on digit Skin: Skin warm and dry. Normal skin color. Extremities: No lower extremity edema. Neuro: Oriented X 3. No motor deficit. No sensory deficit. CN2-12 intact Medications Administered Discontinued Medications Generic Name Dose Route Start Last Admin Trade Name Freq PRN Reason Stop Dose Admin Pantoprazole Sodium 40 mg 01/29/25 10:28 01/29/25 10:44 Pantoprazole Sodium 40 Mg/10 Ml Vial IVPUSH 01/29/25 10:29 40 mg ONCE ONE Administration Medical Decision Making Medical Decision Making [facility] Narrative: 69 yo male with PMH of HCC s/p embolization, HCV, ETOH cirrhosis, neuropathy, HTN, mood disorder not on aspirin or thinners now here with return of melena and rectal bleeding - he has hx of same s/p banding at this time will start on IV protonix, given varices and bleed will start on prophylactic ceftriaxone and start on octreotide. He does not need a transfusion at this time. Will admit and discuss with Dr. Maza Differential Diagnosis Differential Diagnoses: The differential diagnosis associated with the presentation includes UGIB, anemia Admission/Observation Consideration of admission/observation: Escalation of care including admission/observation considered admit for monitoring Consult Healthcare Provider Management of the patient was discussed with: Hospitalist (Dr. Clancy will admit) and Human Resources Team Member (Dr. Maza aware) Lab Data [facility] Lab Attestation statement: I reviewed the patient's lab results. 01/29/25 10:41 01/29/25 10:41 Labs: Lab Results 01/29/25 01/29/25 Range/Units 10:41 11:05 WBC 5.0 (4.8-10.8) X10*3/uL RBC 3.19 L (4.60-5.80) X10*6/uL Hgb 8.4 L (14.0-18.0) g/dl Hct 27.0 L (42.0-52.0) % MCV 84.6 (80.0-98.0) fL MCH 26.3 L (27.0-33.0) pg MCHC 31.1 (31.0-36.0) g/dl RDW 16.7 H (11.0-16.0) % Plt Count 246 (160-400) X10*3/uL MPV 12.4 (9.4-12.4) fL Immature Gran % (Auto) 0.6 H (0.0-0.4) % Neut % (Auto) 58.9 (45-73) % Lymph % (Auto) 23.8 (20-40) % [place] % (Auto) 13.1 H (2-11) % Eos % (Auto) 3.2 (0-4) % Baso % (Auto) 0.4 (0-2) % Lymph # (Auto) 1.2 (1.2-4.9) X10*3/uL [place] # (Auto) 0.7 (0.1-1.2) X10*3/uL Eos # (Auto) 0.2 (0.0-0.4) X10*3/uL Baso # (Auto) 0.0 (0.0-0.2) X10*3/uL Abs Immat Gran (auto) 0.03 (0.00-0.03) X10*3/uL Absolute Neuts (auto) 2.9 (2.0-8.3) x10*3/uL Absolute Nucleated RBC 0.000 (0.0-0.012) X10*3/uL Nucleated RBC % (auto) 0.0 (0.0-0.2) /100WBC Sodium 141 (135-145) mmol/L Potassium 4.6 (3.3-5.1) mmol/L Chloride 108 (96-108) mmol/L Carbon Dioxide 27 (22-29) mmol/L Anion Gap 11 L (12-20) BUN 16 (9-16) mg/dL Creatinine 1.18 (0.5-1.4) mg/dL Estim Creat Clear Calc 46.2 Estimated GFR > 60 Random Glucose 82 (60-115) mg/dL Calcium 8.8 D (8.4-10.2) mg/dL Total Bilirubin 0.3 (0.0-1.0) mg/dL AST 49 H (5-37) U/L ALT 21 (0-40) U/L Alkaline Phosphatase 341 H (39-117) U/L Total Protein 6.8 (6.5-8.0) g/dL Albumin 3.3 L (3.5-5.0) g/dL Stool Occult Blood POSITIVE (NEGATIVE) Independent Historian Clinical information obtained from an independent historian. History obtained from or confirmed by: Other (familiy) External Record Review External record reviewed: Inpatient record and Outpatient record Critical Care Time Critical Care Time Critical Care Time: Yes Total Critical Care Time: 45 Attestation: review of records, family discussion, medical consult, admission I attest to this time spent taking care of the patient Discharge Plan Discharge Clinical Impression: UGIB (upper gastrointestinal bleed) Patient Disposition: Admitted As Inpatient Prescriptions: No Action mirtazapine 7.5 mg tablet 7.5 mg PO BEDTIME Qty: 30 1RF (DME) Blood pressure monitor See Rx Instructions .Route .MEDSUPPLY Qty: 1 0RF Rx Instructions: As directed lisinopril 10 mg tablet 10 mg PO DAILY Qty: 90 1RF Protocol: Hold for SBP< HOLD for SBP < : 90 amlodipine 10 mg tablet 10 mg PO DAILY Qty: 90 1RF Protocol: Hold for SBP< HOLD for SBP < : 90 tramadol 50 mg tablet 50 mg PO BID Qty: 60 0RF ferrous sulfate 325 mg (65 mg iron) tablet 325 mg PO BID Qty: 60 6RF omeprazole 40 mg capsule,delayed release(DR/EC) 40 mg PO DAILY Qty: 90 0RF (DME) blood pressure monitor Kit See Rx Instructions .Route Qty: 1 0RF Rx Instructions: As directed (DME) walker Misc See Rx Instructions .Route Qty: 1 0RF Rx Instructions: As directed (DME) blood pressure test kit-large Kit See Rx Instructions .ROUTE DIRECTED Qty: 1 Rx Instructions: As directed Print Language: Hong Konger
[2025-01-29] MEDS: cefTRIAXone sodium 1 GM VIAL IVPUSH (12:08)
[2025-01-29] MEDS: Octreotide Acetate 100 MCG/ML AMPUL 50 MCG IVPUSH (12:08)
[2025-01-29] MEDS: Octreotide Acetate 500 MCG in 0.9 % Sodium Chloride 500 ML 50.1 MCG IVCONT ×2 (12:08→22:10)
--- NOTE | 2025-01-29 12:12 | P.HPHOSP_ITS ---
History of Present Illness Date of Service: 01/29/25 Chief Complaint: GI Bleeding Chief Complaint: Low hemoglobin This is a 69-year-old male with pertinent history of hepatocellular carcinoma status post embolization, HCV/Alcoholic cirrhosis, peripheral neuropathy, recurrent GIB, was admitted for GIB from 01/12 to 01/16 and was found to have esophageal varices that were banded on 01/03 and comes with report of rectal bleeding x 2 days. Occult blood is positive hemoglobin is 8.4 and hematocrit is 27. There is no active bleed and he's hemodynamically stable. GI is planning EGD tomorrow. He's received IV PPI and octreotide. Review of Systems 2 Review of Systems: Gen: no fever Resp: no sob, no cough CV: no chest, no BOWEN, no leg edema GI: No n/v, no abd pain, rectal bleed Neuro: No confusion [facility] Medical History Hepatocellular carcinoma Neuropathy involving both lower extremities Liver cirrhosis Hepatitis C Common cold Lower back pain Family History Father Prostate cancer Mother Diabetes Stroke Surgical History History of tooth extraction Hx of colonoscopy (~10/29/23) History of breast lump/mass excision History of ankle surgery History of appendectomy History of open reduction and internal fixation (ORIF) procedure Social History Household Members: Family Housing: Apartment Are you a primary resident care coordinator to a significant other at home: No Do you presently have visiting nurse or 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 home services: Yes (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) Alcohol intake: former Patient Tobacco Use Status: Former Tobacco user Tobacco use type: Cigarette e-Cigarette/Vaping Use: Never Used Second Hand Smoke Exposure: Yes Advance Directives: No Advance Directives Information Provided: Yes service: No Current occupational status: disabled Cognitive needs: Yes (cane) Hearing needs: No Vision needs: Yes (glasses) Meds Allergies Allergy/AdvReac Type Severity Reaction Status Date / Time No Known Allergies Allergy Verified 01/29/25 10:00 [No Known Allergies*] Active Medications: Current Medications Acetaminophen (Acetaminophen 325 Mg Tablet) 650 mg PO Q6H PRN PRN Reason: Pain, Mild 1-3,fever,headache Calcium Carbonate (Calcium Carbonate 750 Mg Tab.Chew) 750 mg PO Q4H PRN PRN Reason: Heartburn Octreotide Acetate 500 mcg/ (Sodium Chloride) 501 mls @ 50.1 mls/hr IVCONT .Q10H [facility] Last Admin: 01/29/25 12:08 Dose: 50 mcg/hr, 50.1 mls/hr Magnesium Hydroxide (Milk Of Magnesia 30 Ml Oral.Susp) 30 ml PO DAILY PRN PRN Reason: Constipation Melatonin (Melatonin 3 Mg Tablet) 6 mg PO BEDTIME PRN PRN Reason: Insomnia Pantoprazole Sodium (Pantoprazole Sodium 40 Mg/10 Ml Vial) 40 mg IVPUSH BID@0630,1630 [facility] Sodium Chloride (0.9 % Sodium Chloride Flush 3 Ml Syringe) 3 ml IVFLUSH QSHIFT [facility] Home Medications ?Medication ?Instructions ?Recorded ?Confirmed ?Last Taken ?Type blood pressure test kit-large #1 ea 10/16/24 01/29/25 Unknown History chlorhexidine gluconate 0.12 % 15 ml PO BID 01/29/25 Unknown History mouthwash tadalafil 10 mg tablet 10 mg PO DAILY PRN Sexual Activity 01/29/25 Unknown History Physical Exam 2 Vital Signs and Narrative: Vital Signs: Last Vital Signs Temp 97.8 F 01/29/25 09:56 Pulse 72 01/29/25 09:56 Resp 16 01/29/25 09:56 BP 123/60 01/29/25 09:56 Pulse Ox 97 01/29/25 09:56 O2 Del Method Room Air 01/29/25 09:56 BMI result Body Mass Index 26.2 Const: Other: Constitutional: Alert, in no distress, Mental Status: Oriented to person, place and time. Eyes: Pupils are equal, round and reactive to light. Ear, Nose and Throat: Oropharynx clear, mucous membranes moist. Ears and nose without deformities. Respiratory: Clear to auscultation. No wheezing, rales or rhonchi. Cardiovascular: S1 S2 regular. No murmurs, rubs or gallops. Gastrointestinal: Abdomen soft, non-tender, non-distended. Normal bowel sounds.? Neurologic: Cranial nerves II-XII grossly intact. No focal neurological deficits. Moves all extremities spontaneously.? Skin: No rashes or lesions.? Musculoskeletal: No cyanosis or clubbing. Psychiatric: Normal mood and affect? Results Labs 01/29/25 10:41 01/29/25 10:41 Labs: Laboratory Results - last 24 hr 01/29/25 01/29/25 10:41 11:05 MCV 84.6 MCH 26.3 L MCHC 31.1 RDW 16.7 H Plt Count 246 MPV 12.4 Immature Gran % (Auto) 0.6 H Neut % (Auto) 58.9 Lymph % (Auto) 23.8 [place] % (Auto) 13.1 H Eos % (Auto) 3.2 Baso % (Auto) 0.4 Lymph # (Auto) 1.2 [place] # (Auto) 0.7 Eos # (Auto) 0.2 Baso # (Auto) 0.0 Abs Immat Gran (auto) 0.03 Absolute Neuts (auto) 2.9 Absolute Nucleated RBC 0.000 Nucleated RBC % (auto) 0.0 Anion Gap 11 L Estim Creat Clear Calc 46.2 Estimated GFR > 60 Random Glucose 82 Calcium 8.8 D Total Bilirubin 0.3 AST 49 H ALT 21 Alkaline Phosphatase 341 H Total Protein 6.8 Albumin 3.3 L Stool Occult Blood POSITIVE Assessment and Plan (1) UGIB (upper gastrointestinal bleed): Status: Acute (2) Hepatitis C: Qualifiers: Hepatic coma status: without hepatic coma Viral hepatitis chronicity: u nspecified Qualified Code(s): B19.20 - Unspecified viral hepatitis C without hepatic coma Status: Acute (3) Acute blood loss anemia: Status: Acute Plan 69-year-old male with pertinent history of hepatocellular carcinoma status post embolization, HCV/Alcoholic cirrhosis, peripheral neuropathy, hypertension, mood disorder, esophageal varices s/p banding on 01/13 here with rectal bleeding, anemia. GI (rectal bleed), acute blood loss anemia, hemodynamically stable monitor h/h gi consult cotinue ppi, octreotide liquid, npo after MD for EGD tomorrow +/- intervention Hypertension on amlodipine and lisinopril at home, resume if BPs stable Mood disorder resume home meds HCV/alcoholic cirrhosis: Not on diuretics or lactulose. Continue thiamine. Hepatocellular carcinoma: Outpatient follow-up. need for inpt: acute rectal bleed, anemia needs egd Full code Quality Stroke Does the patient have a stroke diagnosis?: No VTE Prior VTE?: No VTE Risk Level:: Medical - low VTE Device Contraindication: N/A - Device Ordered VTE Drug Contraindication: Treatment Not Indicated
[2025-01-29 12:39] LABS: Prothrombin Time 12.2 SEC (10.9-12.4)
--- NOTE | 2025-01-29 13:05 | PM.GICN ---
History of Present Illness Data of Consult Service Date: 01/29/25 Requesting physician: Julius Peñaloza Primary Care Provider: Adam Newell MD HPI Reason for consult: acute blood loss anemai 69-year-old male with pertinent history of hepatocellular carcinoma status post embolization, HCV/Alcoholic cirrhosis, peripheral neuropathy, recurrent GIB, who I am seeing for acute blood loss anemia. Patient noted 2 d of black colored stool. He denies abdominal pain, nausea, vomiting. fevers or chills. Denies recent alcoho or nsaid use. He was admitted for GIB from 01/12 to 01/16 and was found to have esophageal varices that were banded on 01/03 Hgb clsoe to his baseline from d/c few weeks back at around 9 g/dl Review of Systems Review of Systems: Constitutional : No Weight loss, No Fever, No Chills ENT/Mouth : No sore throat, No Rhinorrhea Eyes: No Swelling, No Redness Cardiovascular : No Chest Pain, No SOB, No Edema Respiratory : No Cough, No Sputum, No Wheezing Gastrointestinal : see HPI Genitourinary : NO Dysuria, No Urinary Frequency, No Hematuria, No Urgency Musculoskeletal : no joint pain, No Myalgias, No Joint Swelling Skin : No Skin Lesions, No rash Neuro : No Weakness, No Numbness, No Dizziness, No Headache Psych : No Anxiety/Panic, No Depression Heme/Lymph: No Bruising, No Lymphadenopathy Endocrine : No Polyuria, No Polydipsia All other systems reviewed and are negative. [facility] Past Medical History Medical History Hepatocellular carcinoma Neuropathy involving both lower extremities Liver cirrhosis Hepatitis C Common cold Lower back pain Family History Family History Father Prostate cancer Mother Diabetes Stroke Surgical History Surgical History History of tooth extraction Hx of colonoscopy (~10/29/23) History of breast lump/mass excision History of ankle surgery History of appendectomy History of open reduction and internal fixation (ORIF) procedure Social History Social History Household Members: Family Housing: Apartment Are you a primary memory care director to a significant other at home: No Do you 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) Alcohol intake: former Patient Tobacco Use Status: Former Tobacco user Tobacco use type: Cigarette e-Cigarette/Vaping Use: Never Used Second Hand Smoke Exposure: Yes Advance Directives: No Advance Directives Information Provided: Yes service: No Current occupational status: disabled Cognitive needs: Yes (cane) Hearing needs: No Vision needs: Yes (glasses) Meds Allergies Allergy/AdvReac Type Severity Reaction Status Date / Time No Known Allergies Allergy Verified 01/29/25 10:00 [No Known Allergies*] Active Medications: Current Medications Acetaminophen (Acetaminophen 325 Mg Tablet) 650 mg PO Q6H PRN PRN Reason: Pain, Mild 1-3,fever,headache Calcium Carbonate (Calcium Carbonate 750 Mg Tab.Chew) 750 mg PO Q4H PRN PRN Reason: Heartburn Octreotide Acetate 500 mcg/ (Sodium Chloride) 501 mls @ 50.1 mls/hr IVCONT .Q10H [facility] Last Admin: 01/29/25 12:08 Dose: 50 mcg/hr, 50.1 mls/hr Magnesium Hydroxide (Milk Of Magnesia 30 Ml Oral.Susp) 30 ml PO DAILY PRN PRN Reason: Constipation Melatonin (Melatonin 3 Mg Tablet) 6 mg PO BEDTIME PRN PRN Reason: Insomnia Pantoprazole Sodium (Pantoprazole Sodium 40 Mg/10 Ml Vial) 40 mg IVPUSH BID@0630,1630 [facility] Sodium Chloride (0.9 % Sodium Chloride Flush 3 Ml Syringe) 3 ml IVFLUSH QSHIFT [facility] Home Medications ?Medication ?Instructions ?Recorded ?Confirmed ?Last Taken ?Type blood pressure test kit-large #1 ea 10/16/24 01/29/25 Unknown History Physical Exam Vital Signs: Vital Signs: Last Vital Signs Temp 97.8 F 01/29/25 09:56 Pulse 72 01/29/25 09:56 Resp 16 01/29/25 09:56 BP 123/60 01/29/25 09:56 Pulse Ox 97 01/29/25 09:56 O2 Del Method Room Air 01/29/25 09:56 BMI result Body Mass Index 26.2 EXAM: GENERAL: The patient is well developed and nontoxic. VITAL SIGNS:see workflow HEENT: Nonicteric sclerae, PERRLA, EOMI. Oropharynx clear. Moist mucous membranes. Conjunctivae appear well perfused. No thyroid mass. CHEST: Chest wall is nontender. HEART: Regular rate and rhythm without murmurs. LUNGS: Clear to auscultation bilaterally. ABDOMEN: Soft, positive bowel sounds, nontender, no organomegaly.no flank tenderness SKIN: No rash, no excessive bruising, petechiae, or purpura. NEUROLOGIC: Cranial nerves II-XII intact without motor/sensory deficit. Psych: normal affect Results Labs 01/29/25 10:41 01/29/25 10:41 Labs: Short CBC 01/29/25 Range/Units 10:41 WBC 5.0 (4.8-10.8) X10*3/uL Hgb 8.4 L (14.0-18.0) g/dl Hct 27.0 L (42.0-52.0) % Plt Count 246 (160-400) X10*3/uL BMP 01/29/25 10:41 Sodium 141 Potassium 4.6 Chloride 108 Carbon Dioxide 27 BUN 16 Creatinine 1.18 Calcium 8.8 D Liver Function 01/29/25 Range/Units 10:41 Total Bilirubin 0.3 (0.0-1.0) mg/dL AST 49 H (5-37) U/L ALT 21 (0-40) U/L Alkaline Phosphatase 341 H (39-117) U/L Albumin 3.3 L (3.5-5.0) g/dL Assessment and Plan (1) UGIB (upper gastrointestinal bleed): Status: Acute Plan 1/ Acute blood loss anemia, hx of varices PLAN: 1/ agree with octreotide, PPI and ABX for the moment 2/ can allow clears for the moment 3/ EGD tomorrow 4/ watch for alcohol withdrawal Procedures Date of Service Date of Service: 01/29/25
--- NOTE | 2025-01-29 14:28 | PHA.MEDREC ---
Addendum entered by Bobbi Swain RPh 01/29/25 14:35: reviewed by [facility]. Original Note: Pharmacy Consult ? Medication Reconciliation Pharmacy has completed the medication reconciliation. Spoke to patient through translator and interpreter service to confirm med list, Patient was able to say yes or no to the medication he takes. Patient last had his medication today.
[2025-01-29] MEDS: 0.9 % Sodium Chloride Flush 3 ML SYRINGE IVFLUSH ×2 (16:51→22:12)
[2025-01-29 20:33] VITALS: BP 141/43; PULSE 61; RESP 14; TEMP 36.7; O2SAT 98
[2025-01-29 21:40] VITALS: BP 170/79; PULSE 63; RESP 16; TEMP 36.7; O2SAT 100
[2025-01-29] MEDS: traMADoL HCL 50 MG TABLET PO (22:08)
[2025-01-29] MEDS: Mirtazapine 7.5 MG TABLET PO (22:08)
[2025-01-29 23:06] VITALS: BP 164/80; PULSE 64; RESP 18; TEMP 36.1; O2SAT 100
[2025-01-30] VITALS (8 sets, daily range): BP systolic 103–145; BP diastolic 58–74; PULSE 57–79; RESP 12–18; TEMP 36.1–36.8; O2SAT 97–99
[2025-01-30] MEDS: Pantoprazole Sodium 40 MG/10 ML VIAL IVPUSH ×2 (05:56→17:45)
[2025-01-30 07:57] LABS: Alanine Aminotransferase 25 U/L (0-40); Albumin Level 3.3 g/dL (3.5-5.0); Alkaline Phosphatase 355 U/L (39-117); Anion Gap 12 (12-20); Aspartate Amino Transferase 64 U/L (5-37); Bilirubin Total 0.3 mg/dL (0.0-1.0); Blood Urea Nitrogen 14 mg/dL (9-16); Calcium 8.4 mg/dL (8.4-10.2); Carbon Dioxide 26 mmol/L (22-29); Chloride 108 mmol/L (96-108); Creatinine Clr Calc Pharmacy 53.4; Estimated Glomerular Filt Rate > 60; Glucose Random 56 mg/dL (60-115); Potassium 4.4 mmol/L (3.3-5.1); Sodium 142 mmol/L (135-145); Total Protein 6.7 g/dL (6.5-8.0)
[2025-01-30 08:10] LABS: Glucose, Whole Blood 58 mg/dL (60-115)
[2025-01-30] MEDS: Dextrose 50 % 25 GM/50 ML SYRINGE IVPUSH (08:24)
[2025-01-30] MEDS: lisinopriL 10 MG TABLET PO (08:32)
[2025-01-30] MEDS: traMADoL HCL 50 MG TABLET PO (08:32)
[2025-01-30] MEDS: amLODIPine Besylate 10 MG TABLET PO (08:32)
[2025-01-30] MEDS: Dextrose 5 % and Lactated Ring 1,000 ML 100 ML IVCONT (08:45)
[2025-01-30 09:00] LABS: Glucose, Whole Blood 179 mg/dL (60-115)
[2025-01-30] MEDS: Octreotide Acetate 500 MCG in 0.9 % Sodium Chloride 500 ML 50.1 MCG IVCONT (09:01)
[2025-01-30] MEDS: 0.9 % Sodium Chloride Flush 3 ML SYRINGE IVFLUSH (09:02)
[2025-01-30 10:42] LABS: Glucose, Whole Blood 138 mg/dL (60-115)
--- NOTE | 2025-01-30 11:18 | P.PNGI_ITS ---
Subjective Subjective Date of Service: 01/30/25 Interval History: still seeing dark stools last night, no abdominal pain no nausea, vomiting no sob Critical Care Time (minutes): 0 Physical Exam 2 Vital Signs: Vital Signs: Last Vital Signs Temp 97 F 01/30/25 11:01 Pulse 61 01/30/25 11:01 Resp 18 01/30/25 11:01 BP 145/58 H 01/30/25 11:01 Pulse Ox 98 01/30/25 11:01 O2 Del Method Room Air 01/30/25 11:01 BMI result Body Mass Index 26.2 EXAM: GENERAL: The patient is well developed and nontoxic. VITAL SIGNS:see workflow HEENT: Nonicteric sclerae, PERRLA, EOMI. Oropharynx clear. Moist mucous membranes. Conjunctivae appear well perfused. No thyroid mass. CHEST: Chest wall is nontender. HEART: Regular rate and rhythm without murmurs. LUNGS: Clear to auscultation bilaterally. ABDOMEN: Soft, positive bowel sounds, nontender, no organomegaly.no flank tenderness SKIN: No rash, no excessive bruising, petechiae, or purpura. NEUROLOGIC: Cranial nerves II-XII intact without motor/sensory deficit. Psych: normal affect Objective Data Labs 01/29/25 10:41 01/30/25 06:32 Labs: Laboratory Results - last 24 hr 01/29/25 01/30/25 01/30/25 12:27 06:32 08:04 Hold Purple Top SEE NOTE PT 12.2 INR 1.0 Sodium 142 Potassium 4.4 Chloride 108 Carbon Dioxide 26 Anion Gap 12 BUN 14 Creatinine 1.02 Estim Creat Clear Calc 53.4 Estimated GFR > 60 POC Glucose 58 L* Random Glucose 56 L* Calcium 8.4 Total Bilirubin 0.3 AST 64 H ALT 25 Alkaline Phosphatase 355 H Total Protein 6.7 Albumin 3.3 L Blood Type A Negative Antibody Screen NEGATIVE 01/30/25 01/30/25 08:57 10:38 Hold Purple Top PT INR Sodium Potassium Chloride Carbon Dioxide Anion Gap BUN Creatinine Estim Creat Clear Calc Estimated GFR POC Glucose 179 H 138 H Random Glucose Calcium Total Bilirubin AST ALT Alkaline Phosphatase Total Protein Albumin Blood Type Antibody Screen Procedures Date of Service Date of Service: 01/30/25 Progress Note: A&P Assessment and plan (1) Acute blood loss anemia: Status: Acute Plan 1/ melena and anemia, ? repat of variceal bleeding PLAN: 1/ cont with PPI, octreotide 2/ EGD today, if neg then maybe colonoscopy tomorrow Time Spent With Patient Time: Total time managing care of this patient today ____ minutes. Quality Stroke Does the patient have a stroke diagnosis?: No VTE Prior VTE?: No VTE Risk Level:: Medical - low VTE Device Contraindication: N/A - Device Ordered VTE Drug Contraindication: Treatment Not Indicated
--- NOTE | 2025-01-30 11:20 | MHC.SHP ---
Pre-Procedural Eval Section A - 24 Hr Update-Section A only Date of Service: 01/30/25 The patient is an INPATIENT: Yes The patient has been examined within 24 hours of the surgical procedure. The History & Physical has been completed within 30 days and I have reviewed it.: Yes Section B - Complete if H&P > 30 days Chief Complaint: GIB Acute Blood Loss Anemia Allergies: Allergies Allergy/AdvReac Type Severity Reaction Status Date / Time No Known Allergies Allergy Verified 01/29/25 10:00 [No Known Allergies*] Plan Diagnosis/Plan: Unchanged I have reviewed the history and physical and performed a pertinent physical examination on my patient. No changes have occurred unless specified. EGD fro assessment Time Spent With Patient Time: Total time managing care of this patient today ____ minutes.
--- NOTE | 2025-01-30 11:21 | P.CONAN_ITS ---
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) (Acute) HCC (hepatocellular carcinoma) (Acute) Hepatitis C (Acute) Neuropathy involving both lower extremities (Acute) Right lateral epicondylitis (Acute) History of alcohol abuse (Acute) History of cancer chemotherapy (Acute) History of breast lump/mass excision (Acute) Osteoarthritis of knees, bilateral (Acute) Meralgia paresthetica of both lower extremities (Acute) Low vitamin D level (Acute) Lumbar degenerative disc disease (Acute) Bilateral knee pain (Acute) GERD (gastroesophageal reflux disease) (Acute) Elevated blood pressure reading (Acute) Screening for hypothyroidism (Acute) Screening for hyperlipidemia (Acute) Bilateral leg pain (Acute) Myalgia (Acute) Lumbar spondylosis (Acute) Liver cirrhosis (Acute) Leg weakness, bilateral (Acute) Common cold (Acute) Lower back pain (Acute) Past Medical History Medical History Hepatocellular carcinoma Neuropathy involving both lower extremities Liver cirrhosis Hepatitis C Common cold Lower back pain Family History Family History Father Prostate cancer Mother Diabetes Stroke Family history of problems with anesthesia: No Surgical History Surgical History History of tooth extraction Hx of colonoscopy (~10/29/23) History of breast lump/mass excision History of ankle surgery History of appendectomy History of open reduction and internal fixation (ORIF) procedure History of Problems with Anesthesia: No Social History Social History Household Members: None and Other Housing: Apartment Are you a primary progressive care nurse to a significant other at home: No Do you presently have visiting nurse or other home services: 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) Unable to assess alcohol history related to: Unknown Alcohol intake: former Patient Tobacco Use Status: Former Tobacco user Tobacco use type: Cigarette e-Cigarette/Vaping Use: Never Used Second Hand Smoke Exposure: No service: No Current occupational status: disabled Cognitive needs: Yes (cane) Hearing needs: No Vision needs: Yes (glasses) Meds Allergies Allergy/AdvReac Type Severity Reaction Status Date / Time No Known Allergies Allergy Verified 01/29/25 10:00 [No Known Allergies*] Active Medications: Current Medications Acetaminophen (Acetaminophen 325 Mg Tablet) 650 mg PO Q6H PRN PRN Reason: Pain, Mild 1-3,fever,headache Amlodipine Besylate (Amlodipine Besylate 10 Mg Tablet) 10 mg PO DAILY [facility]; Protocol Last Admin: 01/30/25 08:32 Dose: 10 mg Calcium Carbonate (Calcium Carbonate 750 Mg Tab.Chew) 750 mg PO Q4H PRN PRN Reason: Heartburn Dextrose (Dextrose 50 % 25 Gm/50 Ml Syringe) 25 gm IVPUSH Q15M PRN; Protocol PRN Reason: per Hypoglycemia Standing Ord. Last Admin: 01/30/25 08:24 Dose: 25 gm Glucose (Glucose Gel 15 Gm Gel..Gram.) 15 gm PO Q15M PRN; Protocol PRN Reason: per Hypoglycemia Standing Ord. Octreotide Acetate 500 mcg/ (Sodium Chloride) 501 mls @ 50.1 mls/hr IVCONT .Q10H [facility] Last Admin: 01/30/25 09:01 Dose: 50 mcg/hr, 50.1 mls/hr Dextrose/Lactated Ringer's (D5lr) 1,000 mls @ 100 mls/hr IVCONT .Q10H [facility] Last Admin: 01/30/25 08:45 Dose: 100 mls/hr Lisinopril (Lisinopril 10 Mg Tablet) 10 mg PO DAILY [facility]; Protocol Last Admin: 01/30/25 08:32 Dose: 10 mg Magnesium Hydroxide (Milk Of Magnesia 30 Ml Oral.Susp) 30 ml PO DAILY PRN PRN Reason: Constipation Melatonin (Melatonin 3 Mg Tablet) 6 mg PO BEDTIME PRN PRN Reason: Insomnia Mirtazapine (Mirtazapine 7.5 Mg Tablet) 7.5 mg PO BEDTIME [facility] Last Admin: 01/29/25 22:08 Dose: 7.5 mg Omeprazole (Omeprazole 40 Mg Capsule.Dr) 40 mg PO DAILY@0630 [facility] Last Admin: 01/30/25 05:56 Dose: Not Given Pantoprazole Sodium (Pantoprazole Sodium 40 Mg/10 Ml Vial) 40 mg IVPUSH BID@0630,1630 [facility] Last Admin: 01/30/25 05:56 Dose: 40 mg Sodium Chloride (0.9 % Sodium Chloride Flush 3 Ml Syringe) 3 ml IVFLUSH QSHIFT [facility] Last Admin: 01/30/25 09:02 Dose: 3 ml Tramadol HCl (Tramadol Hcl 50 Mg Tablet) 50 mg PO BID [facility] Last Admin: 01/30/25 08:32 Dose: 50 mg Home Medications ?Medication ?Instructions ?Recorded ?Confirmed ?Last Taken ?Type blood pressure test kit-large #1 ea 10/16/24 01/29/25 Unknown History chlorhexidine gluconate 0.12 % 15 ml PO BID 01/29/25 01/29/25 01/28/25 History mouthwash omeprazole 40 mg capsule,delayed 40 mg PO DAILY@0601/29/25 01/29/25 01/28/25 History release tadalafil 10 mg tablet 10 mg PO DAILY PRN Sexual Activity 01/29/25 01/29/25 Unknown History Exam Height,Weight and Vital Signs: Height 5 ft 3 in Weight 67.132 kg Last Vital Signs Temp 97 F 01/30/25 11:01 Pulse 61 01/30/25 11:01 Resp 18 01/30/25 11:01 BP 145/58 H 01/30/25 11:01 Pulse Ox 98 01/30/25 11:01 O2 Del Method Room Air 01/30/25 11:01 Pertinent Lab Results Pertinent Lab Results: Laboratory Tests 01/29/25 01/29/25 01/29/25 10:41 11:05 12:27 WBC 5.0 RBC 3.19 L Hgb 8.4 L Hct 27.0 L MCV 84.6 MCH 26.3 L MCHC 31.1 RDW 16.7 H Plt Count 246 MPV 12.4 Immature Gran % (Auto) 0.6 H Neut % (Auto) 58.9 Lymph % (Auto) 23.8 Metcalfe % (Auto) 13.1 H Eos % (Auto) 3.2 Baso % (Auto) 0.4 Lymph # (Auto) 1.2 Metcalfe # (Auto) 0.7 Eos # (Auto) 0.2 Baso # (Auto) 0.0 Abs Immat Gran (auto) 0.03 Absolute Neuts (auto) 2.9 Absolute Nucleated RBC 0.000 Nucleated RBC % (auto) 0.0 Hold Purple Top PT 12.2 INR 1.0 Sodium 141 Potassium 4.6 Chloride 108 Carbon Dioxide 27 Anion Gap 11 L BUN 16 Creatinine 1.18 Estim Creat Clear Calc 46.2 Estimated GFR > 60 POC Glucose Random Glucose 82 Calcium 8.8 D Total Bilirubin 0.3 AST 49 H ALT 21 Alkaline Phosphatase 341 H Total Protein 6.8 Albumin 3.3 L Stool Occult Blood POSITIVE Blood Type A Negative Antibody Screen NEGATIVE 01/30/25 01/30/25 01/30/25 06:32 08:04 08:57 WBC RBC Hgb Hct MCV MCH MCHC RDW Plt Count MPV Immature Gran % (Auto) Neut % (Auto) Lymph % (Auto) Metcalfe % (Auto) Eos % (Auto) Baso % (Auto) Lymph # (Auto) Metcalfe # (Auto) Eos # (Auto) Baso # (Auto) Abs Immat Gran (auto) Absolute Neuts (auto) Absolute Nucleated RBC Nucleated RBC % (auto) Hold Purple Top SEE NOTE PT INR Sodium 142 Potassium 4.4 Chloride 108 Carbon Dioxide 26 Anion Gap 12 BUN 14 Creatinine 1.02 Estim Creat Clear Calc 53.4 Estimated GFR > 60 POC Glucose 58 L* 179 H Random Glucose 56 L* Calcium 8.4 Total Bilirubin 0.3 AST 64 H ALT 25 Alkaline Phosphatase 355 H Total Protein 6.7 Albumin 3.3 L Stool Occult Blood Blood Type Antibody Screen 01/30/25 10:38 WBC RBC Hgb Hct MCV MCH MCHC RDW Plt Count MPV Immature Gran % (Auto) Neut % (Auto) Lymph % (Auto) Metcalfe % (Auto) Eos % (Auto) Baso % (Auto) Lymph # (Auto) Metcalfe # (Auto) Eos # (Auto) Baso # (Auto) Abs Immat Gran (auto) Absolute Neuts (auto) Absolute Nucleated RBC Nucleated RBC % (auto) Hold Purple Top PT INR Sodium Potassium Chloride Carbon Dioxide Anion Gap BUN Creatinine Estim Creat Clear Calc Estimated GFR POC Glucose 138 H Random Glucose Calcium Total Bilirubin AST ALT Alkaline Phosphatase Total Protein Albumin Stool Occult Blood Blood Type Antibody Screen Airway Mallampati Class: II TM Dist: <=3cm Neck ROM: Full Denture: Upper and Lower Heart: ok Lungs: ok Assessment and Plan Assessment Anesthesia Assessment: Anesthesia Plan Discussed and Chart Reviewed Final Anesthetic Review Family History of Problems with Anesthesia: No History of Problems with Anesthesia: No NPO: Yes ASA Class: IV Final Preanesthetic Review: No Changes in Pt Med Stat, Meds/Allgs Chart Review ed, Consent Obtained/Reviewed and Anes Risks/Benef Reviewed Patient Risk: High Procedure Risk: Intermediate Anesthetic Plan Anesthetic Plan: Agree w/ Assess. and Plan and TIVA Disposition: Standard PACU
--- NOTE | 2025-01-30 11:46 | MHC.CM.PN ---
Pt was not in room, pt down for procedure (EGD), will attempt to meet with pt when he returns to the unit.
--- NOTE | 2025-01-30 12:13 | W.PM.OPN ---
Operative Note Operative Note Date of Service: 01/30/25 Narrative: Procedure Description: EGD Indication: melena Anesthesia: MAC FLEXIBLE TRANSORAL UPPER GASTROINTESTINAL ENDOSCOPY UPPER ENDOSCOPY Consent: Indications for the procedure and potential complications of bleeding, perforation, reaction to medications and missed diagnosis were discussed with the patient and informed consent was obtained. Instrument: Olympus GIF H 190 J mid size upper endoscope Monitoring: Vital signs and clinical assessment, continuous EKG monitoring, Pulse oximetry, Carbon Dioxide monitoring and blood pressure monitoring were done throughout the procedure. Procedure: The patient was placed in the left lateral decubitis position and pre-procedure medications were administered and a bite block was placed. The endoscope was inserted into the mouth and advanced under direct vision to the third part of duodenum. A careful inspection was made as the upper endoscope was withdrawn including a retroflexed examination of the proximal stomach; Findings and interventions are described below. Findings: Larynx:normal Esophagus: GE junction at 40 cm, diaphragm hiatus at 40 cm, flat varices seen with few areas of superficial ulceration and slough from recent banding Stomach: congestive gastropathy noted with erosions in distal stomach . Biopsies were obtained. Grade 2 flap valve on retroflexed examination of the cardia. no gastric varices seen Duodenum: non bleeding AVM noted in second part of duodenum treated with APC, also inflammed lymphoid nodule treated with APC Intervention: Biopsies as noted above, APC Impression/Findings: gastritis AVM portal hypertensive gastropathy esophgeal erosions and slough from recent banding PLAN: can stop octreotide cont with PPI if HGB stable then advance diet and home if conts to drop HGB then prep for colonoscopy
[2025-01-30 12:26] LABS: Glucose, Whole Blood 103 mg/dL (60-115)
[2025-01-30 12:58] LABS: Glucose, Whole Blood 81 mg/dL (60-115)
--- NOTE | 2025-01-30 13:06 | PM.DS ---
DS: Providers Provider Date of Service: 01/30/25 Date of admission: 01/29/25 11:49 Date of discharge: 01/30/25 Primary care physician: Adam Newell MD Consults: 01/29/25 12:11 Consult to Gastroenterology Routine Consulting Provider: Amber Maza Reason for consultation: gib bleeding DS: Diagnosis Discharge Diagnosis (1) Acute blood loss anemia: Status: Acute DS: Summary Hospital Course Hospital Course: admission hpi Chief Complaint: GI Bleeding Chief Complaint: Low hemoglobin This is a 69-year-old male with pertinent history of hepatocellular carcinoma status post embolization, HCV/Alcoholic cirrhosis, peripheral neuropathy, recurrent GIB, was admitted for GIB from 01/12 to 01/16 and was found to have esophageal varices that were banded on 01/03 and comes with report of rectal bleeding x 2 days. Occult blood is positive hemoglobin is 8.4 and hematocrit is 27. There is no active bleed and he's hemodynamically stable. GI is planning EGD tomorrow. He's received IV PPI and octreotide. hospital course: Patient was admitted overnight and continued on octreotide, IV PPI, there was no shift in H and H. He had EGD the next day with no acute finding and Gi recommends PPI, advancing diet and dc Time Attestation Discharge Coordination Time (in mins): 45 Quality: Safe Use of Opioids Does Pt have an Active Cancer Diagnosis on the Problem List?: No Quality: Stroke Does the patient have a stroke diagnosis?: No Physical Exam Vital Signs: Vital Signs: Last Vital Signs Temp 96.9 F 01/30/25 12:57 Pulse 62 01/30/25 12:57 Resp 16 01/30/25 12:57 BP 140/65 H 01/30/25 12:57 Pulse Ox 97 01/30/25 12:57 O2 Del Method Room Air 01/30/25 12:57 BMI result Body Mass Index 26.2 DS: Data Data Completed and Pending Completed studies during hospitalization [Text1]: Procedures Control Bleeding in Gastrointestinal Tract, Via Natural or Artificial Opening Endoscopic (10/27/23) Destruction of Duodenum, Via Natural or Artificial Opening Endoscopic (10/27/23) Excision of Cecum, Via Natural or Artificial Opening Endoscopic, Diagnostic (10/27/23) Excision of Stomach, Pylorus, Via Natural or Artificial Opening Endoscopic, Diagnostic (10/27/23) Occlusion of Esophageal Vein with Extraluminal Device, Via Natural or Artificial Opening Endoscopic (01/12/25) Transfusion of Nonautologous Red Blood Cells into Peripheral Vein, Percutaneous Approach (01/12/25) Pending studies at discharge: Pending at discharge 01/30/25 12:09 Surgical [PTH] Routine Labs on day of discharge: Laboratory Results - last 24 hr 01/29/25 01/30/25 01/30/25 12:27 06:32 08:04 Hold Purple Top SEE NOTE Sodium 142 Potassium 4.4 Chloride 108 Carbon Dioxide 26 Anion Gap 12 BUN 14 Creatinine 1.02 Estim Creat Clear Calc 53.4 Estimated GFR > 60 POC Glucose 58 L* Random Glucose 56 L* Calcium 8.4 Total Bilirubin 0.3 AST 64 H ALT 25 Alkaline Phosphatase 355 H Total Protein 6.7 Albumin 3.3 L Antibody Screen NEGATIVE 01/30/25 01/30/25 01/30/25 08:57 10:38 12:23 Hold Purple Top Sodium Potassium Chloride Carbon Dioxide Anion Gap BUN Creatinine Estim Creat Clear Calc Estimated GFR POC Glucose 179 H 138 H 103 Random Glucose Calcium Total Bilirubin AST ALT Alkaline Phosphatase Total Protein Albumin Antibody Screen 01/30/25 12:50 Hold Purple Top Sodium Potassium Chloride Carbon Dioxide Anion Gap BUN Creatinine Estim Creat Clear Calc Estimated GFR POC Glucose 81 Random Glucose Calcium Total Bilirubin AST ALT Alkaline Phosphatase Total Protein Albumin Antibody Screen Discharge Plan Discharge Anticipated Discharge Date/Time: 01/30/25 15:08 Patient Disposition: Home, Self-Care Discharge Diagnosis: Acute blood loss anemia, gi bleeding Referrals: Adam Newell MD [Primary Care Provider] - 1 Week Discharge Medications: Continued mirtazapine 7.5 mg tablet 7.5 mg PO BEDTIME Qty: 30 1RF (DME) Blood pressure monitor See Rx Instructions .Route .MEDSUPPLY Qty: 1 0RF Rx Instructions: As directed lisinopril 10 mg tablet 10 mg PO DAILY Qty: 90 1RF Protocol: Hold for SBP< HOLD for SBP < : 90 amlodipine 10 mg tablet 10 mg PO DAILY Qty: 90 1RF Protocol: Hold for SBP< HOLD for SBP < : 90 tramadol 50 mg tablet 50 mg PO BID Qty: 60 0RF ferrous sulfate 325 mg (65 mg iron) tablet 325 mg PO BID Qty: 60 6RF tadalafil 10 mg tablet 10 mg PO DAILY PRN (Reason: Sexual Activity) chlorhexidine gluconate 0.12 % mouthwash 15 ml PO BID omeprazole 40 mg capsule,delayed release(DR/EC) 40 mg PO DAILY@0630 (DME) blood pressure monitor Kit See Rx Instructions .Route Qty: 1 0RF Rx Instructions: As directed (DME) [facility] See Rx Instructions .Route Qty: 1 0RF Rx Instructions: As directed (DME) blood pressure test kit-large Kit See Rx Instructions .ROUTE DIRECTED Qty: 1 Rx Instructions: As directed Discharge Orders: Discharge Order (Routine); Ordered 01/30/25 Ordered By: Julius Peñaloza Diet: Advance to usual diet Activity on Discharge: As tolerated Stand Alone Forms: Patient Portal Discharge page Print Language: Brazilian Care Plan Goals: recovery from gi bleeding, Health Concerns: history of varices Plan of Treatment: take prilosec as recommended and follow up with your Doctor in a week Assessment: see back Discharge Date/Time: 01/30/25 18:03
[2025-01-30 13:39] LABS: MANUAL DIFF FLAG NO
[2025-01-30 13:41] LABS: Basophils Percent Auto 0.8 % (0-2); Eosinophils Absolute Auto 0.2 X10*3/uL (0.0-0.4); Eosinophils Percent Auto 5.8 % (0-4); Hematocrit 26.8 % (42.0-52.0); Hemoglobin 8.5 g/dl (14.0-18.0); Imm Gran Abs Auto 0.01 X10*3/uL (0.00-0.03); Imm Gran Pct Auto 0.3 % (0.0-0.4); Lymphocytes Absolute Auto 1.1 X10*3/uL (1.2-4.9); Lymphocytes Percent Auto 31.5 % (20-40); Mean Corpuscular HGB Conc 31.7 g/dl (31.0-36.0); Mean Corpuscular Hemoglobin 26.7 pg (27.0-33.0); Mean Corpuscular Volume 84.3 fL (80.0-98.0); Mean Platelet Volume 12.8 fL (9.4-12.4); Monocytes Absolute Auto 0.5 X10*3/uL (0.1-1.2); Monocytes Percent Auto 14.6 % (2-11); Neutrophils Absolute Auto 1.7 x10*3/uL (2.0-8.3); Platelet Count 221 X10*3/uL (160-400); Red Blood Count 3.18 X10*6/uL (4.60-5.80); Red Cell Distribution Width 16.5 % (11.0-16.0); White Blood Count 3.6 X10*3/uL (4.8-10.8)
--- NOTE | 2025-01-30 14:42 | MHC.CM.PN ---
IMM 5/. This CM met with pt with the assistance of a aerial photograph interpreter. Pt lives at home alone, he has [employer]PECT[employer] services daily, uses a cane and a walker. Pt will arrange his own transport home at discharge, HCP on file and verified. PCP: Dr. Adam Newell
== END 2025-01-30 18:03 | disposition home or self-care (01) | DRG 378 ==
LOC: HO.ED 11:51 → HO.EDOVER 12:03 → HO.IMC 20:00
PROVIDERS: Internal Medicine Gastroenterology; Admitting Provider Internal Medicine; Emergency Provider Emergency Medicine; PCP Internal Medicine; Visit Provider Internal Medicine
PROC: 0DJ08ZZ Inspection of Upper Intestinal Tract, Via Natural or Artificial Opening Endoscopic (ICD-10-PCS; CPT 43235; principal; 2025-01-30 13:10)
DX: K55.21 Angiodysplasia of colon with hemorrhage (principal); C22.0 Liver cell carcinoma; D62 Acute posthemorrhagic anemia; K76.6 Portal hypertension; G62.9 Polyneuropathy, unspecified; K31.89 Other diseases of stomach and duodenum; K22.11 Ulcer of esophagus with bleeding; K29.71 Gastritis, unspecified, with bleeding; Z86.19 Personal history of other infectious and parasitic diseases; Z87.891 Personal history of nicotine dependence; Z79.899 Other long term (current) drug therapy
CPT/HCPCS: 43270; 43239; 36415; 80053; 82272; 82947; 85025; 85610; 86850; 86900; 86901; 88305; 88342; 99212; 99222; 99285; J0696; J2003; J2354; J2470; J2704; J3010

== ENCOUNTER → 2025-01-29 11:49 | Outpatient (BNV) | payer MEDICARE, MEDICAID, SELFPAY | PROVIDERS: Admitting Provider Internal Medicine; Emergency Provider Emergency Medicine; PCP Internal Medicine; Visit Provider Internal Medicine | DX: D62 Acute posthemorrhagic anemia (principal) | CPT/HCPCS: 99223; 99239 ==

== ENCOUNTER → 2025-01-29 11:49 | Outpatient (BNV) | payer MEDICARE, MEDICAID, SELFPAY | PROVIDERS: Admitting Provider Internal Medicine; Emergency Provider Emergency Medicine; PCP Internal Medicine; Visit Provider Internal Medicine Gastroenterology | DX: K92.2 Gastrointestinal hemorrhage, unspecified (principal) | CPT/HCPCS: 99223 ==

== ENCOUNTER 2025-02-09 14:59 | Outpatient (AMB) | payer OTHER, MEDICAID, SELFPAY ==
[2025-02-09 15:04] VITALS: BP 140/82; PULSE 71; O2SAT 99; BMI 25.7
--- NOTE | 2025-02-09 15:04 | A.OFFPC_ITS ---
Vital Signs 02/09/25 15:04 Height 5 ft 3 in Weight 145 lb BMI 25.7 BP 140/82 H Blood Pressure Location Lt brachial Position Sitting Pulse 71 Pulse Source Pulse Oximeter Pulse Oximetry (%) 99 Oxygen Delivery Method Room Air Intake Visit Reasons: [facility] 01/30 GIB Mill Order Scheduler Required: Yes Accompanied by: Spouse Allergies No Known Allergies [No Known Allergies*] Allergy (Verified 02/09/25 15:07) Tobacco use date assessed: 02/09/25 Fall risk assessment: 2 + Falls in past year Last assessed Fall Risk: 02/09/25 Dental Screening Dental Screen Date: 02/09/25 Did you have a dental visit in the last 12 months?: Yes Did you have a dental problem in the last 6 months where you did not have access to dental care?: No Was dental information given to patient?: Patient has dentist HPI [facility] Information Date of Discharge 01/30/25 Discharged From [facility] Interactive Contact Date (Reference documentation from this date) 01/31/25 HPI Comments History of Present Illness Details 69 y/o Male patient who presents to the clinic for HDF. Pmhx Significant for hepatocellular carcinoma status post embolization, HCV/Alcoholic cirrhosis, peripheral neuropathy, recurrent GIB, was admitted for GIB from 01/12 to 01/16 and was found to have esophageal Varices that were banded on 01/03. He was re-admitted on 01/29 - 01/30 for evaluation and treatment of rectal bleeding. He had EGD with no acute finding and currently on PPI. [facility] Medical History Hepatocellular carcinoma Neuropathy involving both lower extremities Liver cirrhosis Hepatitis C Common cold Lower back pain Surgical History History of tooth extraction Hx of colonoscopy (~10/29/23) History of breast lump/mass excision History of ankle surgery History of appendectomy History of open reduction and internal fixation (ORIF) procedure Family History Father Prostate cancer Mother Diabetes Stroke Social History Household Members: None and Other Housing: Apartment Are you a primary home visit field care manager to a significant other at home: No Do you presently have visiting nurse or 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 1. Little interest or pleasure in doing things: not at all 2. Feeling down, depressed, or hopeless: not at all 3. Trouble falling or staying asleep, or sleeping too much: not at all 4. Feeling tired or having little energy: not at all 5. Poor appetite or overeating: not at all 6. Feeling bad about yourself - or that you are a failure or have let yourself or your family down: not at all 7. Trouble concentrating on things, such as reading the newspaper or watching television: not at all 8. Moving or speaking so slowly that other people could have noticed. Or the opposite - being so fidgety or restless that you have been moving around a lot more than usual: not at all 9. Thoughts that you would be better off or of hurting yourself in some way: not at all Total score: 0 Depression Screening Interpretation: Negative Depression Screening Done: Yes Source: Developed by Drs. Mynor Alba, Wilma Francois, Cornel Garcia and colleagues, with an educational elbert from [employer]. Thrive Questionnaire Date Thrive assessed: 02/09/25 I am a: Patient What is your living situation today?: I have a steady place to live Within the past 12 months, did the food you bought not last and you didn't have the money to get more?: Never true Within the past 12 months, did you worry whether your food would run out before you got money to buy more?: Never true Do you have trouble paying for medicines?: No Do you have trouble getting transportation to medical appointments?: No Do you have trouble paying your heating and electricity bill?: No Do you have trouble taking care of your child, family member or friend?: No Do you have trouble with day-to-day activities such as bathing, preparing meals, shopping, managing finances, etc.?: No Are you currently unemployed and looking for a job?: No Are you interested in more education?: No Please select the resources that you would like help with: None Currently or been in a relationship where the following occur: No concerns reported THRIVE Score: 0 AUDIT C Alcohol Use Questionnaire (AUDIT-C) 1. How often do you have a drink containing alcohol?: 2-3 times a week 2. How many drinks containing alcohol do you have on a typical day when you are drinking?: 1 or 2 3. How often do you have six or more drinks on one occasion?: Never Total Score: 3 PORFIRIO-7 AMB Questionnaire PORFIRIO-7 Date PORFIRIO - 7 assessed: 02/09/25 Feeling nervous, anxious, or on edge: 0 = Not at all Not being able to stop or control worryin = Not at all Worrying too much about different things: 0 = Not at all Trouble relaxin = Not at all Being so restless that it is hard to sit still: 0 = Not at all Becoming easily annoyed or irritable: 0 = Not at all Feeling afraid as if something awful might happen: 0 = Not at all Total PORFIRIO-7 score (0-4 normal; 5-9 mild; 10-14 moderate; 15-21 severe): 0 Source: Developed by Drs. Mynor Alba, Wilma Francois, Cornel Garcia and colleagues, with an educational elbert from [employer]. Review of Systems Const All systems reviewed & are unremarkable except as noted in HPI and below Physical exam (Primary Care) Vital Signs: Last Vital Signs Pulse 71 02/09/25 15:04 BP 140/82 H 02/09/25 15:04 Pulse Ox 99 02/09/25 15:04 Oxygen Delivery Method Room Air 02/09/25 15:04 BMI result Body Mass Index 25.7 Tobacco/Smoking Status: Tobacco use Status Tobacco use date assessed 02/09/25 02/09/25 15:09 Patient Tobacco Use Status Former Tobacco user 02/09/25 15:04 Tobacco use type Cigarette 02/09/25 15:04 e-Cigarette/Vaping Use Never Used 02/09/25 15:04 PHQ-9: PHQ-9 Score PHQ-9: Total score 0 02/09/25 15:37 Depression Screening Interpretation: Negative Thrive Assessment: Date of Thrive Assessment Date Thrive assessed 02/09/25 02/09/25 15:09 Currently or been in a relationship where the following occur: No concerns reported Resp Effort & Inspection: normal respiratory effort Auscultation: clear to auscultation bilaterally Cardio Heart sounds: S1 normal heart sound present and S2 normal heart sound present GI Palpation (GI): Soft to palpation and No hepatosplenomegaly present Auscultation: normal bowel sounds Coding Level of Care Code TCM Mod MDM <= 14 Days Diagnoses Acute blood loss anemia D62 Primary osteoarthritis of both knees M17.0 Osteoarthritis type: primary Time Spent (min) 20 Assessment & Plan Assessment & Plan (1) Acute blood loss anemia: Code(s): D62 - Acute posthemorrhagic anemia Category: Medical Plan: Resolved. (2) Osteoarthritis of knees, bilateral: Code(s): M17.0 - Bilateral primary osteoarthritis of knee Category: Medical Qualifiers: Osteoarthritis type: primary Qualified Code(s): M17.0 - Bilateral primary osteoarthritis of knee Plan: Acetaminophen for pain relief.
== END 2025-02-09 15:44 | disposition home or self-care (01) ==
LOC: HO.HMCH 15:00
PROVIDERS: PCP Internal Medicine; Visit Provider Nurse Practitioner Family
DX: D62 Acute posthemorrhagic anemia (principal); M17.0 Bilateral primary osteoarthritis of knee

== ENCOUNTER → 2025-02-09 14:59 | Outpatient (BNVA) | payer OTHER, SELFPAY | PROVIDERS: PCP Internal Medicine; Visit Provider Nurse Practitioner Family | DX: D62 Acute posthemorrhagic anemia (principal); M17.0 Bilateral primary osteoarthritis of knee; K70.30 Alcoholic cirrhosis of liver without ascites; G62.9 Polyneuropathy, unspecified | CPT/HCPCS: 96127; 99212 ==

== ENCOUNTER 2025-02-22 13:01 | Outpatient (AMB) | payer OTHER, MEDICAID, SELFPAY ==
[2025-02-22 13:16] VITALS: BP 116/80; PULSE 70; O2SAT 98; BMI 25.2
--- NOTE | 2025-02-22 13:16 | A.OFFPC_ITS ---
Vital Signs 02/22/25 13:16 Height 5 ft 3 in Weight 142 lb 6 oz BMI 25.2 BP 116/80 Blood Pressure Location Lt brachial Position Sitting Pulse 70 Pulse Source Pulse Oximeter Pulse Oximetry (%) 98 Oxygen Delivery Method Room Air Intake Visit Reasons: 3mth f/u Consolidation Accountant Required: Yes Consolidation Accountant Name: Alicia Aceves PA-C Information Interpreted: non-clinical & clinical Accompanied by: Self / Same As Patient Allergies No Known Allergies [No Known Allergies*] Allergy (Verified 02/22/25 13:32) Medication List - Last Reconciled 02/22/25 by Alicia Aceves PA-C amlodipine 10 mg See Protocol PO DAILY blood pressure monitor As directed [Blood pressure monitor As directed] blood pressure test kit-large As directed chlorhexidine gluconate 0.12% 15 mL PO BID ferrous sulfate 325 mg PO BID food supplemt, lactose-reduced (Ensure Active Protein-Muscle oral liquid) 1 ea PO TID gabapentin 100 mg PO TID 30 days lisinopril 10 mg See Protocol PO DAILY mirtazapine 7.5 mg PO BEDTIME omeprazole 40 mg PO DAILY@0630 tadalafil 10 mg PO DAILY PRN tramadol 50 mg PO BID trazodone 50 mg PO BEDTIME walker As directed Tobacco use date assessed: 02/22/25 Fall risk assessment: 2 + Falls in past year Last assessed Fall Risk: 02/22/25 Dental Screening Dental Screen Date: 02/22/25 Did you have a dental visit in the last 12 months?: Yes Did you have a dental problem in the last 6 months where you did not have access to dental care?: No Was dental information given to patient?: Patient has dentist HPI 3mth f/u HPI Details 69-year-old male presenting for three-mo [facility] follow-up for medication management focusing on insomnia and pain. We also discussed his recent admission and discharge at [facility] for GI bleed requiring EGD which was within normal limits. Patient has follow-up with GI. He reports persistent insomnia, characterized by difficulty sleeping and leg discomfort. The condition has been ongoing, and he has not previously used trazodone. The patient seeks a pharmacological solution for his insomnia. His chronic pain, particularly in the leg, continues to be problematic despite the use of Tylenol and tramadol. He denies having diabetes and is managing his pain with current medications, though the pain persists. Patient has a PMH of HCC s/p embolization, HCV, ETOH cirrhosis, neuropathy, HTN, mood disorder not on aspirin or thinners denies NSAID, history of anemia and GI bleed in December having to receive 2 units of packed red blood cells with a hemoglobin of 6.7 at that time. Had EGD done on 01/08 which revealed nonbleeding varices status post banding. He had to go back to the emergency department on 01/29/2025 due to patient was having melena and some scant bright red blood that he believe was related to constipation. At that time he was admitted to the hospitalist on 01/30/2025 due to patient was found to have posit lexie stool occult and his hemoglobin and hematocrit were 8.4 in . He had an EGD while in the hospital which was negative for any acute findings. He received IV PPI and octreotide while in the hospital. GI recommended continuing PPI, advancing diet and discharging home. Patient reports since he has been home he has not had any dizziness, chest pain, shortness of breath, abdominal pain, black or bloody stools, constipation or any other symptoms complaints or concerns. Patient does admit to depression. Denies SI or HI or any auditory visual sensation or thoughts of self-injury. Is interested in referral to psychiatrist/therapist. Patient is currently on amlodipine, lisinopril, mirtazapine, omeprazole. Requesting refills on all these medications Additionally, the patient has erectile dysfunction, for which tadalafil has been prescribed, and he confirms the necessity of this medication. Patient is also requesting ensure prescription. He reports he has a poor appetite. His son is at bedside. [facility] Medical History (Updated 02/22/25 @ 13:54 by Alicia Aceves PA-C) Erectile dysfunction Depression Chronic pain Chronic anemia Insomnia Hepatocellular carcinoma Neuropathy involving both lower extremities Liver cirrhosis Hepatitis C Common cold Lower back pain Surgical History History of tooth extraction Hx of colonoscopy (~10/29/23) History of breast lump/mass excision History of ankle surgery History of appendectomy History of open reduction and internal fixation (ORIF) procedure Family History Father Prostate cancer Mother Diabetes Stroke Social History Household Members: None and Other Housing: Apartment Are you a primary elderly caregiver to a significant other at home: No 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 1. Little interest or pleasure in doing things: several days 2. Feeling down, depressed, or hopeless: several days 3. Trouble falling or staying asleep, or sleeping too much: several days 4. Feeling tired or having little energy: several days 5. Poor appetite or overeating: several days 6. Feeling bad about yourself - or that you are a failure or have let yourself or your family down: not at all 7. Trouble concentrating on things, such as reading the newspaper or watching television: several days 8. Moving or speaking so slowly that other people could have noticed. Or the opposite - being so fidgety or restless that you have been moving around a lot more than usual: not at all 9. Thoughts that you would be better off or of hurting yourself in some way: not at all Total score: 6 Depression Screening Interpretation: Positive Depression Screening Follow-up: Existing condition and Other (Patient will be referred to therapist/psychiatrist) Depression Screening Done: Yes 93407 - PHQ-9 Billing: Yes Source: Developed by Drs. Mynor Alba, Wilma Francois, Cornel Garcia and colleagues, with an educational elbert from [employer]. Thrive Questionnaire Date Thrive assessed: 02/22/25 I am a: Parent/Caregiver What is your living situation today?: I have a steady place to live Within the past 12 months, did the food you bought not last and you didn't have the money to get more?: Never true Within the past 12 months, did you worry whether your food would run out before you got money to buy more?: Sometimes True Do you have trouble paying for medicines?: No Do you have trouble getting transportation to medical appointments?: No Do you have trouble paying your heating and electricity bill?: No Do you have trouble taking care of your child, family member or friend?: Yes Do you have trouble with day-to-day activities such as bathing, preparing meals, shopping, managing finances, etc.?: Yes Are you currently unemployed and looking for a job?: No Are you interested in more education?: No Please select the resources that you would like help with: Food Currently or been in a relationship where the following occur: No concerns reported THRIVE Score: 1 AUDIT C Alcohol Use Questionnaire (AUDIT-C) 1. How often do you have a drink containing alcohol?: Never 3. How often do you have six or more drinks on one occasion?: Never Total Score: 0 Score Reviewed/Action Taken: No PORFIRIO-7 AMB Questionnaire PORFIRIO-7 Date PORFIRIO - 7 assessed: 02/22/25 Feeling nervous, anxious, or on edge: 1 = Several days Not being able to stop or control worryin = Several days Worrying too much about different things: 1 = Several days Trouble relaxin = Several days Being so restless that it is hard to sit still: 0 = Not at all Becoming easily annoyed or irritable: 1 = Several days Feeling afraid as if something awful might happen: 0 = Not at all Total PORFIRIO-7 score (0-4 normal; 5-9 mild; 10-14 moderate; 15-21 severe): 5 Source: Developed by Drs. Mynor Alba, Wilma Francois, Cornel Garcia and colleagues, with an educational elbert from [employer]. PORFIRIO-7 Assessment Billing PORFIRIO-7 Assessment Tool: PORFIRIO-7 Assessment 21801 Review of Systems Const Details: - Musculoskeletal: Reports leg pain. - Neurological: Reports insomnia. - Psychiatric: Reports depression and anxiety. - Gastrointestinal: Denies any current symptoms related to GERD. - Hematologic: Reports history of anemia. - Cardiovascular: Denies chest pain or shortness of breath. Physical exam (Primary Care) Vital Signs: Last Vital Signs Pulse 70 02/22/25 13:16 BP 116/80 02/22/25 13:16 Pulse Ox 98 02/22/25 13:16 Oxygen Delivery Method Room Air 02/22/25 13:16 Care Plan Goal for BP management: <140/90 at Goal BMI result Body Mass Index 25.2 Tobacco/Smoking Status: Tobacco use Status Tobacco use date assessed 02/22/25 02/22/25 13:22 Patient Tobacco Use Status Former Tobacco user 02/22/25 13:22 Tobacco use type Cigarette 02/22/25 13:22 e-Cigarette/Vaping Use Never Used 02/22/25 13:22 PHQ-9: PHQ-9 Score PHQ-9: Total score 6 02/22/25 13:22 Depression Screening Interpretation: Positive Depression Screening Follow-up: Existing condition and Other (Patient will be referred to therapist/psychiatrist) Thrive Assessment: Date of Thrive Assessment Date Thrive assessed 02/22/25 02/22/25 13:22 Currently or been in a relationship where the following occur: No concerns reported Const Other: Appearance: Alert. Oriented X3. No acute distress. Head: Normal external exam. Normocephalic. Atraumatic. Eyes: Pupils are equal, round, and reactive to light. Extraocular movements intact. Conjunctiva and sclera normal. Eyelids normal. Throat: Pharynx normal. Uvula midline. Moist mucous membranes. Neck: Normal inspection. Neck supple. Full range of motion. Cardiovascular: Normal heart rate and rhythm. Respiratory: No respiratory distress. Painless inspiration. Abdomen: Soft and nontender. Bowel sounds normal in all 4 quadrants. No distention noted. No organomegaly noted. No visible injury noted. Back: Full range of motion noted. Skin: Skin warm and dry. Normal skin color. Normal skin turgor. No rashes/lesions/lacerations noted. Extremities: Extremities exhibit normal range of motion. Extremities nontender. Neuro: Oriented X 3. No motor deficit. No sensory deficit. Reflexes normal. Results Reviewed Results Reviewed: - Labs: Hemoglobin 8.5, Hematocrit 26.8 (indicative of anemia) - Labs: Platelets normal - Labs: Potassium normal, kidneys normal - Labs: Electrolytes normal Coding Level of Care Code Est Pt Level 4 (42109) Complex EM visit Add On G2211 Diagnoses Insomnia G47.00 Chronic anemia D64.9 Chronic pain G89.29 Depression F32.A Hypertension I10 Erectile dysfunction N52.9 GERD (gastroesophageal reflux disease) K21.9 Additional Codes PHQ-9 - 81683 - PHQ-9 Billing: Yes ([id number]) PORFIRIO-7 Assessment Billing - PORFIRIO-7 Assessment Tool: PORFIRIO-7 Assessment 27364 ([id number]) Assessment & Plan Assessment & Plan (1) Insomnia: Code(s): G47.00 - Insomnia, unspecified Category: Medical Plan: Initiate trazodone 50 mg for insomnia, with the option to reduce to 25 mg if excessive drowsiness is noted. Monitor sleep patterns and adjust as necessary. Condition is chronic and stable will continue to monitor. (2) Chronic anemia: Code(s): D64.9 - Anemia, unspecified Category: Medical Plan: Repeat blood tests to assess anemia status. Adjust treatment based on updated lab results. Condition is chronic and stable continue to monitor and patient denies any black or bloody stools or vomiting any black or bloody emesis. (3) Chronic pain: Code(s): G89.29 - Other chronic pain Category: Medical Plan: Continue current analgesic regimen. Gabapentin 100 mg t.i.d. will be added at this time. Monitor for effectiveness and consider alternative options if pain persists. Condition is chronic and stable continue to monitor. (4) Depression: Code(s): F32.A - Depression, unspecified Category: Medical Plan: Continue mirtazapine therapy and monitor mood changes. Plan follow-up appointments to evaluate treatment efficacy. Will refer to therapist. Condition is chronic and stable continue to monitor. (5) Hypertension: Code(s): I10 - Essential (primary) hypertension Category: Medical Plan: Maintain current antihypertensive therapy with amlodipine and lisinopril. Monitor blood pressure regularly. Condition is chronic and stable will continue to monitor. (6) Erectile dysfunction: Code(s): N52.9 - Male erectile dysfunction, unspecified Category: Medical Plan: Continue tadalafil as needed for erectile dysfunction. Condition is chronic and stable continue to monitor. (7) GERD (gastroesophageal reflux disease): Code(s): K21.9 - Gastro-esophageal reflux disease without esophagitis Category: Medical Plan: Continue omeprazole with monitoring for symptom recurrence. Condition is chr onic and stable will continue to monitor. Plan Plan Patient was informed and verbally consented to the use of an ambient scribe for clinic note documentation during this visit. 1. Chronic Insomnia Initiate trazodone 50 mg for insomnia, with the option to reduce to 25 mg if excessive drowsiness is noted. Monitor sleep patterns and adjust as necessary. 2. Chronic Pain Continue current analgesic regimen. Monitor for effectiveness and consider alternative options if pain persists. 3. Anemia Secondary To Cancer Repeat blood tests to assess anemia status. Adjust treatment based on updated lab results. 4. Depression Continue mirtazapine therapy and monitor mood changes. Plan follow-up appointments to evaluate treatment efficacy. 5. Hypertension Maintain current antihypertensive therapy with amlodipine and lisinopril. Monitor blood pressure regularly. 6. Erectile Dysfunction Continue tadalafil as needed for erectile dysfunction. 7. Gastroesophageal Reflux Disease Gerd Continue omeprazole with monitoring for symptom recurrence. During the visit, I discussed the management of the patient's chronic insomnia and pain, emphasizing the potential benefits of trazodone for sleep. I informed the patient of the option to adjust the dose if drowsiness occurs. We reviewed the patient's chronic pain management, and I advised maintaining the current medication regimen while monitoring its efficacy. I addressed the patient's anemia, secondary to cancer, and ordered repeat blood work to reassess the patient's status. I discussed the patient's history of depression and the continued use of mirtazapine, advising regular follow-up to evaluate the treatment's effectiveness. We reviewed the management of hypertension with current medications, which the patient will continue. I confirmed the need for tadalafil for erectile dysfunction and advised the continuation of omeprazole for GERD, ensuring the patient is aware of the symptoms to monitor. I emphasized regular monitoring and follow-up care for all conditions discussed. Orders: Orders Comprehensive [place]. Panel Fast Today Z00.00 - Encounter for general adult medical examination without abnormal findings Hemoglobin A1c Today Z00.00 - Encounter for general adult medical examination without abnormal findings Liver Panel Today Z00.00 - Encounter for general adult medical examination without abnormal findings PSA,Total (Free>4and<10) Today Z00.00 - Encounter for general adult medical examination without abnormal findings Vitamin B12 and Folate Today Z00.00 - Encounter for general adult medical examination without abnormal findings Magnesium Today Z00.00 - Encounter for general adult medical examination without abnormal findings Complete Blood Count Auto Diff Today Z00.00 - Encounter for general adult medical examination without abnormal findings C Reactive Protein Today Z00.00 - Encounter for general adult medical examination without abnormal findings Ferritin Today D64.9 - Anemia, unspecified IRON PROFILE Today D64.9 - Anemia, unspecified Lipid Panel Today Z00.00 - Encounter for general adult medical examination without abnormal findings TSH reflex Free T4 Today Z00.00 - Encounter for general adult medical examination without abnormal findings Vitamin D 25-OH Total Today Z00.00 - Encounter for general adult medical examination without abnormal findings Referrals Psychiatry Referral F32.A - Depression, unspecified Medications: New trazodone 50 mg PO BEDTIME 30 tabs 0RF G47.00 - Insomnia, unspecified tadalafil 10 mg PO DAILY PRN 30 tabs 1RF Sexual Activity gabapentin 100 mg PO TID 30 days 90 caps 0RF food supplemt, lactose-reduced (Ensure Active Protein-Muscle oral liquid) 1 ea PO TID 5,688 mL 3RF Refilled mirtazapine 7.5 mg PO BEDTIME 30 tabs 1RF Patient Instructions: - Begin trazodone 50 mg at bedtime for insomnia. If you experience excessive drowsiness, reduce the dose to 25 mg. - Continue taking Tylenol and tramadol as prescribed for pain management. - Go to the lab for repeat blood tests to check anemia status. - Continue mirtazapine for depression and monitor for any changes in mood. - Continue amlodipine and lisinopril for blood pressure control. Check blood pressure regularly. - Use tadalafil as needed for erectile dysfunction. - Keep taking omeprazole for GERD and watch for any symptoms. - Follow up in three months, or sooner if symptoms worsen.
== END 2025-02-22 13:42 | disposition home or self-care (01) ==
LOC: HO.HMCH 13:01
PROVIDERS: PCP Internal Medicine; Visit Provider Physician Assistant Medical
DX: G47.00 Insomnia, unspecified (principal); D64.9 Anemia, unspecified; G89.29 Other chronic pain; F32.A Depression, unspecified; I10 Essential (primary) hypertension; N52.9 Male erectile dysfunction, unspecified; K21.9 Gastro-esophageal reflux disease without esophagitis

== ENCOUNTER 2025-02-22 13:01 | Outpatient (REF) | payer OTHER, SELFPAY ==
[2025-02-22 14:05] LABS: MANUAL DIFF FLAG NO
[2025-02-22 15:06] LABS: Basophils Percent Auto 0.6 % (0-2); Eosinophils Absolute Auto 0.3 X10*3/uL (0.0-0.4); Eosinophils Percent Auto 6.8 % (0-4); Hematocrit 27.4 % (42.0-52.0); Hemoglobin 8.2 g/dl (14.0-18.0); Imm Gran Abs Auto 0.01 X10*3/uL (0.00-0.03); Imm Gran Pct Auto 0.2 % (0.0-0.4); Mean Corpuscular HGB Conc 29.9 g/dl (31.0-36.0); Mean Corpuscular Hemoglobin 25.5 pg (27.0-33.0); Mean Corpuscular Volume 85.4 fL (80.0-98.0); Mean Platelet Volume 12.9 fL (9.4-12.4); Monocytes Absolute Auto 0.6 X10*3/uL (0.1-1.2); Monocytes Percent Auto 11.8 % (2-11); Neutrophils Absolute Auto 2.9 x10*3/uL (2.0-8.3); Neutrophils Percent Auto 59.6 % (45-73); Platelet Count 210 X10*3/uL (160-400); Red Blood Count 3.21 X10*6/uL (4.60-5.80); Red Cell Distribution Width 16.9 % (11.0-16.0); White Blood Count 4.9 X10*3/uL (4.8-10.8)
[2025-02-22 15:12] LABS: Estimated Average Glucose 97 mg/dL; Hemoglobin A1C 71.8108 umol/L; Total Hemoglobin (HGBA1C) 2286.5494 umol/L
[2025-02-22 15:33] LABS: Alanine Aminotransferase 36 U/L (0-40); Albumin Level 3.7 g/dL (3.5-5.0); Anion Gap 10 (12-20); Aspartate Amino Transferase 59 U/L (5-37); Bilirubin Direct 0.2 mg/dL (0.0-0.5); Bilirubin Total 0.4 mg/dL (0.0-1.0); Blood Urea Nitrogen 23 mg/dL (9-16); C Reactive Protein 1.76 mg/dL (< or = 0.50); Calcium 9.4 mg/dL (8.4-10.2); Carbon Dioxide 28 mmol/L (22-29); Chloride 107 mmol/L (96-108); Cholesterol 174 mg/dL (<200); Estimated Glomerular Filt Rate > 60; Glucose Fasting 78 mg/dL (60-99); HDL Cholesterol 66 mg/dL (>40); Iron 33 mcg/dL (45-160); LDL Cholesterol Calculated 95 mg/dL (<100); Percent Iron Saturation 11 % (15-50); Potassium 4.5 mmol/L (3.3-5.1); Sodium 140 mmol/L (135-145); Total Iron Binding Capacity 306 mcg/dL (228-428); Total Protein 7.2 g/dL (6.5-8.0); Triglycerides 67 mg/dL (<150); Unsaturated Iron Binding 273 ug/dL
[2025-02-22 15:47] LABS: PSA,Total (Free>4and<10) 0.94 ng/mL (0.00-4.00)
[2025-02-22 15:56] LABS: Ferritin 25 ng/mL (20-250); TSH reflex Free T4 0.96 uIU/mL (0.32-4.0); Vitamin D 25-OH Total 22.1 ng/mL (>30)
[2025-02-22 15:59] LABS: Folate 8.8 ng/mL (> or = 4.0); Vitamin B12 503 pg/mL (200-900)
[2025-02-22 16:59] LABS: Alkaline Phosphatase 322 U/L (39-117)
== END 2025-02-22 13:02 | disposition home or self-care (01) ==
LOC: HO.LAB 13:01
PROVIDERS: PCP Internal Medicine; Visit Provider Physician Assistant Medical
DX: G47.00 Insomnia, unspecified (principal); D64.9 Anemia, unspecified; G89.29 Other chronic pain; F32.A Depression, unspecified; I10 Essential (primary) hypertension; N52.9 Male erectile dysfunction, unspecified; K21.9 Gastro-esophageal reflux disease without esophagitis; Z79.899 Other long term (current) drug therapy; Z00.00 Encounter for general adult medical examination without abnormal findings; Z12.5 Encounter for screening for malignant neoplasm of prostate
CPT/HCPCS: 36415; 80053; 80061; 80076; 82248; 82306; 82607; 82728; 82746; 83036; 83540; 83735; 84153; 84443; 85025; 86140; 96127; 99212

== ENCOUNTER 2025-03-27 08:44 | Outpatient (AMB) | payer MEDICARE, SELFPAY ==
--- NOTE | 2025-03-27 08:52 | MHC.OFFVIS ---
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 He describes his pains as sharp in nature. His pains have gotten worse over the last few years in spite of continued non operative treatments. He does not think that he has had a cortisone injection in the past. He has been getting blood transfusions lately for treatment of his anemia. The patient states that he is also being treated for a history of liver cancer. He wishes to hold off on surgery if at all possible. Carbider Required: Yes Carbider Language: Chemical Production Technician Services: Carbider Present Carbider Name: ValentinaHARPREET/DERIK Allergies No Known Allergies (No Known Allergies*) Allergy (Verified 03/27/25 09:03) Medication List - Last Reconciled 03/27/25 by Taiwo Shen MD amlodipine 10 mg See Protocol PO DAILY blood pressure monitor As directed [Blood pressure monitor As directed] blood pressure test kit-large As directed chlorhexidine gluconate 0.12% 15 mL PO BID cholecalciferol (vitamin D3) 50 mcg PO DAILY ferrous sulfate 325 mg PO BID food supplemt, lactose-reduced (Ensure Active Protein-Muscle oral liquid) 1 ea PO TID gabapentin 100 mg PO TID 30 days lisinopril 10 mg See Protocol PO DAILY mirtazapine 7.5 mg PO BEDTIME omeprazole 40 mg PO DAILY@0630 sodium,potassium,mag sulfates 17.5-3.13-1.6 gram (Suprep Bowel Prep Kit) DILUTE; drink 1/2 at 6-8 pm and half at 11 PM- 1AM tadalafil 10 mg PO DAILY PRN tramadol 50 mg PO BID trazodone 50 mg PO BEDTIME walker As directed ON LICENSE OF [facility] Medical History (Updated 03/27/25 @ 09:45 by Taiwo Shen MD) Vitamin D deficiency Erectile dysfunction Depression Chronic pain Chronic anemia Insomnia Hepatocellular carcinoma Neuropathy involving both lower extremities Liver cirrhosis Hepatitis C Common cold Lower back pain Surgical History History of tooth extraction Hx of colonoscopy (~10/29/23) History of breast lump/mass excision History of ankle surgery History of appendectomy History of open reduction and internal fixation (ORIF) procedure Family History Father Prostate cancer Mother Diabetes Stroke Social History Household Members: None and Other Housing: Apartment Are you a primary health care facilities inspector to a significant other at home: No 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) Unable to assess alcohol history related to: Unknown Alcohol intake: former Patient Tobacco Use Status: Former Tobacco user Tobacco use type: Cigarette e-Cigarette/Vaping Use: Never Used Second Hand Smoke Exposure: No service: No Current occupational status: disabled Cognitive needs: Yes (cane) Hearing needs: No Vision needs: Yes (glasses) Physical Exam Vital Signs: BMI result Body Mass Index 25.2 Const Other: Well-nourished well-developed very friendly male awake alert and oriented x3 in no acute distress Extrem Other: Bilateral knee examination shows minimal effusions, palpable crepitus with range of motion, pain with range of motion, no instability Office Procedures AMB Joint Injection/Aspiration Joint Injection/Aspiration Primary Site: right knee Prep: site was prepped using aseptic technique Injected: 20 mg of, DepoMedrol and 1% plain lidocaine Procedure: The patient tolerated the procedure well Coding 61237 - Large joint Procedure code (CPT) selection complete AMB Joint Injection/Aspiration Joint Injection/Aspiration Primary Site: left knee Prep: site was prepped using aseptic technique Injected: 20 mg of, DepoMedrol and 1% plain lidocaine Procedure: The patient tolerated the procedure well Coding 52649 - Large joint Procedure code (CPT) selection complete Results Reviewed Results Reviewed: X-rays of the patient's bilateral knee show joint space narrowing, subchondral sclerosis, no acute bony abnormalities Assessment & Plan Assessment & Plan (1) Osteoarthritis of left knee: Code(s): M17.12 - Unilateral primary osteoarthritis, left knee Category: Medical (2) Osteoarthritis of right knee: Code(s): M17.11 - Unilateral primary osteoarthritis, right knee Category: Medical Plan Mr. Campbell presents with bilateral knee pains due to osteoarthritis. The risks and benefits of bilateral knee cortisone injections were discussed at length with the patient. The patient wished to proceed. He tolerated the injections well. Because of the patient's recent anemia and medical problems 20 mg of Depo-Medrol was used in both of his injections. He will continue with his activity modifications. He will contact me prior to his follow-up appointment in 3 months should any questions or concerns arise. Feel free to call me at any time should questions regarding his orthopedic management arise. I spent 20 minutes in reviewing the patient's records and imaging studies, seeing the patient and documenting in the medical record. Orders: Orders AMB Joint Injection/Aspiration Today M17.12 - Unilateral primary osteoarthritis, left knee AMB Joint Injection/Aspiration Today M17.11 - Unilateral primary osteoarthritis, right knee Coding Level of Care Code New Pt Level 3 (51229) Complex EM visit Add On G2211 Diagnoses Osteoarthritis of left knee M17.12 Osteoarthritis of right knee M17.11 CPT Codes Coding - 60904 Large joint: 38462 - Large joint ([id number]) Coding - 04931 Large joint: 27548 - Large joint ([id number])
[2025-03-27 08:53] VITALS: BMI 25.2
== END 2025-03-27 09:27 | disposition home or self-care (01) ==
LOC: HO.HOS 08:45
PROVIDERS: PCP Internal Medicine; Visit Provider Orthopaedic Surgery
DX: M17.0 Bilateral primary osteoarthritis of knee (principal)
CPT/HCPCS: 20610; 99203

== ENCOUNTER → 2025-03-27 08:44 | Outpatient (BNVA) | payer MEDICARE, SELFPAY | PROVIDERS: PCP Internal Medicine; Visit Provider Orthopaedic Surgery | DX: M17.0 Bilateral primary osteoarthritis of knee (principal) | CPT/HCPCS: 20610; 99202; J1010; J2003 ==

== ENCOUNTER 2025-04-13 12:42 | Emergency (ER) | payer OTHER, MEDICAID, SELFPAY ==
[2025-04-13 12:58] VITALS: BP 159/70; BP 170/82; PULSE 67; PULSE 74; RESP 18; TEMP 37; O2SAT 96; O2SAT 98; BMI 40.8
--- NOTE | 2025-04-13 13:38 | ED.ABDPAIN ---
HPI - Abdominal Pain General Chief Complaint: Abdominal Pain Stated Complaint: VOMITING FEELING SICK Time Seen by Provider: 04/13/25 13:32 History of Present Illness ED Provider: Selvin Gomes MD HPI narrative: 69-year-old male with history of variceal bleeding with abdominal pain. Reported headache at triage as the primary complaint. To me the patient complains only of left ankle pain and swelling he has chronic swelling in the scar there from an ankle surgery he says he has been able to ambulate. To me he denies headache says he had a little bit of occipital headache before but it resolved no head trauma no focal neurologic complaints or vision or speech changes. He denied any abdominal pain or GI bleeding Related Data Home Medications ?Medication ?Instructions ?Recorded ?Confirmed blood pressure test kit-large #1 ea 10/16/24 03/27/25 chlorhexidine gluconate 0.12 % 15 ml PO BID 01/29/25 03/27/25 mouthwash omeprazole 40 mg capsule,delayed 40 mg PO DAILY@0630 01/29/25 03/27/25 release Previous Rx's ?Medication ?Instructions ?Recorded blood pressure monitor #1 ea 01/21/22 walker #1 ea 11/05/23 Blood pressure monitor #1 ea 08/02/24 amlodipine 10 mg tablet 10 mg PO DAILY #90 tabs 11/19/24 lisinopril 10 mg tablet 10 mg PO DAILY #90 tabs 11/19/24 ferrous sulfate 325 mg (65 mg 325 mg PO BID #60 tabs 01/12/25 iron) tablet food supplemt, lactose-reduced 1 ea PO TID #5,688 mL 02/22/25 (Ensure Active Protein-Muscle oral liquid) mirtazapine 7.5 mg tablet 7.5 mg PO BEDTIME #30 tabs 02/22/25 tadalafil 10 mg tablet 10 mg PO DAILY PRN Sexual Activity 02/22/25 #30 tabs cholecalciferol (vitamin D3) 50 50 mcg PO DAILY #90 caps 03/16/25 mcg (2,000 unit) capsule sodium,potassium,mag sulfates 17.5 See Rx Instructions PO .COMPLEX 03/19/25 gram-3.13 gram-1.6 gram oral soln #354 mL (Suprep Bowel Prep Kit) tramadol 50 mg tablet 50 mg PO BID #60 tabs 03/19/25 gabapentin 100 mg capsule 100 mg PO TID 30 days #90 caps 04/17/25 trazodone 50 mg tablet 50 mg PO BEDTIME #30 tabs 04/17/25 Allergies Allergy/AdvReac Type Severity Reaction Status Date / Time No Known Allergies (No Known Allergy Verified 04/16/25 14:22 Allergies*) [facility] Past Medical History Medical History Vitamin D deficiency Erectile dysfunction Depression Chronic pain Chronic anemia Insomnia Hepatocellular carcinoma Neuropathy involving both lower extremities Liver cirrhosis Hepatitis C Common cold Lower back pain Surgical History History of tooth extraction Hx of colonoscopy (~10/29/23) History of breast lump/mass excision History of ankle surgery History of appendectomy History of open reduction and internal fixation (ORIF) procedure Family History Family History Father Prostate cancer Mother Diabetes Stroke Social History Social History Household Members: None and Other Housing: Apartment Are you a primary cardiac care unit nurse to a significant other at home: No 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) Unable to assess alcohol history related to: Unable to respond Alcohol intake: former Patient Tobacco Use Status: Former Tobacco user Tobacco use type: Cigarette e-Cigarette/Vaping Use: Never Used Second Hand Smoke Exposure: No Use of substances other than those prescribed or required for medical reasons: Unable to respond Advance Directives: No Advance Directives Information Provided: Yes Do you have a plan to hurt others: No Plan service: No Current occupational status: disabled Cognitive needs: Yes (cane) Hearing needs: No Vision needs: Yes (glasses) Physical Exam ED Exam Exam: EXAM: Gen: Alert, awake, well appearing, well hydrated. Head: Atraumatic Eyes: Anicteric, Normal conjunctiva. ENT: Moist mucosa, no pallor. ? Neck: Supple. Skin: ?No observable rash or bruising on exposed or examined skin Respiratory: Breathing comfortably, No distress.Clear to auscultation bilaterally, symmetric chest expansion, No wheeze, rales, ronchi. Cardiovascular: Regular rate and rhythm. No murmurs or rub. Well perfused periphery, warm extremities. No edema. ? Abdominal: No focal tenderness. Soft, no objective distension. No palpable masses or obvious organomegaly. ?No guarding, no rebound tenderness or other peritoneal findings. : No flank tenderness. Neuro: Alert. Gross movement of all extremities intact. ? Psych: Calm. Cooperative. MSK: No grossly visible deformity. He has chronic scar of the medial ankle with some limited range of motion with passive ranging of the ankle. Mild swelling but it is not pitting there was no warmth or palpable effusion. Well-perfused foot. No calf tenderness soft compartments throughout the leg Vital signs: See flowsheet Vital Signs: Vital Signs - 24 hr 04/13/25 12:58 Temperature 98.6 F Pulse Rate 67 Respiratory Rate 18 Blood Pressure 159/70 H Pulse Oximetry 98 Oxygen Delivery Method Room Air BMI result Body Mass Index 40.8 Medical Decision Making Medical Decision Making MDM Narrative: Medical Decision Makin-year-old male with varied complaints based on the history take her. To me he primarily focused on the left ankle which appears probably chronically edematous without pitting edema or signs of infection or effusion his foot is well-perfused. No indication for acute imaging at this time. I have however excluded DVT with bedside ultrasound see that report. Patient has no abdominal complaints with me and no tenderness on exam as vitals are stable. He denies rectal bleeding or other GI bleeding. Transient resolved mild sounding headache with no neurologic symptoms. Preliminary Favored Differential Diagnosis: Possibly resolved tension headache or dehydration no indication for acute imaging Regarding abdominal pain differential gastritis GERD or other probable benign transient etiologies reassuring vital signs and abdominal exam Regarding ankle probably chronic edema and/or chronic pain secondary to ankle hardware. DVT possible, no clinical suggestion of infection, effusion, neurovascular compromise of the leg. among additional considered etiologies Testing Interpreted Independently: Point of care ultrasound see report attached Radiology or Lab testing Results Reviewed: Non actionable lab work. Consults: Not Applicable Independent Historians/External Chart Reviews: Not Applicable Social Determinants of Health Impacting MDM/Planning: Not Applicable Lab Data 04/13/25 15:06 04/13/25 15:06 Labs: Lab Results 04/13/25 Range/Units 15:06 WBC 6.1 (4.8-10.8) X10*3/uL RBC 3.98 L D (4.60-5.80) X10*6/uL Hgb 10.0 L D (14.0-18.0) g/dl Hct 34.6 L D (42.0-52.0) % MCV 86.9 (80.0-98.0) fL MCH 25.1 L (27.0-33.0) pg MCHC 28.9 L (31.0-36.0) g/dl RDW 18.6 H (11.0-16.0) % Plt Count 202 (160-400) X10*3/uL MPV 13.2 H (9.4-12.4) fL Immature Gran % (Auto) 0.3 (0.0-0.4) % Neut % (Auto) 81.1 H (45-73) % Lymph % (Auto) 11.8 L (20-40) % [place] % (Auto) 6.4 (2-11) % Eos % (Auto) 0.2 (0-4) % Baso % (Auto) 0.2 (0-2) % Lymph # (Auto) 0.7 L (1.2-4.9) X10*3/uL [place] # (Auto) 0.4 (0.1-1.2) X10*3/uL Eos # (Auto) 0.0 (0.0-0.4) X10*3/uL Baso # (Auto) 0.0 (0.0-0.2) X10*3/uL Abs Immat Gran (auto) 0.02 (0.00-0.03) X10*3/uL Absolute Neuts (auto) 5.0 (2.0-8.3) x10*3/uL Absolute Nucleated RBC 0.000 (0.0-0.012) X10*3/uL Nucleated RBC % (auto) 0.0 (0.0-0.2) /100WBC Smear Tech's Comments VERIFIED Sodium 141 (135-145) mmol/L Potassium 4.0 (3.3-5.1) mmol/L Chloride 106 (96-108) mmol/L Carbon Dioxide 28 (22-29) mmol/L Anion Gap 11 L (12-20) BUN 14 (9-16) mg/dL Creatinine 1.08 (0.5-1.4) mg/dL Estim Creat Clear Calc 72.1 Estimated GFR > 60 Random Glucose 98 (60-115) mg/dL Calcium 9.5 D (8.4-10.2) mg/dL Total Bilirubin 0.6 (0.0-1.0) mg/dL AST 35 (5-37) U/L ALT 31 (0-40) U/L Alkaline Phosphatase 256 H (39-117) U/L Total Protein 7.8 (6.5-8.0) g/dL Albumin 4.0 (3.5-5.0) g/dL Discharge Plan Discharge Clinical Impression: Headache, Abdominal pain Patient Disposition: Home, Self-Care Instructions: General Headache (ED) Additional Instructions: DISCHARGE DIAGNOSES: Headache resolved Abdominal pain, resolved Ankle pain probably chronic HISTORY OF PRESENTATION: Headache, resolved abdominal pain not mentioned during my interview, ankle pain, EMERGENCY DEPARTMENT COURSE,TESTS, TREATMENTS: While in the ED today labs are reassuring, ultrasound has ruled out blood clot in the leg you may need this repeated if you have swelling in 1 week DISCHARGE MEDICATIONS: ?[We have made no changes to your regular medication regimen] FOLLOW-UP: ?Call your primary or general physician soon as possible to discuss your symptoms, your ED visit and to discuss follow up plans Call your PCP for follow up INSTRUCTIONS ?& RETURN PRECAUTIONS: If any symptoms change first call your primary physician, if it is after-hours your primary doctors office should have a provider dispute resolution analyst you can speak with. If the symptoms are severe or very concerning to you then call 911 or return to the ED. [[id number]] Selvin Gomes MD Emergency Physician [facility] Prescriptions: No Action (DME) Blood pressure monitor See Rx Instructions .Route .MEDSUPPLY Qty: 1 0RF Rx Instructions: As directed lisinopril 10 mg tablet 10 mg PO DAILY Qty: 90 1RF Protocol: Hold for SBP< HOLD for SBP < : 90 amlodipine 10 mg tablet 10 mg PO DAILY Qty: 90 1RF Protocol: Hold for SBP< HOLD for SBP < : 90 ferrous sulfate 325 mg (65 mg iron) tablet 325 mg PO BID Qty: 60 6RF cholecalciferol (vitamin D3) 50 mcg (2,000 unit) capsule 50 mcg PO DAILY Qty: 90 1RF sodium,potassium,mag sulfates [Suprep Bowel Prep Kit] 17.5-3.13-1.6 gram recon soln See Rx Instructions PO .COMPLEX Qty: 354 0RF Rx Instructions: DILUTE; drink 1/2 at 6-8 pm and half at 11 PM- 1AM tramadol 50 mg tablet 50 mg PO BID Qty: 60 0RF gabapentin 100 mg capsule 100 mg PO TID 30 Days Qty: 90 0RF trazodone 50 mg tablet 50 mg PO BEDTIME Qty: 30 0RF chlorhexidine gluconate 0.12 % mouthwash 15 ml PO BID omeprazole 40 mg capsule,delayed release(DR/EC) 40 mg PO DAILY@0630 (DME) blood pressure monitor Kit See Rx Instructions .Route Qty: 1 0RF Rx Instructions: As directed (DME) [facility] See Rx Instructions .Route Qty: 1 0RF Rx Instructions: As directed (DME) blood pressure test kit-large Kit See Rx Instructions .ROUTE DIRECTED Qty: 1 Rx Instructions: As directed mirtazapine 7.5 mg tablet 7.5 mg PO BEDTIME Qty: 30 1RF Ensure Active Protein-Muscle Liquid 1 ea PO TID Qty: 5688 3RF tadalafil 10 mg tablet 10 mg PO DAILY PRN (Reason: Sexual Activity) Qty: 30 1RF Interventions: ED Discharge Assessment Last Done: 04/13/25 16:09 Discharge Date/Time: 04/13/25 16:09 Print Language: Kazakh
--- NOTE | 2025-04-13 13:48 | PC.NURSE ---
Pt coming with EMS reporting abdominal pain and vomiting. On arrival pt denied n/v/d/abd pain. Pt only complaints right now is a STAPLES. He has been ambulating to the bathroom multiple times, but denies any changes to GI/. Call esposito within reach
[2025-04-13 15:13] LABS: Hematocrit 34.6 % (42.0-52.0); Hemoglobin 10.0 g/dl (14.0-18.0); Imm Gran Abs Auto 0.02 X10*3/uL (0.00-0.03); Imm Gran Pct Auto 0.3 % (0.0-0.4); Lymphocytes Absolute Auto 0.7 X10*3/uL (1.2-4.9); MANUAL DIFF FLAG SCAN; Mean Corpuscular HGB Conc 28.9 g/dl (31.0-36.0); Mean Corpuscular Hemoglobin 25.1 pg (27.0-33.0); Mean Corpuscular Volume 86.9 fL (80.0-98.0); NRBC Abs Auto 0.000 X10*3/uL (0.0-0.012); NRBC Pct Auto 0.0 /100WBC (0.0-0.2); PLT CLUMP 1; Red Blood Count 3.98 X10*6/uL (4.60-5.80); SCAN SMEAR FLAG 1
[2025-04-13 15:14] LABS: White Blood Count 6.1 X10*3/uL (4.8-10.8)
[2025-04-13 15:28] LABS: Alanine Aminotransferase 31 U/L (0-40); Albumin Level 4.0 g/dL (3.5-5.0); Alkaline Phosphatase 256 U/L (39-117); Anion Gap 11 (12-20); Aspartate Amino Transferase 35 U/L (5-37); Blood Urea Nitrogen 14 mg/dL (9-16); Calcium 9.5 mg/dL (8.4-10.2); Carbon Dioxide 28 mmol/L (22-29); Chloride 106 mmol/L (96-108); Creatinine Clr Calc Pharmacy 72.1; Estimated Glomerular Filt Rate > 60; Potassium 4.0 mmol/L (3.3-5.1); Sodium 141 mmol/L (135-145); Total Protein 7.8 g/dL (6.5-8.0)
[2025-04-13 15:31] LABS: Platelet Count 202 X10*3/uL (160-400)
[2025-04-13 16:09] VITALS: BP 179/84; PULSE 62; RESP 18; TEMP 37; O2SAT 98
== END 2025-04-13 16:09 | disposition home or self-care (01) ==
PROVIDERS: Emergency Provider Emergency Medicine; PCP Internal Medicine
DX: R51.9 Headache, unspecified (principal); R10.9 Unspecified abdominal pain; M25.572 Pain in left ankle and joints of left foot; M79.89 Other specified soft tissue disorders
CPT/HCPCS: 36415; 80053; 85025; 93971; 99284

== ENCOUNTER 2025-04-16 14:07 | Emergency (ER) | payer OTHER, MEDICAID, SELFPAY ==
[2025-04-16] VITALS (13 sets, daily range): BP systolic 148–206; BP diastolic 59–94; PULSE 51–63; RESP 12–17; TEMP 37.6–37.8; O2SAT 98–100; BMI 24.5
--- NOTE | ~2025-04-16 | CT_ITS ---
EXAMINATION: CT HEAD WITHOUT CONTRAST CLINICAL INFORMATION: Mental status changes COMPARISON: Compared with 2017 TECHNIQUE: Contiguous axial imaging was performed from the skull base to vertex without intravenous administration of contrast. This CT examination was performed using dose optimization techniques as appropriate, variously including the following: *Automated exposure control *Adjustment of mA and/or kV according to patient size (this includes techniques or standardized protocols for targeted exams where dose is matched to indication/reason for exam; i.e. extremities or head) *Use of iterative reconstruction technique DLP: 649 mGY*cm FINDINGS: There is no acute ischemic change. There is chronic encephalomalacia in the left cerebellum. There is a small hematoma in the left anterior horn, near foramen of [place]. There is also high density in the space between the anterior horns likely within a cavum septum pellucidum. There is trace hemorrhage in the bilateral posterior horns of the lateral ventricles. There is a small amount subarachnoid hemorrhage in the anterior interhemispheric fissure. There is trace subarachnoid hemorrhage in the basilar cisterns. There is mild mass effect and focal bowing of midline toward the left just below the level of the foramen of [place]. Orbits are symmetrical and unremarkable. Paranasal sinuses and mastoid air cells are pneumatized. There are no bony abnormalities. CT/CT head/brain wo IV con IMPRESSION: Intraventricular and subarachnoid hemorrhage. There is hematoma in the anterior horn of the left lateral ventricle near foramen of [place]. There is hemorrhage within a cavum septum lucidum between the anterior horns. There is trace subarachnoid hemorrhage in the frontal lobes, likely extending from the cavum septum pellucidum. There is trace hemorrhage in the occipital horns and probable trace subarachnoid hemorrhage in the anterior aspect of the suprasellar cistern. Dr. Ayaka Gonzalez notified. 4:28 pm ET Electronically signed by: Pete Aguilar MD 04/16/2025 04:32 PM EDT
--- NOTE | ~2025-04-16 | XR_ITS ---
EXAMINATION: XR CHEST CLINICAL INFORMATION: cough COMPARISON: None available. TECHNIQUE: Frontal view of the chest was obtained. FINDINGS: The cardiac, hilar, and mediastinal contours are normal. Aortic mural calcifications. The lungs are clear bilaterally. No pneumothorax or effusion. No focal osseous or soft tissue abnormality. There are degenerative changes in the left greater than right shoulder joints. XR/XR chest 1V IMPRESSION: No active pulmonary disease. Electronically signed by: Adithya Josue MD 04/16/2025 03:01 PM EDT
--- NOTE | 2025-04-16 14:23 | ECG_ITS ---
Test Reason : cp Blood Pressure : */* mmHG Vent. Rate : 60 BPM Atrial Rate : 60 BPM P-R Int : 202 ms QRS Dur : 80 ms QT Int : 432 ms P-R-T Axes : 79 30 62 degrees QTcB Int : 432 ms Normal sinus rhythm Normal ECG When compared with ECG of 29-Nov-2024 11:28, Nonspecific T wave abnormality no longer evident in Lateral leads Referred By: Walter Gonzalez Electronically Signed By: Armond Santiago
--- NOTE | 2025-04-16 14:25 | ED_ITS ---
HPI - Altered Mental Status General Chief Complaint: Altered Mental Status Stated Complaint: FAM STS AMS/WEAK,? RX TO NEW OR UNK MED PER EMS Time Seen by Provider: 04/16/25 14:19 Source: patient Mode of arrival: EMS History of Present Illness HPI narrative: 69 years old man brought by ambulance from home because mental status changes. Patient arrived lethargic but no focal and oriented time and place. He has a history of liver disease, substance abuse, history of anemia MD complaint: altered mental status Onset (ago): unknown Severity: moderate Context: drug abuse and other (liver disease) Associated symptoms: denies other symptoms Related Data Home Medications ?Medication ?Instructions ?Recorded ?Confirmed blood pressure test kit-large #1 ea 10/16/24 03/27/25 chlorhexidine gluconate 0.12 % 15 ml PO BID 01/29/25 0 03/27/25 mouthwash omeprazole 40 mg capsule,delayed 40 mg PO DAILY@0630 0 01/29/25 03/27/25 release Previous Rx's ?Medication ?Instructions ?Recorded blood pressure monitor #1 ea 01/21/22 walker #1 ea 11/05/23 Blood pressure monitor #1 ea 08/02/24 amlodipine 10 mg tablet 10 mg PO DAILY #90 tabs 10/29 12/19 lisinopril 10 mg tablet 10 mg PO DAILY #90 tabs 10/29 12/19 ferrous sulfate 325 mg (65 mg 325 mg PO BID #60 tabs 0 01/12/25 iron) tablet food supplemt, lactose-reduced 1 ea PO TID #5,688 mL 0 02/22/25 (Ensure Active Protein-Muscle oral liquid) mirtazapine 7.5 mg tablet 7.5 mg PO BEDTIME #30 tabs 0 02/22/25 tadalafil 10 mg tablet 10 mg PO DAILY PRN Sexual Ac tivity 02/22/25 #30 tabs cholecalciferol (vitamin D3) 50 50 mcg PO DAILY #90 ca ps 03/16/25 mcg (2,000 unit) capsule sodium,potassium,mag sulfates 17.5 See Rx Instructions PO .COMPLEX 03/19/25 gram-3.13 gram-1.6 gram oral soln #354 mL (Suprep Bowel Prep Kit) tramadol 50 mg tablet 50 mg PO BID #60 tabs gabapentin 100 mg capsule 100 mg PO TID 30 days #90 ca ps 04/17/25 trazodone 50 mg tablet 50 mg PO BEDTIME #30 tabs Allergies Allergy/AdvReac Type Severity Reaction Status Date / Time No Known Allergies (No Known Allergy Verified 04/16/25 14:22 Allergies*) Review of Systems 2 Constitutional: Constitutional: Reports no additional constitutional complaints ENT: Reports system reviewed and no additional complaints, except as documented Musculoskeletal: Musculoskeletal: Reports no additional musculoskeletal complaints PMFSH Past Medical History Attestation statement: The following information was validated with the patient. Medical History Vitamin D deficiency Erectile dysfunction Depression Chronic pain Chronic anemia Insomnia Hepatocellular carcinoma Neuropathy involving both lower extremities Liver cirrhosis Hepatitis C Common cold Lower back pain Surgical History History of tooth extraction Hx of colonoscopy (~10/29/23) History of breast lump/mass excision History of ankle surgery History of appendectomy History of open reduction and internal fixation (ORIF) procedure Family History Family History Father Prostate cancer Mother Diabetes Stroke Social History Social History Household Members: None and Other Housing: Apartment Are you a primary veterinarian laboratory animal care to a significant other at home: No Do you presently have visiting nurse or other home services: Yes (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 engineer) Unable to assess alcohol history related to: Unable to respond Alcohol intake: former Patient Tobacco Use Status: Former Tobacco user Tobacco use type: Cigarette e-Cigarette/Vaping Use: Never Used Second Hand Smoke Exposure: No Use of substances other than those prescribed or required for medical reasons: Unable to respond Advance Directives: No Advance Directives Information Provided: Yes Do you have a plan to hurt others: No Plan service: No Current occupational status: disabled Cognitive needs: Yes (cane) Hearing needs: No Vision needs: Yes (glasses) Physical Exam ED Exam Exam: On examination he is lethargic but easily arousable just with verbal stimuli Vital Signs: Vital Signs - 24 hr 04/16/25 14:21 04/16/25 14:37 04/16/25 15:13 Temperature 99.7 F Pulse Rate 59 59 57 Respiratory Rate 15 17 17 Blood Pressure 198/94 H 191/85 H 206/87 H Pulse Oximetry 100 100 98 Oxygen Delivery Method Room Air Room Air Room Air 04/16/25 15:19 04/16/25 15:36 04/16/25 16:03 Temperature 100.0 F Pulse Rate 58 52 51 Respiratory Rate 12 15 Blood Pressure 201/88 H 182/76 H 197/83 H Pulse Oximetry 100 99 Oxygen Delivery Method Room Air Room Air 04/16/25 16:56 04/16/25 17:15 04/16/25 17:18 Temperature Pulse Rate 59 56 57 Respiratory Rate 17 14 Blood Pressure 191/59 H 199/85 H 188/83 H Pulse Oximetry 99 99 Oxygen Delivery Method Room Air Room Air 04/16/25 17:23 04/16/25 17:31 04/16/25 17:48 Temperature Pulse Rate 62 59 63 Respiratory Rate 15 Blood Pressure 179/73 H 164/71 H 148/60 H Pulse Oximetry 99 Oxygen Delivery Method Room Air 04/16/25 17:51 04/16/25 17:51 Temperature 99.9 F 99.9 F Pulse Rate 61 61 Respiratory Rate 17 17 Blood Pressure 150/62 H 150/62 H Pulse Oximetry 98 98 Oxygen Delivery Method Room Air Room Air BMI result Body Mass Index 24.5 Const General: cooperative and comfortable Orientation/consciousness: patient oriented x3 HENMT Head: Yes normal to inspection General nose exam: Normal external nose present Mouth: Normal oral and palatal mucosa present Neck Neck: Yes normal visual inspection Chest Chest palpation & inspection: normal inspection of the chest Resp Effort & Inspection: normal respiratory effort Auscultation: clear to auscultation bilaterally Cardio Jugular venous distension: no JVD Palpation: normal PMI Rate: regular rate Rhythm: regular rhythm GI Inspection: Yes normal to inspection Palpation (GI): Soft to palpation, not firm and nontender Skin General skin exam: no rashes or lesions noted and elasticity normal Lesions: no lesions Neuro Other: stroke scale 0 no focal General: patient oriented x3 Cranial nerves: Yes CN's II-XII intact bilaterally Course Reevaluation(s) Reevaluation #1: BP noted the patient will receive [address] scan of the head of the pending UA pending at this time Time: 16:06 Reevaluation #2: CT scan was read by the radiologist as small amount of intraventricular bleed subarachnoid bleed we started the patient on nicardipine we called [facility] for transfer Time: 16:33 Reevaluation #3: waiting for call back from [facility] Time: 17:00 Additional Reevaluation(s): waiting for [facility] call back 05:10 p.m. I spoke with the emergency room attending at [facility] he was accepted in transfer Dr. Sanders, I spoke with the FAMILY SUPPORT WORKER of the patient patient has no relative in [place] right now only in [place]. Medications Administered Discontinued Medications Generic Name Dose Route Start Last Admin Trade Name Freq PRN Reason Stop Dose Admin Nicardipine HCl 25 mg/ Sodium 250 mls @ 0 mls/hr 04/16/25 17:00 04/16/25 17:48 Chloride IVCONT 10 mg/hr .Q0M CARSON 100 mls/hr Protocol Titration Per Protocol Levetiracetam 1,500 mg in 100 mls @ 400 mls/hr 04/16/25 16:37 04/16/25 17:09 Keppra IV 04/16/25 16:51 Infused ONCE ONE Infusion Labetalol HCl 10 mg 04/16/25 15:16 04/16/25 15:19 Labetalol Hcl 100 Mg/20 Ml Vial IVPUSH 04/16/25 15:17 10 mg ONCE ONE Administration Medical Decision Making Medical Decision Making [facility] Narrative: Patient is here told him mental status we will obtain lab/UA CT head 4:[address] read pos for subaracnoid bleed/intraventricular bleeding called place to [facility] for transfer nicardipine started targeting BP less than 140 Differential Diagnosis Differential Diagnoses: The differential diagnosis associated with the presentation includes UTI/substance abuse/stroke Admission/Observation Consideration of admission/observation: Escalation of care including admission/observation considered Lab Data [facility] Lab Attestation statement: I reviewed the patient's lab results. 04/16/25 14:33 04/16/25 14:34 Labs: Lab Results 04/16/25 04/16/25 04/16/25 Range/Units 14:33 14:34 14:37 WBC 8.6 (4.8-10.8) X10*3/uL RBC 4.21 L (4.60-5.80) X10*6/uL Hgb 10.6 L (14.0-18.0) g/dl Hct 33.9 L (42.0-52.0) % MCV 80.5 D (80.0-98.0) fL MCH 25.2 L (27.0-33.0) pg MCHC 31.3 (31.0-36.0) g/dl RDW 17.6 H (11.0-16.0) % Plt Count 259 D (160-400) X10*3/uL MPV Not Reportable Immature Gran % (Auto) 0.5 H (0.0-0.4) % Neut % (Auto) 79.9 H (45-73) % Lymph % (Auto) 10.4 L (20-40) % [place] % (Auto) 9.1 (2-11) % Eos % (Auto) 0.0 (0-4) % Baso % (Auto) 0.1 (0-2) % Lymph # (Auto) 0.9 L (1.2-4.9) X10*3/uL [place] # (Auto) 0.8 (0.1-1.2) X10*3/uL Eos # (Auto) 0.0 (0.0-0.4) X10*3/uL Baso # (Auto) 0.0 (0.0-0.2) X10*3/uL Abs Immat Gran (auto) 0.04 H (0.00-0.03) X10*3/uL Absolute Neuts (auto) 6.9 (2.0-8.3) x10*3/uL Absolute Nucleated RBC 0.000 (0.0-0.012) X10*3/uL Nucleated RBC % (auto) 0.0 (0.0-0.2) /100WBC PT (10.9-12.4) SEC INR (0.9-1.1) APTT (26.0-36.8) SEC Sodium 140 (135-145) mmol/L Potassium 3.9 (3.3-5.1) mmol/L Chloride 106 (96-108) mmol/L Carbon Dioxide 24 (22-29) mmol/L Anion Gap 14 (12-20) BUN 19 H (9-16) mg/dL Creatinine 1.04 (0.5-1.4) mg/dL Estim Creat Clear Calc 52.4 Estimated GFR > 60 POC Glucose 115 (60-115) mg/dL Random Glucose 123 H (60-115) mg/dL Calcium 9.5 (8.4-10.2) mg/dL Total Bilirubin 0.7 (0.0-1.0) mg/dL AST 28 (5-37) U/L ALT 26 (0-40) U/L Alkaline Phosphatase 233 H (39-117) U/L Ammonia 41 (13-55) umol/L Troponin I High Sens 16.2 (<3.5-35.0) ng/L Total Protein 8.6 H (6.5-8.0) g/dL Albumin 4.2 (3.5-5.0) g/dL Urine Color Urine Appearance Urine pH (5.0-9.0) Ur Specific [place] (1.005-1.025) Urine Protein (Neg-Trace) mg/dL Urine Glucose (UA) (Negative) mg/dL Urine Ketones (Negative) mg/dL Urine Blood (Negative) Urine Nitrite (Negative) Ur Leukocyte Esterase (Negative) Urine RBC (0-2) /HPF Urine WBC (0-5) /HPF Ur Squamous Epith Cells (0-2) /HPF Urine Bacteria (None Seen) Hyaline Casts (0-2) /LPF Urine Opiates Screen (Not Detect) Ur Buprenorphine Scrn (Not Detect) ng/mL Ur Oxycodone Screen (Not Detect) ng/mL Urine Methadone Screen (Not Detect) ng/mL Urine Fentanyl Screen (Not Detect) Ur Barbiturates Screen (Not Detect) Ur Phencyclidine Scrn (Not Detect) Ur Amphetamines Screen (Not Detect) U Benzodiazepines Scrn (Not Detect) Urine Cocaine Screen (Not Detect) U Marijuana (THC) Screen (Not Detect) 04/16/25 04/16/25 Range/Units 16:12 17:30 WBC (4.8-10.8) X10*3/uL RBC (4.60-5.80) X10*6/uL Hgb (14.0-18.0) g/dl Hct (42.0-52.0) % MCV (80.0-98.0) fL MCH (27.0-33.0) pg MCHC (31.0-36.0) g/dl RDW (11.0-16.0) % Plt Count (160-400) X10*3/uL MPV Immature Gran % (Auto) (0.0-0.4) % Neut % (Auto) (45-73) % Lymph % (Auto) (20-40) % M[place]racken % (Auto) (2-11) % Eos % (Auto) (0-4) % Baso % (Auto) (0-2) % Lymph # (Auto) (1.2-4.9) X10*3/uL [place] # (Auto) (0.1-1.2) X10*3/uL Eos # (Auto) (0.0-0.4) X10*3/uL Baso # (Auto) (0.0-0.2) X10*3/uL Abs Immat Gran (auto) (0.00-0.03) X10*3/uL Absolute Neuts (auto) (2.0-8.3) x10*3/uL Absolute Nucleated RBC (0.0-0.012) X10*3/uL Nucleated RBC % (auto) (0.0-0.2) /100WBC PT 11.7 (10.9-12.4) SEC INR 1.0 (0.9-1.1) APTT 26.5 (26.0-36.8) SEC Sodium (135-145) mmol/L Potassium (3.3-5.1) mmol/L Chloride (96-108) mmol/L Carbon Dioxide (22-29) mmol/L Anion Gap (12-20) BUN (9-16) mg/dL Creatinine (0.5-1.4) mg/dL Estim Creat Clear Calc Estimated GFR POC Glucose (60-115) mg/dL Random Glucose (60-115) mg/dL Calcium (8.4-10.2) mg/dL Total Bilirubin (0.0-1.0) mg/dL AST (5-37) U/L ALT (0-40) U/L Alkaline Phosphatase (39-117) U/L Ammonia (13-55) umol/L Troponin I High Sens (<3.5-35.0) ng/L Total Protein (6.5-8.0) g/dL Albumin (3.5-5.0) g/dL Urine Color Yellow Urine Appearance Clear Urine pH 7.0 (5.0-9.0) Ur Specific [place] 1.020 (1.005-1.025) Urine Protein 100 (2+) H (Neg-Trace) mg/dL Urine Glucose (UA) Negative (Negative) mg/dL Urine Ketones Trace (Negative) mg/dL Urine Blood Negative (Negative) Urine Nitrite Negative (Negative) Ur Leukocyte Esterase Negative (Negative) Urine RBC 0-2 (0-2) /HPF Urine WBC 0-5 (0-5) /HPF Ur Squamous Epith Cells 0-2 (0-2) /HPF Urine Bacteria None Seen (None Seen) Hyaline Casts 0-2 (0-2) /LPF Urine Opiates Screen Not Detected (Not Detect) Ur Buprenorphine Scrn Not Detected (Not Detect) ng/mL Ur Oxycodone Screen Not Detected (Not Detect) ng/mL Urine Methadone Screen Not Detected (Not Detect) ng/mL Urine Fentanyl Screen Not Detected (Not Detect) Ur Barbiturates Screen Not Detected (Not Detect) Ur Phencyclidine Scrn Not Detected (Not Detect) Ur Amphetamines Screen Not Detected (Not Detect) U Benzodiazepines Scrn Not Detected (Not Detect) Urine Cocaine Screen POSITIVE H (Not Detect) U Marijuana (THC) Screen Not Detected (Not Detect) Independent Interpretation I performed an independent interpretation of an: CT Scan Interpretation: CT scan was reviewed interpreted by me as i subarachnoid bleed Radiology Impression Discussion of test interpretation with radiology: I have reviewed the radiologist's reading. Radiologist Impression: g of midline toward the left just below the level of the foramen of [place]. Orbits are symmetrical and unremarkable. Paranasal sinuses and mastoid air cells are pneumatized. There are no bony abnormalities. CT/CT head/brain wo IV con IMPRESSION: Intraventricular and subarachnoid hemorrhage. There is hematoma in the anterior horn of the left lateral ventricle near foramen of [place]. There is hemorrhage within a cavum septum lucidum between the anterior horns. There is trace subarachnoid hemorrhage in the frontal lobes, likely extending from the cavum septum pellucidum. There is trace hemorrhage in the occipital horns and probable trace subarachnoid hemorrhage in the anterior aspect of the suprasellar cistern. Dr. Ayaka Gonzalez notified. 4:28 pm ET Electronically signed by: Pete Aguilar MD 04/16/2025 04:32 PM EDT RP Dictated By: Pete Aguilar MD Signed By: <Electronically signed by External Record Review External record reviewed: Inpatient record Chronic Conditions Patient?s care impacted by: Hypertension Critical Care Time Critical Care Time Critical Care Time: Yes Total Critical Care Time: 60 Attestation: taking care of the pt IV labetalol IV nicardipine Discharge Plan Discharge Clinical Impression: Intracranial bleed Patient Disposition: [facility] Transfer Details: [facility] ED accepted by Dr Sanders Prescriptions: No Action (DME) Blood pressure monitor See Rx Instructions .Route .MEDSUPPLY Qty: 1 0RF Rx Instructions: As directed lisinopril 10 mg tablet 10 mg PO DAILY Qty: 90 1RF Protocol: Hold for SBP< HOLD for SBP < : 90 amlodipine 10 mg tablet 10 mg PO DAILY Qty: 90 1RF Protocol: Hold for SBP< HOLD for SBP < : 90 ferrous sulfate 325 mg (65 mg iron) tablet 325 mg PO BID Qty: 60 6RF cholecalciferol (vitamin D3) 50 mcg (2,000 unit) capsule 50 mcg PO DAILY Qty: 90 1RF sodium,potassium,mag sulfates [Suprep Bowel Prep Kit] 17.5-3.13-1.6 gram recon soln See Rx Instructions PO .COMPLEX Qty: 354 0RF Rx Instructions: DILUTE; drink 1/2 at 6-8 pm and half at 11 PM- 1AM tramadol 50 mg tablet 50 mg PO BID Qty: 60 0RF gabapentin 100 mg capsule 100 mg PO TID 30 Days Qty: 90 0RF trazodone 50 mg tablet 50 mg PO BEDTIME Qty: 30 0RF chlorhexidine gluconate 0.12 % mouthwash 15 ml PO BID omeprazole 40 mg capsule,delayed release(DR/EC) 40 mg PO DAILY@0630 (DME) blood pressure monitor Kit See Rx Instructions .Route Qty: 1 0RF Rx Instructions: As directed (DME) [facility] See Rx Instructions .Route Qty: 1 0RF Rx Instructions: As directed (DME) blood pressure test kit-large Kit See Rx Instructions .ROUTE DIRECTED Qty: 1 Rx Instructions: As directed mirtazapine 7.5 mg tablet 7.5 mg PO BEDTIME Qty: 30 1RF Ensure Active Protein-Muscle Liquid 1 ea PO TID Qty: 5688 3RF tadalafil 10 mg tablet 10 mg PO DAILY PRN (Reason: Sexual Activity) Qty: 30 1RF Interventions: Acute Care Transfer Worksheet (ED) Last Done: 04/16/25 17:51 Discharge Date/Time: 04/16/25 17:51 Print Language: Palestinian
--- NOTE | 2025-04-16 14:37 | PC.NURSE ---
jory from home after family went to visit and noticed patient to have increased AMS/lethargic/dismissive/uncooperative. constricted pupils upon arrival. per EMS, family reports hx of substance use but patient currently denies. upon ED arrival - pt remains somnolent/difficult to wake up and conversate with. alert and oriented to self only. responsive to verbal stimuli. pt continuously falls back asleep while speaking/answering questions. pupils remain constricted. vss and up to date aside from being hypertensive. nsr on the engine monitor. on RA w/o difficulty. maintaining airway/secretions w/o difficulty. no sob/wob noted. respirations even/unlabored. 20gIV placed in the right forearm - labs obtained/sent to lab. ekg performed by tech. CXR completed. pt aware urine specimen is needed - urinal placed bedside for convenience. pt otherwise offers no complaints. plan of care ongoing. call esposito placed within reach.
[2025-04-16 14:42] LABS: Glucose, Whole Blood 115 mg/dL (60-115)
[2025-04-16 14:43] LABS: NRBC Abs Auto 0.000 X10*3/uL (0.0-0.012); NRBC Pct Auto 0.0 /100WBC (0.0-0.2); SCAN SMEAR FLAG 1
[2025-04-16 14:45] LABS: Hematocrit 33.9 % (42.0-52.0); Hemoglobin 10.6 g/dl (14.0-18.0); Imm Gran Abs Auto 0.04 X10*3/uL (0.00-0.03); Imm Gran Pct Auto 0.5 % (0.0-0.4); Lymphocytes Absolute Auto 0.9 X10*3/uL (1.2-4.9); Mean Corpuscular HGB Conc 31.3 g/dl (31.0-36.0); Mean Corpuscular Hemoglobin 25.2 pg (27.0-33.0); Mean Corpuscular Volume 80.5 fL (80.0-98.0); Platelet Count 259 X10*3/uL (160-400); Red Blood Count 4.21 X10*6/uL (4.60-5.80); White Blood Count 8.6 X10*3/uL (4.8-10.8)
[2025-04-16 14:48] LABS: PLT ABN DIST 1
[2025-04-16 14:49] LABS: MANUAL DIFF FLAG NO
[2025-04-16 14:57] LABS: Alanine Aminotransferase 26 U/L (0-40); Albumin Level 4.2 g/dL (3.5-5.0); Alkaline Phosphatase 233 U/L (39-117); Anion Gap 14 (12-20); Aspartate Amino Transferase 28 U/L (5-37); Blood Urea Nitrogen 19 mg/dL (9-16); Calcium 9.5 mg/dL (8.4-10.2); Carbon Dioxide 24 mmol/L (22-29); Chloride 106 mmol/L (96-108); Creatinine Clr Calc Pharmacy 52.4; Estimated Glomerular Filt Rate > 60; Potassium 3.9 mmol/L (3.3-5.1); Sodium 140 mmol/L (135-145); Total Protein 8.6 g/dL (6.5-8.0)
[2025-04-16 15:00] LABS: Ammonia 41 umol/L (13-55)
[2025-04-16 15:06] LABS: Troponin-I High Sensitivity 16.2 ng/L (<3.5-35.0)
--- NOTE | 2025-04-16 15:16 | PC.NURSE ---
patient remains lethargic/difficulty staying awake to conversate. pt remains hypertensive - otherwise vss and up to date. nsr on the vehicle monitor technician. pt unable to swallow pills at this time to correct BP d/t increased lethargy - therefor, failed nursing swallow evaluation. provider notified/aware of BP.
--- NOTE | 2025-04-16 15:21 | PC.NURSE ---
IVP medication administered to recorrect BP per provider order. effectiveness pending.
[2025-04-16 16:22] LABS: Appearance Urine Clear; Glucose Urine UA Negative (Negative); PH 7.0 (5.0-9.0); Specific Gravity - Urine 1.020 (1.005-1.025); UMIC TRIGGER UA YES
--- NOTE | 2025-04-16 16:22 | PC.NURSE ---
patient still unable to urinate even after attempting to utilize urinal x 2. patient still lethargic/falls asleep while conversating. provider notified/aware. provider requesting straight catheterization. straight catheterization performed - 75ml of clear, dark yellow, non-foul smelling urine noted immediately post output. specimen obtained/sent to lab. plan of care ongoing.
[2025-04-16] MEDS: levETIRAcetam in NaCl (iso-os) 1,500 MG/100 ML PIGGYBACK 400 MG IV (16:54)
--- NOTE | 2025-04-16 17:33 | PC.NURSE ---
CT results completed. pt noted to have a +bleed. pt positioned upright to alleviate any pressure. nicardipine infusing per provider order. initial starting rate of 5mg/hr at this time. see titrations in MAR for further details. pt currently pending transport to [facility] at this time. plan of care ongoing.
--- NOTE | 2025-04-16 17:43 | PC.NURSE ---
report given to charge, Estrella ALCALA at [facility] at this time.
--- NOTE | 2025-04-16 17:49 | PC.NURSE ---
[facility] protocol states to titrate nicardipine to SBP <160, ED MDs (Dr. Gonzalez and Dr. Rees) stating to titrate additional 2.5mg/hr despite BP being 148/60. nicardipine now infusing @ 10mg/hr at this time. report given to GIORGI martinez. pt being transferred to [facility] at this time.
[2025-04-16 18:48] LABS: Partial Thromboplastin Time 26.5 SEC (26.0-36.8)
[2025-04-16 18:49] LABS: INTERNATIONAL NORM RATIO 1.0 (0.9-1.1); Prothrombin Time 11.7 SEC (10.9-12.4)
[2025-04-16 18:55] LABS: Cannabinoid Screen Urine Not Detected (Not Detect)
== END 2025-04-16 17:51 | disposition short-term general hospital (02) ==
PROVIDERS: Emergency Provider Emergency Medicine
DX: I61.5 Nontraumatic intracerebral hemorrhage, intraventricular (principal); R41.82 Altered mental status, unspecified; I10 Essential (primary) hypertension; E55.9 Vitamin D deficiency, unspecified; K74.60 Unspecified cirrhosis of liver; B19.20 Unspecified viral hepatitis C without hepatic coma; C22.0 Liver cell carcinoma; F19.10 Other psychoactive substance abuse, uncomplicated; F10.11 Alcohol abuse, in remission; Z87.891 Personal history of nicotine dependence; Z92.21 Personal history of antineoplastic chemotherapy; Z79.899 Other long term (current) drug therapy
CPT/HCPCS: 36415; 51701; 70450; 71045; 80053; 80307; 81001; 82140; 82947; 84484; 85025; 85610; 85730; 93005; 96365; 96375; 99285; 99291; J1920; J1953; J2404

== ENCOUNTER → 2025-04-16 14:22 | Outpatient (BNV) | payer OTHER, MEDICAID, SELFPAY | PROVIDERS: Emergency Provider Emergency Medicine; Visit Provider Radiology Diagnostic Radiology | DX: I60.9 Nontraumatic subarachnoid hemorrhage, unspecified (principal); I61.5 Nontraumatic intracerebral hemorrhage, intraventricular; R41.82 Altered mental status, unspecified | CPT/HCPCS: 70450; 71045 ==

== ENCOUNTER → 2025-04-16 14:23 | Outpatient (BNV) | payer OTHER, MEDICAID, SELFPAY | PROVIDERS: Emergency Provider Emergency Medicine; Visit Provider Internal Medicine Cardiovascular Disease | DX: R07.9 Chest pain, unspecified (principal) | CPT/HCPCS: 93010 ==

== ENCOUNTER 2025-06-11 14:20 | Inpatient (IN) | payer OTHER, SELFPAY ==
--- NOTE | 2025-06-11 | ECG_ITS ---
Test Reason : weakness Blood Pressure : */* mmHG Vent. Rate : 75 BPM Atrial Rate : 75 BPM P-R Int : 168 ms QRS Dur : 70 ms QT Int : 382 ms P-R-T Axes : 52 9 17 degrees QTcB Int : 426 ms Sinus rhythm with Premature atrial complexes Otherwise normal ECG When compared with ECG of 16-Apr-2025 14:34, Premature atrial complexes are now Present Nonspecific T wave abnormality now evident in Inferior leads Nonspecific T wave abnormality now evident in Lateral leads Referred By: Generic ED Physician Electronically Signed By: SHELBY MARTINEZ
--- NOTE | ~2025-06-11 | US_ITS ---
CLINICAL HISTORY: hcc --- Additional Notes or Special Instructions: hcc..per md- liver, GB, spleen, pv only Ultrasound abdomen limited Comparison: 01/12/2025 Findings: Evaluation of the liver is limited by poor penetration by the ultrasound beam and by a poor acoustic window. Liver length is estimated at 12.8 cm. There is coarsening of liver parenchyma. There is redistribution of liver volume with relative prominence of the caudate lobe. There is a 5.2 x 4.0 x 4.8 cm solid mildly heterogeneous mildly complex mass within the right lobe of the liver. The gallbladder was not visualized. The common bile duct measures 7 mm. The spleen measures 10.1 cm in length. Impression: 1. There is a 5.2 cm solid mass within the right lobe of the liver, most compatible with neoplasm. Biopsy is recommended. 2. There are changes of liver cirrhosis. This document has been electronically signed by: Agnieszka Galvan MD on 06/12/2025 19:08:09
[2025-06-11 14:33] VITALS: BP 146/72; PULSE 76; O2SAT 98
[2025-06-11 14:43] VITALS: BP 119/68; PULSE 75; RESP 18; TEMP 36.8; O2SAT 99; BMI 23.7
[2025-06-11 15:37] LABS: MANUAL DIFF FLAG NO
[2025-06-11 15:41] LABS: Hematocrit 30.1 % (42.0-52.0); Hemoglobin 9.3 g/dl (14.0-18.0); Imm Gran Abs Auto 0.01 X10*3/uL (0.00-0.03); Imm Gran Pct Auto 0.2 % (0.0-0.4); Lymphocytes Absolute Auto 1.1 X10*3/uL (1.2-4.9); Mean Corpuscular HGB Conc 30.9 g/dl (31.0-36.0); Mean Corpuscular Hemoglobin 25.5 pg (27.0-33.0); Mean Corpuscular Volume 82.7 fL (80.0-98.0); NRBC Abs Auto 0.000 X10*3/uL (0.0-0.012); NRBC Pct Auto 0.0 /100WBC (0.0-0.2); Platelet Count 152 X10*3/uL (160-400); Red Blood Count 3.64 X10*6/uL (4.60-5.80); White Blood Count 4.6 X10*3/uL (4.8-10.8)
[2025-06-11 15:56] LABS: Alanine Aminotransferase 65 U/L (0-40); Albumin Level 3.5 g/dL (3.5-5.0); Alkaline Phosphatase 254 U/L (39-117); Anion Gap 10 (12-20); Aspartate Amino Transferase 68 U/L (5-37); Blood Urea Nitrogen 15 mg/dL (9-16); Calcium 9.1 mg/dL (8.4-10.2); Carbon Dioxide 26 mmol/L (22-29); Chloride 111 mmol/L (96-108); Creatinine Clr Calc Pharmacy 53.9; Estimated Glomerular Filt Rate > 60; Lipase 33 U/L (8-78); Potassium 3.8 mmol/L (3.3-5.1); Sodium 143 mmol/L (135-145); Total Protein 7.0 g/dL (6.5-8.0)
--- NOTE | 2025-06-11 17:53 | ED_ITS ---
HPI - General Adult General Chief complaint: Weakness Stated complaint: lethargic, hx stroke Time Seen by Provider: 06/11/25 16:11 Source: patient, RN notes reviewed, old records reviewed and other (Patient's [place]) Mode of arrival: EMS Limitations: language barrier History of Present Illness ED Provider: Meghann HPI narrative: 69-year-old male with a past medical history significant for hepatocellular carcinoma status post embolization, HCV, alcoholic cirrhosis, peripheral neuropathy, recurrent GI bleed with history of esophageal varices presents for evaluation of weakness. Patient has symptoms started this morning. He reports feeling similar to when he required a blood transfusion due to severe anemia a few months ago. 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 at the time of my evaluation he denies any abdominal pain but reports that he did have some right-sided upper abdominal pain denies any fevers, chills no other complaints or concerns at this time Related Data Home Medications ?Medication ?Instructions ?Recorded ?Confirmed blood pressure test kit-large #1 ea 10/16/24 03/27/25 chlorhexidine gluconate 0.12 % 15 ml PO BID 01/29/25 0 03/27/25 mouthwash omeprazole 40 mg capsule,delayed 40 mg PO DAILY@0630 0 01/29/25 03/27/25 release Previous Rx's ?Medication ?Instructions ?Recorded blood pressure monitor #1 ea 01/21/22 Blood pressure monitor #1 ea 08/02/24 amlodipine 10 mg tablet 10 mg PO DAILY #90 tabs 10/29 12/19 lisinopril 10 mg tablet 10 mg PO DAILY #90 tabs 10/29 12/19 ferrous sulfate 325 mg (65 mg 325 mg PO BID #60 tabs 0 01/12/25 iron) tablet food supplemt, lactose-reduced 1 ea PO TID #5,688 mL 0 02/22/25 (Ensure Active Protein-Muscle oral liquid) mirtazapine 7.5 mg tablet 7.5 mg PO BEDTIME #30 tabs 0 02/22/25 tadalafil 10 mg tablet 10 mg PO DAILY PRN Sexual Ac tivity 02/22/25 #30 tabs cholecalciferol (vitamin D3) 50 50 mcg PO DAILY #90 ca ps 03/16/25 mcg (2,000 unit) capsule sodium,potassium,mag sulfates 17.5 See Rx Instructions PO .COMPLEX 03/19/25 gram-3.13 gram-1.6 gram oral soln #354 mL (Suprep Bowel Prep Kit) gabapentin 100 mg capsule 100 mg PO TID 30 days #90 ca ps 04/17/25 trazodone 50 mg tablet 50 mg PO BEDTIME #30 tabs tramadol 50 mg tablet 50 mg PO BID #60 tabs disposable bed pads #200 ea 05/31/25 mens brief 5x per day #1 ea 05/31/25 walker #1 ea 05/31/25 Reusable bed pad #2 ea 06/04/25 disposable gloves #200 ea 06/04/25 Allergies Allergy/AdvReac Type Severity Reaction Status Date / Time No Known Allergies (No Known Allergy Verified 06/11/25 14:45 Allergies*) Review of Systems 2 Constitutional: Constitutional: Denies body ache(s), Denies chills, Denies fever(s) and Reports weakness Eyes: Eyes: Denies blurry vision ENT: Denies vertigo and Denies dizziness Cardiovascular: Cardiovascular: Denies chest pain and Denies dyspnea on exertion Respiratory: Respiratory: Denies cough and Denies dyspnea on exertion Gastrointestinal: Gastrointestinal: Denies abdominal pain, Reports melena, Denies hematochezia, Denies coffee ground emesis, Denies nausea and Denies vomiting Integumentary/Breasts: Skin/Breast: Denies rash Neurologic: Denies vertigo, Denies dizziness and Reports weakness Psychiatric: Psychiatric: Denies anxiety [facility] Past Medical History Medical History Vitamin D deficiency Erectile dysfunction Depression Chronic pain Chronic anemia Insomnia Hepatocellular carcinoma Neuropathy involving both lower extremities Liver cirrhosis Hepatitis C Common cold Lower back pain Surgical History History of tooth extraction Hx of colonoscopy (~10/29/23) History of breast lump/mass excision History of ankle surgery History of appendectomy History of open reduction and internal fixation (ORIF) procedure Family History Family History Father Prostate cancer Mother Diabetes Stroke Social History Social History Household Members: None and Other Housing: Apartment Are you a primary day care home provider to a significant other at home: No Do you presently have visiting nurse or other home services: Yes (supervisor [facility]) Unable to assess alcohol history related to: Unable to respond Alcohol intake: former Patient Tobacco Use Status: Former Tobacco user Tobacco use type: Cigarette e-Cigarette/Vaping Use: Never Used Second Hand Smoke Exposure: No Advance Directives: No Advance Directives Information Provided: No Do you have a plan to hurt others: No Plan service: No Current occupational status: disabled Cognitive needs: Yes (cane) Hearing needs: No Vision needs: Yes (glasses) Physical Exam ED Vital Signs: Vital Signs - 24 hr 06/11/25 14:43 06/11/25 20:13 Temperature 98.2 F 98.3 F Pulse Rate 75 76 Respiratory Rate 18 16 Blood Pressure 119/68 130/66 Pulse Oximetry 99 99 Oxygen Delivery Method Room Air Room Air BMI result Body Mass Index 23.7 Const General: healthy appearing, comfortable, no acute distress, alert and awake Nutritional Appearance: well nourished Orientation/consciousness: patient oriented x3 HENMT Head: Yes normocephalic and Yes atraumatic Eyes Eyelids: Yes eyelids normal Conjunctivae: conjunctivae normal Sclerae: sclerae normal Corneas: corneas normal Pupils: Equal, round and reactive pupils present EOM: EOMs intact bilaterally Neck Neck: Yes full ROM Resp Effort & Inspection: normal respiratory effort, able to speak in complete sentences and not labored Cardio Rate: regular rate Rhythm: regular rhythm GI Inspection: No distended Palpation (GI): Soft to palpation, not firm, nontender, no guarding and not rigid Skin General skin exam: elasticity normal Neuro General: patient oriented x3 Cranial nerves: Yes CN's II-XII intact bilaterally, Yes Equal, round and reactive pupils present and Yes Bilaterally intact EOM present Cognition (Neuro): normal cognition Extrem Other: Moving all extremities well without any obvious deformities Medications Administered Discontinued Medications Generic Name Dose Route Start Last Admin Trade Name Freq PRN Reason Stop Dose Admin Ceftriaxone Sodium 1 gm 06/11/25 19:39 06/11/25 20:39 Ceftriaxone Sodium 1 Gm Vial IVPUSH 06/11/25 19:40 1 gm ONCE ONE Administration Gabapentin 100 mg 06/11/25 17:26 06/11/25 18:14 Gabapentin 100 Mg Capsule PO 06/11/25 17:27 100 mg ONCE ONE Administration Octreotide Acetate 50 mcg 06/11/25 19:34 06/11/25 20:38 Octreotide Acetate 100 Mcg/Ml Ampul IVPUSH 06/11/25 19:35 50 mcg ONCE ONE Administration Pantoprazole Sodium 80 mg 06/11/25 19:34 06/11/25 20:39 Pantoprazole Sodium 40 Mg/10 Ml Vial IVPUSH 06/11/25 19:35 80 mg ONCE ONE Administration Medical Decision Making Medical Decision Making MDM Narrative: 69-year-old male past medical history as above presents for evaluation of weakness. He has noticed black stool and has a history of GI bleed with varices. He has not been vomiting blood in his not nauseous, currently has no abdominal pain. I do feel the acute esophageal variceal bleed is less likely at this time. His blood pressure is within normal limits, he is not tachycardic. The patient is anemic with a hemoglobin of 9.3 and a hematocrit of 30.1, his baseline appears to be around 9 for hemoglobin. Given that his exam is reassuring, I do not see any acute indication for imaging was abdomen at this time. He essentially has weakness with no other specific symptoms. I will order a repeat in his and a hematocrit for 3 hours after the initial draw Differential Diagnosis Differential Diagnoses: The differential diagnosis associated with the presentation includes weakness Failure to thrive CVA less likely GI bleed Consult Healthcare Provider Management of the patient was discussed with: [employer] [employer] Manager GI, Dr Wright agrees with the treatment for esophageal varices with PPI, ceftriaxone your octreotide, the patient will be seen by GI in the morning, likely Dr. Maza Lab Data MDM Lab Attestation statement: I reviewed the patient's lab results. mild pancytopenia as discussed above. This is likely due to his history of alcoholic liver cirrhosis, hepatocellular carcinoma and HCV. No significant electrolyte abnormalities warranting intervention 06/11/25 19:08 06/11/25 15:33 Labs: Lab Results 06/11/25 06/11/25 06/11/25 Range/Units 15:33 19:08 20:15 WBC 4.6 L (4.8-10.8) X10*3/uL RBC 3.64 L (4.60-5.80) X10*6/uL Hgb 9.3 L 8.6 L (14.0-18.0) g/dl Hct 30.1 L 27.3 L (42.0-52.0) % MCV 82.7 (80.0-98.0) fL MCH 25.5 L (27.0-33.0) pg MCHC 30.9 L (31.0-36.0) g/dl RDW 19.3 H (11.0-16.0) % Plt Count 152 L D (160-400) X10*3/uL MPV Not Reportable Immature Gran % (Auto) 0.2 (0.0-0.4) % Neut % (Auto) 61.7 (45-73) % Lymph % (Auto) 23.9 (20-40) % [place] % (Auto) 10.6 (2-11) % Eos % (Auto) 3.4 (0-4) % Baso % (Auto) 0.2 (0-2) % Lymph # (Auto) 1.1 L (1.2-4.9) X10*3/uL [place] # (Auto) 0.5 (0.1-1.2) X10*3/uL Eos # (Auto) 0.2 (0.0-0.4) X10*3/uL Baso # (Auto) 0.0 (0.0-0.2) X10*3/uL Abs Immat Gran (auto) 0.01 (0.00-0.03) X10*3/uL Absolute Neuts (auto) 2.9 (2.0-8.3) x10*3/uL Absolute Nucleated RBC 0.000 (0.0-0.012) X10*3/uL Nucleated RBC % (auto) 0.0 (0.0-0.2) /100WBC PT (10.9-12.4) SEC INR (0.9-1.1) Sodium 143 (135-145) mmol/L Potassium 3.8 (3.3-5.1) mmol/L Chloride 111 H (96-108) mmol/L Carbon Dioxide 26 (22-29) mmol/L Anion Gap 10 L (12-20) BUN 15 (9-16) mg/dL Creatinine 1.01 (0.5-1.4) mg/dL Estim Creat Clear Calc 53.9 Estimated GFR > 60 Random Glucose 100 (60-115) mg/dL Calcium 9.1 (8.4-10.2) mg/dL Total Bilirubin 0.3 (0.0-1.0) mg/dL Direct Bilirubin 0.1 (0.0-0.5) mg/dL AST 68 H (5-37) U/L ALT 65 H (0-40) U/L Alkaline Phosphatase 254 H (39-117) U/L Ammonia (13-55) umol/L Total Protein 7.0 (6.5-8.0) g/dL Albumin 3.5 (3.5-5.0) g/dL Lipase 33 (8-78) U/L Stool Occult Blood POSITIVE (NEGATIVE) 06/11/25 Range/Units 20:22 WBC (4.8-10.8) X10*3/uL RBC (4.60-5.80) X10*6/uL Hgb (14.0-18.0) g/dl Hct (42.0-52.0) % MCV (80.0-98.0) fL MCH (27.0-33.0) pg MCHC (31.0-36.0) g/dl RDW (11.0-16.0) % Plt Count (160-400) X10*3/uL MPV Immature Gran % (Auto) (0.0-0.4) % Neut % (Auto) (45-73) % Lymph % (Auto) (20-40) % [place] % (Auto) (2-11) % Eos % (Auto) (0-4) % Baso % (Auto) (0-2) % Lymph # (Auto) (1.2-4.9) X10*3/uL [place] # (Auto) (0.1-1.2) X10*3/uL Eos # (Auto) (0.0-0.4) X10*3/uL Baso # (Auto) (0.0-0.2) X10*3/uL Abs Immat Gran (auto) (0.00-0.03) X10*3/uL Absolute Neuts (auto) (2.0-8.3) x10*3/uL Absolute Nucleated RBC (0.0-0.012) X10*3/uL Nucleated RBC % (auto) (0.0-0.2) /100WBC PT 10.9 (10.9-12.4) SEC INR 1.0 (0.9-1.1) Sodium (135-145) mmol/L Potassium (3.3-5.1) mmol/L Chloride (96-108) mmol/L Carbon Dioxide (22-29) mmol/L Anion Gap (12-20) BUN (9-16) mg/dL Creatinine (0.5-1.4) mg/dL Estim Creat Clear Calc Estimated GFR Random Glucose (60-115) mg/dL Calcium (8.4-10.2) mg/dL Total Bilirubin (0.0-1.0) mg/dL Direct Bilirubin (0.0-0.5) mg/dL AST (5-37) U/L ALT (0-40) U/L Alkaline Phosphatase (39-117) U/L Ammonia 52 (13-55) umol/L Total Protein (6.5-8.0) g/dL Albumin (3.5-5.0) g/dL Lipase (8-78) U/L Stool Occult Blood (NEGATIVE) Independent Interpretation I performed an independent interpretation of an: EKG Interpretation: sinus rhythm with a rate of 75 beats minute. Other than PACs noted, his EKG is essentially similar to previous dated April 16, 2025. Tests considered The following testing was considered but not selected: Consider CT scan of the abdomen pelvis but ultimately declined due to labs at baseline and reassuring exam, vital signs within normal limits. Critical Care Time Critical Care Time Critical Care Time: Yes Total Critical Care Time: 45 Attestation: 69-year-old male with history of esophageal varices presents for evaluation of weakness, he is anemic, repeat hemoglobin shows down trending from 9.3-8.6 with a just a few hours. I discussed with GI who recommends admission, likely scoping in the morning. Discharge Plan Discharge Clinical Impression: Acute upper gastrointestinal bleeding Patient Disposition: Admitted As Inpatient Print Language: Setswana
[2025-06-11 19:13] LABS: Hematocrit 27.3 % (42.0-52.0); Hemoglobin 8.6 g/dl (14.0-18.0)
--- NOTE | 2025-06-11 20:08 | PC.NURSE ---
assumed care of pt, partner at bedside. x3 attempts by x2 RN's at starting a line. Deandre CAMARGO to start IV ultrasound guided line.
[2025-06-11 20:13] VITALS: BP 130/66; PULSE 76; RESP 16; TEMP 36.8; O2SAT 99
[2025-06-11 20:19] LABS: OBS Int Ctl Valid YES; OBS1 POSITIVE (NEGATIVE)
[2025-06-11 20:38] LABS: INTERNATIONAL NORM RATIO 1.0 (0.9-1.1); Prothrombin Time 10.9 SEC (10.9-12.4)
[2025-06-11] MEDS: Octreotide Acetate 100 MCG/ML AMPUL 50 MCG IVPUSH (20:38)
[2025-06-11 20:40] LABS: Ammonia 52 umol/L (13-55)
--- NOTE | 2025-06-11 20:57 | PC.NURSE ---
pt medicated per MAR.
--- NOTE | 2025-06-11 21:47 | PM.IMHP ---
History of Present Illness Date of Service: 06/11/25 Attending physician on admission: Selina Jenkins Chief Complaint: darline Campbell is a 69 years old man with a past medical history significant for hepatocellular CA status post embolization, hepatitis-C/alcoholic cirrhosis, esophageal varices requiring banding, SAH, previous GI bleeding requiring transfusions and essential HTN presents to the emergency department complaining of one-week history of generalized weakness and dizziness. He denied any headache or loss of consciousness. He also reported watery dark stools. He denied abdominal pain, fever, acute urinary symptoms nausea or vomiting. He is a former tobacco smoker. He has a history of alcohol abuse, last drink was a month ago. He also used to use marijuana and cocaine. In the ED, he was found to have stable vital signs. Blood workup showed no leukocytosis (WBC 4.6 which is around his baseline), hemoglobin trending down over 4 hours. Platelets 153. INR is 1.0. There are no significant electrolyte imbalances. BUN is 15 and creatinine 1.01. LFTs are elevated with normal bilirubin 0.3. Ammonia is 52 and lipase 33. Stool for occult blood is positive. ECG showed normal sinus rhythm with PACs and no acute ischemic changes. ED tx: Gabapentin 1 mg p.o., pantoprazole 80 mg IV, octreotide 50 mcg IV, ceftriaxone 1 g IV Review of Systems Review of Systems: All 12 systems were reviewed and normal except as noted in HPI. [facility] Medical History Vitamin D deficiency Erectile dysfunction Depression Chronic pain Chronic anemia Insomnia Hepatocellular carcinoma Neuropathy involving both lower extremities Liver cirrhosis Hepatitis C Common cold Lower back pain Family History Father Prostate cancer Mother Diabetes Stroke Surgical History History of tooth extraction Hx of colonoscopy (~10/29/23) History of breast lump/mass excision History of ankle surgery History of appendectomy History of open reduction and internal fixation (ORIF) procedure Social History Household Members: None and Other Housing: Apartment Are you a primary pet care attendant to a significant other at home: No Do you presently have visiting nurse or other home services: Yes (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) Unable to assess alcohol history related to: Unable to respond Alcohol intake: former Patient Tobacco Use Status: Former Tobacco user Tobacco use type: Cigarette e-Cigarette/Vaping Use: Never Used Second Hand Smoke Exposure: No Advance Directives: No Advance Directives Information Provided: No Do you have a plan to hurt others: No Plan service: No Current occupational status: disabled Cognitive needs: Yes (cane) Hearing needs: No Vision needs: Yes (glasses) Meds Allergies Allergy/AdvReac Type Severity Reaction Status Date / Time No Known Allergies (No Known Allergy Verified 06/11/25 14:45 Allergies*) Active Medications: Current Medications Lactated Ringer's (Lr) 1,000 mls @ 100 mls/hr IVCONT .Q10H [place]SON Stop: 06/12/25 07:29 Octreotide Acetate 500 mcg/ (Sodium Chloride) 501 mls @ 50.1 mls/hr IVCONT .Q10H [place]SON Pantoprazole Sodium (Pantoprazole Sodium 40 Mg/10 Ml Vial) 40 mg IVPUSH BID@0630,1630 [facility] Sodium Chloride (0.9 % Sodium Chloride Flush 3 Ml Syringe) 3 ml IVFLUSH QSHIFT [facility] Home Medications ?Medication ?Instructions ?Recorded ?Confirmed ?Last Taken ?Type blood pressure test kit-large #1 ea 10/16/24 03/27/25 Unknown History chlorhexidine gluconate 0.12 % 15 ml PO BID 01/29/25 03/27/25 01/28/25 History mouthwash omeprazole 40 mg capsule,delayed 40 mg PO DAILY@0630 01/29/25 03/27/25 01/28/25 History release Physical Exam Vital Signs and Narrative: Vital Signs: Last Vital Signs Temp 98.3 F 06/11/25 20:13 Pulse 76 06/11/25 20:13 Resp 16 06/11/25 20:13 BP 130/66 06/11/25 20:13 Pulse Ox 99 06/11/25 20:13 O2 Del Method Room Air 06/11/25 20:13 BMI result Body Mass Index 23.7 Constitutional - Awake and Alert, No apparent distress HEENT - PER, EOMI. Normal sclerae. Dry oral mucosa. Heart - S1S2, RRR, No murmurs Lungs - Normal lung expansion, Normal respiratory effort, No respiratory distress, CTA bilaterally Abdomen - NT / ND; +BS; No rebound or guarding Extremities - no calf tenderness bilaterally, no swelling Musculoskeletal - Normal inspection, normal ROM Skin - Warm/Dry Neurological - Alert & oriented x3. Moving all extremities spontaneously (strength LE - 4/5 - chronic). Normal speech. Psychological - Appropriate affect Results Labs 06/11/25 19:08 06/11/25 15:33 Labs: Laboratory Results - last 24 hr 06/11/25 06/11/25 06/11/25 15:33 20:15 20:22 MCV 82.7 MCH 25.5 L MCHC 30.9 L RDW 19.3 H Plt Count 152 L D MPV Not Reportable Immature Gran % (Auto) 0.2 Neut % (Auto) 61.7 Lymph % (Auto) 23.9 [place] % (Auto) 10.6 Eos % (Auto) 3.4 Baso % (Auto) 0.2 Lymph # (Auto) 1.1 L [place] # (Auto) 0.5 Eos # (Auto) 0.2 Baso # (Auto) 0.0 Abs Immat Gran (auto) 0.01 Absolute Neuts (auto) 2.9 Absolute Nucleated RBC 0.000 Nucleated RBC % (auto) 0.0 PT 10.9 INR 1.0 Anion Gap 10 L Estim Creat Clear Calc 53.9 Estimated GFR > 60 Random Glucose 100 Calcium 9.1 Total Bilirubin 0.3 Direct Bilirubin 0.1 AST 68 H ALT 65 H Alkaline Phosphatase 254 H Ammonia 52 Total Protein 7.0 Albumin 3.5 Lipase 33 Stool Occult Blood POSITIVE Blood Type A Negative Antibody Screen NEGATIVE Assessment and Plan (1) Melena: Status: Acute (2) Anemia: Qualifiers: Anemia type: unspecified type Qualified Code(s): D64.9 - Anemia, unspecified Status: Acute Plan Jose Armando Campbell is a 69 y/o man with a PMHx significant for hepatocellular CA status post embolization, hepatitis-C/alcoholic cirrhosis, esophageal varices requiring banding, SAH and previous GI bleeding requiring transfusions presents with: Melena and worsening anemia, Hbg 9.3--> 8.6 over 4 hours; normal INR. NPO. Pt on omeprazole, sucralfate and iron pills at home. IV fluids. Continue to monitor H&H. Transfuse PRBCs if unstable or Hgb < 7. Continue octreotide as an infusion and Protonix 40 mg IV b.i.d.. GI consult for EGD if appropiate -Dr. Maza contacted by ED provider. Hepatocellular CA in the setting of HCV/cirrhosis. No evidence of ascites or hepatic encephalopathy. Not active alcohol consumption -last time he drank was a month ago. F/U as an outpatient. Essential hypertension. Continue amlodipine when able. Last BP is 130/66. Mood disorder. Continue home medications when able. Peripheral neuropathy/spasticity. Continue gabapentin and tizanidine when able. Hx of SAH. Denied headache or any acute stroke symptoms. He has chronic weakness to the lower extremities. Code status: Full DVT prophylaxis: SCDs only due to active GI bleeding Patient will need hospitalization for at least 2 midnights for GI bleeding requiring continuous monitoring of H&H and VS; and evaluation by GI service for possible EGD. Quality Stroke Does the patient have a stroke diagnosis?: No VTE Prior VTE?: No VTE Risk Level:: Medical - moderate - high VTE Device Contraindication: N/A - Device Ordered VTE Drug Contraindication: Treatment Not Indicated
--- NOTE | 2025-06-11 22:25 | PC.NURSE ---
pt MEDICATED PER mar, WILL HANG lr ONCE SECOND LINE IS OBTAINED.
[2025-06-11] MEDS: Lactated Ringers 1,000 ML 100 ML IVCONT (22:49)
--- NOTE | 2025-06-11 22:59 | PC.NURSE ---
second line obtained, LR running at 100.
[2025-06-12] VITALS (8 sets, daily range): BP systolic 102–178; BP diastolic 68–87; PULSE 64–83; RESP 12–18; TEMP 36.4–37; O2SAT 98–100
[2025-06-12 00:42] LABS: Hematocrit 29.6 % (42.0-52.0); Hemoglobin 9.3 g/dl (14.0-18.0)
[2025-06-12 04:34] LABS: Hematocrit 25.9 % (42.0-52.0); Hemoglobin 8.3 g/dl (14.0-18.0)
[2025-06-12 05:13] LABS: Hematocrit 25.6 % (42.0-52.0); Hemoglobin 8.1 g/dl (14.0-18.0); Mean Corpuscular HGB Conc 31.6 g/dl (31.0-36.0); Mean Corpuscular Hemoglobin 25.7 pg (27.0-33.0); Mean Corpuscular Volume 81.3 fL (80.0-98.0); NRBC Abs Auto 0.000 X10*3/uL (0.0-0.012); NRBC Pct Auto 0.0 /100WBC (0.0-0.2); Platelet Count 132 X10*3/uL (160-400); Red Blood Count 3.15 X10*6/uL (4.60-5.80); White Blood Count 4.3 X10*3/uL (4.8-10.8)
[2025-06-12 05:24] LABS: Alanine Aminotransferase 56 U/L (0-40); Albumin Level 3.1 g/dL (3.5-5.0); Alkaline Phosphatase 222 U/L (39-117); Anion Gap 12 (12-20); Aspartate Amino Transferase 64 U/L (5-37); Blood Urea Nitrogen 15 mg/dL (9-16); Calcium 8.9 mg/dL (8.4-10.2); Carbon Dioxide 24 mmol/L (22-29); Chloride 112 mmol/L (96-108); Creatinine Clr Calc Pharmacy 51.9; Estimated Glomerular Filt Rate > 60; Potassium 4.2 mmol/L (3.3-5.1); Sodium 144 mmol/L (135-145); Total Protein 6.3 g/dL (6.5-8.0)
--- NOTE | 2025-06-12 07:01 | PC.NURSE ---
Assumed care of patient. Pt is calm, cooperative, resting. Pt denies any pain or discomfort at this time. RR even and unlabored, denies CP or SOB.
--- NOTE | 2025-06-12 07:41 | PC.NURSE ---
Pt is A+ox4, calm, cooperative, denies pain at this time. RR even and unlabored, and denies CP or SOB. Pt lives with a friend and has a MOTORBOAT MECHANIC INBOARD that comes in to care for him. Pt sts you have a cane and a walker but uses a wheelchair due to increased weakness. PT has R sided weakness from a previous stroke.
--- NOTE | 2025-06-12 08:18 | PHA.MEDREC ---
Pharmacy Consult ? Medication Reconciliation Pharmacy has completed the medication reconciliation. Spoke to patient at bedside with poured pipe maker services, he wasn't too sure what he takes but recognizes some names and indications. Used pharmacy claims to confirm the rest.
--- NOTE | 2025-06-12 08:50 | MHC.CM.PN ---
Addendum entered by Dolores Betts 06/12/25 13:29: PT IS ALSO ACTIVE WITH [facility], RETURN REFERRAL PLACED Original Note: CM MET WITH PT WITH A WOODS OVERSEER PT LIVES WITH HIS AND HAS DAILY INTERNATIONAL ACCOUNT EXECUTIVE SERVICES HE USES A WHEEL CHAIR, AND ALSO HAS A CANE AND WALKER HCP ON FILE PCP: MELISSA ROE IMM DELIVERED DCP: HOME, RESUME INTERNATIONAL ACCOUNT EXECUTIVE WILL NEED BLS TRANSPORT
--- NOTE | 2025-06-12 14:13 | PM.GICN ---
History of Present Illness Data of Consult Service Date: 06/12/25 Requesting physician: Selina Jenkins Primary Care Provider: Unknown Physician HPI Reason for consult: Anemia This is a 69-year-old gentleman with past medical history of chronic HCV (treated), alcohol use disorder that has led to cirrhosis complicated by HCC status post local regional therapy 2023, recurrent gastrointestinal bleeding, who presented to the hospital for lightheadedness and weakness. Patient was seen at bedside in the presence of his girlfriend. diplomatic interpreter/translator help with the encounter. He reports that his symptoms were reminiscent of his previous history of GI bleeding with anemia and therefore he presented to the hospital. He does not report any abdominal pain, nausea, vomiting. No changes in stool, reports black stools occur only when he takes p.o. iron. Follows with Dr. Maza for his cirrhosis care. Was admitted in the hospital in October and then again January for GI bleeding from varices. Recent endoscopy 01/30/2025: Gastritis, portal hypertensive gastropathy, esophagitis with post banding erosions, AVM in D2. Flat varices. Of note, CT scan from December 2024 also shows 3.5 cm lesion in right lobe of liver. He reports abstinence from alcohol use as of 1 month. Also does not report any ongoing IV drug use. Review of Systems Review of Systems: Yes all other systems are reviewed and are negative PMFSH Past Medical History Medical History Vitamin D deficiency Erectile dysfunction Depression Chronic pain Chronic anemia Insomnia Hepatocellular carcinoma Neuropathy involving both lower extremities Liver cirrhosis Hepatitis C Common cold Lower back pain Family History Family History Father Prostate cancer Mother Diabetes Stroke Surgical History Surgical History History of tooth extraction Hx of colonoscopy (~10/29/23) History of breast lump/mass excision History of ankle surgery History of appendectomy History of open reduction and internal fixation (ORIF) procedure Social History Social History Household Members: None Housing: Apartment Are you a primary resident care associate to a significant other at home: No Do you presently have visiting nurse or other home services: Yes Unable to assess alcohol history related to: Unable to respond Alcohol intake: former Patient Tobacco Use Status: Former Tobacco user Tobacco use type: Cigarette e-Cigarette/Vaping Use: Never Used Second Hand Smoke Exposure: No service: No Current occupational status: disabled Cognitive needs: Yes (cane) Hearing needs: No Vision needs: Yes (glasses) Meds Allergies Allergy/AdvReac Type Severity Reaction Status Date / Time No Known Allergies (No Known Allergy Verified 06/11/25 14:45 Allergies*) Active Medications: Current Medications Amlodipine Besylate (Amlodipine Besylate 10 Mg Tablet) 10 mg PO DAILY [facility]; Protocol Ceftriaxone Sodium (Ceftriaxone Sodium 1 Gm Vial) 1 gm IVPUSH Q24H [facility] Gabapentin (Gabapentin 100 Mg Capsule) 100 mg PO TID [facility] Octreotide Acetate 500 mcg/ (Sodium Chloride) 501 mls @ 50.1 mls/hr IVCONT .Q10H [facility] Last Admin: 06/12/25 08:33 Dose: 50 mcg/hr, 50.1 mls/hr Lisinopril (Lisinopril 10 Mg Tablet) 10 mg PO DAILY [facility]; Protocol Mirtazapine (Mirtazapine 7.5 Mg Tablet) 7.5 mg PO BEDTIME [facility] Pantoprazole Sodium (Pantoprazole Sodium 40 Mg/10 Ml Vial) 40 mg IVPUSH BID@0630,1630 [facility] Last Admin: 06/12/25 06:04 Dose: 40 mg Sodium Chloride (0.9 % Sodium Chloride Flush 3 Ml Syringe) 3 ml IVFLUSH QSHIFT [facility] Last Admin: 06/12/25 07:28 Dose: Not Given Sucralfate (Sucralfate 1 Gm Tablet) 1 gm PO BID [facility] Tizanidine HCl (Tizanidine Hcl 4 Mg Tablet) 2 mg PO TID [facility] Tramadol HCl (Tramadol Hcl 50 Mg Tablet) 50 mg PO BID [facility] Trazodone HCl (Trazodone Hcl 50 Mg Tablet) 50 mg PO BEDTIME [facility] Home Medications ?Medication ?Instructions ?Recorded ?Confirmed ?Last Taken ?Type blood pressure test kit-large #1 ea 10/16/24 03/27/25 Unknown History omeprazole 40 mg capsule,delayed 40 mg PO DAILY@0630 01/29/25 06/12/25 06/11/25 History release polysaccharide iron complex 150 mg 150 mg PO DAILY 06/12/25 06/12/25 06/11/25 History iron capsule pyridoxine (vitamin B6) 50 mg 50 mg PO DAILY 06/12/25 06/12/25 06/11/25 History tablet sucralfate 1 gram tablet 1 g PO BID 06/12/25 06/12/25 06/11/25 History thiamine HCl (vitamin B1) 100 mg 100 mg PO DAILY 06/12/25 06/12/25 06/11/25 History tablet tizanidine 4 mg tablet 2 mg PO TID 06/12/25 06/12/25 06/11/25 History Physical Exam Exam: Exam: Elderly gentleman No acute distress Nonicteric Abdomen soft, nontender, mildly distended, no shifting dullness to percussion Alert and oriented x3, no asterixis Vital Signs: Vital Signs: Last Vital Signs Temp 98.3 F 06/12/25 14:08 Pulse 72 06/12/25 14:08 Resp 18 06/12/25 14:08 BP 166/87 H 06/12/25 14:08 Pulse Ox 98 06/12/25 14:08 O2 Del Method Room Air 06/12/25 14:08 BMI result Body Mass Index 23.7 Results Labs 06/12/25 04:25 06/12/25 04:25 Labs: Short CBC 06/11/25 06/11/25 06/12/25 Range/Units 15:33 19:08 00:36 WBC 4.6 L (4.8-10.8) X10*3/uL Hgb 9.3 L 8.6 L 9.3 L (14.0-18.0) g/dl Hct 30.1 L 27.3 L 29.6 L (42.0-52.0) % Plt Count 152 L D (160-400) X10*3/uL 06/12/25 06/12/25 06/12/25 Range/Units 04:25 04:25 04:25 WBC 4.3 L (4.8-10.8) X10*3/uL Hgb 8.1 L 8.3 L (14.0-18.0) g/dl Hct 25.6 L 25.9 L (42.0-52.0) % Plt Count 132 L (160-400) X10*3/uL BMP 06/11/25 06/12/25 15:33 04:25 Sodium 143 144 Potassium 3.8 4.2 Chloride 111 H 112 H Carbon Dioxide 26 24 BUN 15 15 Creatinine 1.01 1.05 Calcium 9.1 8.9 Liver Function 06/11/25 06/12/25 Range/Units 15:33 04:25 Total Bilirubin 0.3 0.4 (0.0-1.0) mg/dL Direct Bilirubin 0.1 (0.0-0.5) mg/dL AST 68 H 64 H (5-37) U/L ALT 65 H 56 H (0-40) U/L Alkaline Phosphatase 254 H 222 H (39-117) U/L Albumin 3.5 3.1 L (3.5-5.0) g/dL Assessment and Plan (1) Liver cirrhosis: Qualifiers: Hepatic cirrhosis type: alcoholic cirrhosis Ascites presence: unspecified Qualified Code(s): K70.30 - Alcoholic cirrhosis of liver without ascites Status: Acute (2) Acute blood loss anemia: Status: Acute (3) History of alcohol abuse: Status: Acute (4) Hepatocellular carcinoma: Status: Acute Plan Patient with worsening anemia and elevated LFTs in the background of possible recurrence of HCC based on imaging december 2024. Differentials include bleeding from portal hypertensive gastropathy, AVMs, GAVE. Variceal bleeding seems less likely given overall clinical presentation. Plan: -EGD to be scheduled tomorrow -AFP ordered -ultrasound abdomen ordered as urgent -please keep NPO after midnight -okay to continue PPI and octreotide for now. Thank you for allowing me to participate in his care. Please do not hesitate to reach out for any questions or concerns. Procedures Date of Service Date of Service: 06/12/25
[2025-06-12] MEDS: 0.9 % Sodium Chloride Flush 3 ML SYRINGE IVFLUSH ×2 (15:25→19:23)
--- NOTE | 2025-06-12 16:40 | P.PNIM_ITS ---
Subjective Subjective Date of Service: 06/12/25 Interval History: No acute issues overnight. No active bleeding or melena Review of Systems Denies chest pain Denies shortness of breath Denies nausea vomiting diarrhea Denies fever chills Physical Exam 2 Vital Signs: Vital Signs: Last Vital Signs Temp 98.0 F 06/12/25 16:00 Pulse 64 06/12/25 16:00 Resp 18 06/12/25 16:00 BP 118/68 06/12/25 16:00 Pulse Ox 98 06/12/25 16:00 O2 Del Method Room Air 06/12/25 16:00 BMI result Body Mass Index 23.7 Const: Other: Awake alert oriented x3 in no acute distress Resp: Other: Clear to auscultation bilaterally no rales rhonchi or wheezes Cardio: Other: No S4; positive S1-S2; no S3 murmurs rubs or gallops GI: Other: Soft nontender nondistended normoactive bowel sounds Extrem: Other: No edema bilaterally Objective Data Active Medications Amlodipine Besylate (Amlodipine Besylate 10 Mg Tablet) 10 mg PO DAILY [facility]; Protocol Last Admin: 06/12/25 14:19 Dose: 10 mg Documented By: CHEIKH Ceftriaxone Sodium (Ceftriaxone Sodium 1 Gm Vial) 1 gm IVPUSH Q24H [facility] Gabapentin (Gabapentin 100 Mg Capsule) 100 mg PO TID [facility] Last Admin: 06/12/25 14:20 Dose: 100 mg Documented By: CHEIKH Octreotide Acetate 500 mcg/ (Sodium Chloride) 501 mls @ 50.1 mls/hr IVCONT .Q10H [facility] Last Admin: 06/12/25 08:33 Dose: 50 mcg/hr, 50.1 mls/hr Documented By: VIVIAN Lisinopril (Lisinopril 10 Mg Tablet) 10 mg PO DAILY [facility]; Protocol Last Admin: 06/12/25 14:20 Dose: 10 mg Documented By: CHEIKH Mirtazapine (Mirtazapine 7.5 Mg Tablet) 7.5 mg PO BEDTIME [facility] Pantoprazole Sodium (Pantoprazole Sodium 40 Mg/10 Ml Vial) 40 mg IVPUSH BID@0630,1630 [facility] Last Admin: 06/12/25 15:25 Dose: 40 mg Documented By: CHEIKH Sodium Chloride (0.9 % Sodium Chloride Flush 3 Ml Syringe) 3 ml IVFLUSH QSHIFT [facility] Last Admin: 06/12/25 15:25 Dose: 3 ml Documented By: CHEIKH Sucralfate (Sucralfate 1 Gm Tablet) 1 gm PO BID [facility] Last Admin: 06/12/25 14:20 Dose: 1 gm Documented By: CHEIKH Tizanidine HCl (Tizanidine Hcl 4 Mg Tablet) 2 mg PO TID [facility] Last Admin: 06/12/25 14:21 Dose: 2 mg Documented By: CHEIKH Tramadol HCl (Tramadol Hcl 50 Mg Tablet) 50 mg PO BID [facility] Last Admin: 06/12/25 14:19 Dose: 50 mg Documented By: CHEIKH Trazodone HCl (Trazodone Hcl 50 Mg Tablet) 50 mg PO BEDTIME [facility] Labs 06/12/25 04:25 06/12/25 04:25 Labs: Laboratory Results - last 24 hr 06/11/25 06/11/25 06/12/25 20:15 20:22 04:25 MCV 81.3 MCH 25.7 L MCHC 31.6 RDW 19.0 H Plt Count 132 L MPV Not Reportable Absolute Nucleated RBC 0.000 Nucleated RBC % (auto) 0.0 PT 10.9 INR 1.0 Anion Gap 12 Estim Creat Clear Calc 51.9 Estimated GFR > 60 Random Glucose 102 Calcium 8.9 Total Bilirubin 0.4 AST 64 H ALT 56 H Alkaline Phosphatase 222 H Ammonia 52 Total Protein 6.3 L Albumin 3.1 L Stool Occult Blood POSITIVE Blood Type A Negative Antibody Screen NEGATIVE Assessment and Plan (1) Melena: Status: Acute (2) Acute blood loss anemia: Status: Acute Plan Jose Armando Campbell is a 69 y/o man with a PMHx significant for hepatocellular CA status post embolization, hepatitis-C/alcoholic cirrhosis, esophageal varices requiring banding, SAH and previous GI bleeding requiring transfusions presents with: 1. Melena -hemoglobin stable -advance diet this evening; NPO after midnight -EGD in a.m. -follow CBC in a.m. 2.HTN -acceptable control on current therapies -adjust as indicated 3. Mood disorder -stable and well compensated Full code Pneumatics Requires ongoing hospitalization to facilitate EGD in a.m. Quality Stroke Does the patient have a stroke diagnosis?: No VTE Prior VTE?: No VTE Risk Level:: Medical - moderate - high VTE Device Contraindication: N/A - Device Ordered VTE Drug Contraindication: Treatment Not Indicated
[2025-06-13] VITALS (9 sets, daily range): BP systolic 104–136; BP diastolic 54–77; PULSE 56–71; RESP 13–19; TEMP 36.1–36.9; O2SAT 93–100
[2025-06-13 06:39] LABS: Hematocrit 24.3 % (42.0-52.0); Hemoglobin 7.7 g/dl (14.0-18.0); Imm Gran Abs Auto 0.02 X10*3/uL (0.00-0.03); Imm Gran Pct Auto 0.5 % (0.0-0.4); Lymphocytes Absolute Auto 0.8 X10*3/uL (1.2-4.9); MANUAL DIFF FLAG SCAN; Mean Corpuscular HGB Conc 31.7 g/dl (31.0-36.0); Mean Corpuscular Hemoglobin 26.0 pg (27.0-33.0); Mean Corpuscular Volume 82.1 fL (80.0-98.0); NRBC Abs Auto 0.000 X10*3/uL (0.0-0.012); NRBC Pct Auto 0.0 /100WBC (0.0-0.2); PLT CLUMP 1; Red Blood Count 2.96 X10*6/uL (4.60-5.80); SCAN SMEAR FLAG 1
[2025-06-13 07:01] LABS: Alanine Aminotransferase 54 U/L (0-40); Albumin Level 2.9 g/dL (3.5-5.0); Alkaline Phosphatase 191 U/L (39-117); Anion Gap 9 (12-20); Aspartate Amino Transferase 58 U/L (5-37); Blood Urea Nitrogen 19 mg/dL (9-16); Calcium 8.4 mg/dL (8.4-10.2); Carbon Dioxide 25 mmol/L (22-29); Chloride 113 mmol/L (96-108); Creatinine Clr Calc Pharmacy 45.4; Estimated Glomerular Filt Rate 60; Potassium 4.0 mmol/L (3.3-5.1); Sodium 143 mmol/L (135-145); Total Protein 5.9 g/dL (6.5-8.0)
[2025-06-13] MEDS: 0.9 % Sodium Chloride Flush 3 ML SYRINGE IVFLUSH ×2 (08:00→20:23)
[2025-06-13 08:27] LABS: White Blood Count 3.9 X10*3/uL (4.8-10.8)
[2025-06-13 08:28] LABS: Platelet Count 126 X10*3/uL (160-400)
--- NOTE | 2025-06-13 13:29 | P.CONAN_ITS ---
[facility] Active Problems Active Problems: All Active Problems Anemia (Acute) Melena (Acute) Acute upper gastrointestinal bleeding (Acute) Osteoarthritis of right knee (Acute) Osteoarthritis of left knee (Acute) Vitamin D deficiency (Acute) Erectile dysfunction (Acute) Depression (Acute) Chronic pain (Acute) Insomnia (Acute) Acute blood loss anemia (Acute) Hepatocellular carcinoma (Acute) Hypertension (Acute) Nodule of colon (Acute) Gastric AVM (Acute) Iron deficiency anemia secondary to blood loss (chronic) (Acute) HCC (hepatocellular carcinoma) (Acute) Neuropathy involving both lower extremities (Acute) Right lateral epicondylitis (Acute) History of alcohol abuse (Acute) History of cancer chemotherapy (Acute) History of breast lump/mass excision (Acute) Osteoarthritis of knees, bilateral (Acute) Meralgia paresthetica of both lower extremities (Acute) Low vitamin D level (Acute) Lumbar degenerative disc disease (Acute) Bilateral knee pain (Acute) GERD (gastroesophageal reflux disease) (Acute) Elevated blood pressure reading (Acute) Screening for hypothyroidism (Acute) Screening for hyperlipidemia (Acute) Bilateral leg pain (Acute) Myalgia (Acute) Lumbar spondylosis (Acute) Liver cirrhosis (Acute) Leg weakness, bilateral (Acute) Common cold (Acute) Lower back pain (Acute) Past Medical History Medical History Vitamin D deficiency Erectile dysfunction Depression Chronic pain Chronic anemia Insomnia Hepatocellular carcinoma Neuropathy involving both lower extremities Liver cirrhosis Hepatitis C Common cold Lower back pain Family History Family History Father Prostate cancer Mother Diabetes Stroke Family history of problems with anesthesia: No Surgical History Surgical History History of tooth extraction Hx of colonoscopy (~10/29/23) History of breast lump/mass excision History of ankle surgery History of appendectomy History of open reduction and internal fixation (ORIF) procedure History of Problems with Anesthesia: No Social History Social History Household Members: None Housing: Apartment Are you a primary menagerie caretaker to a significant other at home: No Do you presently have visiting nurse or other home services: Yes Unable to assess alcohol history related to: Unable to respond Alcohol intake: former Patient Tobacco Use Status: Former Tobacco user Tobacco use type: Cigarette e-Cigarette/Vaping Use: Never Used Second Hand Smoke Exposure: No service: No Current occupational status: disabled Cognitive needs: Yes (cane) Hearing needs: No Vision needs: Yes (glasses) Meds Allergies Allergy/AdvReac Type Severity Reaction Status Date / Time No Known Allergies (No Known Allergy Verified 06/11/25 14:45 Allergies*) Active Medications: Current Medications Amlodipine Besylate (Amlodipine Besylate 10 Mg Tablet) 10 mg PO DAILY [facility]; Protocol Last Admin: 06/13/25 07:58 Dose: 10 mg Ceftriaxone Sodium (Ceftriaxone Sodium 1 Gm Vial) 1 gm IVPUSH Q24H [facility] Last Admin: 06/12/25 20:50 Dose: 1 gm Gabapentin (Gabapentin 100 Mg Capsule) 100 mg PO TID [facility] Last Admin: 06/13/25 07:58 Dose: 100 mg Octreotide Acetate 500 mcg/ (Sodium Chloride) 501 mls @ 50.1 mls/hr IVCONT .Q10H [facility] Last Admin: 06/13/25 04:35 Dose: 50 mcg/hr, 50.1 mls/hr Lactated Ringer's (Lr) 1,000 mls @ 50 mls/hr IVCONT .Q20H [facility] Lisinopril (Lisinopril 10 Mg Tablet) 10 mg PO DAILY [facility]; Protocol Last Admin: 06/13/25 08:03 Dose: Not Given Mirtazapine (Mirtazapine 7.5 Mg Tablet) 7.5 mg PO BEDTIME [facility] Last Admin: 06/12/25 19:22 Dose: 7.5 mg Pantoprazole Sodium (Pantoprazole Sodium 40 Mg/10 Ml Vial) 40 mg IVPUSH BID@0630,1630 [facility] Last Admin: 06/13/25 05:39 Dose: 40 mg Sodium Chloride (0.9 % Sodium Chloride Flush 3 Ml Syringe) 3 ml IVFLUSH QSHIFT [facility] Last Admin: 06/13/25 08:00 Dose: 3 ml Sucralfate (Sucralfate 1 Gm Tablet) 1 gm PO BID [facility] Last Admin: 06/13/25 07:58 Dose: 1 gm Tizanidine HCl (Tizanidine Hcl 4 Mg Tablet) 2 mg PO TID [facility] Last Admin: 06/13/25 07:59 Dose: 2 mg Tramadol HCl (Tramadol Hcl 50 Mg Tablet) 50 mg PO BID [facility] Last Admin: 06/13/25 08:00 Dose: 50 mg Trazodone HCl (Trazodone Hcl 50 Mg Tablet) 50 mg PO BEDTIME [facility] Last Admin: 06/12/25 19:23 Dose: 50 mg Home Medications ?Medication ?Instructions ?Recorded ?Confirmed ?Last Taken ?Type blood pressure test kit-large #1 ea 10/16/24 03/27/25 Unknown History omeprazole 40 mg capsule,delayed 40 mg PO DAILY@0630 0 01/29/25 06/12/25 06/11/25 History release polysaccharide iron complex 150 mg 150 mg PO DAILY 06/12/25 06/11/25 History iron capsule pyridoxine (vitamin B6) 50 mg 50 mg PO DAILY 06/12/25 06/12/25 06/11/25 History tablet sucralfate 1 gram tablet 1 g PO BID 06/12/25 06/12/25 06/11/25 History thiamine HCl (vitamin B1) 100 mg 100 mg PO DAILY 06/1206/12/25 06/11/25 History tablet tizanidine 4 mg tablet 2 mg PO TID 06/12/25 06/11/25 History Exam Height,Weight and Vital Signs: Height 5 ft 3 in Weight 60.6 kg Last Vital Signs Temp 97.3 F 06/13/25 13:22 Pulse 69 06/13/25 13:22 Resp 18 06/13/25 13:22 BP 119/54 L 06/13/25 13:22 Pulse Ox 94 06/13/25 13:22 O2 Del Method Room Air 06/13/25 13:22 Pertinent Lab Results Pertinent Lab Results: Laboratory Tests 06/11/25 06/11/25 06/11/25 15:33 19:08 20:15 WBC 4.6 L RBC 3.64 L Hgb 9.3 L 8.6 L Hct 30.1 L 27.3 L MCV 82.7 MCH 25.5 L MCHC 30.9 L RDW 19.3 H Plt Count 152 L D MPV Not Reportable Immature Gran % (Auto) 0.2 Neut % (Auto) 61.7 Lymph % (Auto) 23.9 [place] % (Auto) 10.6 Eos % (Auto) 3.4 Baso % (Auto) 0.2 Lymph # (Auto) 1.1 L [place] # (Auto) 0.5 Eos # (Auto) 0.2 Baso # (Auto) 0.0 Abs Immat Gran (auto) 0.01 Absolute Neuts (auto) 2.9 Absolute Nucleated RBC 0.000 Nucleated RBC % (auto) 0.0 Smear Tech's Comments PT INR Sodium 143 Potassium 3.8 Chloride 111 H Carbon Dioxide 26 Anion Gap 10 L BUN 15 Creatinine 1.01 Estim Creat Clear Calc 53.9 Estimated GFR > 60 Random Glucose 100 Fasting Glucose Calcium 9.1 Total Bilirubin 0.3 Direct Bilirubin 0.1 AST 68 H ALT 65 H Alkaline Phosphatase 254 H Ammonia Total Protein 7.0 Albumin 3.5 Lipase 33 Alpha Fetoprotein Stool Occult Blood POSITIVE Blood Type Antibody Screen 06/11/25 06/12/25 06/12/25 20:22 00:36 04:25 WBC 4.3 L RBC 3.15 L Hgb 9.3 L 8.1 L Hct 29.6 L MCV MCH MCHC RDW Plt Count MPV Immature Gran % (Auto) Neut % (Auto) Lymph % (Auto) [place] % (Auto) Eos % (Auto) Baso % (Auto) Lymph # (Auto) [place] # (Auto) Eos # (Auto) Baso # (Auto) Abs Immat Gran (auto) Absolute Neuts (auto) Absolute Nucleated RBC Nucleated RBC % (auto) Smear Tech's Comments PT 10.9 INR 1.0 Sodium Potassium Chloride Carbon Dioxide Anion Gap BUN Creatinine Estim Creat Clear Calc Estimated GFR Random Glucose Fasting Glucose Calcium Total Bilirubin Direct Bilirubin AST ALT Alkaline Phosphatase Ammonia 52 Total Protein Albumin Lipase Alpha Fetoprotein Stool Occult Blood Blood Type A Negative Antibody Screen NEGATIVE 06/12/25 06/12/25 06/12/25 04:25 04:25 16:00 WBC RBC Hgb 8.3 L Hct 25.6 L 25.9 L MCV 81.3 MCH 25.7 L MCHC 31.6 RDW 19.0 H Plt Count 132 L MPV Not Reportable Immature Gran % (Auto) Neut % (Auto) Lymph % (Auto) [place] % (Auto) Eos % (Auto) Baso % (Auto) Lymph # (Auto) [place] # (Auto) Eos # (Auto) Baso # (Auto) Abs Immat Gran (auto) Absolute Neuts (auto) Absolute Nucleated RBC 0.000 Nucleated RBC % (auto) 0.0 Smear Tech's Comments PT INR Sodium 144 Potassium 4.2 Chloride 112 H Carbon Dioxide 24 Anion Gap 12 BUN 15 Creatinine 1.05 Estim Creat Clear Calc 51.9 Estimated GFR > 60 Random Glucose 102 Fasting Glucose Calcium 8.9 Total Bilirubin 0.4 Direct Bilirubin AST 64 H ALT 56 H Alkaline Phosphatase 222 H Ammonia Total Protein 6.3 L Albumin 3.1 L Lipase Alpha Fetoprotein 1.4 Stool Occult Blood Blood Type Antibody Screen 06/13/25 06:15 WBC 3.9 L RBC 2.96 L Hgb 7.7 L Hct 24.3 L MCV 82.1 MCH 26.0 L MCHC 31.7 RDW 18.7 H Plt Count 126 L MPV Not Reportable Immature Gran % (Auto) 0.5 H Neut % (Auto) 64.6 Lymph % (Auto) 19.7 L [place] % (Auto) 10.3 Eos % (Auto) 4.4 H Baso % (Auto) 0.5 Lymph # (Auto) 0.8 L [place] # (Auto) 0.4 Eos # (Auto) 0.2 Baso # (Auto) 0.0 Abs Immat Gran (auto) 0.02 Absolute Neuts (auto) 2.5 Absolute Nucleated RBC 0.000 Nucleated RBC % (auto) 0.0 Smear Tech's Comments VERIFIED PT INR Sodium 143 Potassium 4.0 Chloride 113 H Carbon Dioxide 25 Anion Gap 9 L BUN 19 H Creatinine 1.20 Estim Creat Clear Calc 45.4 Estimated GFR 60 Random Glucose Fasting Glucose 96 Calcium 8.4 Total Bilirubin 0.2 Direct Bilirubin AST 58 H ALT 54 H Alkaline Phosphatase 191 H Ammonia Total Protein 5.9 L Albumin 2.9 L Lipase Alpha Fetoprotein Stool Occult Blood Blood Type Antibody Screen Airway Mallampati Class: II (edentulous) TM Dist: >3cm Neck ROM: Full Heart: rrr Lungs: cta Assessment and Plan Assessment Anesthesia Assessment: Anesthesia Plan Discussed and Chart Reviewed Final Anesthetic Review Family History of Problems with Anesthesia: No History of Problems with Anesthesia: No NPO: Yes ASA Class: III Final Preanesthetic Review: No Changes in Pt Med Stat, Meds/Allgs Chart Reviewed and Consent Obtained/Reviewed Patient Risk: Intermediate Procedure Risk: Intermediate Anesthetic Plan Anesthetic Plan: MAC: Disposition: Standard PACU
--- NOTE | 2025-06-13 14:18 | MHC.SHP ---
Pre-Procedural Eval Section A - 24 Hr Update-Section A only Date of Service: 06/13/25 The patient is an INPATIENT: Yes The patient has been examined within 24 hours of the surgical procedure. The History & Physical has been completed within 30 days and I have reviewed it.: Yes Section B - Complete if H&P > 30 days Chief Complaint: GI Bleeding, worsening anemia Allergies: Allergies Allergy/AdvReac Type Severity Reaction Status Date / Time No Known Allergies (No Known Allergy Verified 06/11/25 14:45 Allergies*) Plan Diagnosis/Plan: Unchanged I have reviewed the history and physical and performed a pertinent physical examination on my patient. No changes have occurred unless specified. Time Spent With Patient Time: Total time managing care of this patient today ____ minutes.
--- NOTE | 2025-06-13 14:33 | HO.PM.IMPN ---
Subjective Subjective Date of Service: 06/13/25 Interval History: No acute issues overnight. No active bleeding. Hemoglobin stable Review of Systems Denies chest pain Denies shortness of breath Denies nausea vomiting diarrhea Denies fever chills Physical Exam Vital Signs: Vital Signs: Last Vital Signs Temp 97.3 F 06/13/25 13:22 Pulse 69 06/13/25 13:22 Resp 18 06/13/25 13:22 BP 119/54 L 06/13/25 13:22 Pulse Ox 94 06/13/25 13:22 O2 Del Method Room Air 06/13/25 13:22 BMI result Body Mass Index 23.7 Const: Other: Awake alert oriented x3 in no acute distress Resp: Other: Clear to auscultation bilaterally no rales rhonchi or wheezes Cardio: Other: No S4; positive S1-S2; no S3 murmurs rubs or gallops GI: Other: Soft nontender nondistended normoactive bowel sounds Extrem: Other: No edema bilaterally Objective Data Active Medications Amlodipine Besylate (Amlodipine Besylate 10 Mg Tablet) 10 mg PO DAILY [facility]; Protocol Last Admin: 06/13/25 07:58 Dose: 10 mg Documented By: CHEIKH Ceftriaxone Sodium (Ceftriaxone Sodium 1 Gm Vial) 1 gm IVPUSH Q24H [facility] Last Admin: 06/12/25 20:50 Dose: 1 gm Documented By: ROHAN Gabapentin (Gabapentin 100 Mg Capsule) 100 mg PO TID [facility] Last Admin: 06/13/25 07:58 Dose: 100 mg Documented By: CHEIKH Octreotide Acetate 500 mcg/ (Sodium Chloride) 501 mls @ 50.1 mls/hr IVCONT .Q10H [facility] Last Admin: 06/13/25 04:35 Dose: 50 mcg/hr, 50.1 mls/hr Documented By: ROHAN Lactated Ringer's (Lr) 1,000 mls @ 50 mls/hr IVCONT .Q20H [facility] Lisinopril (Lisinopril 10 Mg Tablet) 10 mg PO DAILY [facility]; Protocol Last Admin: 06/13/25 08:03 Dose: Not Given Documented By: CHEIKH Non-Admin Reason: per preop hold Mirtazapine (Mirtazapine 7.5 Mg Tablet) 7.5 mg PO BEDTIME [facility] Last Admin: 06/12/25 19:22 Dose: 7.5 mg Documented By: ROHAN Naloxone HCl (Naloxone Hcl 0.4 Mg/Ml Vial) 0.04 mg IVPUSH Q5M PRN PRN Reason: Excessive sedation or RR < 8 Pantoprazole Sodium (Pantoprazole Sodium 40 Mg/10 Ml Vial) 40 mg IVPUSH BID@0630,1630 [facility] Last Admin: 06/13/25 05:39 Dose: 40 mg Documented By: ROHAN Sodium Chloride (0.9 % Sodium Chloride Flush 3 Ml Syringe) 3 ml IVFLUSH QSHIFT [facility] Last Admin: 06/13/25 08:00 Dose: 3 ml Documented By: CHEIKH Sucralfate (Sucralfate 1 Gm Tablet) 1 gm PO BID [facility] Last Admin: 06/13/25 07:58 Dose: 1 gm Documented By: CHEIKH Tizanidine HCl (Tizanidine Hcl 4 Mg Tablet) 2 mg PO TID [facility] Last Admin: 06/13/25 07:59 Dose: 2 mg Documented By: CHEIKH Tramadol HCl (Tramadol Hcl 50 Mg Tablet) 50 mg PO BID [facility] Last Admin: 06/13/25 08:00 Dose: 50 mg Documented By: CHEIKH Trazodone HCl (Trazodone Hcl 50 Mg Tablet) 50 mg PO BEDTIME [facility] Last Admin: 06/12/25 19:23 Dose: 50 mg Documented By: ROHAN Labs 06/13/25 06:15 06/13/25 06:15 Labs: Laboratory Results - last 24 hr 06/12/25 06/13/25 16:00 06:15 MCV 82.1 MCH 26.0 L MCHC 31.7 RDW 18.7 H Plt Count 126 L MPV Not Reportable Immature Gran % (Auto) 0.5 H Neut % (Auto) 64.6 Lymph % (Auto) 19.7 L [place] % (Auto) 10.3 Eos % (Auto) 4.4 H Baso % (Auto) 0.5 Lymph # (Auto) 0.8 L [place] # (Auto) 0.4 Eos # (Auto) 0.2 Baso # (Auto) 0.0 Abs Immat Gran (auto) 0.02 Absolute Neuts (auto) 2.5 Absolute Nucleated RBC 0.000 Nucleated RBC % (auto) 0.0 Smear Tech's Comments VERIFIED Anion Gap 9 L Estim Creat Clear Calc 45.4 Estimated GFR 60 Fasting Glucose 96 Calcium 8.4 Total Bilirubin 0.2 AST 58 H ALT 54 H Alkaline Phosphatase 191 H Total Protein 5.9 L Albumin 2.9 L Alpha Fetoprotein 1.4 Assessment and Plan (1) Melena: Status: Acute Plan Jose Armando Campbell is a 69 y/o man with a PMHx significant for hepatocellular CA status post embolization, hepatitis-C/alcoholic cirrhosis, esophageal varices requiring banding, SAH and previous GI bleeding requiring transfusions presents with: 1. Melena -hemoglobin stable -EGD this afternoon... Remains NPO -follow CBC in a.m. 2.HTN -acceptable control on current therapies -adjust as indicated 3. Mood disorder -stable and well compensated Full code Pneumatics Requires ongoing hospitalization to facilitate EGD in a.m. Quality Stroke Does the patient have a stroke diagnosis?: No VTE Prior VTE?: No VTE Risk Level:: Medical - moderate - high VTE Device Contraindication: N/A - Device Ordered VTE Drug Contraindication: Treatment Not Indicated
--- NOTE | 2025-06-13 14:54 | P.OP_ITS ---
Operative Note Operative Note Date of Service: 06/13/25 Narrative: Procedure: Esophagogastroduodenoscopy Endoscopist: Amalia Cota MD Indication: Anemia Anesthesia Provider: Dr Isabela Horton Anesthesia Type: MAC ?? EGD Procedure:?? The procedure, indications, preparation and potential complications were reviewed with the patient, who indicated understanding and gave written informed consent to proceed. A physical exam was performed. The endoscope was introduced through the mouth, and advanced to the second part of duodenum. The mucosa was carefully examined on slow withdrawal of the endoscope. The patient tolerated the procedure well. There were no immediate complications.? ? EGD Findings:? * Esophagus:? Normal mucosa noted in the entire esophagus. The Z line was at 40 cm. 2 cords of small to medium varices with one varix with stigmata of recent bleeding. A [employer] 7-shooter was affixed to the scope and advanced to the lower esophagus. Attempt x2 was made to band the small varix with red sabrina sign but could not be captured in the banding apparatus due to size and previous scarring. * Stomach:? There was semi solid food present in cardia and fundus of the stomach limiting visualization. Diffuse congestion and erythema in mosaic pattern consistent with portal hypertensive gastropathy was noted in the whole stomach. Retroflexion was performed in the cardia but could not assess for fundal varices due to food in stomach. * Duodenum:? Normal mucosa was noted in the whole of the examined duodenum. 1 small polyp of size 3 mm in D1 which was not biopsied today. ? EGD Impressions:? * Esophageal varices * Food in stomach * Portal hypertensive gastropathy * Normal duodenum ?? Recommendations:?? * Cont octreotide for 72 hours total * Then transition to carvedilol 3.125 mg BID if BP allows or nadolol 20 mg once daily * Monitor CBC BID - if no further bleeding, can be started on regular diet * Cont ceftriaxone IV x 7 days, can switch to PO when ready for discharge * Pt will also need MRI for evaluation of liver mass - can be done inpt vs early outpatient (within 1-2 weeks) Above has been reviewed with the patient.
--- NOTE | 2025-06-13 15:13 | MHC.CM.PN ---
per rounds pt to have an egd dc plan remains home w/services [facility] and [facility]
[2025-06-13 20:09] LABS: Hematocrit 23.6 % (42.0-52.0); Hemoglobin 7.4 g/dl (14.0-18.0); Mean Corpuscular HGB Conc 31.4 g/dl (31.0-36.0); Mean Corpuscular Hemoglobin 25.8 pg (27.0-33.0); Mean Corpuscular Volume 82.2 fL (80.0-98.0); NRBC Abs Auto 0.000 X10*3/uL (0.0-0.012); NRBC Pct Auto 0.0 /100WBC (0.0-0.2); Platelet Count 129 X10*3/uL (160-400); Red Blood Count 2.87 X10*6/uL (4.60-5.80); White Blood Count 4.9 X10*3/uL (4.8-10.8)
[2025-06-14] VITALS (8 sets, daily range): BP systolic 103–160; BP diastolic 59–79; PULSE 58–74; RESP 14–18; TEMP 36.5–37.2; O2SAT 96–98
--- NOTE | 2025-06-14 07:56 | HO.POSTANES ---
Post Anesthesia Evaluation Post Anesthesia Evaluation Date of Service: 06/13/25 Vital Signs: Vital Signs Temp Pulse Resp BP Pulse Ox O2 Del Method 06/14/25 07:19 98.7 F 61 14 160/73 H 96 Room Air 06/14/25 03:16 97.7 F 58 16 122/60 96 Room Air 06/13/25 23:43 98.1 F 61 19 113/62 97 Room Air Anesthesia: General Mental Status: Awake Pain Control: Satisfactory Nausea/Vomiting: None Hydration: Adequate Anesthesia-Related Issues: No Anes. Related Issues Comments: no problems anesthesia related
[2025-06-14 08:29] LABS: MANUAL DIFF FLAG NO
[2025-06-14 08:39] LABS: Hematocrit 25.7 % (42.0-52.0); Hemoglobin 8.1 g/dl (14.0-18.0); Imm Gran Abs Auto 0.00 X10*3/uL (0.00-0.03); Imm Gran Pct Auto 0.0 % (0.0-0.4); Lymphocytes Absolute Auto 0.9 X10*3/uL (1.2-4.9); Mean Corpuscular HGB Conc 31.5 g/dl (31.0-36.0); Mean Corpuscular Hemoglobin 26.0 pg (27.0-33.0); Mean Corpuscular Volume 82.4 fL (80.0-98.0); NRBC Abs Auto 0.000 X10*3/uL (0.0-0.012); NRBC Pct Auto 0.0 /100WBC (0.0-0.2); Platelet Count 117 X10*3/uL (160-400); Red Blood Count 3.12 X10*6/uL (4.60-5.80); White Blood Count 3.6 X10*3/uL (4.8-10.8)
[2025-06-14] MEDS: 0.9 % Sodium Chloride Flush 3 ML SYRINGE IVFLUSH ×3 (08:56→20:31)
--- NOTE | 2025-06-14 13:23 | HO.PM.IMPN ---
Subjective Subjective Date of Service: 06/14/25 Interval History: No acute issues overnight. No further melena. Tolerating diet Review of Systems Denies chest pain Denies shortness of breath Denies nausea vomiting diarrhea Denies fever chills Physical Exam Vital Signs: Vital Signs: Last Vital Signs Temp 98.6 F 06/14/25 11:21 Pulse 58 06/14/25 11:21 Resp 14 06/14/25 11:21 BP 116/59 L 06/14/25 11:21 Pulse Ox 98 06/14/25 11:21 O2 Del Method Room Air 06/14/25 11:21 BMI result Body Mass Index 23.7 Const: Other: Awake alert oriented x3 in no acute distress Resp: Other: Clear to auscultation bilaterally no rales rhonchi or wheezes Cardio: Other: No S4; positive S1-S2; no S3 murmurs rubs or gallops GI: Other: Soft nontender nondistended normoactive bowel sounds Extrem: Other: No edema bilaterally Objective Data Active Medications Amlodipine Besylate (Amlodipine Besylate 10 Mg Tablet) 10 mg PO DAILY [facility]; Protocol Last Admin: 06/14/25 08:55 Dose: 10 mg Documented By: DAVID Carvedilol (Carvedilol 3.125 Mg Tablet) 3.125 mg PO BID [facility]; Protocol Last Admin: 06/14/25 09:12 Dose: 3.125 mg Documented By: DAVID Ceftriaxone Sodium (Ceftriaxone Sodium 1 Gm Vial) 1 gm IVPUSH Q24H [facility] Last Admin: 06/13/25 20:22 Dose: 1 gm Documented By: ROHAN Gabapentin (Gabapentin 100 Mg Capsule) 100 mg PO TID [facility] Last Admin: 06/14/25 08:54 Dose: 100 mg Documented By: DAVID Octreotide Acetate 500 mcg/ (Sodium Chloride) 501 mls @ 50.1 mls/hr IVCONT .Q10H [facility] Last Admin: 06/14/25 12:57 Dose: 50 mcg/hr, 50.1 mls/hr Documented By: DAVID Lisinopril (Lisinopril 10 Mg Tablet) 10 mg PO DAILY [facility]; Protocol Last Admin: 06/14/25 08:55 Dose: 10 mg Documented By: DAVID Mirtazapine (Mirtazapine 7.5 Mg Tablet) 7.5 mg PO BEDTIME [facility] Last Admin: 06/13/25 20:25 Dose: 7.5 mg Documented By: ROHAN Naloxone HCl (Naloxone Hcl 0.4 Mg/Ml Vial) 0.04 mg IVPUSH Q5M PRN PRN Reason: Excessive sedation or RR < 8 Pantoprazole Sodium (Pantoprazole Sodium 40 Mg/10 Ml Vial) 40 mg IVPUSH BID@0630,1630 [facility] Last Admin: 06/14/25 05:41 Dose: 40 mg Documented By: ROHAN Sodium Chloride (0.9 % Sodium Chloride Flush 3 Ml Syringe) 3 ml IVFLUSH QSHIFT [facility] Last Admin: 06/14/25 08:56 Dose: 3 ml Documented By: DAVID Sucralfate (Sucralfate 1 Gm Tablet) 1 gm PO BID [facility] Last Admin: 06/14/25 08:52 Dose: 1 gm Documented By: DAVID Tizanidine HCl (Tizanidine Hcl 4 Mg Tablet) 2 mg PO TID [facility] Last Admin: 06/14/25 08:53 Dose: 2 mg Documented By: DAVID Tramadol HCl (Tramadol Hcl 50 Mg Tablet) 50 mg PO BID [facility] Last Admin: 06/14/25 08:54 Dose: 50 mg Documented By: DAVID Trazodone HCl (Trazodone Hcl 50 Mg Tablet) 50 mg PO BEDTIME [facility] Last Admin: 06/13/25 20:24 Dose: 50 mg Documented By: ROHAN Labs 06/14/25 08:24 06/13/25 06:15 Labs: Laboratory Results - last 24 hr 06/13/25 06/14/25 19:52 08:24 MCV 82.2 82.4 MCH 25.8 L 26.0 L MCHC 31.4 31.5 RDW 18.4 H 18.2 H Plt Count 129 L 117 L MPV Not Reportable Not Reportable Immature Gran % (Auto) 0.0 Neut % (Auto) 57.9 Lymph % (Auto) 25.8 [place] % (Auto) 12.1 H Eos % (Auto) 3.9 Baso % (Auto) 0.3 Lymph # (Auto) 0.9 L [place] # (Auto) 0.4 Eos # (Auto) 0.1 Baso # (Auto) 0.0 Abs Immat Gran (auto) 0.00 Absolute Neuts (auto) 2.1 Absolute Nucleated RBC 0.000 0.000 Nucleated RBC % (auto) 0.0 0.0 Assessment and Plan (1) Melena: Status: Acute (2) Hypertension: Status: Acute Plan Jose Armando Campbell is a 69 y/o man with a PMHx significant for hepatocellular CA status post embolization, hepatitis-C/alcoholic cirrhosis, esophageal varices requiring banding, SAH and previous GI bleeding requiring transfusions presents with: 1. Melena.. None since admission -hemoglobin stable -EGD results noted -Coreg 3.125 b.i.d. started as per GI recommendations -continue octreotide until 2200 today (48 hours) -follow CBC in a.m. 2.HTN -acceptable control on current therapies -adjust as indicated 3. Mood disorder -stable and well compensated Full code Pneumatics Requires ongoing hospitalization to complete octreotide drip Quality Stroke Does the patient have a stroke diagnosis?: No VTE Prior VTE?: No VTE Risk Level:: Medical - moderate - high VTE Device Contraindication: N/A - Device Ordered VTE Drug Contraindication: Treatment Not Indicated
[2025-06-15 03:49] VITALS: BP 127/63; PULSE 61; RESP 18; TEMP 36.5; O2SAT 96
[2025-06-15 05:27] LABS: MANUAL DIFF FLAG NO
[2025-06-15 05:33] LABS: Hematocrit 25.5 % (42.0-52.0); Hemoglobin 8.0 g/dl (14.0-18.0); Imm Gran Abs Auto 0.01 X10*3/uL (0.00-0.03); Imm Gran Pct Auto 0.2 % (0.0-0.4); Lymphocytes Absolute Auto 1.0 X10*3/uL (1.2-4.9); Mean Corpuscular HGB Conc 31.4 g/dl (31.0-36.0); Mean Corpuscular Hemoglobin 25.6 pg (27.0-33.0); Mean Corpuscular Volume 81.7 fL (80.0-98.0); NRBC Abs Auto 0.000 X10*3/uL (0.0-0.012); NRBC Pct Auto 0.0 /100WBC (0.0-0.2); Platelet Count 135 X10*3/uL (160-400); Red Blood Count 3.12 X10*6/uL (4.60-5.80); White Blood Count 4.9 X10*3/uL (4.8-10.8)
[2025-06-15 05:45] LABS: Alanine Aminotransferase 46 U/L (0-40); Albumin Level 3.1 g/dL (3.5-5.0); Alkaline Phosphatase 221 U/L (39-117); Anion Gap 10 (12-20); Aspartate Amino Transferase 55 U/L (5-37); Blood Urea Nitrogen 16 mg/dL (9-16); Calcium 8.5 mg/dL (8.4-10.2); Carbon Dioxide 29 mmol/L (22-29); Chloride 108 mmol/L (96-108); Creatinine Clr Calc Pharmacy 49.1; Estimated Glomerular Filt Rate > 60; Potassium 4.2 mmol/L (3.3-5.1); Sodium 143 mmol/L (135-145); Total Protein 6.1 g/dL (6.5-8.0)
[2025-06-15 08:00] VITALS: BP 139/65; PULSE 58; RESP 18; TEMP 36.6; O2SAT 95
[2025-06-15] MEDS: 0.9 % Sodium Chloride Flush 3 ML SYRINGE IVFLUSH ×2 (09:04→16:04)
[2025-06-15 11:39] VITALS: BP 128/60; PULSE 58; RESP 18; TEMP 36.7; O2SAT 97
--- NOTE | 2025-06-15 14:38 | PM.DS ---
DS: Providers Provider Date of Service: 06/15/25 Date of admission: 06/11/25 21:17 Date of discharge: 06/15/25 Primary care physician: Adam Newell MD Consults: 06/11/25 21:19 Consult to Gastroenterology Routine Consulting Provider: Amber Maza Reason for consultation: hx of esophageal varices,anemia Has provider been notified: Yes DS: Diagnosis Discharge Diagnosis (1) Melena: Status: Acute (2) Hypertension: Status: Acute DS: Summary Hospital Course Hospital Course: 69 years old man with a past medical history significant for hepatocellular CA status post embolization, hepatitis-C/alcoholic cirrhosis, esophageal varices requiring banding, SAH, previous GI bleeding requiring transfusions and essential HTN presents to the emergency department complaining of one-week history of generalized weakness and dizziness. He denied any headache or loss of consciousness. He also reported watery dark stools. He denied abdominal pain, fever, acute urinary symptoms nausea or vomiting. He is a former tobacco smoker. He has a history of alcohol abuse, last drink was a month ago. He also used to use marijuana and cocaine. In the ED, he was found to have stable vital signs. Blood workup showed no leukocytosis (WBC 4.6 which is around his baseline), hemoglobin trending down over 4 hours. Platelets 153. INR is 1.0. There are no significant electrolyte imbalances. BUN is 15 and creatinine 1.01. LFTs are elevated with normal bilirubin 0.3. Ammonia is 52 and lipase 33. Stool for occult blood is positive. ECG showed normal sinus rhythm with PACs and no acute ischemic changes. ED tx: Gabapentin 1 mg p.o., pantoprazole 80 mg IV, octreotide 50 mcg IV, ceftriaxone 1 g IV Hospital course Admitted to general medical floor and seen in consultation by GI. On 06/13/2025 patient underwent upper endoscopy. This demonstrated esophageal varices portal hypertensive gastropathy. He was maintained on octreotide for a total of 72 hours. Coreg 3.125 mg b.i.d. was started. His CBC remained stable and he tolerated diet. At this point he will be discharge to complete a course of oral Ceftin and add carvedilol to his regimen. He will follow up with GI as an outpatient for a known liver mass Time Attestation Discharge Coordination Time (in mins): 35 Quality: Safe Use of Opioids Does Pt have an Active Cancer Diagnosis on the Problem List?: No Quality: Stroke Does the patient have a stroke diagnosis?: No Physical Exam Vital Signs: Vital Signs: Last Vital Signs Temp 98.1 F 06/15/25 11:39 Pulse 58 06/15/25 11:39 Resp 18 06/15/25 11:39 BP 128/60 06/15/25 11:39 Pulse Ox 97 06/15/25 11:39 O2 Del Method Room Air 06/15/25 11:39 BMI result Body Mass Index 23.7 Const: Other: Awake alert oriented x3 in no acute distress Resp: Other: Clear to auscultation bilaterally no rales rhonchi or wheezes Cardio: Other: No S4; positive S1-S2; no S3 murmurs rubs or gallops GI: Other: Soft nontender nondistended normoactive bowel sounds Extrem: Other: No edema bilaterally DS: Data Data Completed and Pending Completed studies during hospitalization [Text1]: Procedures Control Bleeding in Gastrointestinal Tract, Via Natural or Artificial Opening Endoscopic (10/27/23) Destruction of Duodenum, Via Natural or Artificial Opening Endoscopic (01/29/25) Excision of Cecum, Via Natural or Artificial Opening Endoscopic, Diagnostic (10/27/23) Excision of Duodenum, Via Natural or Artificial Opening Endoscopic, Diagnostic (01/29/25) Excision of Stomach, Pylorus, Via Natural or Artificial Opening Endoscopic, Diagnostic (01/29/25) Occlusion of Esophageal Vein with Extraluminal Device, Via Natural or Artificial Opening Endoscopic (01/12/25) Transfusion of Nonautologous Red Blood Cells into Peripheral Vein, Percutaneous Approach (01/12/25) Labs on day of discharge: Laboratory Results - last 24 hr 06/15/25 05:20 WBC 4.9 RBC 3.12 L Hgb 8.0 L Hct 25.5 L MCV 81.7 MCH 25.6 L MCHC 31.4 RDW 18.3 H Plt Count 135 L MPV Not Reportable Immature Gran % (Auto) 0.2 Neut % (Auto) 63.2 Lymph % (Auto) 21.4 [place] % (Auto) 10.9 Eos % (Auto) 3.9 Baso % (Auto) 0.4 Lymph # (Auto) 1.0 L [place] # (Auto) 0.5 Eos # (Auto) 0.2 Baso # (Auto) 0.0 Abs Immat Gran (auto) 0.01 Absolute Neuts (auto) 3.1 Absolute Nucleated RBC 0.000 Nucleated RBC % (auto) 0.0 Sodium 143 Potassium 4.2 Chloride 108 Carbon Dioxide 29 Anion Gap 10 L BUN 16 Creatinine 1.11 Estim Creat Clear Calc 49.1 Estimated GFR > 60 Fasting Glucose 88 Calcium 8.5 Total Bilirubin 0.2 AST 55 H ALT 46 H Alkaline Phosphatase 221 H Total Protein 6.1 L Albumin 3.1 L Discharge Plan Discharge Anticipated Discharge Date/Time: 06/15/25 14:32 Patient Disposition: Home, Self-Care Discharge Diagnosis: Esophageal varices Referrals: Adam Newell MD [Primary Care Provider, Internal Medicine] - 1 Week Discharge Medications: New carvedilol 3.125 mg Tablet 3.125 mg PO BID Qty: 60 0RF Protocol: Hold for SBP/HR < HOLD for SBP < : 90 HOLD for HR < : 60 cefuroxime axetil 500 mg tablet 500 mg PO BID 7 Days Qty: 14 0RF Continued (DME) Blood pressure monitor See Rx Instructions .Route .MEDSUPPLY Qty: 1 0RF Rx Instructions: As directed lisinopril 10 mg tablet 10 mg PO DAILY Qty: 90 1RF Protocol: Hold for SBP< HOLD for SBP < : 90 amlodipine 10 mg tablet 10 mg PO DAILY Qty: 90 1RF Protocol: Hold for SBP< HOLD for SBP < : 90 gabapentin 100 mg capsule 100 mg PO TID 30 Days Qty: 90 0RF trazodone 50 mg tablet 50 mg PO BEDTIME Qty: 30 0RF tramadol 50 mg tablet 50 mg PO BID Qty: 60 0RF (DME) walker Misc See Rx Instructions .Route Qty: 1 0RF Rx Instructions: As directed (DME) mens brief 5x per day large See Rx Instructions .Route .MEDSUPPLY Qty: 1 0RF Rx Instructions: As directed (DME) disposable bed pads See Rx Instructions .Route .MEDSUPPLY Qty: 200 0RF Rx Instructions: As directed (DME) disposable gloves Misc See Rx Instructions .Route Qty: 200 11RF Rx Instructions: As directed (DME) Reusable bed pad See Rx Instructions .Route .MEDSUPPLY Qty: 2 5RF Rx Instructions: As directed mirtazapine 7.5 mg tablet 7.5 mg PO BEDTIME Qty: 30 1RF omeprazole 40 mg capsule,delayed release(DR/EC) 40 mg PO DAILY@0630 tizanidine 4 mg tablet 2 mg PO TID sucralfate 1 gram tablet 1 g PO BID polysaccharide iron complex 150 mg iron capsule 150 mg PO DAILY thiamine HCl (vitamin B1) 100 mg tablet 100 mg PO DAILY pyridoxine (vitamin B6) 50 mg tablet 50 mg PO DAILY (DME) blood pressure monitor Kit See Rx Instructions .Route Qty: 1 0RF Rx Instructions: As directed (DME) blood pressure test kit-large Kit See Rx Instructions .ROUTE DIRECTED Qty: 1 Rx Instructions: As directed Discharge Orders: Discharge Order (Routine); Ordered 06/15/25 Ordered By: Bravo Courtney Diet: Advance to usual diet Activity on Discharge: As tolerated Stand Alone Forms: Patient Portal Discharge page Print Language: Thai Care Plan Goals: Continue all meds as taken prior to hospital Health Concerns: Coreg 3.125 mg twice daily has been added to your regimen. Ceftin 500 mg has been added take for 7 days and DC Plan of Treatment: Follow up with GI as scheduled. Follow up with the PCP as scheduled Assessment: See discharge summary
--- NOTE | 2025-06-15 14:55 | MHC.CM.PN ---
PT CLEARED TO DC HOME TODAY WITH [facility] AND [facility] BLS TRANSPORT WILL BE ARRANGED
--- NOTE | 2025-06-15 15:41 | P.CDIM_ITS ---
PROVIDER RESPONSE TEXT: To clarify, the appropriate diagnosis supported by the clinical indicators: Acute blood loss anemia QUERY TEXT: PHYSICIAN'S DOCUMENTATION REQUEST Date of Query: 06/15/2025 02:37 PM EDT Patient Name: Jose Armando Campbell Admit Date: 06/12/2025 Dear Bravo Courtney DO, A review of the medical record indicates additional documentation may be needed. Please review below and update the documentation accordingly. Clinical Indicators: weak, melena On 06/11/25: H&H: 8.6/27.3 On 06/13/25: H&H: 7.4/23.6 Based on the above, could you clarify which of the following is the most likely type of anemia you are evaluating, treating, and/or monitoring? Acute blood loss anemia Acute blood loss anemia with baseline chronic anemia (specify type) Anemia of chronic disease indicate if neoplastic disease, CKD, or other Chronic iron deficiency anemia due to blood loss Vitamin B12 deficiency anemia indicate etiology, such as intrinsic factor deficiency, malabsorption, transcobalamin II deficiency, dietary, etc Folate deficiency anemia indicate etiology, such as dietary, drug-induced, etc Protein deficiency anemia Other (explain) Clinically unable to determine (explain) Thank you, Hemalatha Mendiola RN Use of terms such as suspected, likely, concern for, or probable (associated with a specific diagnosis that is being evaluated, monitored, or treated as if it exists) are acceptable and can be coded in the inpatient setting, when documented at the time of discharge. Please use your independent medical judgment in providing your response. THIS QUERY IS PART OF THE PERMANENT MEDICAL RECORD
== END 2025-06-15 17:08 | disposition home health service (06) | DRG 432 ==
LOC: HO.ED 20:56 → HO.EDOVER 21:40 → HO.S3 06-12 11:50
PROVIDERS: Internal Medicine; Physician Assistant; Admitting Provider Internal Medicine; Emergency Provider Student in an Organized Health Care Education/Training Program; PCP Internal Medicine; Visit Provider Hospitalist
PROC: 0DJ08ZZ Inspection of Upper Intestinal Tract, Via Natural or Artificial Opening Endoscopic (ICD-10-PCS; CPT 43235; principal; 2025-06-13 14:00)
DX: K70.30 Alcoholic cirrhosis of liver without ascites (principal); I85.11 Secondary esophageal varices with bleeding; K76.6 Portal hypertension; D62 Acute posthemorrhagic anemia; F10.11 Alcohol abuse, in remission; K31.7 Polyp of stomach and duodenum; F39 Unspecified mood [affective] disorder; K31.89 Other diseases of stomach and duodenum; Z86.19 Personal history of other infectious and parasitic diseases; Z85.05 Personal history of malignant neoplasm of liver; Z79.899 Other long term (current) drug therapy
CPT/HCPCS: 36415; 76705; 80048; 80053; 80076; 82105; 82140; 82272; 83690; 85014; 85018; 85025; 85027; 85610; 86850; 86900; 86901; 93005; 99285; J0696; J2003; J2354; J2470; J2704; J3010; J7120

== ENCOUNTER → 2025-06-11 15:15 | Outpatient (BNV) | payer OTHER, SELFPAY | PROVIDERS: Emergency Provider Student in an Organized Health Care Education/Training Program; Visit Provider Internal Medicine | DX: I49.1 Atrial premature depolarization (principal) | CPT/HCPCS: 93010 ==

== ENCOUNTER 2025-06-11 21:17 | Outpatient (BNV) | payer OTHER, SELFPAY | END 2025-06-12 17:04 | PROVIDERS: Admitting Provider Internal Medicine; Emergency Provider Student in an Organized Health Care Education/Training Program; Visit Provider Radiology Diagnostic Radiology | DX: K74.60 Unspecified cirrhosis of liver (principal) | CPT/HCPCS: 76705 ==

== ENCOUNTER → 2025-06-11 21:17 | Outpatient (BNV) | payer OTHER, SELFPAY | PROVIDERS: Admitting Provider Internal Medicine; Emergency Provider Student in an Organized Health Care Education/Training Program; Visit Provider Internal Medicine | DX: K92.1 Melena (principal); D62 Acute posthemorrhagic anemia | CPT/HCPCS: 99223; 99232; 99233; 99239 ==

== ENCOUNTER → 2025-06-11 21:17 | Outpatient (BNV) | payer OTHER, SELFPAY | PROVIDERS: Admitting Provider Internal Medicine; Emergency Provider Student in an Organized Health Care Education/Training Program; Visit Provider Internal Medicine | DX: K70.30 Alcoholic cirrhosis of liver without ascites (principal); D62 Acute posthemorrhagic anemia; F10.11 Alcohol abuse, in remission; C22.0 Liver cell carcinoma | CPT/HCPCS: 99223 ==

== ENCOUNTER 2025-06-29 10:19 | Outpatient (AMB) | payer OTHER, SELFPAY ==
[2025-06-29 10:24] VITALS: BP 148/70; PULSE 72; TEMP 36.1; O2SAT 100
--- NOTE | 2025-06-29 10:24 | A.OFFPC_ITS ---
Vital Signs 06/29/25 10:24 Height 5 ft 3 in BMI Reason not done Patient refused/unable BP 148/70 H Blood Pressure Location Lt brachial Position Sitting Pulse 72 Pulse Source Pulse Oximeter Temp 97.0 F Temp Source Temporal Artery Scan Pulse Oximetry (%) 100 Oxygen Delivery Method Room Air Intake Visit Reasons: tcm 06/15 discharge Accompanied by: LEHR STRIPPER Allergies No Known Allergies (No Known Allergies*) Allergy (Verified 06/29/25 10:26) Tobacco use date assessed: 06/29/25 Fall risk assessment: 2 + Falls in past year Last assessed Fall Risk: 06/29/25 Dental Screening Dental Screen Date: 06/29/25 Did you have a dental visit in the last 12 months?: No Did you have a dental problem in the last 6 months where you did not have access to dental care?: No Was dental information given to patient?: No HPI HPI Comments History of Present Illness Details 69 y/o Male patient who presents to the clinic Today for TCM. PMhx Significant for hepatocellular CA status post embolization, hepatitis- C/alcoholic cirrhosis, Esophageal Varices requiring banding, Alcohol Abuse, SAH, previous GI bleeding requiring transfusions and Essential HTN. [place] [facility] [place] an evaluation and Treatment of Esophageal varices. Patient underwent upper endoscopy on 06/13/25 which showed Esophageal varices with portal hypertensive gastropathy. He has a F/U appointment with GI on 07/23/25. [facility] Medical History (Updated 06/29/25 @ 11:16 by Tatyana Seo NP) Esophageal varices in alcoholic cirrhosis Anemia Hypertension History of alcohol abuse Vitamin D deficiency Erectile dysfunction Depression Chronic pain Chronic anemia Insomnia Hepatocellular carcinoma Neuropathy involving both lower extremities Liver cirrhosis Hepatitis C Common cold Lower back pain Surgical History History of tooth extraction Hx of colonoscopy (~10/29/23) History of breast lump/mass excision History of ankle surgery History of appendectomy History of open reduction and internal fixation (ORIF) procedure Family History Father Prostate cancer Mother Diabetes Stroke Social History Household Members: None Housing: Apartment Are you a primary caregiver assisted living to a significant other at home: No Do you presently have visiting nurse or other home services: Yes Alcohol intake: former Patient Tobacco Use Status: Former Tobacco user Tobacco use type: Cigarette e-Cigarette/Vaping Use: Never Used Second Hand Smoke Exposure: No service: No Current occupational status: disabled Cognitive needs: Yes (cane) Hearing needs: No Vision needs: Yes (glasses) Questionnaire PHQ-9 Over the last 2 weeks, how often have you been bothered by any of the following problems? 1. Little interest or pleasure in doing things: several days 2. Feeling down, depressed, or hopeless: several days 3. Trouble falling or staying asleep, or sleeping too much: several days 4. Feeling tired or having little energy: several days 5. Poor appetite or overeating: several days 6. Feeling bad about yourself - or that you are a failure or have let yourself or your family down: not at all 7. Trouble concentrating on things, such as reading the newspaper or watching television: several days 8. Moving or speaking so slowly that other people could have noticed. Or the opposite - being so fidgety or restless that you have been moving around a lot more than usual: not at all 9. Thoughts that you would be better off or of hurting yourself in some way: not at all Total score: 6 Depression Screening Interpretation: Positive Depression Screening Follow-up: Existing condition and Other (Patient will be referred to therapist/psychiatrist) Depression Screening Done: Yes Source: Developed by Drs. Mynor Alba, Wilma Francosi, Cornel Garcia and colleagues, with an educational elbert from [employer]. Thrive Questionnaire Date Thrive assessed: 02/22/25 I am a: Parent/Caregiver What is your living situation today?: I have a steady place to live Within the past 12 months, did the food you bought not last and you didn't have the money to get more?: Never true Within the past 12 months, did you worry whether your food would run out before you got money to buy more?: Sometimes True Do you have trouble paying for medicines?: No Do you have trouble getting transportation to medical appointments?: No Do you have trouble paying your heating and electricity bill?: No Do you have trouble taking care of your child, family member or friend?: Yes Do you have trouble with day-to-day activities such as bathing, preparing meals, shopping, managing finances, etc.?: Yes Are you currently unemployed and looking for a job?: No Are you interested in more education?: No Please select the resources that you would like help with: Food Currently or been in a relationship where the following occur: No concerns reported THRIVE Score: 1 AUDIT C Alcohol Use Questionnaire (AUDIT-C) 1. How often do you have a drink containing alcohol?: Never 3. How often do you have six or more drinks on one occasion?: Never Total Score: 0 PORFIRIO-7 AMB Questionnaire PORFIRIO-7 Date PORFIRIO - 7 assessed: 02/22/25 Feeling nervous, anxious, or on edge: 1 = Several days Not being able to stop or control worryin = Several days Worrying too much about different things: 1 = Several days Trouble relaxin = Several days Being so restless that it is hard to sit still: 0 = Not at all Becoming easily annoyed or irritable: 1 = Several days Feeling afraid as if something awful might happen: 0 = Not at all Total PORFIRIO-7 score (0-4 normal; 5-9 mild; 10-14 moderate; 15-21 severe): 5 Source: Developed by Drs. Mynor Alba, Wilma Francois, Cornel Garcia and colleagues, with an educational elbert from [employer]. Review of Systems Const All systems reviewed & are unremarkable except as noted in HPI and below Physical exam (Primary Care) Vital Signs: Last Vital Signs Temp 97.0 F 06/29/25 10:24 Pulse 72 06/29/25 10:24 BP 148/70 H 06/29/25 10:24 Pulse Ox 100 06/29/25 10:24 Oxygen Delivery Method Room Air 06/29/25 10:24 Tobacco/Smoking Status: Tobacco use Status Tobacco use date assessed 06/29/25 06/29/25 10:28 Patient Tobacco Use Status Former Tobacco user 06/29/25 10:28 Tobacco use type Cigarette 06/29/25 10:28 e-Cigarette/Vaping Use Never Used 06/29/25 10:28 PHQ-9: PHQ-9 Score PHQ-9: Total score 6 06/29/25 10:28 Depression Screening Interpretation: Positive Depression Screening Follow-up: Existing condition and Other (Patient will be referred to therapist/psychiatrist) Thrive Assessment: Date of Thrive Assessment Date Thrive assessed 02/22/25 06/29/25 10:28 Currently or been in a relationship where the following occur: No concerns reported Const General: no acute distress Nutritional Appearance: well nourished Orientation/consciousness: patient oriented x3 Limitations: wheelchair Resp Effort & Inspection: normal respiratory effort Auscultation: clear to auscultation bilaterally Cardio Heart sounds: S1 normal heart sound present and S2 normal heart sound present Neuro General: patient oriented x3 Psych Speech and movement: Normal speech and movement present Coding Level of Care Code TCM Mod MDM <= 14 Days Diagnoses Esophageal varices in alcoholic cirrhosis K70.30; I85.10 Time Spent (min) 20 Assessment & Plan Assessment & Plan (1) Esophageal varices in alcoholic cirrhosis: Code(s): K70.30 - Alcoholic cirrhosis of liver without ascites; I85.10 - Secondary esophageal varices without bleeding Category: Medical Plan: Managed by GI
== END 2025-06-29 11:17 | disposition home or self-care (01) ==
LOC: HO.HMCH 10:21
PROVIDERS: PCP Internal Medicine; Visit Provider Nurse Practitioner Family
DX: K70.30 Alcoholic cirrhosis of liver without ascites (principal); I85.10 Secondary esophageal varices without bleeding

== ENCOUNTER → 2025-06-29 10:19 | Outpatient (BNVA) | payer OTHER, SELFPAY | PROVIDERS: PCP Internal Medicine; Visit Provider Nurse Practitioner Family | DX: I10 Essential (primary) hypertension (principal); K70.30 Alcoholic cirrhosis of liver without ascites; I85.10 Secondary esophageal varices without bleeding | CPT/HCPCS: 96127; 99212 ==

== ENCOUNTER 2025-07-10 10:29 | Emergency (ER) | payer OTHER, SELFPAY ==
--- NOTE | ~2025-07-10 | CT_ITS ---
EXAMINATION: CT ABDOMEN PELVIS WITH IV CONTRAST HISTORY: ABD pain, RUQ, RLQ pain COMPARISON: Comparison is made with the prior examination dated 01/12/2025. TECHNIQUE: CT scan of the abdomen and pelvis was performed following administration of 85 mL Omnipaque 350 using standard departmental protocol. Coronal and sagittal reformatted images were generated and reviewed. Oral contrast material was not administered at the request of the referring physician. This CT exam was performed with one or more of the following dose reduction techniques: automated exposure control, adjustment of the mA and/or kV according to patient size, use of iterative reconstruction technique. DLP: 272 mGy-cm FINDINGS: LOWER CHEST: The visualized lung bases are clear. There is no pleural effusion. CARDIOVASCULATURE: The heart is normal in size. There is no pericardial effusion. LIVER: The liver demonstrates a lobular contour. Multiple calcified masses are seen in the left lobe likely representing posttreatment change. There is a low-density mass in the right lobe measuring at least 3.4 cm. Findings are consistent with the patient's known hepatocellular carcinoma. The hepatic and portal veins are patent. GALLBLADDER / BILE DUCTS: The gallbladder is unremarkable. There is no intra or extrahepatic biliary ductal dilatation. SPLEEN: The spleen is normal in size. No focal splenic lesion is identified. PANCREAS: The pancreas is unremarkable in appearance. ADRENAL GLANDS: Within normal limits. KIDNEYS/RETROPERITONEUM: No renal calculi are identified. There is no hydronephrosis. No renal masses are identified. LYMPH NODES: No abdominal or pelvic lymphadenopathy. VASCULATURE: The abdominal aorta is normal in caliber. MESENTERY/PERITONEUM: No free fluid. No masses. There is no free intraperitoneal gas. STOMACH: The stomach is collapsed, limiting evaluation. SMALL BOWEL: The small bowel is normal in caliber. COLON: There is an ill-defined masslike opacity in the ascending colon. Evaluation is limited by patient motion and lack of oral contrast material. There is a large amount of stool in the remainder of the colon. APPENDIX: The appendix is not seen, however no inflammatory changes are seen adjacent to the cecum. URINARY BLADDER/PELVIC ORGANS: The urinary bladder is unremarkable. The prostate is normal in size. BONES / SOFT TISSUES: No suspicious bony or soft tissue abnormalities. CT/CT abdomen pelvis w IV con IMPRESSION: 1. Multiple calcified and noncalcified masses in the liver the patient's known history of hepatocellular carcinoma. 2. Ill-defined masslike opacity in the ascending colon. Colonoscopy should be considered. Electronically signed by: Mynor Dover MD 07/10/2025 02:20 PM EDT
[2025-07-10 10:35] VITALS: BP 165/58; PULSE 74; O2SAT 100
[2025-07-10 10:37] VITALS: BP 133/71; PULSE 68; RESP 16; TEMP 36.8; O2SAT 100; BMI 24.8
--- NOTE | 2025-07-10 10:59 | ECG_ITS ---
Test Reason : chest pain Blood Pressure : */* mmHG Vent. Rate : 65 BPM Atrial Rate : 65 BPM P-R Int : 178 ms QRS Dur : 74 ms QT Int : 420 ms P-R-T Axes : 78 8 35 degrees QTcB Int : 436 ms Sinus rhythm with Premature atrial complexes Otherwise normal ECG When compared with ECG of 11-Jun-2025 15:15, T wave amplitude has increased in Anterior leads Referred By: Daria Lane Electronically Signed By: Armond Santiago
--- NOTE | 2025-07-10 11:31 | ED.GENADULT ---
HPI - General Adult General Chief complaint: Extremity Problem Stated complaint: SOB/ CP Time Seen by Provider: 07/10/25 11:31 Source: patient, EMS, RN notes reviewed and paraprofessional interpreter Mode of arrival: EMS Limitations: language barrier History of Present Illness ED Provider: Daria Lane PA-C HPI narrative: This is a 69-year-old male, past medical history of hepatocellular CA status post embolization, hepatitis-C/alcoholic cirrhosis, esophageal varices requiring banding, SAH, previous GI bleeding requiring transfusions and essential HTN with a history of esophageal varices, who presents emergency department via EMS with concerns of acute on chronic right upper abdominal pain since this AM. Patient reports that this started this morning. He denies any fevers, chills, chest pain, shortness of breath, nausea, vomiting, or diarrhea. He does report dark stool. No bloody stool. Patient reports that he did have a ICH when month ago, was seen at [facility], continues to have right lower leg weakness, which has been chronic for him. No changes to this. No other complaints or concerns at this time. MD complaint: abdominal pain Relieving factors: none Exacerbating factors: none Treatments prior to arrival: none Related Data Home Medications ?Medication ?Instructions ?Recorded ?Confirmed polysaccharide iron complex 150 mg 150 mg PO DAILY 06/12/25 06/18/25 iron capsule pyridoxine (vitamin B6) 50 mg 50 mg PO DAILY 06/12/25 06/18/25 tablet thiamine HCl (vitamin B1) 100 mg 100 mg PO DAILY 06/12/25 06/18/25 tablet tizanidine 4 mg tablet 2 mg PO TID 06/12/25 06/18/25 Previous Rx's ?Medication ?Instructions ?Recorded blood pressure monitor #1 ea 01/21/22 Blood pressure monitor #1 ea 08/02/24 walker #1 ea 05/31/25 Reusable bed pad #2 ea 06/04/25 carvedilol 3.125 mg tablet 3.125 mg PO BID #60 tabs 06/15/25 amlodipine 10 mg tablet 10 mg PO DAILY #90 tabs 06/16/25 blood pressure test kit-large #1 ea 06/20/25 disposable bed pads #200 ea 06/20/25 gabapentin 100 mg capsule 100 mg PO TID 30 days #90 caps 06/20/25 mens brief 5x per day #1 ea 06/20/25 mirtazapine 7.5 mg tablet 7.5 mg PO BEDTIME #30 tabs 06/20/25 omeprazole 40 mg capsule,delayed 40 mg PO DAILY@0630 #90 caps 06/20/25 release sucralfate 1 gram tablet 1 g PO BID #180 tabs 06/20/25 tramadol 50 mg tablet 50 mg PO BID #60 tabs 06/20/25 trazodone 50 mg tablet 50 mg PO BEDTIME #30 tabs 06/20/25 Transfer bench #1 ea 06/22/25 disposable gloves #200 ea 06/22/25 lisinopril 10 mg tablet 10 mg PO DAILY #90 tabs 06/22/25 shower bench #1 ea 07/12/25 Allergies Allergy/AdvReac Type Severity Reaction Status Date / Time No Known Allergies (No Known Allergy Verified 07/10/25 10:44 Allergies*) Review of Systems Review of Systems: Constitutional : No Fever, No Chills ENT/Mouth : No sore throat, No Rhinorrhea Eyes: No Eye Pain, No Swelling, No Redness Cardiovascular : No Chest Pain, No SOB Respiratory : No Cough, No Sputum Gastrointestinal : No Nausea, No Vomiting, No Diarrhea, + abdominal Pain Genitourinary : No Dysuria, No Hematuria Musculoskeletal : No joint pain, No Myalgias, No Joint Swelling Skin : No Skin Lesions Neuro : No Weakness, No Numbness, No Headache All other systems reviewed and are negative Yes all other systems are reviewed and are negative Constitutional: Constitutional: Reports as per [facility] Past Medical History Attestation statement: The following information was validated with the patient. Medical History Esophageal varices in alcoholic cirrhosis Anemia Hypertension History of alcohol abuse Vitamin D deficiency Erectile dysfunction Depression Chronic pain Chronic anemia Insomnia Hepatocellular carcinoma Neuropathy involving both lower extremities Liver cirrhosis Hepatitis C Common cold Lower back pain Surgical History History of tooth extraction Hx of colonoscopy (~10/29/23) History of breast lump/mass excision History of ankle surgery History of appendectomy History of open reduction and internal fixation (ORIF) procedure Family History Family History Father Prostate cancer Mother Diabetes Stroke Social History Social History Household Members: None Housing: Apartment Are you a primary medicare interviewer to a significant other at home: No Do you presently have visiting nurse or other home services: Yes Alcohol intake: former Patient Tobacco Use Status: Former Tobacco user Tobacco use type: Cigarette e-Cigarette/Vaping Use: Never Used Second Hand Smoke Exposure: No service: No Current occupational status: disabled Cognitive needs: Yes (cane) Hearing needs: No Vision needs: Yes (glasses) Physical Exam ED Vital Signs: Vital Signs - 24 hr 07/10/25 10:37 07/10/25 13:23 07/10/25 16:18 Temperature 98.2 F 98.3 F 98.3 F Pulse Rate 68 64 64 Respiratory Rate 16 14 14 Blood Pressure 133/71 151/69 H 151/69 H Pulse Oximetry 100 99 99 Oxygen Delivery Method Room Air Room Air Room Air BMI result Body Mass Index 24.8 Const General: cooperative, comfortable and no acute distress Orientation/consciousness: patient oriented x3 Limitations: no limitations HENMT Head: Yes normal to inspection, Yes normocephalic and Yes atraumatic Ears: hearing grossly normal bilaterally General nose exam: Normal external nose present Face and sinus: Yes normal facial exam Mouth: Normal oral and palatal mucosa present, oropharynx normal and moist mucous membranes Throat: Yes posterior oropharynx normal Eyes General: appearance normal, both eyes and all related structures Eyelids: Yes eyelids normal Conjunctivae: conjunctivae normal Sclerae: sclerae normal Pupils: Equal, round and reactive pupils present EOM: EOMs intact bilaterally Neck Neck: Yes normal visual inspection, Yes full ROM and Yes no lymphadenopathy Lymphatic: no lymphadenopathy noted Chest Chest palpation & inspection: normal inspection of the chest Resp Effort & Inspection: normal respiratory effort and able to speak in complete sentences Auscultation: clear to auscultation bilaterally, no crackles, no rales, no rhonchi and no wheezes Cardio Rate: regular rate Rhythm: regular rhythm Heart sounds: S1 normal heart sound present and S2 normal heart sound present GI Inspection: Yes normal to inspection Skin General skin exam: no rashes or lesions noted Trauma: no lacerations or abrasions Wounds: no wounds Neuro General: patient oriented x3 and moves all extremities Cranial nerves: Yes Equal, round and reactive pupils present Extrem General: Yes normal to inspection Right upper extremity: normal to inspection Left upper extremity: normal to inspection Right lower extremity: normal to inspection Left lower extremity: normal to inspection Medications Administered Discontinued Medications Generic Name Dose Route Start Last Admin Trade Name Luzmaria PRN Reason Stop Dose Admin Iohexol 100 ml 07/10/25 13:44 07/10/25 13:45 Iohexol 350 Mg/Ml 100 Ml Infus..Btl IV 07/10/25 13:45 85 ml ONCE ONE Administration Medical Decision Making Medical Decision Making [facility] Narrative: This is a 69-year-old male, past medical history of hepatocellular CA status post embolization, hepatitis-C/alcoholic cirrhosis, esophageal varices requiring banding, SAH, previous GI bleeding requiring transfusions and essential HTN with a history of esophageal varices, who presents emergency department via EMS with concerns of acute on chronic right upper abdominal pain since this AM. On arrival, patient well-appearing, appears to be under no acute distress. Abdomen is soft, with very mild tenderness to palpation the epigastrium. Differential diagnoses include gastritis, gastroenteritis, ACS-unlikely, electrolyte derangement. Labs were obtained, as well as abdomen CT. Patient does have mild leukopenia at 4.3, H&H reveal a normocytic anemia, similar to previous. He has no bloody or black stool. Chemistry revealing no significant electrolyte derangement. Alk phos around his baseline. I discussed with patient that his symptoms are likely attributed to gastritis. He states that his pain is well managed, does not want any pain medications at this time. CT revealing multiple calcified and noncalcified masses in the liver, as well as a ill-defined masslike opacity in the ascending colon. I discussed this with Dr. Maza, recommending that they will follow-up outpatient. Patient agreeable. He is feeling well, given strict return precautions, patient stable for discharge. Differential Diagnosis Differential Diagnoses: The differential diagnosis associated with the presentation includes See above Admission/Observation Consideration of admission/observation: Escalation of care including admission/observation considered Consult Healthcare Provider Management of the patient was discussed with: Informatics Consultant Dr. Maza Lab Data [facility] Lab Attestation statement: I reviewed the patient's lab results. See MDM 07/10/25 12:56 07/10/25 12:56 Labs: Lab Results 07/10/25 Range/Units 12:56 WBC 4.3 L (4.8-10.8) X10*3/uL RBC 3.12 L (4.60-5.80) X10*6/uL Hgb 7.8 L (14.0-18.0) g/dl Hct 25.1 L (42.0-52.0) % MCV 80.4 (80.0-98.0) fL MCH 25.0 L (27.0-33.0) pg MCHC 31.1 (31.0-36.0) g/dl RDW 17.0 H (11.0-16.0) % Plt Count 130 L (160-400) X10*3/uL MPV Not Reportable Immature Gran % (Auto) 0.5 H (0.0-0.4) % Neut % (Auto) 62.2 (45-73) % Lymph % (Auto) 20.9 (20-40) % [place] % (Auto) 13.1 H (2-11) % Eos % (Auto) 2.8 (0-4) % Baso % (Auto) 0.5 (0-2) % Lymph # (Auto) 0.9 L (1.2-4.9) X10*3/uL [place] # (Auto) 0.6 (0.1-1.2) X10*3/uL Eos # (Auto) 0.1 (0.0-0.4) X10*3/uL Baso # (Auto) 0.0 (0.0-0.2) X10*3/uL Abs Immat Gran (auto) 0.02 (0.00-0.03) X10*3/uL Absolute Neuts (auto) 2.7 (2.0-8.3) x10*3/uL Absolute Nucleated RBC 0.000 (0.0-0.012) X10*3/uL Nucleated RBC % (auto) 0.0 (0.0-0.2) /100WBC Sodium 143 (135-145) mmol/L Potassium 4.2 (3.3-5.1) mmol/L Chloride 112 H (96-108) mmol/L Carbon Dioxide 26 (22-29) mmol/L Anion Gap 9 L (12-20) BUN 16 (9-16) mg/dL Creatinine 0.99 (0.5-1.4) mg/dL Estim Creat Clear Calc 55.0 Estimated GFR > 60 Random Glucose 88 (60-115) mg/dL Calcium 9.0 (8.4-10.2) mg/dL Magnesium 1.7 (1.6-2.6) mg/dL Total Bilirubin 0.4 (0.0-1.0) mg/dL Direct Bilirubin 0.2 (0.0-0.5) mg/dL AST 35 (5-37) U/L ALT 27 (0-40) U/L Alkaline Phosphatase 172 H (39-117) U/L Total Protein 6.3 L (6.5-8.0) g/dL Albumin 3.3 L (3.5-5.0) g/dL Lipase 23 (8-78) U/L Independent Interpretation I performed an independent interpretation of an: EKG Interpretation: EKG sinus rhythm with PACs at a ventricular rate of 65 beats per minute, UT interval 178, QT QTC 420/4 you 6, no STEMI. Radiology Impression Discussion of test interpretation with radiology: I have reviewed the radiologist's reading. Radiologist Impression: EXAMINATION: CT ABDOMEN PELVIS WITH IV CONTRAST HISTORY: ABD pain, RUQ, RLQ pain COMPARISON: Comparison is made with the prior examination dated 01/12/2025. TECHNIQUE: CT scan of the abdomen and pelvis was performed following administration of 85 mL Omnipaque 350 using standard departmental protocol. Coronal and sagittal reformatted images were generated and reviewed. Oral contrast material was not administered at the request of the referring physician. This CT exam was performed with one or more of the following dose reduction techniques: automated exposure control, adjustment of the mA and/or kV according to patient size, use of iterative reconstruction technique. DLP: 272 mGy-cm FINDINGS: LOWER CHEST: The visualized lung bases are clear. There is no pleural effusion. CARDIOVASCULATURE: The heart is normal in size. There is no pericardial effusion. LIVER: The liver demonstrates a lobular contour. Multiple calcified masses are seen in the left lobe likely representing posttreatment change. There is a low-density mass in the right lobe measuring at least 3.4 cm. Findings are consistent with the patient's known hepatocellular carcinoma. The hepatic and portal veins are patent. GALLBLADDER / BILE DUCTS: The gallbladder is unremarkable. There is no intra or extrahepatic biliary ductal dilatation. SPLEEN: The spleen is normal in size. No focal splenic lesion is identified. PANCREAS: The pancreas is unremarkable in appearance. ADRENAL GLANDS: Within normal limits. KIDNEYS/RETROPERITONEUM: No renal calculi are identified. There is no hydronephrosis. No renal masses are identified. LYMPH NODES: No abdominal or pelvic lymphadenopathy. VASCULATURE: The abdominal aorta is normal in caliber. MESENTERY/PERITONEUM: No free fluid. No masses. There is no free intraperitoneal gas. STOMACH: The stomach is collapsed, limiting evaluation. SMALL BOWEL: The small bowel is normal in caliber. COLON: There is an ill-defined masslike opacity in the ascending colon. Evaluation is limited by patient motion and lack of oral contrast material. There is a large amount of stool in the remainder of the colon. APPENDIX: The appendix is not seen, however no inflammatory changes are seen adjacent to the cecum. URINARY BLADDER/PELVIC ORGANS: The urinary bladder is unremarkable. The prostate is normal in size. BONES / SOFT TISSUES: No suspicious bony or soft tissue abnormalities. CT/CT abdomen pelvis w IV con IMPRESSION: 1. Multiple calcified and noncalcified masses in the liver the patient's known history of hepatocellular carcinoma. 2. Ill-defined masslike opacity in the ascending colon. Colonoscopy should be considered. Electronically signed by: Mynor Dover MD 07/10/2025 02:20 PM EDT RP Dictated By: Mynor Dover MD Signed By: <Electronically signed by Discharge Plan Discharge Clinical Impression: Abdominal pain Patient Disposition: Home, Self-Care Instructions: Abdominal Pain (ED) Additional Instructions: You were seen in the emergency department due to abdominal pain. You were CT scan shows multiple calcified and noncalcified masses in the liver - can be attributed to the history of hepatocellular carcinoma. You also have a ill-defined masslike opacity in the ascending colon. This was discussed with Dr. Maza, GI specialist, they are recommending outpatient colonoscopy. Call to make an appointment. If you develop any new or worsening symptoms including but not limited to severe chest pain, shortness of breath, worsening abdominal pain, nausea, vomiting or diarrhea, please seek emergent care. Prescriptions: No Action (DME) Blood pressure monitor See Rx Instructions .Route .MEDSUPPLY Qty: 1 0RF Rx Instructions: [place] directed [place]er Misc See Rx Instructions .Route Qty: 1 0RF Rx Instructions: As directed [place] Reusable bed pad See Rx Instructions .Route .MEDSUPPLY Qty: 2 5RF Rx Instructions: As directed amlodipine 10 mg tablet 10 mg PO DAILY Qty: 90 1RF Protocol: Hold for SBP< HOLD for SBP < : 90 ([facility] blood pressure test kit-large Kit See Rx Instructions .ROUTE DIRECTED Qty: 1 0RF Rx Instructions: As directed [place] disposable bed pads See Rx Instructions .Route .MEDSUPPLY Qty: 200 0RF Rx Instructions: As directed gabapentin 100 mg capsule 100 mg PO TID 30 Days Qty: 90 0RF ([facility] mens brief 5x per day large See Rx Instructions .Route .MEDSUPPLY Qty: 1 0RF Rx Instructions: As directed mirtazapine 7.5 mg tablet 7.5 mg PO BEDTIME Qty: 30 1RF omeprazole 40 mg capsule,delayed release(DR/EC) 40 mg PO DAILY@0630 Qty: 90 1RF sucralfate 1 gram tablet 1 g PO BID Qty: 180 0RF tramadol 50 mg tablet 50 mg PO BID Qty: 60 0RF trazodone 50 mg tablet 50 mg PO BEDTIME Qty: 30 0RF [place] disposable gloves Misc See Rx Instructions .Route Qty: 200 11RF Rx Instructions: As directed lisinopril 10 mg tablet 10 mg PO DAILY Qty: 90 1RF Protocol: Hold for SBP< HOLD for SBP < : 90 (DME) Transfer bench See Rx Instructions .Route .MEDSUPPLY Qty: 1 0RF Rx Instructions: As directed [place] shower bench See Rx Instructions .Route .MEDSUPPLY Qty: 1 0RF Rx Instructions: As directed tizanidine 4 mg tablet 2 mg PO TID polysaccharide iron complex 150 mg iron capsule 150 mg PO DAILY thiamine HCl (vitamin B1) 100 mg tablet 100 mg PO DAILY pyridoxine (vitamin B6) 50 mg tablet 50 mg PO DAILY carvedilol 3.125 mg Tablet 3.125 mg PO BID Qty: 60 0RF Protocol: Hold for SBP/HR < HOLD for SBP < : 90 HOLD for HR < : 60 (DME) blood pressure monitor Kit See Rx Instructions .Route Qty: 1 0RF Rx Instructions: As directed Referrals: [facility] [place] [facility] [Provider Group, Gastroenterology] Interventions: ED Discharge Assessment Last Done: 07/10/25 16:18 Discharge Date/Time: 07/10/25 17:45 Print Language: Armenian
[2025-07-10 13:10] LABS: Imm Gran Abs Auto 0.02 X10*3/uL (0.00-0.03); Imm Gran Pct Auto 0.5 % (0.0-0.4); Mean Corpuscular Volume 80.4 fL (80.0-98.0); NRBC Abs Auto 0.000 X10*3/uL (0.0-0.012); NRBC Pct Auto 0.0 /100WBC (0.0-0.2); SCAN SMEAR FLAG 1
[2025-07-10 13:11] LABS: Hematocrit 25.1 % (42.0-52.0); Hemoglobin 7.8 g/dl (14.0-18.0); Lymphocytes Absolute Auto 0.9 X10*3/uL (1.2-4.9); Mean Corpuscular HGB Conc 31.1 g/dl (31.0-36.0); Mean Corpuscular Hemoglobin 25.0 pg (27.0-33.0); Platelet Count 130 X10*3/uL (160-400); Red Blood Count 3.12 X10*6/uL (4.60-5.80); White Blood Count 4.3 X10*3/uL (4.8-10.8)
[2025-07-10 13:22] LABS: Alanine Aminotransferase 27 U/L (0-40); Albumin Level 3.3 g/dL (3.5-5.0); Alkaline Phosphatase 172 U/L (39-117); Anion Gap 9 (12-20); Aspartate Amino Transferase 35 U/L (5-37); Blood Urea Nitrogen 16 mg/dL (9-16); Calcium 9.0 mg/dL (8.4-10.2); Carbon Dioxide 26 mmol/L (22-29); Chloride 112 mmol/L (96-108); Creatinine Clr Calc Pharmacy 55.0; Estimated Glomerular Filt Rate > 60; Lipase 23 U/L (8-78); Magnesium 1.7 mg/dL (1.6-2.6); Potassium 4.2 mmol/L (3.3-5.1); Sodium 143 mmol/L (135-145); Total Protein 6.3 g/dL (6.5-8.0)
[2025-07-10 13:23] VITALS: BP 151/69; PULSE 64; RESP 14; TEMP 36.8; O2SAT 99
[2025-07-10 13:32] LABS: MANUAL DIFF FLAG NO; PLT ABN DIST 1
[2025-07-10] MEDS: iohexoL 350 MG/ML 100 ML INFUS..BTL IV (13:45)
[2025-07-10 16:18] VITALS: BP 151/69; PULSE 64; RESP 14; TEMP 36.8; O2SAT 99
== END 2025-07-10 17:45 | disposition home or self-care (01) ==
PROVIDERS: Physician Assistant Medical; Emergency Provider Emergency Medicine
DX: R10.31 Right lower quadrant pain (principal); R10.11 Right upper quadrant pain; R06.02 Shortness of breath; R07.9 Chest pain, unspecified; Z87.891 Personal history of nicotine dependence
CPT/HCPCS: 36415; 74177; 80048; 80076; 83690; 83735; 85025; 93005; 99283; 99285; Q9967

== ENCOUNTER → 2025-07-10 10:59 | Outpatient (BNV) | payer OTHER, SELFPAY | PROVIDERS: Emergency Provider Emergency Medicine; Visit Provider Internal Medicine Cardiovascular Disease | DX: I49.1 Atrial premature depolarization (principal) | CPT/HCPCS: 93010 ==

== ENCOUNTER → 2025-07-10 12:14 | Outpatient (BNV) | payer OTHER, SELFPAY | PROVIDERS: Emergency Provider Emergency Medicine; Visit Provider Radiology Diagnostic Radiology | DX: R19.00 Intra-abdominal and pelvic swelling, mass and lump, unspecified site (principal); R93.2 Abnormal findings on diagnostic imaging of liver and biliary tract | CPT/HCPCS: 74177 ==

== ENCOUNTER 2025-07-23 12:47 | Outpatient (AMB) | payer OTHER, SELFPAY ==
[2025-07-23 13:14] VITALS: BP 186/81; PULSE 85
--- NOTE | 2025-07-23 13:14 | A.OFFVIS_ITS ---
Vital Signs 07/23/25 13:14 Height 5 ft 3 in BMI Reason not done Patient refused/unable BP 186/81 H Blood Pressure Location Lt brachial Position Sitting Pulse 85 Intake Visit Reasons: f/u cirrhosis Intake Note: Patient in office today in follow up of cirrhosis. CC: Per PT's the patient suffered 3 strokes last month and was admitted to [facility]. Patient that he is doing well except his RT leg that he is not able to move it yet. 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 I rechecked labs and he had F2 by fibrosure, genotype 2, low zinc, vosevi ordered for 12 weeks--- SVR pos, cured EGD 05/2019--grade I-II varices, no banding, PHG noted rept MRI: possible new liver lesion right lobe 1 cm, prior treated areas noted in left lobe--reviewed by DR King ---felt to be infarcted tissue in left lobe s/p chemoembolization and not felt to have lesion in right lobe colonoscopy 11/2019-- poor prep, hemorrhoids, adenoma polyp removed colonoscopy rept 08/2020--4 adenomatous polyps removed, internal hemorrhoids noted Lumbar XR 07/2020-- degen changes in spine, superior plate compression, deformity at L3 MRI 09/2020-- interval increase in size in the slightly heterogeneous nonenhancing lesion in the left lobe of the liver. Stable 5 mm liver cyst high in the dome of the liver. Stable 6 mm focus of early arterial phase enhancement high in the dome of the liver not seen on any other sequences. 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 Small periportal and upper abdominal retroperitoneal lymph nodes that are stable. He had an i/p admission 11/20 for anemia EGD and colo with multiple AVM noted --rx with APC, gastric erosions, no varices path- chronic gastritis, active MRI 11/20-- multiple lesions concern for HCC--seeing oncology and Dr King again IR 02/2024-- had chemoembolization INTERIM: He went to ED for fall had CT with ? mass ascending colon he denies denies melena and rectal bleeding he has good appetite no abn bowel habit no abdo pain he feels well not drinking alcohol for months now EXAM: GENERAL: The patient is well developed and nontoxic. VITAL SIGNS:see workflow HEENT: Nonicteric sclerae, PERRLA, EOMI. Oropharynx clear. Moist mucous membranes. Conjunctivae appear well perfused. No thyroid mass. CHEST: Chest wall is nontender. HEART: Regular rate and rhythm without murmurs. LUNGS: Clear to auscultation bilaterally. ABDOMEN: Soft, positive bowel sounds, nontender, no organomegaly.no flank tenderness SKIN: No rash, no excessive bruising, petechiae, or purpura. NEUROLOGIC: Cranial nerves II-XII intact without motor/sensory deficit. numbness legs Psych: normal affect Assessment & Plan 1. Alcoholic cirrhosis of liver without ascites --again advised on avoiding alcohol --may have peripheral neuropathy from alcohol use 2. anemia, no overt GIB--hx of varices, possible mass on imaging PLAN 1/ recheck labs, in case needs iron or PRBC 2/ encouraged on ongoing alcohol abstinence, 3/ HE: cont miralax 4/ ascites: none 5/ diet- stable, 6/ HCC- f/u oncology and IR 7/ EGD and colo with golyte [facility] Medical History Esophageal varices in alcoholic cirrhosis Anemia Hypertension History of alcohol abuse Vitamin D deficiency Erectile dysfunction Depression Chronic pain Chronic anemia Insomnia Hepatocellular carcinoma Neuropathy involving both lower extremities Liver cirrhosis Hepatitis C Common cold Lower back pain Surgical History History of tooth extraction Hx of colonoscopy (~10/29/23) History of breast lump/mass excision History of ankle surgery History of appendectomy History of open reduction and internal fixation (ORIF) procedure Family History Father Prostate cancer Mother Diabetes Stroke Social History Household Members: None Housing: Apartment Are you a primary inspector health care facilities to a significant other at home: No Do you presently have visiting nurse or other home services: Yes Alcohol intake: former Patient Tobacco Use Status: Former Tobacco user Tobacco use type: Cigarette e-Cigarette/Vaping Use: Never Used Second Hand Smoke Exposure: No service: No Current occupational status: disabled Cognitive needs: Yes (cane) Hearing needs: No Vision needs: Yes (glasses) Physical Exam Vital Signs: Last Vital Signs Pulse 85 07/23/25 13:14 BP 186/81 H 07/23/25 13:14 Assessment & Plan Assessment & Plan (1) Nodule of colon: Code(s): K63.9 - Disease of intestine, unspecified Category: Medical Plan: as above (2) Esophageal varices in alcoholic cirrhosis: Code(s): K70.30 - Alcoholic cirrhosis of liver without ascites; I85.10 - Secondary esophageal varices without bleeding Category: Medical Plan: as above Orders: Orders Ferritin 07/23/25 I85.10 - Secondary esophageal varices without bleeding, K63.9 - Disease of intestine, unspecified, K70.30 - Alcoholic cirrhosis of liver without ascites Complete Blood Count Auto Diff 07/23/25 I85.10 - Secondary esophageal varices without bleeding, K63.9 - Disease of intestine, unspecified, K70.30 - Alcoholic cirrhosis of liver without ascites Comprehensive Met. Panel 07/23/25 I85.10 - Secondary esophageal varices without bleeding, K63.9 - Disease of intestine, unspecified, K70.30 - Alcoholic cirrhosis of liver without ascites, K75.81 - Nonalcoholic steatohepatitis (CROW) Prothrombin Time INR 07/23/25 I85.10 - Secondary esophageal varices without bleeding, K63.9 - Disease of intestine, unspecified, K70.30 - Alcoholic cirrhosis of liver without ascites Referrals GI Procedure Notification I85.10 - Secondary esophageal varices without bleeding, K63.9 - Disease of intestine, unspecified, K70.30 - Alcoholic cir rhosis of liver without ascites Medications: New peg 3350-electrolytes 236-22.74-6.74 -5.86 gram (Golytely) until fecal effluent is clear 240 mL PO Q10M 4,000 mL 0RF Coding Level of Care Code Est Pt Level 4 (50583) Diagnoses Nodule of colon K63.9 Esophageal varices in alcoholic cirrhosis K70.30; I85.10
== END 2025-07-23 14:16 | disposition home or self-care (01) ==
LOC: HO.HGI 12:49
PROVIDERS: Visit Provider Internal Medicine Gastroenterology
DX: K63.9 Disease of intestine, unspecified (principal); K70.30 Alcoholic cirrhosis of liver without ascites; I85.10 Secondary esophageal varices without bleeding
CPT/HCPCS: 99214

== ENCOUNTER 2025-07-23 12:47 | Outpatient (REF) | payer OTHER, SELFPAY ==
[2025-07-23 15:04] LABS: MANUAL DIFF FLAG NO
[2025-07-23 15:20] LABS: Hematocrit 30.4 % (42.0-52.0); Hemoglobin 9.0 g/dl (14.0-18.0); Imm Gran Abs Auto 0.01 X10*3/uL (0.00-0.03); Imm Gran Pct Auto 0.2 % (0.0-0.4); Lymphocytes Absolute Auto 1.2 X10*3/uL (1.2-4.9); Mean Corpuscular HGB Conc 29.6 g/dl (31.0-36.0); Mean Corpuscular Hemoglobin 24.5 pg (27.0-33.0); Mean Corpuscular Volume 82.6 fL (80.0-98.0); NRBC Abs Auto 0.000 X10*3/uL (0.0-0.012); NRBC Pct Auto 0.0 /100WBC (0.0-0.2); Platelet Count 174 X10*3/uL (160-400); Red Blood Count 3.68 X10*6/uL (4.60-5.80); White Blood Count 4.8 X10*3/uL (4.8-10.8)
[2025-07-23 15:43] LABS: INTERNATIONAL NORM RATIO 1.0 (0.9-1.1); Prothrombin Time 11.1 SEC (10.9-12.4)
[2025-07-23 16:09] LABS: Alanine Aminotransferase 44 U/L (0-40); Albumin Level 3.8 g/dL (3.5-5.0); Alkaline Phosphatase 180 U/L (39-117); Anion Gap 11 (12-20); Aspartate Amino Transferase 49 U/L (5-37); Blood Urea Nitrogen 19 mg/dL (9-16); Calcium 9.2 mg/dL (8.4-10.2); Carbon Dioxide 26 mmol/L (22-29); Chloride 111 mmol/L (96-108); Estimated Glomerular Filt Rate > 60; Potassium 4.6 mmol/L (3.3-5.1); Sodium 143 mmol/L (135-145); Total Protein 7.2 g/dL (6.5-8.0)
[2025-07-23 16:15] LABS: Ferritin 14 ng/mL (20-250)
== END 2025-07-23 12:48 | disposition home or self-care (01) ==
LOC: HO.LAB 12:47
PROVIDERS: Visit Provider Internal Medicine Gastroenterology
DX: K70.30 Alcoholic cirrhosis of liver without ascites (principal); I85.10 Secondary esophageal varices without bleeding; K75.81 Nonalcoholic steatohepatitis (NASH); K63.9 Disease of intestine, unspecified
CPT/HCPCS: 36415; 80053; 82728; 85025; 85610; 99212

== ENCOUNTER 2025-08-06 08:04 | Emergency (ER) | payer OTHER, SELFPAY ==
--- NOTE | ~2025-08-06 | XR_ITS ---
EXAMINATION: X-ray bilateral knees CLINICAL INFORMATION: Knee pain. Unable to walk. COMPARISON: X-ray 01/12/2025 TECHNIQUE: Left knee 2 views. Right knee 2 views. FINDINGS: Left knee: Anatomic alignment. No acute fracture or dislocation. No significant effusion. No abnormal soft tissue calcification. Right knee: Alignment is anatomic. Joint spaces are maintained. No acute fracture or dislocation. Trace suprapatellar joint fluid. No abnormal soft tissue calcification. XR/XR Knee Jorge 1or 2V IMPRESSION: No acute osseous findings Electronically signed by: Sammy Vuong MD 08/06/2025 12:00 PM EST
[2025-08-06 08:21] VITALS: BP 160/92; PULSE 62; RESP 20; TEMP 36.6; O2SAT 99; BMI 25.5
--- NOTE | 2025-08-06 08:21 | ED.GENADULT ---
HPI - General Adult General Chief complaint: Extremity Problem Stated complaint: CHRONIC KNEE PAIN PER EMS Time Seen by Provider: 08/06/25 08:17 Source: patient and family ( at bedside) Mode of arrival: EMS Limitations: language barrier (Hungarian-speaking) History of Present Illness ED Provider: IJEOMA Bush HPI narrative: 69-year-old male with medical history of osteoarthritis of bilateral knees, depression, iron deficiency anemia, hepatocellular carcinoma, GERD, presents to the ED due to chronic bilateral knee pain, concerns of being out of his medications for pain management and sleep for the past month. Patient reports history of osteoarthritis of knees, on chart review, patient sees [facility] and received cortisone injection in B/L knees on March of 2025. Patient states since he has been out of his medication he has been experiencing sharp stabbing pain that is worse in the right knee. Patient has not taken any prescribed or OTC medications for analgesia today. Denies fevers, chills, chest pain, shortness of breath, abdominal pain, nausea, vomiting, diarrhea, black/tarry stools, dizziness, lightheadedness MD complaint: Chronic osteoarthritis of bilateral knees Related Data Home Medications ?Medication ?Instructions ?Recorded ?Confirmed polysaccharide iron complex 150 mg 150 mg PO DAILY 06/12/25 06/18/25 iron capsule pyridoxine (vitamin B6) 50 mg 50 mg PO DAILY 06/12/25 06/18/25 tablet thiamine HCl (vitamin B1) 100 mg 100 mg PO DAILY 06/12/25 06/18/25 tablet tizanidine 4 mg tablet 2 mg PO TID 06/12/25 06/18/25 Previous Rx's ?Medication ?Instructions ?Recorded blood pressure monitor #1 ea 01/21/22 Blood pressure monitor #1 ea 08/02/24 walker #1 ea 05/31/25 Reusable bed pad #2 ea 06/04/25 carvedilol 3.125 mg tablet 3.125 mg PO BID #60 tabs 06/15/25 amlodipine 10 mg tablet 10 mg PO DAILY #90 tabs 06/16/25 blood pressure test kit-large #1 ea 06/20/25 disposable bed pads #200 ea 06/20/25 gabapentin 100 mg capsule 100 mg PO TID 30 days #90 caps 06/20/25 mens brief 5x per day #1 ea 06/20/25 mirtazapine 7.5 mg tablet 7.5 mg PO BEDTIME #30 tabs 06/20/25 omeprazole 40 mg capsule,delayed 40 mg PO DAILY@0630 #90 caps 06/20/25 release sucralfate 1 gram tablet 1 g PO BID #180 tabs 06/20/25 trazodone 50 mg tablet 50 mg PO BEDTIME #30 tabs 06/20/25 Transfer bench #1 ea 06/22/25 disposable gloves #200 ea 06/22/25 lisinopril 10 mg tablet 10 mg PO DAILY #90 tabs 06/22/25 shower chair #1 ea 07/20/25 peg 3350-electrolytes 236 240 ml PO Q10M #4,000 mL 07/23/25 gram-22.74 gram-6.74 gram-5.86 gram solution (Golytely) disposable bed pads #120 ea 08/06/25 adult diapers #240 ea 08/06/25 Allergies Allergy/AdvReac Type Severity Reaction Status Date / Time No Known Allergies (No Known Allergy Verified 08/06/25 08:26 Allergies*) Review of Systems Review of Systems: Yes all other systems are reviewed and are negative PMFSH Past Medical History Attestation statement: The following information was validated with the patient. Source: old records reviewed, obtained from family ( at bedside corroborating history) and nursing notes reviewed Medical History Esophageal varices in alcoholic cirrhosis Anemia Hypertension History of alcohol abuse Vitamin D deficiency Erectile dysfunction Depression Chronic pain Chronic anemia Insomnia Hepatocellular carcinoma Neuropathy involving both lower extremities Liver cirrhosis Hepatitis C Common cold Lower back pain Surgical History History of tooth extraction Hx of colonoscopy (~10/29/23) History of breast lump/mass excision History of ankle surgery History of appendectomy History of open reduction and internal fixation (ORIF) procedure Family History Family History Father Prostate cancer Mother Diabetes Stroke Social History Social History Household Members: None Housing: Apartment Are you a primary day care supervisor to a significant other at home: No Do you presently have visiting nurse or other home services: Yes Alcohol intake: former Patient Tobacco Use Status: Former Tobacco user Tobacco use type: Cigarette e-Cigarette/Vaping Use: Never Used Second Hand Smoke Exposure: No Advance Directives Date on File: 08/06/25 service: No Current occupational status: disabled Cognitive needs: Yes (cane) Hearing needs: No Vision needs: Yes (glasses) Physical Exam ED Vital Signs: Vital Signs - 24 hr 08/06/25 08:21 08/06/25 12:32 08/06/25 13:15 Temperature 97.9 F 97.8 F Pulse Rate 62 57 57 Respiratory Rate 20 14 Blood Pressure 160/92 H 175/77 H 175/77 H Pulse Oximetry 99 97 97 Oxygen Delivery Method Room Air 08/06/25 14:27 Temperature 98.5 F Pulse Rate 62 Respiratory Rate 20 Blood Pressure 147/70 H Pulse Oximetry 99 Oxygen Delivery Method Room Air BMI result Body Mass Index 25.5 GENERAL APPEARANCE: ?AxOx4, nontoxic appearing, no acute distress. HEENT: ?NC, AT. MMM. EOMI, clear conjunctiva, oropharynx clear. NECK: ?Supple without lymphadenopathy.? No stiffness or restricted ROM. HEART:? Normal rate and regular rhythm, normal S1/S2, no m/r/g LUNGS:? CTAB, moving air well. No crackles or wheezes are heard. ABDOMEN: ?Soft, nontender, nondistended with good bowel sounds heard. BACK: No CVAT, no obvious deformity. EXTREMITIES: ?Without cyanosis, clubbing or edema. TTP of B/L knees over both the lateral and medial aspects, no warmth, edema, or erythema noted, no ecchymosis, or anatomical abnormalities palpated or observed. Full ROM intact, however patient does have more pain when ranging the right knee especially when in extension but is able to do so without any difficulty. NEUROLOGICAL: ?Grossly nonfocal. Alert and oriented, moving all 4 extremities. Skin: ?Warm and dry without any rash. Medications Administered Discontinued Medications Generic Name Dose Route Start Last Admin Trade Name Freq PRN Reason Stop Dose Admin Acetaminophen 975 mg 08/06/25 09:04 08/06/25 09:44 Acetaminophen 325 Mg Tablet PO 08/06/25 09:05 975 mg ONCE ONE Administration Medical Decision Making Medical Decision Making [facility] Narrative: 69-year-old male with medical history of osteoarthritis of bilateral knees, depression, iron deficiency anemia, hepatocellular carcinoma, GERD, HTN presents to the ED due to chronic bilateral knee pain, concerns of being out of his medications for pain management and sleep for the past month. Patient reports history of osteoarthritis of knees, on chart review, patient sees [facility] orthopedic group and received cortisone injection in B/L knees on March of 2025. Patient states since he has been out of his medication he has been experiencing sharp stabbing pain that is worse in the right knee. Patient denies any recent fall, trauma or injury. VS on initial observation-BP 160/92, pulse rate of 62, respiratory rate of 20, afebrile with oral temp of 97.9?, O2 saturation 99% on room air. On physical exam patient is nontoxic appearing, in no acute distress, lungs clear to auscultation bilaterally, cardiac exam reveals normal rate and rhythm without murmurs/rubs/gallops, lower extremities without edema, there is no warmth, erythema of bilateral knees. Full ROM intact, no anatomical abnormalities palpated or observed. XR bilateral knees negative for fracture, dislocation On chart review patient follows [facility] orthopedic group. Patient was seen in office with [facility] on 03/27/2025 and received 2 steroid injections in the knees, and was supposed to follow up with the office 3 months after for additional evaluation and/or additional injections for osteoarthritis but did not follow back up with the office. Bilateral knees without edema, erythema, warmth, full ROM intact, patient afebrile less likely septic arthritis, gout, cellulitis. Patient denies any falls, trauma or injury. Pain is most likely due to exacerbation of osteoarthritis of bilateral knees, patient received steroid injections 12 weeks ago and is due for repeat injections. Patient was requesting a prescription for tramadol however this is an inappropriate medication for him as he has history of GI bleed, anemia and esophageal varices due to alcohol use disorder. I ordered PT eval since the patient is unable to ambulate over the last month with negative knee x-rays. PT recommended short-term rehab to help with overall functional mobility and pain management however patient is declining placement and would like to go home as he has a BRICK DROPPER who can assist him at home. Case management is arranging [facility] and physical therapy at home. I counseled patient that Tylenol and steroid injections are most appropriate for him for pain management. Patient and his are in agreement of plan. Differential Diagnosis Differential Diagnoses: The differential diagnosis associated with the presentation includes Septic arthritis Joint effusion Gout Cellulitis Osteoarthritis Lab Data Labs: Lab Results 08/06/25 Range/Units 11:53 COVID-19 (JUDY) Negative (Negative) COVID-19 Clin Com See Note Independent Interpretation I performed an independent interpretation of an: Plain X-Ray Interpretation: I personally interpreted the bilateral knee x-ray which was negative for fracture, dislocation, I agree with the radiologist's interpretation Radiology Impression Discussion of test interpretation with radiology: I have reviewed the radiologist's reading. Radiologist Impression: XR B/L knee FINDINGS: Left knee: Anatomic alignment. No acute fracture or dislocation. No significant effusion. No abnormal soft tissue calcification. Right knee: Alignment is anatomic. Joint spaces are maintained. No acute fracture or dislocation. Trace suprapatellar joint fluid. No abnormal soft tissue calcification. XR/XR Knee Jorge 1or 2V IMPRESSION: No acute osseous findings Electronically signed by: Sammy Vuong MD 08/06/2025 12:00 PM [facility] Dictated By: Sammy Vuong MD Signed By: <Electronically signed by Sammy Vuong MD in OV> 08/06/25 1200 Independent Historian Clinical information obtained from an independent historian. History obtained from or confirmed by: Other (Significant other) External Record Review External record reviewed: Inpatient record, Office record, Outpatient record and Prior outpatient labs Chronic Conditions Patient?s care impacted by: Hypertension, Cancer (History of hepatocellular carcinoma) and Other (osteoarthritis of bilateral knees, depression, iron deficiency anemia, hepatocellular carcinoma, GERD) Social Determinants Patient?s care significantly limited by Social Determinants of Health including: Other Social Determinant of Health Discharge Plan Discharge Clinical Impression: Osteoarthritis of knees, bilateral Qualifiers: Osteoarthritis type: primary Qualified Code(s): M17.0 - Bilateral primary osteoarthritis of knee Patient Disposition: Home, Self-Care Additional Instructions: You were evaluated in the ED today due to chronic bilateral knee pain. There was no significant warmth, swelling or redness to your knees. You received cortisone injections in your knees in March with a [facility] orthopedic group which gave you relief. You are due for more injections. You were seen by Physical therapy who recommended short-term rehab stay for overall functional mobility, and pain management however you declined this and wanted to be discharged home as you have a daily BRICK DROPPER for help. You manage pain at home please take 500 mg of Tylenol every 6 hours. You questioned a prescription for tramadol however this medication isn't appropriate for you due to your history of abdominal bleeding, and esophageal varices from alcohol use disorder. Please follow up with the [facility] orthopedic group as I believe the steroid injections will help manage your pain. Their phone number is [phone] please call their office to make an appointment. Please return to the emergency department if you experience fevers over 100.4?, worsening pain, redness, warmth to the area, or swelling to the area, fevers, chest pain, shortness of breath or any new/worsening/concerning symptoms. Prescriptions: No Action (DME) Blood pressure monitor See Rx Instructions .Route .MEDSUPPLY Qty: 1 0RF Rx Instructions: As directed (DME) walker Misc See Rx Instructions .Route Qty: 1 0RF Rx Instructions: As directed (DME) Reusable bed pad See Rx Instructions .Route .MEDSUPPLY Qty: 2 5RF Rx Instructions: As directed amlodipine 10 mg tablet 10 mg PO DAILY Qty: 90 1RF Protocol: Hold for SBP< HOLD for SBP < : 90 (DME) blood pressure test kit-large Kit See Rx Instructions .ROUTE DIRECTED Qty: 1 0RF Rx Instructions: As directed (DME) disposable bed pads See Rx Instructions .Route .MEDSUPPLY Qty: 200 0RF Rx Instructions: As directed gabapentin 100 mg capsule 100 mg PO TID 30 Days Qty: 90 0RF (DME) mens brief 5x per day large See Rx Instructions .Route .MEDSUPPLY Qty: 1 0RF Rx Instructions: As directed mirtazapine 7.5 mg tablet 7.5 mg PO BEDTIME Qty: 30 1RF omeprazole 40 mg capsule,delayed release(DR/EC) 40 mg PO DAILY@0630 Qty: 90 1RF sucralfate 1 gram tablet 1 g PO BID Qty: 180 0RF trazodone 50 mg tablet 50 mg PO BEDTIME Qty: 30 0RF (DME) disposable gloves Misc See Rx Instructions .Route Qty: 200 11RF Rx Instructions: As directed lisinopril 10 mg tablet 10 mg PO DAILY Qty: 90 1RF Protocol: Hold for SBP< HOLD for SBP < : 90 (DME) Transfer bench See Rx Instructions .Route .MEDSUPPLY Qty: 1 0RF Rx Instructions: As directed (DME) shower chair See Rx Instructions .Route .MEDSUPPLY Qty: 1 0RF Rx Instructions: As directed (DME) disposable bed pads See Rx Instructions .Route .MEDSUPPLY Qty: 120 11RF Rx Instructions: As directed (DME) adult diapers large See Rx Instructions .Route .MEDSUPPLY Qty: 240 11RF Rx Instructions: As directed tizanidine 4 mg tablet 2 mg PO TID polysaccharide iron complex 150 mg iron capsule 150 mg PO DAILY thiamine HCl (vitamin B1) 100 mg tablet 100 mg PO DAILY pyridoxine (vitamin B6) 50 mg tablet 50 mg PO DAILY carvedilol 3.125 mg Tablet 3.125 mg PO BID Qty: 60 0RF Protocol: Hold for SBP/HR < HOLD for SBP < : 90 HOLD for HR < : 60 (DME) blood pressure monitor Kit See Rx Instructions .Route Qty: 1 0RF Rx Instructions: As directed peg 3350-electrolytes [Golytely] 236-22.74-6.74 -5.86 gram recon soln 240 ml PO Q10M Qty: 4000 0RF Rx Instructions: until fecal effluent is clear Referrals: Paz HERNANDEZ [Outside] Adam Newell MD [Primary Care Provider, Internal Medicine] Print Language: Hungarian
[2025-08-06 12:11] LABS: COVID-19 Test Negative (Negative); IDNOW Serial# 6674DD1D
[2025-08-06 12:32] VITALS: BP 175/77; PULSE 57; RESP 14; TEMP 36.6; O2SAT 97
[2025-08-06 13:15] VITALS: BP 175/77; PULSE 57; O2SAT 97
[2025-08-06 14:27] VITALS: BP 147/70; PULSE 62; RESP 20; TEMP 36.9; O2SAT 99
--- NOTE | 2025-08-06 14:42 | MHC.CM.ED ---
Received case management consult from Radha CAMARGO. Patient came to ER due to knee pain. Physical therapy eval completed. Short term rehab is recommended. Met with patient and hotel [employer] floorperson. Patient declning STR at this time. Requesting to return home with VNA. Patient was active with [facility] in the past[facility] Jitendra MOSQUEDA booked for 5pm. Med [facility] with chart. Patient, Silvia ALCALA and Radha CAMARGO aware. Continue to monitor for d/c needs.
[2025-08-06 16:56] VITALS: BP 147/70; PULSE 62; RESP 18; TEMP 36.9; O2SAT 99
== END 2025-08-06 16:58 | disposition home or self-care (01) ==
PROVIDERS: Emergency Provider Emergency Medicine; PCP Internal Medicine
DX: M17.0 Bilateral primary osteoarthritis of knee (principal); Z03.818 Encounter for observation for suspected exposure to other biological agents ruled out; I10 Essential (primary) hypertension; Z87.891 Personal history of nicotine dependence
CPT/HCPCS: 73560; 87635; 97162; 99283

== ENCOUNTER → 2025-08-06 11:13 | Outpatient (BNV) | payer OTHER, SELFPAY | PROVIDERS: Emergency Provider Emergency Medicine; PCP Internal Medicine; Visit Provider Radiology Diagnostic Ultrasound | DX: M25.561 Pain in right knee (principal); M25.562 Pain in left knee | CPT/HCPCS: 73560 ==

== ENCOUNTER 2025-09-05 07:42 | Outpatient (AMB) | payer OTHER, SELFPAY ==
[2025-09-05 07:49] VITALS: BMI 25.5
--- NOTE | 2025-09-05 07:49 | MHC.OFFVIS ---
Vital Signs 09/05/25 07:49 Height 5 ft 5 in Weight 153 lb BMI 25.5 Intake Visit Reasons: INJ- B/L knee inj Last 03/27/25 Intake Note: Jose Armando is a 69 year old male who presents with complaints of bilateral knee pains. He describes his knee pains as sharp in nature. He has had cortisone injections in the past which gave him fairly good relief. He wishes to hold off on surgery if at all possible. He does take Tylenol as needed which gives him mild relief. 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 Language: [place] Allergies No Known Allergies (No Known Allergies*) Allergy (Verified 09/05/25 07:49) Medication List - Last Reconciled 09/05/25 by Taiwo Shen MD [disposable bed pads As directed] [adult diapers As directed] amlodipine 10 mg See Protocol PO DAILY blood pressure monitor As directed [Blood pressure monitor As directed] blood pressure test kit-large As directed carvedilol 3.125 mg See Protocol PO BID [disposable bed pads As directed] disposable gloves As directed gabapentin 100 mg PO TID 30 days lisinopril 10 mg See Protocol PO DAILY [mens brief 5x per day As directed] mirtazapine 7.5 mg PO BEDTIME omeprazole 40 mg PO DAILY@0630 peg 3350-electrolytes 236-22.74-6.74 -5.86 gram (Golytely) 240 mL PO Q10M polysaccharide iron complex 150 mg PO DAILY pyridoxine (vitamin B6) 50 mg PO DAILY [Reusable bed pad As directed] [shower chair As directed] sucralfate 1 g PO BID thiamine HCl (vitamin B1) 100 mg PO DAILY tizanidine 2 mg (1/2 x 4 mg) PO TID tramadol 50 mg PO BID PRN [Transfer bench As directed] trazodone 50 mg PO BEDTIME walker As directed [facility] Medical History Esophageal varices in alcoholic cirrhosis Anemia Hypertension History of alcohol abuse Vitamin D deficiency Erectile dysfunction Depression Chronic pain Chronic anemia Insomnia Hepatocellular carcinoma Neuropathy involving both lower extremities Liver cirrhosis Hepatitis C Common cold Lower back pain Surgical History History of tooth extraction Hx of colonoscopy (~10/29/23) History of breast lump/mass excision History of ankle surgery History of appendectomy History of open reduction and internal fixation (ORIF) procedure Family History Father Prostate cancer Mother Diabetes Stroke Social History Household Members: None Housing: Apartment Are you a primary day care supervisor to a significant other at home: No Do you presently have visiting nurse or other home services: Yes Alcohol intake: former Patient Tobacco Use Status: Former Tobacco user Tobacco use type: Cigarette e-Cigarette/Vaping Use: Never Used Second Hand Smoke Exposure: No Advance Directives Date on File: 08/06/25 service: No Current occupational status: disabled Cognitive needs: Yes (cane) Hearing needs: No Vision needs: Yes (glasses) Physical Exam Vital Signs: BMI result Body Mass Index 25.5 Extrem Other: Bilateral knee examination shows minimal effusions, palpable crepitus with range of motion, pain with range of motion, no instability Office Procedures AMB Joint Injection/Aspiration Joint Injection/Aspiration Primary Site: Right Knee Prep: site was prepped using aseptic technique Injected: 40 mg of, DepoMedrol, with 3 mL of and 1% plain Lidocaine Procedure: The patient tolerated the procedure well Coding 54431 - Large joint Procedure code (CPT) selection complete AMB Joint Injection/Aspiration Joint Injection/Aspiration Primary Site: Left Knee Prep: site was prepped using aseptic technique Injected: 40 mg of, DepoMedrol, with 3 mL of and 1% plain Lidocaine Procedure: The patient tolerated the procedure well Coding 00105 - Large joint Procedure code (CPT) selection complete Results Reviewed Results Reviewed: X-rays of the patient's bilateral knee show joint space narrowing, subchondral sclerosis, no acute bony abnormalities Assessment & Plan Assessment & Plan (1) Osteoarthritis of left knee: Code(s): M17.12 - Unilateral primary osteoarthritis, left knee Category: Medical (2) Osteoarthritis of right knee: Code(s): M17.11 - Unilateral primary osteoarthritis, right knee Category: Medical Plan Mr. Campbell presents with bilateral knee pains due to osteoarthritis. The risks and benefits of bilateral knee cortisone injections were discussed at length with the patient. The patient wished to proceed. He tolerated the injections well. He will continue with his home exercise program. He will contact me prior to his follow-up appointment in 3 months should any questions or concerns arise. Feel free to call me at any time should questions regarding his orthopedic management arise. I spent 22 minutes in reviewing the patient's records and imaging studies, seeing the patient and documenting in the medical record. Orders: Orders AMB Joint Injection/Aspiration Today M17.11 - Unilateral primary osteoarthritis, right knee AMB Joint Injection/Aspiration Today M17.12 - Unilateral primary osteoarthritis, left knee Coding Level of Care Code Est Pt Level 3 (53052) Complex visit Add On G2211 Diagnoses Osteoarthritis of left knee M17.12 Osteoarthritis of right knee M17.11 CPT Codes Coding - 00175 Large joint: 37834 - Large joint ([id number]) Coding - 75104 Large joint: 17244 - Large joint ([id number])
== END 2025-09-05 08:35 | disposition home or self-care (01) ==
LOC: HO.HOS 07:42
PROVIDERS: PCP Internal Medicine; Visit Provider Orthopaedic Surgery
DX: M17.0 Bilateral primary osteoarthritis of knee (principal); M17.11 Unilateral primary osteoarthritis, right knee
CPT/HCPCS: 20610; 99213

== ENCOUNTER → 2025-09-05 07:42 | Outpatient (BNVA) | payer OTHER, SELFPAY | PROVIDERS: PCP Internal Medicine; Visit Provider Orthopaedic Surgery | DX: M17.0 Bilateral primary osteoarthritis of knee (principal) | CPT/HCPCS: 20610; 99212; J1010; J2003 ==